=== PATIENT | female | born 1970 | race Caucasian/White ===

== ENCOUNTER 2018-05-05 16:11 | Inpatient (IN) ==
[2018-05-05] MEDS ORDERED: IOPAMIDOL 100 ML BOTTLE IV ONE (16:12)
[2018-05-05] MEDS ORDERED: 0.9 % SODIUM CHLORIDE 1,000 ML IV ONE (16:17)
--- NOTE | 2018-05-05 16:21 | Emergency Department Note ---
Abdominal Pain HPI - General Chief Complaint: Abdominal Pain Stated Complaint: abdominal pain Time Seen by Provider: 05/05/18 16:18 Source: patient Mode of arrival: ambulatory Limitations: no limitations - History of Present Illness HPI Narrative: This patient has a very large hernia above the umbilicus that is incarcerated. She has had pain in this area since 7 AM she is now about 10 hours. She was planning to have surgery on this in June and also a tummy tuck since she is lost 220 pounds after bariatric surgery. She has had nausea and vomiting today and no passage of gas. - Related Data Home Medications Medication Instructions Recorded Confirmed Albuterol Sulfate [Ventolin] 1 puff INH Q4HP PRN 07/01/15 03/06/17 Atorvastatin [Lipitor] 20 mg PO HS 07/01/15 03/06/17 Diltiazem HCl [Diltiazem ER] 240 mg PO HS 07/01/15 03/06/17 Hydrocodone/APAP 7.5/325Mg [[place] 1 - 2 tab PO Q4HP PRN 07/01/15 03/06/17 7.5/325Mg] Levothyroxine [Synthroid] 100 mcg PO DAILY 07/01/15 03/06/17 Meloxicam [Mobic] 15 mg PO QDAY 07/01/15 03/06/17 Sertraline [Zoloft] 100 mg PO HS 07/01/15 03/06/17 Warfarin [Coumadin] 15 mg PO DAILY 07/01/15 03/06/17 oxyCODONE [OxyCONTIN] 10 mg PO Q6 PRN 07/01/15 03/06/17 clonazepam 1 mg tablet 1 mg PO QHS 03/06/17 03/06/17 Allergies Allergy/AdvReac Type Severity Reaction Status Date / Time naproxen [NAPROXEN] Allergy Unknown ANGIOEDEMA Verified 05/05/18 16:14 Review of Systems All systems ED: reviewed and negative except as stated. Abdominal Pain PMH - Past Medical History Medical history: Reports: arthritis, asthma, atrial fibrillation, COPD, DVT, migraine, thyroid disease, other (Psoriasis) Surgical history ED: Reports: bariatric surgery Psychiatric history: Reports: anxiety - Social History Smoking status: Current every day smoker Physical Exam Abdomen just above the umbilicus shows about a 4 cm hernia that is very tender and protruding by at least 4 cm as well. Cannot begin to push it back in due to pain. Limitations: no limitations General appearance: alert Eye: Present: normal appearance ENT: normal exam Neck: Present: normal inspection Chest: Present: normal inspection Respiratory: Present: normal lung sounds bilaterally Abdominal: Present: soft, tenderness, mass, hernia Neurological: Present: alert Psychiatric: Present: normal affect Skin: Present: warm, dry, intact Course Vital Signs Temperature 98.3 F 05/05/18 16:11 Pulse Rate 130 H 05/05/18 16:11 Respiratory Rate 20 05/05/18 16:11 Pulse Oximetry (%) 99 05/05/18 16:11 Temperature 98.3 F 05/05/18 16:11 Pulse Rate 114 H 05/05/18 17:25 Respiratory Rate 19 05/05/18 17:55 Blood Pressure 129/92 05/05/18 17:30 Pulse Oximetry (%) 91 05/05/18 17:25 Abdominal Pain - MDM Narrative Medical decision making narrative: This patient has an 8 cm umbilical hernia that is mesenteric fat no edema. She will be admitted to the hospital for Dr. Freeman. - Lab Data Lab results reviewed: Yes I reviewed the patient's lab results. Result diagrams: 05/05/18 16:15 05/05/18 16:15 Lab Results 05/05/18 05/05/18 Range/Units 16:15 16:15 WBC 8.5 (4.5-11.0) K/mcL RBC 4.97 (4.00-5.20) M/mcL Hgb 14.3 (12.0-15.0) g/dL Hct 43.2 (36.0-48.0) % MCV 86.9 (80.0-100.0) fL MCH 28.8 (26.0-34.0) pg MCHC 33.1 (31.0-36.0) g/dL RDW 22.6 H (11.5-14.5) % Plt Count 342 (140-440) K/mcL MPV 8.2 (7.4-10.4) fL Gran % 83.4 H (38.0-78.0) % Lymph % (Auto) 10.6 L (15.5-49.0) % [place] % (Auto) 5.4 (1.0-12.0) % Eos % (Auto) 0.3 (0.0-7.0) % Baso % (Auto) 0.3 (0.0-2.0) % Gran # 7.1 (1.8-8.0) K/mcL Lymph # (Auto) 0.9 L (1.5-4.8) K/mcL [place] # (Auto) 0.5 (0.1-0.9) K/mcL Eos # (Auto) 0 (0.0-0.7) K/mcL Baso # (Auto) 0 (0.0-0.3) K/mcL Sodium 137 (133-145) mmol/L Potassium 4.0 (3.3-5.1) mmol/L Chloride 97 (96-108) mmol/L Carbon Dioxide 28 (22-30) mmol/L Anion Gap 12.0 (8-16) BUN 8 (6-20) mg/dl Creatinine 0.7 (0.6-1.1) mg/dl GFR Calculation 103 Glucose 101 (70-105) mg/dL Calcium 9.6 (8.6-10.4) mg/dl Total Bilirubin 0.5 (0.0-1.0) mg/dL AST 16 (0-37) U/l ALT 10 (0-40) U/l Alkaline Phosphatase 89 (39-117) U/L Total Protein 7.3 (5.9-8.4) gm/dL Albumin 4.3 (3.2-5.2) gm/dL Globulin 3.0 (2.2-3.7) gm/dL Albumin/Globulin Ratio 1.4 (1.0-2.3) - Radiology Data Radiology results reviewed: Yes I reviewed the patient's radiology results. Disposition Pt seen by SWITCH COUPLER/PA only: No Clinical Impression: Incarcerated umbilical hernia Disposition: Xfer As Outpt/Obs ([facility]) Condition: Good Referrals: Beverly Nguyen ARNP [Primary Care Provider] - Time of Disposition: 18:45
[2018-05-05] MEDS ORDERED: ONDANSETRON 4 MG/2 ML VIAL IV ONE (16:23)
[2018-05-05] MEDS: HYDROmorphone 2 MG/ML VIAL IV PRN ×3 (16:30→20:47)
[2018-05-05 16:58] LABS: Basophils # (Auto) 0 K/mcL (0.0-0.3); Basophils % (Auto) 0.3 % (0.0-2.0); Eosinophils # (Auto) 0 K/mcL (0.0-0.7); Eosinophils % (Auto) 0.3 % (0.0-7.0); Granulocytes % (Auto) 83.4 % (38.0-78.0); Lymphocytes # (Auto) 0.9 K/mcL (1.5-4.8); Lymphocytes % (Auto) 10.6 % (15.5-49.0); Mean Cell Volume 86.9 fL (80.0-100.0); Mean Corpuscular HGB Conc 33.1 g/dL (31.0-36.0); Mean Corpuscular Hemoglobin 28.8 pg (26.0-34.0); Monocytes # (Auto) 0.5 K/mcL (0.1-0.9); Monocytes % (Auto) 5.4 % (1.0-12.0); Platelet Count 342 K/mcL (140-440); RBC 4.97 M/mcL (4.00-5.20); Red Cell Distribution Width 22.6 % (11.5-14.5)
[2018-05-05 17:17] LABS: ALT/SGPT 10 U/l (0-40); Albumin 4.3 gm/dL (3.2-5.2); Albumin/Globulin Ratio 1.4 (1.0-2.3); Alkaline Phosphatase 89 U/L (39-117); Blood Urea Nitrogen 8 mg/dl (6-20)
--- NOTE | 2018-05-05 18:38 | Cat Scan Report ---
CLINICAL INFORMATION: Incarcerated umbilical hernia COMPARISON: 04/01/[address] TECHNIQUE: Following enteric contrast, 80 cc of Isovue-300 were injected intravenously, and 60 seconds later, 0.625 mm helical slices were obtained from the mid heart through the subtrochanteric regions. Following reconstruction, 2.5 mm sagittal, coronal and axial reformatted images were processed and reviewed at bone, lung and soft tissue windows. Five minutes later, 0.625 mm helical slices were obtained from the mid heart through the kidneys and viewed at soft tissue windows.The exam was performed using radiation dose optimization techniques including, but not limited to, automated exposure control, adjustment of the mA and/or kV according to patient size and use of iterative reconstruction technique. FINDINGS: Lung bases show minimal scattered scarring or atelectasis. No marcel infiltrate or effusion. Visualized heart is borderline enlarged. A small hiatal hernia is noted. There are surgical clips along the hernia sac and the proximal gastric wall. Images of the abdomen show multiple stones packing the gallbladder - as previously seen. Gallbladder is otherwise normal no wall thickening is cholecystitis. Intrahepatic and common bile ducts are normal caliber CBD is 5 mm. The liver, both kidneys, adrenal glands, spleen, pancreas and aorta are normal in size configuration and attenuation without focal lesion. Images through the pelvis show moderately enlarged, anteflexed uterus spanning 10 x 5 cm. Endometrium is 14 mm. Urinary bladder is unremarkable. Region of both ovaries is normal. There are multiple sigmoid diverticuli, but no evidence of diverticulitis. The remainder of the colon, appendix and small bowel are normal. A large periumbilical hernia is increased in size now spanning 8.3 cm. The hernia contains a moderate amount of fluid which could indicate incarceration/strangulation. There is no bowel within the hernia sac. Bone windows show degenerative change in lower lumbar spine IMPRESSION: 1. Enlarging 8 cm periumbilical hernia containing only mesenteric fat and moderate fluid. This could indicate inflammation or ischemia. 2. Cholelithiasis. Gallbladder and bile ducts are otherwise normal 3. Small hiatal hernia 4. Moderate uterine enlargement. The most common cause of this finding would be adenomyosis. Endometrium is normal thickness for a menstruating woman. If the patient is postmenopausal, then the endometrium should be considered pathologically thickened. Consider pelvic ultrasound. 5. Sigmoid diverticulosis but no evidence of diverticulitis Interpreted and Authenticated by: Angus Evans 05/05/18
[2018-05-05] MEDS ORDERED: LACTATED RINGERS 1,000 ML IV ONE (18:41)
[2018-05-05] MEDS ORDERED: ONDANSETRON 4 MG/2 ML VIAL IV PRN (18:45)
[2018-05-05 19:14] LABS: Appearance,Urine HAZY; Bacteria,Urine 0 /hpf (0); Bilirubin,Urine NEG (NEG); Color,Urine YELLOW; Glucose,Urine (UA) NEGATIVE (NEG); Leukocyte Esterase,Urine NEG /uL (NEG); Protein,Urine 100 mg/dL (NEG); Specific Gravity,Urine 1.023 (1.000-1.035); Urine Blood NEG mg/dL (<0.03); Urine RBC < 1 /hpf (0-1); Urine Squamous Epithelial Cell 0 /hpf (0-4); Urine WBC 0 /hpf (0-4)
[2018-05-05] MEDS ORDERED: LEVOFLOXACIN 750 MG/150 ML BAG IV ONE (20:58)
[2018-05-05] MEDS: 0.9 % SODIUM CHLORIDE 1,000 ML IV SCH (21:01)
[2018-05-05] MEDS: DILTIAZEM 240 MG CAP.XL.24H PO SCH (22:18)
[2018-05-05] MEDS: PANTOPRAZOLE 40 MG VIAL IV SCH (22:18)
[2018-05-05] MEDS: SERTRALINE 100 MG TABLET PO SCH (22:18)
[2018-05-05] MEDS: clonazePAM 1 MG TABLET PO SCH (22:18)
[2018-05-06] MEDS: HYDROmorphone 2 MG/ML VIAL IV PRN ×6 (04:21→22:11)
[2018-05-06] MEDS: 0.9 % SODIUM CHLORIDE 1,000 ML IV SCH ×3 (04:27→17:44)
[2018-05-06 06:10] LABS: HCG,Serum NEGATIVE <10 (<10 mIU/ml)
[2018-05-06] MEDS: DILTIAZEM 240 MG CAP.XL.24H PO SCH ×2 (09:04→22:13)
[2018-05-06] MEDS ORDERED: 0.9 % SODIUM CHLORIDE 250 ML IV SCH (10:00)
[2018-05-06] MEDS: PHYTONADIONE 10 MG/ML AMPUL SQ SCH ×2 (10:24→22:14)
--- NOTE | 2018-05-06 12:26 | General Surg History&Physical ---
History of Present Illness Patient information: Note initiated : 05/06/18 at 12:24 pm Service Date, if different from initiated Date: [] Patient: Estela Man 47 y/o F admitted on 05/05/18 for Open Incarcerated Incisional Hernia Repair. Chief Complaint: [47-year-old female with history of umbilical hernia for about 6 years. It has enlarged more over the past year. The patient awakened yesterday with a firm mass in her umbilical area. She was having severe pain and was seen in the emergency room where was noted that she had an incarcerated mass at the level of the umbilicus. CT of abdomen confirmed that the mass was incarcerated omentum without evidence of visceral involvement. The patient was also noted to have extensive cholelithiasis with gallbladder packed with stones. She is status post gastric sleeve surgery in 2014 and she has lost 220 pounds. The patient is on Coumadin chronically for chronic atrial fibrillation. Her PT is 20 seconds with an INR of 1.8. She will need to have urgent surgery but we will need to correct her INR prior to the surgery. She is counseled for laparoscopic cholecystectomy followed by partial omentectomy with open umbilical hernia repair with mesh.] HPI: Ms. Man is a 47 year old F Review of Systems - Constitutional headache(s), night sweats, weight loss - EENT Nose, mouth and throat: neck pain, vertigo - Breasts no mass, no swelling - Cardiovascular dyspnea on exertion, irregular heart rhythm, palpatations, rapid heart rate - Respiratory cough, dyspnea on exertion, snoring - Gastrointestinal abdominal pain, cramping, heartburn, nausea, no vomiting - Genitourinary Genitourinary: post void dribbling, urinary incontinence, urinary urgency - Musculoskeletal back pain, neck pain - Integumentary other (chronic abdominal panniculitis), no new lesions, no non-healing lesions, no pruritus - Neurological headache(s), no confusion, no dizziness, no loss of vision, no tremor(s) - Psychiatric change in appetite, no anxiety, no depression - Endocrine palpitations, no fatigue - Hematologic/Lymphatic no easy bleeding, no easy bruising, no lymphadenopathy - Allergic/Immunologic no tongue swelling, no throat swelling, no uticaria, no wheezing, no lip swelling Past History Past medical history: Chronic obstructive lung disease Anxiety disorder Chronic atrial fibrillation Chronic Coumadin therapy Chronic panniculitis Degenerative disc disease Past surgical history: Gastric sleeve surgery with revision Past family history: Father 57 due to complications of hepatitis C Mother age 40 due to drug overdose 4 siblings without chronic medical illness Past social history: Single 1 child There is a smoker up to 1 pack per day Occasional whiskey use Employed Medications and Allergies Home Medications Medication Instructions Recorded Confirmed Type Albuterol Sulfate [Ventolin] 1 puff INH Q4HP PRN 07/01/15 05/05/18 History Diltiazem HCl [Diltiazem ER] 240 mg PO HS 07/01/15 05/05/18 History Hydrocodone/APAP 7.5/325Mg [[place] 1 - 2 tab PO Q4HP PRN 07/01/15 05/05/18 History 7.5/325Mg] Levothyroxine [Synthroid] 100 mcg PO DAILY 07/01/15 05/05/18 History Meloxicam [Mobic] 15 mg PO QDAY 07/01/15 05/05/18 History Sertraline [Zoloft] 100 mg PO HS 07/01/15 05/05/18 History Warfarin [Coumadin] 15 mg PO DAILY 07/01/15 05/05/18 History oxyCODONE [OxyCONTIN] 10 mg PO Q6 PRN 07/01/15 05/05/18 History clonazepam 1 mg tablet 1 mg PO QHS 03/06/17 05/05/18 History Omeprazole [Prilosec] 20 mg PO ONCE 05/05/18 05/05/18 History Allergies Allergy/AdvReac Type Severity Reaction Status Date / Time naproxen [NAPROXEN] Allergy Severe ANGIOEDEMA Verified 05/05/18 20:16 Exam Temp Pulse Resp BP Pulse Ox 98.5 F 106 H 16 145/79 95 05/06/18 11:05 05/06/18 04:10 05/06/18 11:05 05/06/18 11:05 05/06/18 11:05 - General physical appearance well developed, well nourished, moderate distress, moderate pain, other ( overweight but with evidence of major weight loss with redundant skin) - Eyes PERRL, normal ocular movement - ENT normal pinna, normal nares, normal mucosa, no hearing loss, no congestion - Head Head exam IM: Present: atraumatic, normocephalic - Neck no masses, no bruits, trachea midline, no lymphadenopathy, no venous distension - Cardiovascular Cardiovascular exam IM: Present: irregular rhythm, +S1, +S2. Absent: JVD - Respiratory normal expansion, normal respiratory effort, clear to auscultation - Abdomen Abdomen: Present: soft, tender (tender subcutaneous mass at umbilicus without erythema or induration of overlying skin), bowel sounds (active bowel sounds without borborygmi), masses Hernia: Present: umbilical (large incarcerated umbilical hernia) - Genitourinary Present: normal external genitalia - Integumentary Present: no rash, no growths, no abnormal pigmentation - Neurologic Present: normal coordination, normal sensation - Musculoskeletal Present: normal gait, normal posture - Psychiatric Present: oriented to time, oriented to person, oriented to place, speech is normal, memory intact Assessment and Plan (1) Incarcerated umbilical hernia Counseled for umbilical hernia repair tomorrow after correction of pro time and INR Status: Acute (2) Cholelithiasis and cholecystitis without obstruction Counseled for laparoscopic cholecystectomy to be done tomorrow after correction of pro time and INR Status: Acute (3) Anticoagulant long-term use Discontinue warfarin Vitamin K 10 mg subcutaneous Fresh frozen plasma 2 units now Check PT INR in the a.m. Status: Acute (4) Anxiety disorder Continue home medications postoperatively Status: Acute Qualifiers: Anxiety disorder type: generalized anxiety disorder Qualified Code(s): F41.1 - Generalized anxiety disorder (5) Chronic atrial fibrillation Status: Chronic
[2018-05-06] MEDS ORDERED: ALBUTEROL SULFATE 1 PUFF INHALER INH PRN (16:39)
[2018-05-06] MEDS: LEVOFLOXACIN 750 MG/150 ML BAG IV SCH (17:12)
--- NOTE | 2018-05-06 19:24 | XRay Report ---
HISTORY: Preop to repair of an incisional hernia FINDINGS: The heart is moderately enlarged. The pulmonary outflow tract is engorged. There is mild pulmonary vascular congestion. The cardiomegaly is unchanged from 2014. Pulmonary edema was present on the prior exam. No pleural effusion or consolidating infiltrate are present. There is also no evidence of a mass. IMPRESSION: Chronic cardiomegaly with mild pulmonary vascular congestion Interpreted and Authenticated by: Sourav Gimenez 05/06/18
[2018-05-06] MEDS ORDERED: DILTIAZEM HCL 240 MG PO SCH (21:00)
[2018-05-06] MEDS ORDERED: clonazePAM 1 MG TABLET PO SCH (21:00)
[2018-05-06] MEDS ORDERED: SERTRALINE 100 MG TABLET PO SCH (21:00)
[2018-05-06] MEDS: PANTOPRAZOLE 40 MG VIAL IV SCH (22:13)
[2018-05-06] MEDS: clonazePAM 1 MG TABLET PO SCH (22:14)
[2018-05-06] MEDS: SERTRALINE 100 MG TABLET PO SCH (22:14)
[2018-05-07] MEDS: 0.9 % SODIUM CHLORIDE 1,000 ML IV SCH ×4 (00:20→21:01)
[2018-05-07] MEDS: HYDROmorphone 2 MG/ML VIAL IV PRN ×6 (00:29→21:15)
[2018-05-07] MEDS ORDERED: LEVOTHYROXINE 100 MCG TABLET PO SCH (07:30)
[2018-05-07] MEDS: LEVOFLOXACIN 750 MG/150 ML BAG IV SCH (09:34)
[2018-05-07] MEDS: DILTIAZEM 240 MG CAP.XL.24H PO SCH ×2 (11:17→22:40)
[2018-05-07] MEDS ORDERED: fentaNYL 250 MCG/5 ML VIAL IV ONE (14:35)
[2018-05-07] MEDS ORDERED: LIDOCAINE HCL/PF 100 MG/5 ML SYRINGE IV ONE (14:35)
[2018-05-07] MEDS ORDERED: KETAMINE 100 MG/ML ML IV ONE (14:35)
[2018-05-07] MEDS ORDERED: MIDAZOLAM 2 MG/2 ML VIAL IV ONE (14:35)
[2018-05-07] MEDS ORDERED: PROPOFOL 200 MG/20 ML VIAL IV ONE (14:35)
[2018-05-07] MEDS ORDERED: SUCCINYLCHOLINE 20 MG/ML ML IV ONE (14:35)
[2018-05-07] MEDS ORDERED: ROCURONIUM 10 MG/ML ML IV ONE (14:35)
[2018-05-07] MEDS ORDERED: ONDANSETRON 4 MG/2 ML VIAL IV ONE (14:35)
[2018-05-07] MEDS ORDERED: ePHEDrine 50 MG/ML AMPUL IV ONE (14:35)
[2018-05-07] MEDS ORDERED: DEXAMETHASONE 10 MG/ML VIAL IV ONE (14:35)
[2018-05-07] MEDS ORDERED: NALOXONE HCL 0.4 MG/ML VIAL IV PRN (15:55)
[2018-05-07] MEDS ORDERED: PROMETHAZINE 25 MG/ML VIAL IM PRN (15:55)
[2018-05-07] MEDS ORDERED: FLUMAZENIL 0.1 MG/ML ML IV PRN (15:55)
[2018-05-07] MEDS ORDERED: IPRATROPIUM/ALBUTEROL 3 ML AMPUL.NEB NEB PRN (15:55)
[2018-05-07] MEDS ORDERED: diphenhydrAMINE 50 MG/ML VIAL IV PRN (15:55)
[2018-05-07] MEDS ORDERED: MEPERIDINE 50 MG/ML INJECTION IM PRN (15:55)
[2018-05-07] MEDS ORDERED: METHOCARBAMOL 1,000 MG/10 ML VIAL IV PRN (15:55)
[2018-05-07] MEDS ORDERED: METOPROLOL TARTRATE 5 MG/5 ML VIAL IV PRN (15:55)
[2018-05-07] MEDS ORDERED: MEPERIDINE 25 MG/ML SYRINGE IV PRN (15:55)
[2018-05-07] MEDS ORDERED: ATROPINE SULFATE 0.4 MG/ML VIAL IV PRN (15:55)
[2018-05-07] MEDS ORDERED: ONDANSETRON 4 MG/2 ML VIAL IV PRN ×2 (15:55→17:44)
[2018-05-07] MEDS ORDERED: PROMETHAZINE 25 MG/ML VIAL IV PRN (15:55)
[2018-05-07] MEDS ORDERED: HYDROmorphone 2 MG/ML VIAL IV PRN (15:55)
[2018-05-07] MEDS ORDERED: ACETAMINOPHEN 1,000 MG/100 ML BOTTLE IV ONE (15:55)
[2018-05-07] MEDS ORDERED: ePHEDrine 50 MG/ML AMPUL IV PRN (15:55)
[2018-05-07] MEDS ORDERED: LACTATED RINGERS 1,000 ML IV SCH (16:00)
[2018-05-07] MEDS ORDERED: BACITRACIN 50,000 UNIT VIAL IR ONE (16:20)
--- NOTE | 2018-05-07 17:23 | Brief Operative Note ---
Date of procedure: 05/07/18 Pre-op diagnosis: chronic cholecystitis with cholelithiasis;; incarcerated incisional hernia Post-op diagnosis: same Procedure: laparoscopic cholecystectomy incisional hernia repair with mesh graft partial omentectomy Grafts/Implants: Yes (surgimesh) Anesthesia: GETA Findings: ACUTE AND CHRONIC INFLAMMATION OF GALLBLADDER WITH NUMEROUS STONES UMBILICAL HERNIA WITH STRANGULATED OMENTUM Complications: none Surgeon: Quirino Freeman Estimated blood loss (cc): 50 Specimens Removed/Pathology: other (GALLBLADDER;OMENTUM) Condition: stable Disposition: PACU
[2018-05-07] MEDS: fentaNYL 100 MCG/2 ML VIAL IV PRN ×2 (17:37→17:48)
[2018-05-07] MEDS ORDERED: ALBUTEROL SULFATE 1 PUFF INHALER INH PRN (17:44)
[2018-05-07] MEDS ORDERED: DILTIAZEM 240 MG CAP.XL.24H PO SCH (21:00)
[2018-05-07] MEDS: PANTOPRAZOLE 40 MG VIAL IV SCH (22:39)
[2018-05-07] MEDS: SERTRALINE 100 MG TABLET PO SCH (22:39)
[2018-05-07] MEDS: clonazePAM 1 MG TABLET PO SCH (22:40)
[2018-05-07] MEDS: ACETAMINOPHEN 1,000 MG/100 ML BOTTLE IV PRN (22:41)
[2018-05-08] MEDS: HYDROmorphone 2 MG/ML VIAL IV PRN ×7 (00:14→20:53)
[2018-05-08] MEDS: ACETAMINOPHEN 1,000 MG/100 ML BOTTLE IV PRN ×2 (05:25→12:49)
[2018-05-08 06:42] LABS: ALT/SGPT 20 U/l (0-40); Albumin 3.3 gm/dL (3.2-5.2); Albumin/Globulin Ratio 1.2 (1.0-2.3); Alkaline Phosphatase 64 U/L (39-117); Bilirubin,Direct < 0.2 mg/dL (0.0-0.3); Blood Urea Nitrogen 5 mg/dl (6-20); Gamma Glutamyl Transpeptidase 27 U/L (5-36); Uric Acid 2.2 mg/dL (2.5-8.0)
[2018-05-08 06:47] LABS: Basophils # (Auto) 0 K/mcL (0.0-0.3); Basophils % (Auto) 0 % (0.0-2.0); Eosinophils # (Auto) 0 K/mcL (0.0-0.7); Eosinophils % (Auto) 0 % (0.0-7.0); Granulocytes % (Auto) 92.3 % (38.0-78.0); Lymphocytes # (Auto) 0.3 K/mcL (1.5-4.8); Mean Cell Volume 88.8 fL (80.0-100.0); Mean Corpuscular HGB Conc 32.7 g/dL (31.0-36.0); Mean Corpuscular Hemoglobin 29.1 pg (26.0-34.0); Monocytes # (Auto) 0.4 K/mcL (0.1-0.9); Monocytes % (Auto) 4.7 % (1.0-12.0); Platelet Count 219 K/mcL (140-440); RBC 3.71 M/mcL (4.00-5.20); Red Cell Distribution Width 20.7 % (11.5-14.5)
[2018-05-08] MEDS: LEVOTHYROXINE 100 MCG TABLET PO SCH (08:13)
[2018-05-08] MEDS: LEVOFLOXACIN 750 MG/150 ML BAG IV SCH (08:13)
[2018-05-08] MEDS: 0.9 % SODIUM CHLORIDE 1,000 ML IV SCH (12:43)
--- NOTE | 2018-05-08 14:10 | General Surgery Progress Note ---
Subjective Patient reports: feels better, still having pain, pain is less, tolerating liquids well, flatus, no bowel movement, afebrile Narrative: Note initiated : 05/08/18 at 2:08 pm Service Date, if different from initiated Date: [] Patient: Estela Man 47 y/o F admitted on 05/05/18 for Laparoscopic cholecystectomy with umbilical hernia. Chief Complaint: [patient is stable. She complains of diffuse pain in her abdomen and her joints. She states that the pain medication is not effective but she is getting Dilaudid 1 mg every 2 hours. She's had flatus and she tolerated her full liquids without difficulty. She is voiding without difficulty. She denies nausea or vomiting.] Objective Temp Pulse Resp BP Pulse Ox 98.6 F 87 18 106/63 98 05/08/18 12:00 05/08/18 12:00 05/08/18 12:00 05/08/18 12:00 05/08/18 12:00 - Additional Data Intake & Output - Last 24 hours: Intake & Output 05/06/18 05/07/18 05/08/18 05/09/18 05:59 05:59 05:59 05:59 Intake Total 3200 / 3200 3091 / 3091 4960 / 4960 1250 / 1250 Output Total 525 / 525 1950 / 1950 900 / 900 500 / 500 Balance 2675 / 2675 1141 / 1141 4060 / 4060 750 / 750 Weight 190 lb 8 oz 190 lb 192 lb - General physical appearance well developed, well nourished, no distress, moderate pain - Eyes PERRL, normal ocular movement - ENT normal pinna, normal nares, normal mucosa, no hearing loss, no congestion - Neck no masses, no bruits, trachea midline, no lymphadenopathy, no venous distension - Respiratory normal expansion, normal respiratory effort, clear to auscultation - Cardiovascular Cardiovascular exam: Present: irregular rhythm, +S1, +S2. Absent: JVD, tachycardia - Abdomen tender (diffuse tenderness of abdomen more concentrated around the incisions;; active bowel sounds; mild bruising around port sites and upper abdomen) - Integumentary no rash, no growths, no abnormal pigmentation - Neurologic normal coordination, normal sensation - Musculoskeletal normal gait, normal posture - Psychiatric oriented to time, oriented to person, oriented to place, speech is normal, memory intact - Labs 05/08/18 04:54 05/08/18 04:54 Diabetes panel 05/08/18 Range/Units 04:54 Sodium 136 (133-145) mmol/L Potassium 3.8 (3.3-5.1) mmol/L Chloride 100 (96-108) mmol/L Carbon Dioxide 28 (22-30) mmol/L BUN 5 L (6-20) mg/dl Creatinine 0.5 L (0.6-1.1) mg/dl Glucose 147 H (70-105) mg/dL Calcium 8.7 (8.6-10.4) mg/dl AST 42 H (0-37) U/l ALT 20 (0-40) U/l Alkaline Phosphatase 64 (39-117) U/L Total Protein 6.0 (5.9-8.4) gm/dL Albumin 3.3 (3.2-5.2) gm/dL Triglycerides 46 (<150) mg/dl Calcium panel 05/08/18 Range/Units 04:54 Calcium 8.7 (8.6-10.4) mg/dl Phosphorus 3.7 (2.7-4.5) mg/dL Albumin 3.3 (3.2-5.2) gm/dL Pituitary panel 05/08/18 Range/Units 04:54 Sodium 136 (133-145) mmol/L Potassium 3.8 (3.3-5.1) mmol/L Chloride 100 (96-108) mmol/L Carbon Dioxide 28 (22-30) mmol/L BUN 5 L (6-20) mg/dl Creatinine 0.5 L (0.6-1.1) mg/dl Glucose 147 H (70-105) mg/dL Calcium 8.7 (8.6-10.4) mg/dl Adrenal panel 05/08/18 Range/Units 04:54 Sodium 136 (133-145) mmol/L Potassium 3.8 (3.3-5.1) mmol/L Chloride 100 (96-108) mmol/L Carbon Dioxide 28 (22-30) mmol/L BUN 5 L (6-20) mg/dl Creatinine 0.5 L (0.6-1.1) mg/dl Glucose 147 H (70-105) mg/dL Calcium 8.7 (8.6-10.4) mg/dl Total Bilirubin 0.7 (0.0-1.0) mg/dL AST 42 H (0-37) U/l ALT 20 (0-40) U/l Alkaline Phosphatase 64 (39-117) U/L Total Protein 6.0 (5.9-8.4) gm/dL Albumin 3.3 (3.2-5.2) gm/dL Assessment and Plan (1) Incarcerated umbilical hernia Status: Acute Assessment and plan: Advanced to regular diet Saline lock IV Current Visit: Yes (2) Cholelithiasis and cholecystitis without obstruction Status: Acute Current Visit: Yes (3) Anticoagulant long-term use Status: Acute Assessment and plan: Will hold for 2 more days Current Visit: Yes (4) Anxiety disorder Status: Acute Current Visit: Yes (5) Chronic atrial fibrillation Status: Chronic Assessment and plan: Stable without tachycardia Current Visit: Yes - Time Spent With Patient Total time spent is greater than 50% in coordination of care (as documented) at patient's floor/unit and/or counseling patient:
[2018-05-08] MEDS ORDERED: MAGNESIUM SULFATE IN WATER 4 GM/100 ML BAG IV ONE (17:00)
[2018-05-08] MEDS: DILTIAZEM 240 MG CAP.XL.24H PO SCH (20:52)
[2018-05-08] MEDS: clonazePAM 1 MG TABLET PO SCH (20:52)
[2018-05-08] MEDS: SERTRALINE 100 MG TABLET PO SCH (20:53)
[2018-05-08] MEDS: PANTOPRAZOLE 40 MG VIAL IV SCH (20:53)
[2018-05-08] MEDS: 0.9 % SODIUM CHLORIDE 10 ML SYRINGE IV SCH (20:53)
[2018-05-09] MEDS: ACETAMINOPHEN 1,000 MG/100 ML BOTTLE IV PRN (00:16)
[2018-05-09] MEDS: HYDROmorphone 2 MG/ML VIAL IV PRN ×3 (00:50→07:21)
[2018-05-09] MEDS: 0.9 % SODIUM CHLORIDE 10 ML SYRINGE IV SCH ×2 (05:00→16:32)
[2018-05-09 06:02] LABS: Basophils # (Auto) 0 K/mcL (0.0-0.3); Basophils % (Auto) 0.1 % (0.0-2.0); Eosinophils # (Auto) 0 K/mcL (0.0-0.7); Eosinophils % (Auto) 0.2 % (0.0-7.0); Granulocytes % (Auto) 79.1 % (38.0-78.0); Lymphocytes % (Auto) 12.7 % (15.5-49.0); Mean Cell Volume 89.4 fL (80.0-100.0); Mean Corpuscular HGB Conc 32.3 g/dL (31.0-36.0); Mean Corpuscular Hemoglobin 28.8 pg (26.0-34.0); Monocytes # (Auto) 0.6 K/mcL (0.1-0.9); Monocytes % (Auto) 7.9 % (1.0-12.0); Platelet Count 206 K/mcL (140-440); RBC 3.31 M/mcL (4.00-5.20); Red Cell Distribution Width 21.1 % (11.5-14.5)
[2018-05-09 06:19] LABS: ALT/SGPT 17 U/l (0-40); Albumin/Globulin Ratio 1.2 (1.0-2.3); Alkaline Phosphatase 58 U/L (39-117); Bilirubin,Direct < 0.2 mg/dL (0.0-0.3); Blood Urea Nitrogen 8 mg/dl (6-20); Gamma Glutamyl Transpeptidase 23 U/L (5-36); Uric Acid 1.9 mg/dL (2.5-8.0)
[2018-05-09] MEDS: LEVOTHYROXINE 100 MCG TABLET PO SCH (07:09)
[2018-05-09] MEDS ORDERED: MAGNESIUM HYDROXIDE 30 ML ORAL.SUSP PO PRN (08:54)
[2018-05-09] MEDS ORDERED: POTASSIUM PHOSPHATE 40 MEQ in DEXTROSE 5% IN WATER 500 ML IV ONE (09:00)
[2018-05-09] MEDS: LEVOFLOXACIN 750 MG/150 ML BAG IV SCH (10:53)
[2018-05-09] MEDS: oxyCODONE/APAP 10/325MG TABLET PO PRN ×2 (11:00→12:23)
--- NOTE | 2018-05-09 12:17 | General Surgery Progress Note ---
Subjective Patient reports: feels better, still having pain, pain is less, tolerating a regular diet, flatus, no bowel movement, afebrile Narrative: Note initiated : 05/09/18 at 12:15 pm Service Date, if different from initiated Date: [] Patient: Estela Man 47 y/o F admitted on 05/05/18 for Laparoscopic cholecystectomy with umbilical hernia. Chief Complaint: [patient is improved. Her incisional pain is better tolerated. She is tolerating diet without difficulty. She does not have any nausea.. Her incisions are unremarkable.] Objective Temp Pulse Resp BP Pulse Ox 96.5 F L 72 14 128/59 96 05/09/18 07:49 05/09/18 07:49 05/09/18 07:49 05/09/18 07:49 05/09/18 07:49 - Additional Data Intake & Output - Last 24 hours: Intake & Output 05/07/18 05/08/18 05/09/18 05/10/18 05:59 05:59 05:59 05:59 Intake Total 3091 / 3091 4960 / 4960 3090 / 3090 Output Total 1950 / 1950 900 / 900 1300 / 1300 150 / 150 Balance 1141 / 1141 4060 / 4060 1790 / 1790 -150 / -150 Weight 190 lb 192 lb 192 lb - General physical appearance well developed, well nourished, no distress - Eyes PERRL, normal ocular movement - ENT normal pinna, normal nares, normal mucosa, no hearing loss, no congestion - Neck no masses, no bruits, trachea midline, no lymphadenopathy, no venous distension - Respiratory normal expansion, normal respiratory effort, clear to auscultation - Cardiovascular Cardiovascular exam: Present: irregular rhythm, +S1, +S2. Absent: tachycardia - Abdomen tender (ttender incision but otherwise unremarkable exam; good active bowel sounds), bowel sounds (present), surgical scars (none), masses (none) - Integumentary no rash, no growths, no abnormal pigmentation - Neurologic normal coordination, normal sensation - Musculoskeletal normal gait, normal posture - Psychiatric oriented to time, oriented to person, oriented to place, speech is normal, memory intact - Labs 05/09/18 04:58 05/09/18 04:58 Diabetes panel 05/09/18 Range/Units 04:58 Sodium 139 (133-145) mmol/L Potassium 3.4 (3.3-5.1) mmol/L Chloride 101 (96-108) mmol/L Carbon Dioxide 31 H (22-30) mmol/L BUN 8 (6-20) mg/dl Creatinine 0.5 L (0.6-1.1) mg/dl Glucose 102 (70-105) mg/dL Calcium 8.1 L (8.6-10.4) mg/dl AST 24 (0-37) U/l ALT 17 (0-40) U/l Alkaline Phosphatase 58 (39-117) U/L Total Protein 5.5 L (5.9-8.4) gm/dL Albumin 3.0 L (3.2-5.2) gm/dL Triglycerides 63 (<150) mg/dl Calcium panel 05/09/18 Range/Units 04:58 Calcium 8.1 L (8.6-10.4) mg/dl Phosphorus 2.3 L (2.7-4.5) mg/dL Albumin 3.0 L (3.2-5.2) gm/dL Pituitary panel 05/09/18 Range/Units 04:58 Sodium 139 (133-145) mmol/L Potassium 3.4 (3.3-5.1) mmol/L Chloride 101 (96-108) mmol/L Carbon Dioxide 31 H (22-30) mmol/L BUN 8 (6-20) mg/dl Creatinine 0.5 L (0.6-1.1) mg/dl Glucose 102 (70-105) mg/dL Calcium 8.1 L (8.6-10.4) mg/dl Adrenal panel 05/09/18 Range/Units 04:58 Sodium 139 (133-145) mmol/L Potassium 3.4 (3.3-5.1) mmol/L Chloride 101 (96-108) mmol/L Carbon Dioxide 31 H (22-30) mmol/L BUN 8 (6-20) mg/dl Creatinine 0.5 L (0.6-1.1) mg/dl Glucose 102 (70-105) mg/dL Calcium 8.1 L (8.6-10.4) mg/dl Total Bilirubin 0.2 (0.0-1.0) mg/dL AST 24 (0-37) U/l ALT 17 (0-40) U/l Alkaline Phosphatase 58 (39-117) U/L Total Protein 5.5 L (5.9-8.4) gm/dL Albumin 3.0 L (3.2-5.2) gm/dL Assessment and Plan (1) Incarcerated umbilical hernia Status: Acute Assessment and plan: Stable for discharge Current Visit: Yes (2) Cholelithiasis and cholecystitis without obstruction Status: Acute Current Visit: Yes (3) Anticoagulant long-term use Status: Acute Assessment and plan: Advised Coumadin for 1 more week Current Visit: Yes (4) Anxiety disorder Status: Acute Current Visit: Yes (5) Chronic atrial fibrillation Status: Chronic Assessment and plan: Stable without tachycardia Current Visit: Yes - Time Spent With Patient Total time spent is greater than 50% in coordination of care (as documented) at patient's floor/unit and/or counseling patient:
--- NOTE | 2018-05-09 12:23 | Discharge Summary ---
Providers - Providers Patient information: Note initiated : 05/09/18 at 12:18 pm Service Date, if different from initiated Date: [] Patient: Estela Man 47 y/o F admitted on 05/05/18 for Laparoscopic cholecystectomy with umbilical hernia. Chief Complaint: [] Date of admission: 05/05/18 Discharge date: 05/09/18 Attending physician: Quirino Freeman Hospitalization Hospital course: 47-year-old female was admitted with an incarcerated umbilical hernia which contained omental fat. She had been on Coumadin 15 mg per day so her surgery was delayed. She received 2 units of fresh frozen plasma and 10 mg of vitamin K subcutaneous. Follow-up PT/INR was susceptible and on 07 May a laparoscopic cholecystectomy was done along with partial omentectomy and repair of ventral hernia with mesh. Patient has remained stable except for pain and it is felt that she can be safely discharged home. Since she has a controlled rhythm and rate her Coumadin will be held for 7 more days because of the high potential for bleeding. After 7 days it can be restarted at her preoperative dose Discharge diagnosis: incarcerated, strangulated umbilical hernia Secondary discharge diagnosis: Cholelithiasis with cholecystitis Chronic anticoagulant therapy Chronic atrial fibrillation Reason for admission: incarcerated umbilical hernia Procedures: Umbilical hernia repair with mesh Partial omentectomy Laparoscopic cholecystectomy Pertinent studies/significant findings: CT of abdomen and pelvis with contrast Complications: None Exam Temp Pulse Resp BP Pulse Ox 96.5 F L 72 14 128/59 96 05/09/18 07:49 05/09/18 07:49 05/09/18 07:49 05/09/18 07:49 05/09/18 07:49 - General physical appearance well developed, well nourished, no distress - Eyes PERRL, normal ocular movement - ENT normal pinna, normal nares, normal mucosa, no hearing loss, no congestion - Head Head exam IM: Present: atraumatic, normocephalic - Neck no masses, no bruits, trachea midline, no lymphadenopathy, no venous distension - Cardiovascular Cardiovascular exam IM: Present: normal rate and rhythm - Respiratory normal expansion, normal respiratory effort, clear to percussion, clear to auscultation - Abdomen Abdomen: Present: soft, tender (moderate tenderness of all incisions with ecchymosis of upper incisions and midline incision), bowel sounds Hernia: Present: none - Genitourinary Present: normal external genitalia - Integumentary Present: no rash, no growths, no abnormal pigmentation - Neurologic Present: normal coordination, normal sensation - Musculoskeletal Present: normal gait, normal posture - Psychiatric Present: oriented to time, oriented to person, oriented to place, speech is normal, memory intact Discharge Plan - Patient/Caregiver Discharge Instructions Activity: increase activity as tolerated Diet: Regular Diet Additional Instructions: Hold Coumadin for 7 more days then start at previous dose Follow-up in the office in 2 weeks Prescriptions: oxyCODONE/APAP [Percocet 10-325Mg] 1 - 2 tab PO Q4-6HP PRN #60 tab PRN Reason: Pain Level 3-6 - Follow up Plan Follow up with: Beverly Nguyen ARNP [Primary Care Provider] - Disposition: Home, Self-Care Prognosis: Good Rehab Potential: Good I certify that the patient requires SNF services.: No Overall status at discharge: patient is not back to baseline Pending Studies Resuscitation Status Full Code Diet Regular Diet Start SunMay 08 135 Clonazepam (Klonopin) 1 mg PO [facility] Last Admin: 05/08/18 20:52 Dose: 1 mg Admin: 05/07/18 22:40 Dose: Diltiazem HCl (Cardizem Cd) 240 mg PO [facility] Last Admin: 05/08/18 20:52 Dose: 240 mg Admin: 05/07/18 22:40 Dose: 240 mg Hydromorphone HCl (Dilaudid) 1 mg IV Q2HP PRN PRN Reason: PAIN LEVEL > 6 Last Admin: 05/09/18 07:21 Dose: 1 mg Admin: 05/09/18 03:17 Dose: 1 mg Admin: 05/09/18 00:50 Dose: 1 mg Admin: 05/08/18 20:53 Dose: 1 mg Admin: 05/08/18 18:30 Dose: 1 mg Admin: 05/08/18 16:09 Dose: 1 mg Admin: 05/08/18 11:58 Dose: 1 mg Admin: 05/08/18 08:29 Dose: 1 mg Admin: 05/08/18 03:15 Dose: 1 mg Admin: 05/08/18 00:14 Dose: 1 mg Admin: 05/07/18 21:15 Dose: 1 mg Levofloxacin (Levaquin) 750 mg in 150 mls @ 100 mls/hr IV DAILY [facility] [place] Last Admin: 05/09/18 10:53 Dose: 100 mls/hr Infusion: 05/08/18 12:44 Dose: 0 mls/hr Admin: 05/08/18 08:13 Dose: 100 mls/hr Acetaminophen (Ofirmev) 1,000 mg in 100 mls @ 200 mls/hr IV Q6HP PRN PRN Reason: Pain Last Infusion: 05/09/18 00:50 Dose: 0 mls/hr Admin: 05/09/18 00:16 Dose: 200 mls/hr Infusion: 05/08/18 16:02 Dose: 0 mls/hr Admin: 05/08/18 12:49 Dose: 200 mls/hr Infusion: 05/08/18 06:08 Dose: 0 mls/hr Admin: 05/08/18 05:25 Dose: 200 mls/hr Infusion: 05/07/18 23:15 Dose: 0 mls/hr Admin: 05/07/18 22:41 Dose: 200 mls/hr Levothyroxine Sodium (Synthroid) 100 mcg PO QAMAC [facility] Last Admin: 05/09/18 07:09 Dose: 100 mcg Admin: 05/08/18 08:13 Dose: 100 mcg Oxycodone/Acetaminophen (Percocet 10-325mg) 1 - 2 tab PO Q4-6HP PRN PRN Reason: PAIN LEVEL 3-6 Last Admin: 05/09/18 11:00 Dose: 1 tab Pantoprazole Sodium (Protonix) 40 mg IV QHS [facility] [place] Last Admin: 05/08/18 20:53 Dose: 40 mg Admin: 05/07/18 22:39 Dose: 40 mg Sertraline HCl (Zoloft) 100 mg PO HS [facility] Last Admin: 05/08/18 20:53 Dose: 100 mg Admin: 05/07/18 22:39 Dose: 100 mg Sodium Chloride (Saline Flush) 10 ml IV Q8 [facility] Last Admin: 05/09/18 05:00 Dose: 10 ml Admin: 05/08/18 20:53 Dose: 10 ml Shift Summary 05/09/18 05:12 Shift Summary by Jonelle Landon&Ox4. VSS. Up independently in room. Tolerating regular diet; denies nausea. 4 lap sites and 1 midline abdominal surgical site with edu and Tegaderm in place. Administered Ofirmev x1 and Dilaudid 1mg IV x3 for abdominal pain. Will update at bedside. Initialized on 05/09/18 05:12 - END OF NOTE
--- NOTE | 2018-05-09 14:16 | Surgical Pathology Report ---
HISTOLOGY SPECIMEN MICROSCOPIC DIAGNOSIS SPECIMEN A - GALLBLADDER, CHOLECYSTECTOMY: -- CHRONIC CHOLECYSTITIS. -- CHOLELITHIASIS. SPECIMEN B - SOFT TISSUE AND OMENTUM, OMENTECTOMY AND HERNIORRHAPHY: -- HERNIA SAC. -- OMENTUM WITH PARENCHYMAL HEMORRHAGE. (DMT:adj) PROCEDURAL IMPRESSION Cholecystitis; cholelithiasis; incarcerated hernia. GROSS DESCRIPTION Specimen A: Received in formalin labeled gallbladder, is a lora-wright gallbladder, it is 14.7 x 4.7 x 3.2 cm. There is a metal clip upon the duct. Wedged within the duct, there is a 0.9 cm stone. The specimen contains multiple stones from 0.4 to 0.9 cm. The specimen contains viscous green fluid. The mucosa is green, striated. The wall is up to 0.2 cm thick. Shaft Repairer sections are submitted in one cassette. Specimen B: Received in formalin labeled omentum, are two pieces of tissue. The first is a lora-wright membranous fragment, it is 8.5 x 5 x 1.2 cm. Cut surfaces are pink-wright. The second is a wright-brown segment of omentum, it is 21.1 x 11.5 x 2.2 cm. Cut surfaces are wright to wright-brown and a few areas of clot identified. Shaft Repairer sections are submitted in three cassettes: sections from first in B1 and the second in B2-B3. (SCB:fish) Electronically Signed by: Herson Pedersen M.D.
--- NOTE | 2018-05-14 15:20 | Operative Note ---
DATE OF OPERATION: 05/07/2018 PREOPERATIVE DIAGNOSES: 1. Chronic cholecystitis with cholelithiasis. 2. Incarcerated incisional hernia. POSTOPERATIVE DIAGNOSES: 1. Chronic cholecystitis with cholelithiasis. 2. Incarcerated incisional hernia with infarcted omentum. PROCEDURE: 1. Laparoscopic cholecystectomy. 2. Partial omentectomy. 3. Incisional hernia repair with mesh graft. SURGEON: Quirino Freeman M.D. FINDINGS: Acute and chronic inflammation of the gallbladder with numerous stones and umbilical hernia with strangulated omentum. DESCRIPTION OF PROCEDURE: Under general anesthesia, the patient's abdomen was prepped and draped in a sterile field. Timeout procedure was carried out as per protocol. A supraumbilical midline incision was made above the area of the swelling from the large umbilical hernia. A Veress needle was inserted and successful cannulation of the peritoneal cavity was carried out. Abdomen was insufflated with 3 liters of CO2. A 12 mm port was placed uneventfully. Laparoscope placed. Dilated, thickened gallbladder was noted. Under videoscopic guidance, a 12 mm port and two 5 mm ports were placed in the right subcostal region. The gallbladder was grasped in position. The patient was positioned in reverse Trendelenburg position and rotated to the left. Cystic duct and cystic artery branches were dissected and followed back to the gallbladder. Cystic duct was very thickened and indurated, so it was transected using the MOI endoscopic stapler. Cystic artery branches were clipped with four clips each and divided. The gallbladder was then from the infrahepatic bed using electrocautery. The gallbladder was placed in an Endopouch and retrieved. The patient tolerated the procedure well. Irrigation was carried out. There was no need for a drain. The ports were removed. After completion of the cholecystectomy, a midline incision was made encompassing the large mass in the midline at the umbilicus. A large hernia sac was encountered. It was very indurated, thickened, and edematous. The sac was circumferentially dissected and was then incised at its junction with the fascia. Some old blood escaped from the sac. It was removed in its entirety. There was a large volume of infarcted omentum. The infarcted omentum was serially clamped with Josette clamps and excised. The tissue was controlled with ties of 2-0 silk. The residual omentum was pushed back into the peritoneal cavity. Dissection of the peritoneum was carried out, and a 7 round skirted Surgimesh graft was chosen. It was sutured in the preperitoneal space using interrupted 0 Prolene circumferentially. The graft was then closed in the midline using interrupted 0 Prolene on the fascia. Irrigation was carried out. The umbilical skin was sutured down to the fascia using multiple sutures of 2-0 Monocryl. The subcutaneous tissue was closed in two layers with 2-0 Monocryl. The skin was closed with edu. Tegaderm dressing was placed. The incision in the supraumbilical midline was closed with interrupted 0 Vicryl. All skin incisions were closed with edu. Tegaderm dressings were placed. The patient tolerated the procedure well. She was awakened, transferred to a bed, and taken to the postanesthetic care unit in stable, satisfactory condition. [email or web address] Job ID: [id number] Doc ID: [id number] Quirino Freeman M.D.
== END 2018-05-09 15:45 | disposition home or self-care (01) | DRG 354 ==
LOC: ED 16:11 → MEDSUR 19:35
PROVIDERS: ADMIT Family Medicine Adult Medicine; ATTEND Family Medicine Adult Medicine
CPT/HCPCS: 49255; 49561; 49568; 99223; C1781; J0131; J0330; J1100; J1170; J1956; J2001; J2175; J2250; J2405; J2550; J3010; J3430; J7030; J7050; J7060; J7120; L1270; Q9967

== ENCOUNTER 2018-08-07 15:45 | Inpatient (IN) ==
[2018-08-07] MEDS ORDERED: 0.9 % SODIUM CHLORIDE 1,000 ML IV ONE ×2 (15:53→17:37)
[2018-08-07] MEDS ORDERED: ACETAMINOPHEN 500 MG TABLET PO ONE (15:56)
--- NOTE | 2018-08-07 15:58 | Emergency Department Note ---
SOB HPI - General Chief Complaint: Shortness of Breath/Dyspnea Stated Complaint: Weakness, SOB, Temp, A-Fib Time Seen by Provider: 08/07/18 15:51 Source: patient Mode of arrival: ambulatory Limitations: no limitations - History of Present Illness This pleasant 47-year-old comes emergency room with complaint of fever and right kidney area flank pain that began around this morning. She had a temperature of 103 this morning checked by an ear thermometer. She has felt achy for a couple of days but she attributed this to not taking her meloxicam. She is also felt short of breath this a.m. She has a nebulizer but has not used it for quite a while. She uses a Ventolin metered-dose inhaler chronically and regularly daily but has not taken her steroid inhalers. She denies dysuria. She feels spasm like pain in the right flank area and it is hard to take a deep breath. She has no history of kidney stone or kidney infections. She has felt cold with chills and since arriving here broke into a severe sweat. REVIEW OF SYSTEMS: Denies chest pain or palpitations but has chronic A. fib. Some cough. No wheezing. She has had a change in her chronic low-grade mild phlegm to more amount of phlegm in the past 1-2 days, grayish yellow in color. Denies abdominal pain, nausea, vomiting, diarrhea, constipation, hematochezia, melena. Has chronic anxiety for which she takes sertraline. Denies depression. - Related Data Home Medications Medication Instructions Recorded Confirmed Albuterol Sulfate [Ventolin] 1 puff INH Q4HP PRN 07/01/15 06/13/18 Diltiazem HCl [Diltiazem ER] 240 mg PO HS 07/01/15 06/13/18 Hydrocodone/APAP 7.5/325Mg [[place] 1 - 2 tab PO Q4HP PRN 07/01/15 06/13/18 7.5/325Mg] Levothyroxine [Synthroid] 100 mcg PO DAILY 07/01/15 06/13/18 Meloxicam [Mobic] 15 mg PO QDAY 07/01/15 06/13/18 Sertraline [Zoloft] 100 mg PO HS 07/01/15 06/13/18 Warfarin [Coumadin] 15 mg PO DAILY 07/01/15 06/13/18 clonazepam 1 mg tablet 1 mg PO QHS 03/06/17 06/13/18 Omeprazole [Prilosec] 20 mg PO ONCE 05/05/18 06/13/18 Previous Rx's Medication Instructions Recorded oxyCODONE/APAP [Percocet 10-325Mg] 1 - 2 tab PO Q4-6HP PRN #60 tab 05/09/18 Promethazine HCl 12.5 mg PO Q6HP PRN #12 tab 05/16/18 oxyCODONE HCL/ACETAMINOPHEN 1 each PO Q4HP PRN #12 tab 05/16/18 [Percocet 10-325 mg Tablet] traMADol HCL [Ultram] 50 mg PO Q6HP PRN #15 tab 06/22/18 Allergies Allergy/AdvReac Type Severity Reaction Status Date / Time naproxen [NAPROXEN] Allergy Severe ANGIOEDEMA Verified 06/13/18 15:16 Past Medical History - Past Medical History Medical history: Reports: arthritis, asthma, atrial fibrillation, chronic anticoagulation, COPD, DVT (patient denies today 08-07-2018), migraine, obesity, thyroid disease, other (Psoriasis). Denies: cancer, CHF, coronary artery disease, CVA, DM, hyperlipidemia, hypertension, myocardial infarction, pneumonia, pulmonary embolus, renal disease, TIA Psychiatric history: Reports: anxiety. Denies: depression Surgical history ED: Reports: bariatric surgery, cholecystectomy, herniorrhaphy - Social History smoking status: Current every day smoker (3/4 pack/day) Alcohol use: Reports: Occasionally Drug use: Reports: none, marijuana (Occasional to rarely) Physical Exam Limitations: no limitations General appearance: alert, in no apparent distress Head: atraumatic, normocephalic Eye: Present: EOMI Neck: Present: trachea midline. Absent: lymphadenopathy, thyromegaly Chest: Present: symmetric chest wall rise Respiratory: Present: normal lung sounds bilaterally, other (Some sighing r espiration). Absent: respiratory distress, wheezes, stridor, accessory muscle use, prolonged expiratory phase Cardiovascular: Present: tachycardia, irregular rhythm. Absent: systolic murmur, diastolic murmur Abdominal: Present: soft, tenderness. Absent: distention, guarding, rebound, rigidity, organomegaly, mass Abdominal tenderness: Present: RUQ, mild Extremities: Absent: pedal edema, pretibial edema, calf tenderness Back: Present: CVA tenderness (R) (Moderate to severe to percussion). Absent: CVA tenderness (L), spinous process tenderness Neurological: Present: alert, oriented X3 Psychiatric: Present: normal affect, normal mood Skin: Present: warm, diaphoresis (Severe) Course Vital Signs Temperature 102.8 F H 08/07/18 15:47 Pulse Rate 152 H 08/07/18 15:47 Respiratory Rate 24 H 08/07/18 15:47 Blood Pressure 102/70 08/07/18 15:47 Pulse Oximetry (%) 94 08/07/18 15:47 Temperature 99.7 F H 08/07/18 17:20 Pulse Rate 122 H 08/07/18 17:20 Respiratory Rate 16 08/07/18 17:20 Blood Pressure 91/67 08/07/18 17:20 Pulse Oximetry (%) 90 08/07/18 17:20 Shortness of Breath/Dyspnea - [facility] Narrative Medical decision making narrative: 3:53 PM Patient presented with hypotension although she was talking and interacting well and appropriately. She was febrile. She was tachycardic with atrial fibrillation in the 135-140 range. 2 IVs were started, 1 large-bore and fluids wide open initiated. She was given acetaminophen. Labs were obtained including blood cultures. Antibiotics were ordered (ceftriaxone 2 g, azithromycin 500 milligrams). Chest x-ray demonstrated a right lower lobe pneumonia. Brady ca theter was placed and urine sent. It was fairly concentrated in appearance. Chart review demonstrates she has had a TSH just a few days ago that was unremarkable. Previous d-dimer of 2.87 on 05/16/18 is noted in her record but no CT scan was done at that time. I will consider doing a CT scan of her chest when she stabilizes. 4:45 PM approximately With Trendelenburg and fluids going her blood pressures went up into the 90s and occasional lower 100s. She started to feel some better. Diaphoresis improved/resolved. Sighing respirations were eliminated. 5:15 PM 3 L of fluid have been given. We will slow down her IV fluids and prepare for transfer after labs are here and with permission of hospitalist. 5:33 PM I spoke with hospitalist, Dr. Sutton, who kindly accepts this patient for i npatient management. - Lab Data Lab results reviewed: Yes I reviewed the patient's lab results. Result diagrams: 08/07/18 16:01 08/07/18 16:01 Lab Results 08/07/18 08/07/18 08/07/18 Range/Units 16:01 16:01 16:01 WBC 19.2 H (4.5-11.0) K/mcL RBC 4.21 (4.00-5.20) M/mcL Hgb 12.0 (12.0-15.0) g/dL Hct 36.4 (36.0-48.0) % MCV 86.4 (80.0-100.0) fL MCH 28.5 (26.0-34.0) pg MCHC 33.0 (31.0-36.0) g/dL RDW 18.8 H (11.5-14.5) % Plt Count 212 (140-440) K/mcL MPV 8.2 (7.4-10.4) fL Gran % 88.4 H (38.0-78.0) % Lymph % (Auto) 3.5 L (15.5-49.0) % Marshall % (Auto) 8.1 (1.0-12.0) % Eos % (Auto) 0 (0.0-7.0) % Baso % (Auto) 0 (0.0-2.0) % Gran # 16.9 H (1.8-8.0) K/mcL Lymph # (Auto) 0.7 L (1.5-4.8) K/mcL Marshall # (Auto) 1.6 H (0.1-0.9) K/mcL Eos # (Auto) 0 (0.0-0.7) K/mcL Baso # (Auto) 0 (0.0-0.3) K/mcL Differential Comment PT (11.9-14.5) sec INR (0.9-1.1) VBG Lactic Acid (0.5-2.0) mmol/L Sodium 135 (133-145) mmol/L Potassium 4.0 (3.3-5.1) mmol/L Chloride 99 (96-108) mmol/L Carbon Dioxide 26 (22-30) mmol/L Anion Gap 10.0 (8-16) BUN 15 (6-20) mg/dl Creatinine 0.7 (0.6-1.1) mg/dl GFR Calculation 103 Glucose 109 H (70-105) mg/dL Calcium 9.2 (8.6-10.4) mg/dl Total Bilirubin 0.9 (0.0-1.0) mg/dL AST 26 (0-37) U/l ALT 23 (0-40) U/l Alkaline Phosphatase 76 (39-117) U/L Troponin T (0-0.03) ng/ml C-Reactive Protein 9.5 H (0.0-0.8) mg/dl Total Protein 7.2 (5.9-8.4) gm/dL Albumin 4.1 (3.2-5.2) gm/dL Globulin 3.1 (2.2-3.7) gm/dL Albumin/Globulin Ratio 1.3 (1.0-2.3) Procalcitonin (<0.10) ng/mL TSH 0.33 (0.27-5.01) uIU/ml Urine Color Urine Appearance Urine pH (5.0-9.0) Ur Specific [place] (1.000-1.035) Urine Protein (NEG) mg/dL Urine Glucose (UA) (NEG) mg/dL Urine Ketones (NEG) mg/dL Urine Occult Blood (<0.03) mg/dL Urine Nitrate (NEG) Urine Bilirubin (NEG) mg/dL Urine Urobilinogen (NEG) mg/dL Ur Leukocyte Esterase (NEG) /uL Ur Culture Indicated? 08/07/18 08/07/18 08/07/18 Range/Units 16:02 16:03 16:03 WBC (4.5-11.0) K/mcL RBC (4.00-5.20) M/mcL Hgb (12.0-15.0) g/dL Hct (36.0-48.0) % MCV (80.0-100.0) fL MCH (26.0-34.0) pg MCHC (31.0-36.0) g/dL RDW (11.5-14.5) % Plt Count (140-440) K/mcL MPV (7.4-10.4) fL Gran % (38.0-78.0) % Lymph % (Auto) (15.5-49.0) % Marshall % (Auto) (1.0-12.0) % Eos % (Auto) (0.0-7.0) % Baso % (Auto) (0.0-2.0) % Gran # (1.8-8.0) K/mcL Lymph # (Auto) (1.5-4.8) K/mcL Marshall # (Auto) (0.1-0.9) K/mcL Eos # (Auto) (0.0-0.7) K/mcL Baso # (Auto) (0.0-0.3) K/mcL Differential Comment PT 26.9 H (11.9-14.5) sec INR 2.5 H (0.9-1.1) VBG Lactic Acid 1.6 (0.5-2.0) mmol/L Sodium (133-145) mmol/L Potassium (3.3-5.1) mmol/L Chloride (96-108) mmol/L Carbon Dioxide (22-30) mmol/L Anion Gap (8-16) BUN (6-20) mg/dl Creatinine (0.6-1.1) mg/dl GFR Calculation Glucose (70-105) mg/dL Calcium (8.6-10.4) mg/dl Total Bilirubin (0.0-1.0) mg/dL AST (0-37) U/l ALT (0-40) U/l Alkaline Phosphatase (39-117) U/L Troponin T < 0.01 (0-0.03) ng/ml C-Reactive Protein (0.0-0.8) mg/dl Total Protein (5.9-8.4) gm/dL Albumin (3.2-5.2) gm/dL Globulin (2.2-3.7) gm/dL Albumin/Globulin Ratio (1.0-2.3) Procalcitonin (<0.10) ng/mL TSH (0.27-5.01) uIU/ml Urine Color Urine Appearance Urine pH (5.0-9.0) Ur Specific [place] (1.000-1.035) Urine Protein (NEG) mg/dL Urine Glucose (UA) (NEG) mg/dL Urine Ketones (NEG) mg/dL Urine Occult Blood (<0.03) mg/dL Urine Nitrate (NEG) Urine Bilirubin (NEG) mg/dL Urine Urobilinogen (NEG) mg/dL Ur Leukocyte Esterase (NEG) /uL Ur Culture Indicated? 08/07/18 08/07/18 Range/Units 16:43 16:53 WBC (4.5-11.0) K/mcL RBC (4.00-5.20) M/mcL Hgb (12.0-15.0) g/dL Hct (36.0-48.0) % MCV (80.0-100.0) fL MCH (26.0-34.0) pg MCHC (31.0-36.0) g/dL RDW (11.5-14.5) % Plt Count (140-440) K/mcL MPV (7.4-10.4) fL Gran % (38.0-78.0) % Lymph % (Auto) (15.5-49.0) % Marshall % (Auto) (1.0-12.0) % Eos % (Auto) (0.0-7.0) % Baso % (Auto) (0.0-2.0) % Gran # (1.8-8.0) K/mcL Lymph # (Auto) (1.5-4.8) K/mcL Marshall # (Auto) (0.1-0.9) K/mcL Eos # (Auto) (0.0-0.7) K/mcL Baso # (Auto) (0.0-0.3) K/mcL Differential Comment PT (11.9-14.5) sec INR (0.9-1.1) VBG Lactic Acid (0.5-2.0) mmol/L Sodium (133-145) mmol/L Potassium (3.3-5.1) mmol/L Chloride (96-108) mmol/L Carbon Dioxide (22-30) mmol/L Anion Gap (8-16) BUN (6-20) mg/dl Creatinine (0.6-1.1) mg/dl GFR Calculation Glucose (70-105) mg/dL Calcium (8.6-10.4) mg/dl Total Bilirubin (0.0-1.0) mg/dL AST (0-37) U/l ALT (0-40) U/l Alkaline Phosphatase (39-117) U/L Troponin T (0-0.03) ng/ml C-Reactive Protein (0.0-0.8) mg/dl Total Protein (5.9-8.4) gm/dL Albumin (3.2-5.2) gm/dL Globulin (2.2-3.7) gm/dL Albumin/Globulin Ratio (1.0-2.3) Procalcitonin 0.44 (<0.10) ng/mL TSH (0.27-5.01) uIU/ml Urine Color Dottie Urine Appearance Hazy Urine pH 5.0 (5.0-9.0) Ur Specific [place] 1.029 (1.000-1.035) Urine Protein Neg (NEG) mg/dL Urine Glucose (UA) Negative (NEG) mg/dL Urine Ketones Neg (NEG) mg/dL Urine Occult Blood Neg (<0.03) mg/dL Urine Nitrate Neg (NEG) Urine Bilirubin Neg (NEG) mg/dL Urine Urobilinogen 4.0 A (NEG) mg/dL Ur Leukocyte Esterase Neg (NEG) /uL Ur Culture Indicated? No - Radiology Data Radiology results reviewed: Yes I reviewed the patient's radiology results. - EKG Data EKG results narrative: No acute coronary syndrome findings. Tachycardia with A. fib. No obvious changes from old EKG. This ECG will be read by a ironer hand. Disposition Pt seen by GROW[facility]ER/PA only: No Clinical Impression: Atrial fibrillation with RVR, SIRS (systemic inflammatory response syndrome), Septic shock RLL pneumonia Qualifiers: Pneumonia type: due to unspecified organism Qualified Code(s): J18.1 - Lobar pneumonia, unspecified organism Sepsis Qualifiers: Sepsis type: sepsis due to unspecified organism Qualified Code(s): A41.9 - Sepsis, unspecified organism Disposition: Xfer As Inpt ([facility]) Condition: Good Referrals: Beverly Nguyen ARNP [Primary Care Provider] -
[2018-08-07] MEDS ORDERED: ACETAMINOPHEN 325 MG TABLET PO ONE (15:59)
[2018-08-07] MEDS ORDERED: AZITHROMYCIN 500 MG in DEXTROSE 5% IN WATER 250 ML IV ONE (16:19)
[2018-08-07] MEDS ORDERED: cefTRIAXone 2 GM in DEXTROSE 5% IN WATER 50 ML IV ONE (16:19)
[2018-08-07 16:26] LABS: Basophils # (Auto) 0 K/mcL (0.0-0.3); Basophils % (Auto) 0 % (0.0-2.0); Eosinophils # (Auto) 0 K/mcL (0.0-0.7); Eosinophils % (Auto) 0 % (0.0-7.0); Granulocytes % (Auto) 88.4 % (38.0-78.0); Lymphocytes # (Auto) 0.7 K/mcL (1.5-4.8); Lymphocytes % (Auto) 3.5 % (15.5-49.0); Mean Cell Volume 86.4 fL (80.0-100.0); Monocytes # (Auto) 1.6 K/mcL (0.1-0.9); Monocytes % (Auto) 8.1 % (1.0-12.0); Platelet Count 212 K/mcL (140-440); RBC 4.21 M/mcL (4.00-5.20); Red Cell Distribution Width 18.8 % (11.5-14.5)
--- NOTE | 2018-08-07 16:26 | XRay Report ---
HISTORY: Fever and shortness of breath FINDINGS: There is a moderate size consolidating infiltrate inferiorly and medially in the right lower lobe. This is a new finding since 05/16/18. No pleural effusion is present. The left lung is clear. The heart is mildly enlarged but has diminished in size since the prior exam. The main pulmonary artery segment of the left upper heart border is engorged. This is due to a dilated main pulmonary artery which was seen on a prior chest CT in 2013. This has remained stable. IMPRESSION: Right lower lobe pneumonia Interpreted and Authenticated by: Sourav Gimenez 08/07/18
[2018-08-07] MEDS ORDERED: 0.9 % SODIUM CHLORIDE 2,000 ML IV ONE (16:45)
[2018-08-07 16:47] LABS: ALT/SGPT 23 U/l (0-40); Albumin 4.1 gm/dL (3.2-5.2); Albumin/Globulin Ratio 1.3 (1.0-2.3); Alkaline Phosphatase 76 U/L (39-117); Blood Urea Nitrogen 15 mg/dl (6-20); C-Reactive Protein 9.5 mg/dl (0.0-0.8)
[2018-08-07 17:09] LABS: Appearance,Urine HAZY; Bilirubin,Urine NEG (NEG); Color,Urine AMBER; Glucose,Urine (UA) NEGATIVE (NEG); Leukocyte Esterase,Urine NEG /uL (NEG); Protein,Urine NEG (NEG); Specific Gravity,Urine 1.029 (1.000-1.035); Urine Blood NEG mg/dL (<0.03)
[2018-08-07] MEDS ORDERED: 0.9 % SODIUM CHLORIDE 1,000 ML IV SCH ×2 (17:30→18:49)
--- NOTE | 2018-08-07 17:58 | Internal Med History&Physical ---
Medical - H&P: HPI Patient information: Note initiated : 08/07/18 at 5:55 pm Service Date, if different from initiated Date: [] Patient: Estela Man a 47 y/o F admitted on for Weakness, SOB, Temp, A-Fib. Chief Complaint: [] History of present illness: Ms. Man is a 47 year old F with history of recent cholecystectomy comes to the hospital today for evaluation of not feeling well for the last 3 days. The patient notes that 2 days ago she started feeling aches and pains all over her body, she has been having some cough. This morning when she woke up she had some pain in the right side of lower chest flank. The pain was sharp, worse with movement and deep breathing. She is also had a fever of 103 associated with chills and Rigors . Given her significant weakness, dizziness the patient decided to come to the emergency room for further evaluation. On presenting to the emergency mouna patient had a fever of 102.8, tachycardic at 142, blood pressure was soft moist blood pressure was 74/61 she was saturating 96% on room air. Labs showed a WBC count of 19,200, hemoglobin 12 lakelets 212, INR 2.5 lactic acid 1.6 sodium 135 potassium 4.0 bicarbonate 26 creatinine 0.7 glucose 109, TSH is 0.33, pro c alcitonin 0.44. Chest x-ray showed right lower lobe pneumonia. Patient received a liter of saline, appropriate cultures were sent and patient was given Rocephin as well as azithromycin. Patient was presented to the hospital for further management. The patient had a cholecystectomy done in this hospital in May, she denies any use of antibiotics subsequently, the patient did not receive any flu vaccine. According to the patient her daughter was sick with a viral syndrome and feels like she probably got it from her. The patient has headache, denies any changes in vision or hearing, no difficulty in swallowing, has lower right-sided chest pain/abdominal flank pain, denies any nausea vomiting, has shortness of breath denies any palpitations or chest pain, denies any diarrhea or urinary complaints, denies any new joint pains denies any skin rashes bleeding or melena. Denies any acute anxiety or depression All systems: reviewed and no additional remarkable complaints except as stated (as per HPI rest negative.) Medical - H&P: PMH Medical history: Medical History (Last Updated 08/07/18 @ 17:19 by Daniel Reyna DO) Obesity (BMI 30.0-34.9) (Chronic) Hypothyroidism, acquired (Chronic) Chronic atrial fibrillation (Chronic) Chronic anticoagulation (Chronic) Cigarette smoker (Chronic) Dependence on nocturnal oxygen therapy (Chronic) Anxiety disorder (Chronic) Tonsillitis (Resolved) UTI (urinary tract infection) (Resolved) Surgical history: Past Surgical History (Last Reviewed 06/13/18 @ 15:17 by Erin Eng CMA) History of gastric surgery (Acute) History of laparoscopic cholecystectomy (Acute) Family history: reviewed and not pertinent Medical - H&P: Meds Home Medications Medication Instructions Recorded Confirmed Type Albuterol Sulfate [Ventolin] 1 puff INH Q4HP PRN 07/01/15 06/13/18 History Diltiazem HCl [Diltiazem ER] 240 mg PO HS 07/01/15 06/13/18 History Hydrocodone/APAP 7.5/325Mg [[place] 1 - 2 tab PO Q4HP PRN 07/01/15 06/13/18 H istory 7.5/325Mg] Levothyroxine [Synthroid] 100 mcg PO DAILY 07/01/15 06/13/18 History Meloxicam [Mobic] 15 mg PO QDAY 07/01/15 06/13/18 History Sertraline [Zoloft] 100 mg PO HS 07/01/15 06/13/18 History Warfarin [Coumadin] 15 mg PO DAILY 07/01/15 06/13/18 History clonazepam 1 mg tablet 1 mg PO QHS 03/06/17 06/13/18 History Omeprazole [Prilosec] 20 mg PO ONCE 05/05/18 06/13/18 History oxyCODONE/APAP [Percocet 10-325Mg] 1 - 2 tab PO Q4-6HP PRN #60 tab 05/09/18 06/13/18 Rx Promethazine HCl 12.5 mg PO Q6HP PRN #12 tab 05/16/18 06/13/18 Rx oxyCODONE HCL/ACETAMINOPHEN 1 each PO Q4HP PRN #12 tab 05/16/18 06/13/18 Rx [Percocet 10-325 mg Tablet] traMADol HCL [Ultram] 50 mg PO Q6HP PRN #15 tab 06/22/18 Rx Allergies Allergy/AdvReac Type Severity Reaction Status Date / Time naproxen [NAPROXEN] Allergy Severe ANGIOEDEMA Verified 06/13/18 15:16 Medical - H&P: Exam - Constitutional Vitals: Temp Pulse Resp BP Pulse Ox 99.7 F H 122 H 16 91/67 90 08/07/18 17:20 08/07/18 17:20 08/07/18 17:20 08/07/18 17:20 08/07/18 17:20 Exam: GENERAL: The patient is a well-developed, well-nourished/ obese individual in no apparent distress. Is alert and oriented x3. VITAL SIGNS: Reviewed and as noted elsewhere. HEENT: Head is normocephalic and atraumatic. Extraocular muscles are intact. Pupils are equal, round, and reactive to light. Nares appeared normal. Mouth appears any without lesions. Mucous membranes are moist. NECK: Normal to inspection, Supple, No lymphadenopathy or thyromegaly. LUNGS: Air entry equal on both sides, no wheezing, crackles or rhonchi noted. . Pt has rales on the right base No accessory muscles of respiration HEART: Irregular tachycardic rate , S1 and S2 heard, no Gallop, S3 or Rub Noted, No Gross murmur heard. ABDOMEN: Soft, nontender, and nondistended. Positive bowel sounds. No hep atosplenomegaly was noted. EXTREMITIES: No cyanosis, clubbing, rash, lesions or edema. NEUROLOGIC: Cranial nerves II through XII are grossly intact. Motor and Sensory System Grossly Intact PSYCHIATRIC: Normal affect, Normal Mood. Appropriate Behavior. SKIN: No ulceration or wounds noted, No jaundice, No rash noted. Medical - H&P: Reslt - Labs CBC & Chem 7: 08/07/18 16:01 08/07/18 16:01 Labs: Short CBC 08/07/18 Range/Units 16:01 WBC 19.2 H (4.5-11.0) K/mcL Hgb 12.0 (12.0-15.0) g/dL Hct 36.4 (36.0-48.0) % Plt Count 212 (140-440) K/mcL BMP 08/07/18 16:01 Sodium 135 Potassium 4.0 Chloride 99 Carbon Dioxide 26 BUN 15 Creatinine 0.7 Glucose 109 H Calcium 9.2 Cardiac Enzymes 08/07/18 Range/Units 16:02 Troponin T < 0.01 (0-0.03) ng/ml Liver Function 08/07/18 Range/Units 16:01 Total Bilirubin 0.9 (0.0-1.0) mg/dL AST 26 (0-37) U/l ALT 23 (0-40) U/l Alkaline Phosphatase 76 (39-117) U/L Albumin 4.1 (3.2-5.2) gm/dL Urine 08/07/18 Range/Units 16:43 Urine Color Dottie Urine Appearance Hazy Urine pH 5.0 (5.0-9.0) Ur Specific [place] 1.029 (1.000-1.035) Urine Protein Neg (NEG) mg/dL Urine Glucose (UA) Negative (NEG) mg/dL Medical - H&P: A/P - Narrative A/P Narrative: A/P Septic Shock Pneumonia Morbid obesity Atrial fibrillation with RVR Hypothyroidism Active smoker Plan Admit to PCU sta tus Aggressive fluid resuscitation. If bp remains low, start on levophed to keep MAP > 65 IV vanco, rocephin and zithromax for now check for viral resp panel get ABG send for urine legionella, strep antigen, mycoplasma antigen Hold cardizem resume coumadin for anticoagulation. Bronchodilators DVT on coumadin with therapeutic INR Full code Regular diet. Social History - Tobacco smoking status: Current every day smoker (3/4 pack/day) - Alcohol alcohol intake frequency: holiday/special occasion only - Substance use substance use type: marijuana
[2018-08-07] MEDS ORDERED: IPRATROPIUM/ALBUTEROL 3 ML AMPUL.NEB NEB ONE (18:26)
[2018-08-07] MEDS ORDERED: ONDANSETRON 4 MG/2 ML VIAL IV PRN (18:49)
[2018-08-07] MEDS ORDERED: VANCOMYCIN 1,500 MG in 0.9 % SODIUM CHLORIDE 500 ML IV ONE (18:49)
[2018-08-07] MEDS ORDERED: NOREPINEPHRINE BITARTRATE 16 MG in 0.9 % SODIUM CHLORIDE 234 ML IV SCH (18:49)
[2018-08-07] MEDS ORDERED: ACETAMINOPHEN 325 MG TABLET PO PRN (18:49)
[2018-08-07] MEDS ORDERED: VANCOMYCIN PER PHARMACY IV SCH (18:49)
[2018-08-07] MEDS: IPRATROPIUM/ALBUTEROL 3 ML AMPUL.NEB NEB SCH (19:54)
[2018-08-07] MEDS ORDERED: IBUPROFEN 400 MG TABLET PO PRN (20:41)
[2018-08-07] MEDS ORDERED: ACETAMINOPHEN 650 MG/65 ML BOTTLE IV ONE (20:41)
[2018-08-07] MEDS: 0.9 % SODIUM CHLORIDE 1,000 ML IV SCH (20:42)
[2018-08-07] MEDS ORDERED: DIGOXIN 500 MCG/2 ML AMPUL IV ONE ×2 (20:44→21:00)
[2018-08-07] MEDS ORDERED: ACETAMINOPHEN 1,000 MG/100 ML BOTTLE IV ONE (21:19)
[2018-08-07] MEDS: 0.9 % SODIUM CHLORIDE 10 ML SYRINGE IV SCH (22:15)
[2018-08-07] MEDS: FAMOTIDINE/PF 20 MG/2 ML VIAL IV SCH (22:15)
[2018-08-08] MEDS: IPRATROPIUM/ALBUTEROL 3 ML AMPUL.NEB NEB SCH ×4 (01:37→18:20)
[2018-08-08] MEDS: 0.9 % SODIUM CHLORIDE 10 ML SYRINGE IV SCH ×3 (05:21→22:31)
[2018-08-08 06:53] LABS: Basophils # (Auto) 0 K/mcL (0.0-0.3); Basophils % (Auto) 0 % (0.0-2.0); Eosinophils # (Auto) 0 K/mcL (0.0-0.7); Eosinophils % (Auto) 0 % (0.0-7.0); Granulocytes % (Auto) 89.9 % (38.0-78.0); Lymphocytes # (Auto) 0.8 K/mcL (1.5-4.8); Lymphocytes % (Auto) 3.7 % (15.5-49.0); Mean Cell Volume 89.1 fL (80.0-100.0); Mean Corpuscular HGB Conc 31.7 g/dL (31.0-36.0); Monocytes # (Auto) 1.4 K/mcL (0.1-0.9); Monocytes % (Auto) 6.4 % (1.0-12.0); Platelet Count 201 K/mcL (140-440); RBC 3.77 M/mcL (4.00-5.20); Red Cell Distribution Width 19.3 % (11.5-14.5)
[2018-08-08 07:12] LABS: ALT/SGPT 21 U/l (0-40); Albumin 3.2 gm/dL (3.2-5.2); Albumin/Globulin Ratio 1.2 (1.0-2.3); Alkaline Phosphatase 81 U/L (39-117); Bilirubin,Direct 0.3 mg/dL (0.0-0.3); Blood Urea Nitrogen 12 mg/dl (6-20); Gamma Glutamyl Transpeptidase 38 U/L (5-36); Uric Acid 2.4 mg/dL (2.5-8.0)
[2018-08-08] MEDS ORDERED: LEVOTHYROXINE 100 MCG TABLET PO SCH (07:30)
[2018-08-08] MEDS ORDERED: OMEPRAZOLE 20 MG CAPSULE PO SCH (07:30)
[2018-08-08] MEDS ORDERED: MAGNESIUM SULFATE 2 GM/50 ML BAG IV ONE (07:34)
[2018-08-08] MEDS: FAMOTIDINE/PF 20 MG/2 ML VIAL IV SCH (07:37)
[2018-08-08] MEDS ORDERED: oxyCODONE/APAP 10/325MG TABLET PO PRN (08:12)
[2018-08-08] MEDS ORDERED: LORazepam 0.5 MG TABLET PO ONE (08:15)
[2018-08-08] MEDS ORDERED: MELOXICAM 7.5 MG TABLET PO SCH (09:00)
[2018-08-08] MEDS ORDERED: VANCOMYCIN 1,000 MG in 0.9 % SODIUM CHLORIDE 250 ML IV SCH (09:00)
[2018-08-08] MEDS ORDERED: DIGOXIN 500 MCG/2 ML AMPUL IV ONE (11:25)
[2018-08-08] MEDS: 0.9 % SODIUM CHLORIDE 1,000 ML IV SCH ×2 (11:28→13:48)
--- NOTE | 2018-08-08 11:31 | Internal Med Progress Note ---
Medical - PN: Subj Patient information: Note initiated : 08/08/18 at 11:26 am Service Date, if different from initiated Date: [] Patient: Estela Man a 47 y/o F admitted on 08/07/18 for Weakness, SOB, Temp, A-Fib. Chief Complaint: [] Interval history: Ms. Man is a 47 year old F with history of recent cholecystectomy comes to the hospital today for evaluation of not feeling well for the last 3 days. The patient notes that 2 days ago she started feeling aches and pains all over her body, she has been having some cough. This morning when she woke up she had some pain in the right side of lower chest flank. The pain was sharp, worse with movement and deep breathing. She is also had a fever of 103 associated with chills and Rigors . Given her significant weakness, dizziness the patient decided to come to the emergency room for further evaluation. On presenting to the emergency mouna patient had a fever of 102.8, tachycardic at 142, blood pressure was soft moist blood pressure was 74/61 she was saturating 96% on room air. Labs showed a WBC count of 19,200, hemoglobin 12 lakelets 212, INR 2.5 lactic acid 1.6 sodium 135 potassium 4.0 bicarbonate 26 creatinine 0.7 glucose 109, TSH is 0.33, pro ca lcitonin 0.44. Chest x-ray showed right lower lobe pneumonia. Patient received a liter of saline, appropriate cultures were sent and patient was given Rocephin as well as azithromycin. Patient was presented to the hospital for further management. The patient had a cholecystectomy done in this hospital in May, she denies any use of antibiotics subsequently, the patient did not receive any flu vaccine. According to the patient her daughter was sick with a viral syndrome and feels like she probably got it from her. The patient has headache, denies any changes in vision or hearing, no difficulty in swallowing, has lower right-sided chest pain/abdominal flank pain, denies any nausea vomiting, has shortness of breath denies any palpitations or chest pain, denies any diarrhea or urinary complaints, denies any new joint pains denies any skin rashes bleeding or melena. Denies any acute anxiety or depression 3/7 Pt seen examined, overnight bp remained low but stable, no need for Pressors this AM systolic in 100's MAP > 65 WBC slightly worse, but clinically pt much better good urine output d/c larson, xfer to tele status. viral panel neg Pertinent ROS: Denies headache, dizziness Denies chest pain, palpitations Denies cough or shortness of breath Denies abdominal pain, nausea or vomiting. - Constitutional Vitals: Vital Signs Temp Pulse Resp BP Pulse Ox 98.9 F 115 H 24 H 103/64 95 08/08/18 11:01 08/08/18 11:01 08/08/18 11:01 08/08/18 11:01 08/08/18 11:01 Period Temp Pulse Resp BP Sys/Molina Pulse Ox Last 24 Hr 95.2 F-102.9 F 77-158 0-34 74-128/50-103 88-100 Intake and Output 08/07/18 08/08/18 08/08/18 21:59 05:59 13:59 Intake Total 5300 1565 290 Output Total 1345 330 Balance 5300 220 -40 Weight 206 lb Intake & Output: Intake & Output 08/07/18 08/08/18 08/08/18 21:59 05:59 13:59 Intake Total 5300 1565 290 Output Total 1345 330 Balance 5300 220 -40 Weight 206 lb Intake: IV 5300 1565 50 Sodium Chloride 0.9% 1,000 ml @ 5000 150 mls/hr IV .Q6H40M [facility] Rx#: [id number] Zithromax 500 mg In Dextrose 5% 250 in Water 250 ml @ 250 mls/hr IV ONCE ONE Rx#:[id number] Rocephin 2 gm In Dextrose 5% in 50 Water 50 ml @ 100 mls/hr IV ONCE ONE Rx#:[id number] Oral 240 Output: Urine Catheter Amount 1345 330 Other: Meal Breakfast Percent of Meal Consumed 75% Feeding Ability Independent Urine Appearance Clear Uretheral (Larson) Clear Urine Color Pale Dark Dottie Tea Colored [place] Uretheral (Larson) Bright Yellow Urine Odor Uretheral (Larson) Normal Exam: Constitutional; Afebrile, cooperative, alert, not in distress. Eyes- No icterus, , No periorbital swelling Ears- Ext ear normal, hearing normal to conversation. Neck- Midline trachea, supple Respiratory system: Air Entry equal on both sides, right basilar rales. no wheezing noted, pt speaking full sentences. CVS- Rate rhythm regular, S1,S2 heard, no gallop, no rub. 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 Medical - PN: Obj Da - Labs CBC & Chem 7: 08/08/18 03:45 08/08/18 03:45 Labs: Abnormal Lab Results 08/08/18 08/08/18 08/08/18 03:45 03:45 03:45 WBC 21.5 H RBC 3.77 L Hgb 10.7 L Hct 33.6 L RDW 19.3 H Gran % 89.9 H Lymph % (Auto) 3.7 L Gran # 19.3 H Lymph # (Auto) 0.8 L [place] # (Auto) 1.4 H PT 28.2 H INR 2.7 H Chloride 109 H Glucose Uric Acid 2.4 L Calcium 8.0 L Phosphorus 2.6 L GGT 38 H C-Reactive Protein Urine Urobilinogen 08/07/18 08/07/18 08/07/18 16:43 16:03 16:01 WBC RBC Hgb Hct RDW Gran % Lymph % (Auto) Gran # Lymph # (Auto) [place] # (Auto) PT 26.9 H INR 2.5 H Chloride Glucose 109 H Uric Acid Calcium Phosphorus GGT C-Reactive Protein 9.5 H Urine Urobilinogen 4.0 A 08/07/18 16:01 WBC 19.2 H RBC Hgb Hct RDW 18.8 H Gran % 88.4 H Lymph % (Auto) 3.5 L Gran # 16.9 H Lymph # (Auto) 0.7 L [place] # (Auto) 1.6 H PT INR Chloride Glucose Uric Acid Calcium Phosphorus GGT C-Reactive Protein Urine Urobilinogen Meds: Medications Acetaminophen (Tylenol) 650 mg PO Q4-6HP PRN PRN Reason: PAIN/FEVER > 101 Albuterol/Ipratropium (Duoneb) 3 ml NEB Q6HRT [facility] Last Admin: 08/08/18 07:25 Dose: 3 ml Documented by: Clonazepam (Klonopin) 1 mg PO QHS [facility]O Digoxin (Lanoxin) 250 mcg IV ONCE ONE Stop: 08/08/18 11:26 Famotidine (Pepcid) 20 mg IV Q12 [facility] Last Admin: 08/08/18 07:37 Dose: 20 mg Documented by: Norepinephrine Bitartrate 16 (mg/ Sodium Chloride) 250 mls @ 9.38 mls/hr IV Q24H [facility]; Protocol Last Admin: 08/07/18 19:41 Dose: Not Given Documented by: Sodium Chloride (Sodium Chloride 0.9%) 1,000 mls @ 75 mls/hr IV .[id number] [facility] Last Admin: 08/07/18 20:42 Dose: Not Given Documented by: Vancomycin HCl 1,000 mg/ (Sodium Chloride) 250 mls @ 250 mls/hr IV Q12H [facility] Last Admin: 08/08/18 10:01 Dose: 250 mls/hr Documented by: Levothyroxine Sodium (Synthroid) 100 mcg PO [facility] Last Admin: 08/08/18 08:36 Dose: 100 mcg Documented by: Meloxicam (Mobic) 15 mg PO QDAY [facility] Last Admin: 08/08/18 08:37 Dose: 15 mg Documented by: Omeprazole (Prilosec) 20 mg PO [facility] Last Admin: 08/08/18 08:24 Dose: Not Given Documented by: Ondansetron HCl (Zofran) 4 mg IV Q4-6HP PRN PRN Reason: Nausea And Vomiting Oxycodone/Acetaminophen (Percocet 10-325mg) 1 - 2 tab PO Q4-6HP PRN PRN Reason: PAIN LEVEL 3-6 Last Admin: 08/08/18 08:36 Dose: 1 tab Documented by: Sertraline HCl (Zoloft) 200 mg PO [facility] Sodium Chloride (Saline Flush) 10 ml IV Q8 [facility] Last Admin: 08/08/18 05:21 Dose: 10 ml Documented by: Vancomycin HCl (Vancomycin Per Pharmacy) 1 order IV UD [facility] Warfarin Sodium (Coumadin Per Pharmacy) 1 order PO DAILY@1400 [facility] Warfarin Sodium (Coumadin) 10 mg PO TODAY@1400 [facility] Stop: 08/08/18 16:00 Medical - PN: A/P - Time Spent With Patient Total time spent is greater than 50% in coordination of care (as documented) at patient's floor/unit and/or counseling patient: - Narrative A/P Narrative: A/P Septic Shock -improving, bp stable, mentation better, resp rate better Pneumonia -community acquired, follow cultures, deescalate abx per them Morbid obesity -outpatient management Atrial fibrillation with RVR -continue anticoagulation, IV digoxin for rate control, resume home medication/cardizem when bp is stable. Hypothyroidism continue levothyroxine Active smoker -educated, refused nicotine replacement. -prn bronchodilators DVT on coumadin with therapeutic INR Full code Regular diet. Medical - PN: Qual - VTE Deep Vein Thrombosis/Pulmonary Embolism Present on Admission: No
[2018-08-08] MEDS ORDERED: ONDANSETRON 4 MG/2 ML VIAL IV PRN (11:58)
[2018-08-08] MEDS ORDERED: ACETAMINOPHEN 325 MG TABLET PO PRN (11:58)
[2018-08-08] MEDS ORDERED: VANCOMYCIN PER PHARMACY IV SCH (11:58)
[2018-08-08] MEDS ORDERED: WARFARIN 5 MG TABLET PO SCH (14:00)
[2018-08-08] MEDS ORDERED: WARFARIN 10 MG TABLET PO SCH ×2 (14:00)
[2018-08-08] MEDS: oxyCODONE/APAP 10/325MG TABLET PO PRN ×2 (15:19→19:57)
[2018-08-08] MEDS ORDERED: NOREPINEPHRINE BITARTRATE 16 MG in 0.9 % SODIUM CHLORIDE 234 ML IV SCH (18:49)
[2018-08-08] MEDS: VANCOMYCIN 1,000 MG in 0.9 % SODIUM CHLORIDE 250 ML IV SCH (19:55)
[2018-08-08] MEDS ORDERED: FAMOTIDINE/PF 20 MG/2 ML VIAL IV SCH (21:00)
[2018-08-08] MEDS ORDERED: SERTRALINE 100 MG TABLET PO SCH ×2 (21:00)
[2018-08-08] MEDS ORDERED: clonazePAM 1 MG TABLET PO SCH ×2 (21:00)
[2018-08-09] MEDS: IPRATROPIUM/ALBUTEROL 3 ML AMPUL.NEB NEB SCH ×2 (00:17→07:18)
[2018-08-09] MEDS: 0.9 % SODIUM CHLORIDE 1,000 ML IV SCH (02:21)
[2018-08-09] MEDS: 0.9 % SODIUM CHLORIDE 10 ML SYRINGE IV SCH (05:59)
[2018-08-09] MEDS ORDERED: LEVOTHYROXINE 100 MCG TABLET PO SCH (07:30)
[2018-08-09] MEDS ORDERED: OMEPRAZOLE 20 MG CAPSULE PO SCH (07:30)
[2018-08-09] MEDS: VANCOMYCIN 1,000 MG in 0.9 % SODIUM CHLORIDE 250 ML IV SCH (08:18)
[2018-08-09 08:26] LABS: ALT/SGPT 16 U/l (0-40); Albumin 2.9 gm/dL (3.2-5.2); Alkaline Phosphatase 191 U/L (39-117); Bilirubin,Direct < 0.2 mg/dL (0.0-0.3); Blood Urea Nitrogen 16 mg/dl (6-20); Gamma Glutamyl Transpeptidase 36 U/L (5-36); Uric Acid 2.3 mg/dL (2.5-8.0)
[2018-08-09] MEDS: oxyCODONE/APAP 10/325MG TABLET PO PRN (08:29)
[2018-08-09 08:38] LABS: Basophils % (Auto) 0 % (0.0-2.0); Mean Cell Volume 88.7 fL (80.0-100.0); Platelet Count 181 K/mcL (140-440); RBC 3.27 M/mcL (4.00-5.20); Red Cell Distribution Width 19.8 % (11.5-14.5)
[2018-08-09] MEDS ORDERED: MELOXICAM 7.5 MG TABLET PO SCH (09:00)
[2018-08-09] MEDS ORDERED: NEUTRA PHOS 1 PACKET PO ONE (09:38)
--- NOTE | 2018-08-09 11:12 | Discharge Summary ---
Medical - DS: Prov Patient information: Note initiated : 08/09/18 at 11:03 am Service Date, if different from initiated Date: [] Patient: Estela Man 47 y/o F admitted on 08/07/18 for Weakness, SOB, Temp, A-Fib. Chief Complaint: [] Date of admission: 08/07/18 18:47 Discharge date: 08/09/18 Primary care physician: MANJU Galan Consults: 08/07/18 17:28 Consult to Physician [CONS] Stat Comment: Consulting Provider: Lyn Sutton Reason For Exam: Physician to Consult Discharging clinician: Lyn Sutton Medical - DS: Meds - Discharge Medications Prescriptions: Levofloxacin [Levaquin] 750 mg PO DAILY #4 tablet Active and Home Medications: Home Medications Albuterol Sulfate [Ventolin] 1 puff INH Q4HP PRN 07/01/15 [History Confirmed 08/07/18 Last Taken 05/05/18 13:00] Diltiazem HCl [Diltiazem ER] 240 mg PO HS 07/01/15 [History Confirmed 08/07/18 Last Taken 05/04/18 00:00] Hydrocodone/APAP 7.5/325Mg [[place] 7.5/325Mg] 1 - 2 tab PO Q4HP PRN 07/01/15 [History Confirmed 08/07/18 Last Taken 05/04/18 15:00] Levothyroxine [Synthroid] 100 mcg PO DAILY 07/01/15 [History Confirmed 08/07/18 Last Taken 05/04/18 10:00] Meloxicam [Mobic] 15 mg PO QDAY 07/01/15 [History Confirmed 08/07/18 Last Taken 05/04/18 10:00] Sertraline [Zoloft] 200 mg PO HS 07/01/15 [History Confirmed 08/07/18 Last Taken 05/04/18 00:00] Warfarin [Coumadin] 15 mg PO DAILY 07/01/15 [History Confirmed 08/07/18 Last Taken 05/04/18 00:00] clonazepam 1 mg tablet 1 mg PO QHS 03/06/17 [History Confirmed 08/07/18 Last Juwan en 05/04/18 12:00] Omeprazole [Prilosec] 20 mg PO ONCE 05/05/18 [History Confirmed 08/07/18 Last Taken 05/04/18 10:00] oxyCODONE/APAP [Percocet 10-325Mg] 1 - 2 tab PO Q4-6HP PRN #60 tab 05/09/18 [Rx Confirmed 08/07/18 Last Taken Unknown] Medical - DS: Hosp Hospital course: Ms. Man is a 47 year old F with history of recent cholecystectomy comes to the hospital today for evaluation of not feeling well for the last 3 days. The patient notes that 2 days ago she started feeling aches and pains all over her body, she has been having some cough. This morning when she woke up she had some pain in the right side of lower chest flank. The pain was sharp, worse with movement and deep breathing. She is also had a fever of 103 associated with chills and Rigors . Given her significant weakness, dizziness the patient decided to come to the emergency room for further evaluation. On presenting to the emergency mouna patient had a fever of 102.8, tachycardic at 142, blood pressure was soft moist blood pressure was 74/61 she was saturating 96% on room air. Labs showed a WBC count of 19,200, hemoglobin 12 lakelets 212, INR 2.5 lactic acid 1.6 sodium 135 potassium 4.0 bicarbonate 26 creatinine 0.7 glucose 109, TSH is 0.33, pro calcitonin 0.44. Chest x-ray showed right lower lobe pneumonia. Patient received a liter of saline, appropriate cultures were sent and patient was given Rocephin as well as azithromycin. Patient was presented to the hospital for further management. The patient had a cholecystectomy done in this hospital in May, she denies any use of antibiotics subsequently, the patient did not receive any flu vaccine. According to the patient her daughter was sick with a viral syndrome and feels like she probably got it from her. The patient has headache, denies any changes in vision or hearing, no difficulty in swallowing, has lower right-sided chest pain/abdominal flank pain, denies any nausea vomiting, has shortness of breath denies any palpitations or chest pain, denies any diarrhea or urinary complaints, denies any new joint pains denies any skin rashes bleeding or melena. Denies any acute anxiety or depression 3/ Pt seen examined, overnight bp remained low but stable, no need for Pressors this AM systolic in 100's MAP > 65 WBC slightly worse, but clinically pt much better good urine output d/c antonio larson to tele status. viral panel neg / Pt seen exmained, doing well, wbc trending down, 12K labs stable ambulating in room, nearly back to baseline stable for d/c In Summary Patient admitted to the hospital with pneumonia and severe sepsis with shock. She was treated with antibiotics with good clinical response. Microbiology is negative blood cultures and sputum cultures have been negative so far. Influenza was negative. Patient will be discharged on p.o. levofloxacin for 4 more days to complete a course of 7 days. No changes have been done in a chronic home medication list, levofloxacin can sometimes increase INR, patient has an INR check and device at home which he uses to monitor INR and adjust the dose of Coumadin. She has been educated to check her INR in 2 days and hold the dose of Coumadin if more than 3.5. Discharge diagnosis: pneumonia - Time Spent with Patient Total time spent providing and/or coordinating discharge services: Greater than 30 minutes Medical - DS: Exam - Constitutional Vitals: Vital Signs Temp Pulse Resp BP BP Pulse Ox 08/09/18 07:57 98.5 F 16 130/80 95 08/09/18 07:23 100 H 18 08/09/18 04:00 98.1 F 17 118/70 98 08/09/18 00:00 98.2 F 18 103/67 97 08/08/18 20:00 98.1 F 18 95/51 93 08/08/18 18:21 109 H 16 08/08/18 16:35 97.8 F 18 106/69 95 08/08/18 13:40 111 H 16 08/08/18 12:01 98.6 F 97 H 15 101/59 99 Intake and Output 08/08/18 08/09/18 08/09/18 21:59 05:59 13:59 Intake Total 337 199 7307 Output Total 1 Balance 976 416 4344 Intake: IV 250 1000 Vancomycin 1,000 mg In Sodium 250 Chloride 0.9% 250 ml @ 250 mls/ hr IV Q12H [facility] Rx#:[id number] Oral 500 360 Output: Void Amount 1 Other: Meal Dinner Percent of Meal Consumed 50% # Voids 1 Weight 212 lb Additional comments: Constitutional; Afebrile, cooperative, alert, not in distress. Eyes- No icterus, , No periorbital swelling Ears- Ext ear normal, hearing normal to conversation. Neck- Midline trachea, supple Respiratory system: Air Entry equal on both sides, No crackles or wheezing, no rhonchi. CVS- Rate rhythm regular, S1,S2 heard, no gallop, no rub. 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 Medical - DS: Data Labs on day of discharge: Labs from last 24 hours 08/09/18 08/09/18 08/09/18 08:17 03:35 03:35 WBC RBC Hgb Hct MCV MCH MCHC RDW Plt Count MPV Gran % Lymph % (Auto) Riley % (Auto) Eos % (Auto) Baso % (Auto) PT 27.4 H INR 2.6 H Sodium 143 Potassium 3.9 Chloride 111 H Carbon Dioxide 25 Anion Gap 7.0 L BUN 16 Creatinine 0.5 L GFR Calculation 115 Glucose 60 L Uric Acid 2.3 L Calcium 8.1 L Phosphorus 1.7 L Magnesium 2.1 Total Bilirubin 0.2 Direct Bilirubin < 0.2 GGT 36 AST 13 ALT 16 Alkaline Phosphatase 191 H Lactate Dehydrogenase 228 Total Protein 5.8 L Albumin 2.9 L Globulin 2.9 Albumin/Globulin Ratio 1.0 Triglycerides 87 Vancomycin Trough 7.2 08/09/18 03:35 WBC 12.8 H RBC 3.27 L Hgb 9.3 L Hct 29.0 L MCV 88.7 MCH 28.4 MCHC 32.0 RDW 19.8 H Plt Count 181 MPV 8.5 Gran % 76.0 Lymph % (Auto) 14.0 L Riley % (Auto) 6.0 Eos % (Auto) 4.0 Baso % (Auto) 0 PT INR Sodium Potassium Chloride Carbon Dioxide Anion Gap BUN Creatinine GFR Calculation Glucose Uric Acid Calcium Phosphorus Magnesium Total Bilirubin Direct Bilirubin GGT AST ALT Alkaline Phosphatase Lactate Dehydrogenase Total Protein Albumin Globulin Albumin/Globulin Ratio Triglycerides Vancomycin Trough Preliminary micro results at discharge 08/07/18 16:08 Blood Culture - Preliminary Blood 08/07/18 16:08 Blood Culture - Preliminary Blood Medical - DS: A/P - Patient/Caregiver Discharge Instructions Activity: increase activity as tolerated Diet: Regular Diet Additional Instructions: Consider smoking cessation Take antibiotic, levofloxacin 750 mg once a day for 4 more doses. Levofloxacin can sometimes cause elevation in INR, check your INR and Sunday, hold the dose of Coumadin if the INR is more than 3.5, Go to the ER if worsening symptoms fever chest pain shortness of breath or any other acute concerning symptom I have not made any changes in your chronic home medications please take them as prescribed by a previous provider - Follow up Plan Follow up with: Beverly Nguyen ARNP [Primary Care Provider] - (The office was closed on Sunday. They should call you on Sunday to schedule an appointment. If you do not hear from them by Sunday, please call them. ) Disposition: Home, Self-Care Prognosis: Good Rehab Potential: Good I certify that the patient requires SNF services: No Overall status at discharge: patient is progressing back to baseline Medical - DS: Qual - VTE Deep Vein Thrombosis/Pulmonary Embolism Present on Admission: No
[2018-08-09] MEDS ORDERED: WARFARIN 10 MG TABLET PO ONE (14:00)
== END 2018-08-09 12:35 | disposition home or self-care (01) | DRG 871 ==
LOC: ED 15:45 → ICU 17:50
PROVIDERS: ADMIT Internal Medicine; ATTEND Internal Medicine

== ENCOUNTER 2020-09-22 09:09 | Inpatient (IN) ==
[2020-09-22] MEDS ORDERED: 0.9 % SODIUM CHLORIDE 1,000 ML IV ONE (09:18)
[2020-09-22] MEDS ORDERED: IPRATROPIUM/ALBUTEROL 3 ML AMPUL.NEB NEB ONE (09:18)
--- NOTE | 2020-09-22 09:31 | Emergency Department Note ---
SOB HPI General Chief Complaint: Cold/Flu Symptoms Stated Complaint: Cold symptoms Time Seen by Provider: 09/22/20 09:14 Source: patient, RN notes reviewed and old records reviewed Mode of arrival: ambulatory Limitations: no limitations History of Present Illness HPI Narrative: Narrative: 49-year-old female with known history of atrial fibrillation COPD/asthma has been treated with steroids and antibiotics for COPD bronchitis patient said that she was improving and then stopped the steroids and antibiotics 3 days ago and since has been worsening. Complaining of increasing shortness of breath increasing wheezing increasing cough productive sputum with chest pain with deep inspiration and coughing down while at rest. She denies any fevers or chills diaphoresis sore throat stiff neck abdominal pain bowel or bladder changes. MD Complaint: shortness of breath, cough and "asthma attack" Onset (ago): day(s) (3) Context: recent illness and allergen exposure Severity: moderate Consistency/Duration: constant Improves with: oxygen Worsens with: exertion and coughing Known history of: COPD and asthma Associated symptoms: Reports pain with inspiration, cough, wheezing and sputum production; Denies chest pain, fever, orthopnea, lower extremity pain, polyuria, polydipsia, parasthesias, palpitations, carpopedal spasm, hemoptysis, osvaldo phoresis, nausea/vomiting, syncope, abdominal pain and rash Treatment prior to arrival: oxygen, bronchodilator and other (Antibiotics and steroids) Related Data Home oxygen amount: 2 liters Home Medications Medication Instructions Recorded Confirmed albuterol sulfate 1 puff INH Q4HP PRN 07/01/15 09/22/20 diltiazem HCl 240 mg PO DAILY 07/01/15 09/22/20 levothyroxine 100 mcg PO DAILY 07/01/15 09/22/20 sertraline 200 mg PO DAILY 07/01/15 09/22/20 warfarin 15 mg PO DAILY 07/01/15 09/22/20 clonazepam 1 mg tablet 1 mg PO QHS 03/06/17 09/22/20 omeprazole 20 mg PO ONCE 05/05/18 09/22/20 ipratropium 0.5 mg-albuterol 3 mg 3 ml INHALATION QID PRN 01/27/20 09/22/20 (2.5 mg base)/3 mL nebulization soln metoprolol succinate 25 mg 75 mg PO QDAY tab 02/05/20 09/22/20 tablet,extended release 24 hr oxycodone-acetaminophen 1 tab PO Q6H PRN 09/22/20 09/22/20 Previous Rx's Medication Instructions Recorded montelukast 10 mg tablet 10 mg PO QHS #30 tab 02/05/20 Allergies Allergy/AdvReac Type Severity Reaction Status Date / Time naproxen [NAPROXEN] Allergy Severe ANGIOEDEMA Verified 09/22/20 09:10 NSAIDS (Non-Steroidal Allergy Unknown Anaphylaxis Verified 09/22/20 09:10 Anti-Inflamma Review of Systems ROS ROS Narrative: Narrative: All systems ED: reviewed and negative except as stated. PFSH Narrative Patient History Narrative: Narrative: Medical/Surgical/Family History All Active Problems (Updated 09/22/20 @ 12:06 by Pavel Henriquez MD) Pneumonia (Acute) COPD exacerbation (Acute) Lumbar stenosis without neurogenic claudication (Chronic) Anxiety (Chronic) Bronchitis (Chronic) Low back pain (Chronic) COPD (chronic obstructive pulmonary disease) (Chronic) Exposure to TB (Chronic) History of carpal tunnel surgery (Chronic ~1997) Chronic pain (Chronic) Spinal stenosis (Chronic) Abscess of abdominal wall (Chronic) Degeneration of lumbar intervertebral disc (Chronic) GERD (gastroesophageal reflux disease) (Chronic) Depression (Chronic) Atrial fibrillation (Chronic) Nonischemic congestive cardiomyopathy (Chronic) Shoulder pain (Chronic) Postoperative complication (Chronic) Abscess of skin or subcutaneous tissue (Chronic) Cellulitis (Chronic) Septic shock (Chronic) SIRS (systemic inflammatory response syndrome) (Chronic) Sepsis (Chronic) Atrial fibrillation with RVR (Chronic) RLL pneumonia (Chronic) History of DVT (deep vein thrombosis) (Chronic) Tobacco use (Chronic) H/O bariatric surgery (Chronic ~2014) Asthma (Chronic) Back pain, chronic (Chronic) WES (obstructive sleep apnea) (Chronic) Finger fracture, left (Chronic) Obesity (BMI 30.0-34.9) (Chronic) Hypothyroidism, acquired (Chronic) Chronic atrial fibrillation (Chronic) Chronic anticoagulation (Chronic) Cigarette smoker (Chronic) Dependence on nocturnal oxygen therapy (Chronic) Anxiety disorder (Chronic) Medical History Abscess of abdominal wall Abscess of skin or subcutaneous tissue Anxiety Anxiety disorder Asthma Atrial fibrillation Atrial fibrillation with RVR Back pain, chronic Bronchitis Cellulitis Chronic anticoagulation Chronic atrial fibrillation Chronic pain Cigarette smoker COPD (chronic obstructive pulmonary disease) COPD exacerbation Degeneration of lumbar intervertebral disc Dependence on nocturnal oxygen therapy With weight loss she is uncertain if she needs this. Depression Exposure to TB GERD (gastroesophageal reflux disease) History of DVT (deep vein thrombosis) Hypothyroidism, acquired Low back pain Lumbar stenosis without neurogenic claudication Nonischemic congestive cardiomyopathy Obesity (BMI 30.0-34.9) History of morbid obesity; status post gastric sleeve 2014. WES (obstructive sleep apnea) Postoperative complication RLL pneumonia Sepsis Septic shock Shoulder pain SIRS (systemic inflammatory response syndrome) Spinal stenosis Tobacco use Tonsillitis UTI (urinary tract infection) Surgical History H/O bariatric surgery (~2014) History of carpal tunnel surgery (~1997) History of gastric surgery Gastric sleeve surgery with revision History of herniorrhaphy History of laparoscopic cholecystectomy 05/07/2018-partial omentectomy; incisional hernia repair History of surgery eyelid Family History Father Hepatitis C Substance abuse Mother , Age 40 Substance abuse Grandfather Asthma Paternal Social History Smoking Status: Current every day smoker Alcohol Intake Frequency: a few times a month Substance Use: marijuana Exam Narrative Narrative: Narrative: General Limitations: no limitations General appearance: Present alert and in no apparent distress Head Head: Present atraumatic and normocephalic Eye Eye: Present normal appearance, PERRL and EOMI ENT ENT: Present normal exam and mucous membranes moist Neck Neck: Present normal inspection and full ROM Chest Chest: Present normal inspection; Absent tenderness Respiratory Respiratory: Present wheezes, prolonged expiratory phase and decreased breath sounds; Absent respiratory distress and stridor Cardiovascular Cardiovascular: Present regular rate and normal rhythm; Absent systolic murmur Adbominal Abdominal: Present soft; Absent distention, tenderness, guarding and rebound Extremities Extremities: Present normal inspection and full ROM; Absent tenderness, pedal edema and pretibial edema Back Back: Present normal inspection; Absent CVA tenderness (R) and CVA tenderness ( L) Neurological Neurological: Present alert and oriented X3 Psychiatric Psychiatric: Present normal affect and normal mood Skin Skin: Present warm (WNL); Absent rash Course Vital Signs Vital signs: Vital Signs Temperature 99.0 F 09/22/20 09:10 Pulse Rate 97 H 09/22/20 09:10 Respiratory Rate 22 09/22/20 09:10 Blood Pressure 126/82 09/22/20 09:10 Pulse Oximetry (%) 85 L 09/22/20 09:10 Temperature 102.5 F H 09/22/20 12:34 Pulse Rate 106 H 09/22/20 12:14 Respiratory Rate 16 09/22/20 13:02 Blood Pressure 102/76 09/22/20 13:02 Pulse Oximetry (%) 91 09/22/20 12:14 MDM MDM Narrative Medical decision making narrative: Narrative: 49-year-old female with asthma/COPD was on p.o. antibiotics and prednisone comes in for increasing shortness of breath dyspnea and hypoxia. Chest x-ray shows bilateral lobar pneumonia and white count is 24.0. Patient is hypoxic with pulse ox in the high 80s 1 and ambulating patient has failed p.o. antibiotics and I believe needs to be admitted for IV antibiotics and pulmonary toilet. Diagnosis is bilateral pneumonia Medical Records Medical records reviewed: Yes I reviewed the patient's medical records. Lab Data Lab results reviewed: Yes I reviewed the patient's lab results. Result diagrams: 09/22/20 09:20 09/22/20 11:43 Labs: Lab Results 09/22/20 09/22/20 09/22/20 Range/Units 09:20 09:20 09:20 WBC 24.0 H (4.5-11.0) K/mcL RBC 4.28 (4.00-5.20) M/mcL Hgb 14.0 (12.0-15.0) g/dL Hct 43.4 (36.0-48.0) % MCV 101.4 H (80.0-100.0) fL MCH 32.7 (26.0-34.0) pg MCHC 32.3 (31.0-36.0) g/dL RDW 13.6 (11.5-14.5) % Plt Count 255 (140-440) K/mcL MPV 11.1 H (7.4-10.4) fL Neut % (Auto) 91.2 H (38.0-78.0) % Lymph % (Auto) 3.5 L (15.0-49.0) % [place] % (Auto) 4.7 (1.0-12.0) % Eos % (Auto) 0.2 (0.0-7.0) % Baso % (Auto) 0.4 (0.0-2.0) % Lymph # (Auto) 0.83 L (1.50-4.80) K/mcL [place] # (Auto) 1.12 H (0.10-0.90) K/mcL Eos # (Auto) 0.06 (0.00-0.70) K/mcL Baso # (Auto) 0.10 (0.00-0.20) K/mcL Absolute Neutrophils 21.91 H (1.80-8.00) K/mcL PT 23.0 H (11.9-14.5) sec INR 1.9 H (0.9-1.1) VBG Lactic Acid (0.5-2.0) mmol/L Sodium TNP Potassium TNP Chloride TNP Carbon Dioxide TNP Anion Gap TNP BUN TNP Creatinine TNP GFR Calculation TNP Glucose TNP Calcium TNP Total Bilirubin TNP AST TNP ALT TNP Alkaline Phosphatase TNP Total Protein TNP Albumin TNP Globulin TNP Albumin/Globulin Ratio TNP 09/22/20 09/22/20 Range/Units 11:43 11:45 WBC (4.5-11.0) K/mcL RBC (4.00-5.20) M/mcL Hgb (12.0-15.0) g/dL Hct (36.0-48.0) % MCV (80.0-100.0) fL MCH (26.0-34.0) pg MCHC (31.0-36.0) g/dL RDW (11.5-14.5) % Plt Count (140-440) K/mcL MPV (7.4-10.4) fL Neut % (Auto) (38.0-78.0) % Lymph % (Auto) (15.0-49.0) % [place] % (Auto) (1.0-12.0) % Eos % (Auto) (0.0-7.0) % Baso % (Auto) (0.0-2.0) % Lymph # (Auto) (1.50-4.80) K/mcL [place] # (Auto) (0.10-0.90) K/mcL Eos # (Auto) (0.00-0.70) K/mcL Baso # (Auto) (0.00-0.20) K/mcL Absolute Neutrophils (1.80-8.00) K/mcL PT (11.9-14.5) sec INR (0.9-1.1) VBG Lactic Acid 0.7 (0.5-2.0) mmol/L Sodium 136 Potassium 4.3 Chloride 99 Carbon Dioxide 29 Anion Gap 8.0 BUN 11 Creatinine 0.6 GFR Calculation 106 Glucose 100 Calcium 8.1 L Total Bilirubin 0.5 AST 15 ALT 42 H Alkaline Phosphatase 100 Total Protein 6.1 Albumin 3.5 Globulin 2.6 Albumin/Globulin Ratio 1.3 ED POC Tests ED POC Tests: RU - Influenza A Negative RU - Influenza B Negative RU - SARS Antigen Negative Pulse Oximetry Data Pulse Ox %: 88 Interpretation: 88% on room air. Discharge Plan Patient/Caregiver Discharge Instructions Pt seen by HEALTH PROGRAM DIRECTOR/PA only: No Clinical Impression: Pneumonia Qualifiers: Pneumonia type: due to unspecified organism Laterality: bilateral Activity: resume usual activities as tolerated Patient Disposition: Xfer As Inpt ([facility]) Follow up with: Paul Schaefer MD [Primary Care Provider] - Prescriptions: No Action ipratropium-albuterol 0.5 mg-3 mg(2.5 mg base)/3 mL solution for nebulization 3 ml INHALATION QID PRN (Reason: Wheezing) RF: 0 metoprolol succinate 25 mg tablet extended release 24 hr 75 mg PO QDAY RF: 0 clonazepam 1 mg tablet 1 mg PO QHS RF: 0 montelukast [Singulair] 10 mg tablet 10 mg PO QHS Qty: 30 RF: 11 diltiazem HCl 240 MG capsule,ext.rel 24h degradable 240 mg PO DAILY RF: 0 sertraline 100 MG tablet 200 mg PO DAILY RF: 0 levothyroxine 100 MCG tablet 100 mcg PO DAILY RF: 0 warfarin 5 MG tablet 15 mg PO DAILY RF: 0 albuterol sulfate 1 PUFF inhaler 1 puff INH Q4HP PRN (Reason: Shortness Of Breath) RF: 0 omeprazole 20 MG capsule 20 mg PO ONCE RF: 0 oxycodone-acetaminophen 1 TAB tablet 1 tab PO Q6H PRN (Reason: Pain Level 3-6) RF: 0
--- NOTE | 2020-09-22 09:47 | XRay Report ---
HISTORY: Dyspnea and cold symptoms FINDINGS: There were moderate diffuse alveolar infiltrates throughout both lungs with the greatest consolidation in the left upper lobe and surrounding the left hilum. The bones are normal. No pleural effusion is present. The andrew are partially obscured by surrounding consolidation. These are new findings since the prior CT done on 12/23/19. Heart size is within upper limits of normal. IMPRESSION: Moderate bilateral pneumonia Interpreted and Authenticated by: Sourav Gimenez 09/22/20
[2020-09-22 10:34] LABS: Basophils % (Auto) 0.4 % (0.0-2.0); Eosinophils # (Auto) 0.06 K/mcL (0.00-0.70); Eosinophils % (Auto) 0.2 % (0.0-7.0); Hematocrit 43.4 % (36.0-48.0); Lymphocytes # (Auto) 0.83 K/mcL (1.50-4.80); Lymphocytes % (Auto) 3.5 % (15.0-49.0); Mean Cell Volume 101.4 fL (80.0-100.0); Mean Corpuscular HGB Conc 32.3 g/dL (31.0-36.0); Mean Platelet Volume 11.1 fL (7.4-10.4); Monocytes # (Auto) 1.12 K/mcL (0.10-0.90); Monocytes % (Auto) 4.7 % (1.0-12.0); Neutrophils % (Auto) 91.2 % (38.0-78.0); Platelet Count 255 K/mcL (140-440); RBC 4.28 M/mcL (4.00-5.20); Red Cell Distribution Width 13.6 % (11.5-14.5)
[2020-09-22] MEDS ORDERED: cefTRIAXone 2 GM in DEXTROSE 5% IN WATER 50 ML IV ONE (10:45)
[2020-09-22] MEDS ORDERED: AZITHROMYCIN 500 MG in DEXTROSE 5% IN WATER 250 ML IV ONE (10:45)
[2020-09-22 10:48] LABS: INR 1.9 (0.9-1.1)
[2020-09-22] MEDS ORDERED: ACETAMINOPHEN 325 MG TABLET PO ONE (11:20)
[2020-09-22] MEDS ORDERED: methylPREDNISolone SOD SUCC 125 MG/2 ML VIAL IV ONE (12:41)
[2020-09-22 12:51] LABS: ALT/SGPT 42 U/L (<40); AST/SGOT 15 U/L (<32); Albumin 3.5 gm/dL (3.2-5.2); Albumin/Globulin Ratio 1.3 (1.0-2.3); Alkaline Phosphatase 100 U/L (39-117); Bilirubin,Total 0.5 mg/dL (0.1-1.0); Blood Urea Nitrogen 11 mg/dL (6-20); Calcium 8.1 mg/dL (8.6-10.4); Carbon Dioxide 29 mmol/L (22-30); Chloride 99 mmol/L (96-108); Globulin 2.6 gm/dL (2.2-3.7); Glomerular Filtration Rate 106; Glucose 100 mg/dL (70-105)
[2020-09-22] MEDS ORDERED: guaiFENesin/DEXTROMETHORPHAN ORAL SOL PO PRN ×2 (14:06→15:57)
[2020-09-22] MEDS ORDERED: IPRATROPIUM/ALBUTEROL 3 ML AMPUL.NEB NEB PRN ×2 (14:06→15:57)
--- NOTE | 2020-09-22 14:18 | Internal Med History&Physical ---
HPI History of Present Illness Patient information: Note initiated : 09/22/20 at 2:08 pm Service Date, if different from initiated Date: [] Patient: Estela Man a 49 y/o F admitted on for Cold symptoms. Chief Complaint: [shortness of breath] History of present illness: Ms. Man is a 49 year old F history of atrial fibrillation on anticoagulation therapy, asthma, COPD, GERD, hypothyroidism, presenting with 1 week history of shortness of breath. She was recently prescribed 4 weeks of oral steroid as well as antibiotics and she was fine but as soon as she finished dose she has been having increasing shortness of breath for the past week. She is also complaining of productive cough with yellow sputum. She is also complaining of bee stings. She is also committing of mild substernal chest pain whenever she coughs. She denies any fever, chills, or diaphoresis. She denies any lethargy, general body weakness, or decrease in appetite. Because of her symptoms progressions, she decided to come to our ED for further evaluation and treatment. She was tongue found to be having tachycardia and tachypnea with heart rate and rate of breathing in the 100s beats per minute and mid 20s beats per minutes, respectively. Oxygen saturations as low as 91% on room air. Labs significant for leukocytosis with WBC 24.0. Chest x-ray showing evidence of bilateral pulmonary infiltrates suggestive of bilateral pneumonia. Constitutional Constitutional: Absent chills, excessive sweating, fatigue, fever(s) and weakness EENT Eyes: Absent blurry vision, change in vision, loss of vision and other visual disturbances Ears: Absent decreased hearing and tinnitus Nose, mouth and throat: Absent abnormal hearing, dry mouth, headache(s), nasal congestion and sore throat Additional comments: Nasal cannula in place Cardiovascular Cardiovascular: Absent chest pain, chest pain at rest, edema, irregular heart rhythm and palpatations Respiratory Respiratory: Present cough and wheezing; Absent dyspnea Additional comments: Decreased breath sound bilateral lower lung yeung Gastrointestinal Gastrointestinal: Absent abdominal pain, constipation, diarrhea, nausea and vomiting Musculoskeletal Musculoskeletal: Absent back pain, deformity, limited range of motion, muscle cramps, muscle weakness and numbness Integumentary Integumentary: Absent lesions, rash and wounds Neurological Neurological: Absent focal weakness, headache(s) and numbness Psychiatric Psychiatric: Absent anxiety, depression and hallucinations PFSH PFSH All Active Problems (Updated 09/22/20 @ 14:22 by David Pablo MD) Hypothyroid (Acute) Asthma exacerbation (Acute) Pneumonia (Acute) COPD exacerbation (Acute) Lumbar stenosis without neurogenic claudication (Chronic) Anxiety (Chronic) Bronchitis (Chronic) Low back pain (Chronic) COPD (chronic obstructive pulmonary disease) (Chronic) Exposure to TB (Chronic) History of carpal tunnel surgery (Chronic ~1997) Chronic pain (Chronic) Spinal stenosis (Chronic) Abscess of abdominal wall (Chronic) Degeneration of lumbar intervertebral disc (Chronic) GERD (gastroesophageal reflux disease) (Chronic) Depression (Chronic) Atrial fibrillation (Chronic) Nonischemic congestive cardiomyopathy (Chronic) Shoulder pain (Chronic) Postoperative complication (Chronic) Abscess of skin or subcutaneous tissue (Chronic) Cellulitis (Chronic) Septic shock (Chronic) SIRS (systemic inflammatory response syndrome) (Chronic) Sepsis (Chronic) Atrial fibrillation with RVR (Chronic) RLL pneumonia (Chronic) History of DVT (deep vein thrombosis) (Chronic) Tobacco use (Chronic) H/O bariatric surgery (Chronic ~2014) Asthma (Chronic) Back pain, chronic (Chronic) WES (obstructive sleep apnea) (Chronic) Finger fracture, left (Chronic) Obesity (BMI 30.0-34.9) (Chronic) Hypothyroidism, acquired (Chronic) Chronic atrial fibrillation (Chronic) Chronic anticoagulation (Chronic) Cigarette smoker (Chronic) Dependence on nocturnal oxygen therapy (Chronic) Anxiety disorder (Chronic) Medical History Abscess of abdominal wall Abscess of skin or subcutaneous tissue Anxiety Anxiety disorder Asthma Atrial fibrillation Atrial fibrillation with RVR Back pain, chronic Bronchitis Cellulitis Chronic anticoagulation Chronic atrial fibrillation Chronic pain Cigarette smoker COPD (chronic obstructive pulmonary disease) COPD exacerbation Degeneration of lumbar intervertebral disc Dependence on nocturnal oxygen therapy With weight loss she is uncertain if she needs this. Depression Exposure to TB GERD (gastroesophageal reflux disease) History of DVT (deep vein thrombosis) Hypothyroidism, acquired Low back pain Lumbar stenosis without neurogenic claudication Nonischemic congestive cardiomyopathy Obesity (BMI 30.0-34.9) History of morbid obesity; status post gastric sleeve 2014. WES (obstructive sleep apnea) Postoperative complication RLL pneumonia Sepsis Septic shock Shoulder pain SIRS (systemic inflammatory response syndrome) Spinal stenosis Tobacco use Tonsillitis UTI (urinary tract infection) Surgical History H/O bariatric surgery (~2014) History of carpal tunnel surgery (~1997) History of gastric surgery Gastric sleeve surgery with revision History of herniorrhaphy History of laparoscopic cholecystectomy 05/07/2018-partial omentectomy; incisional hernia repair History of surgery eyelid Family History Father Hepatitis C Substance abuse Mother , Age 40 Substance abuse Grandfather Asthma Paternal Social History marital status: single education level: college 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 smoking status: Current every day smoker alcohol intake frequency: a few times a month substance use type: marijuana MEDS/ALLERGIES Home Medications and Allergies Home Medications Medication Instructions Recorded Confirmed Type albuterol sulfate 1 puff INH Q4HP PRN 07/01/15 09/22/20 History diltiazem HCl 240 mg PO DAILY 07/01/15 09/22/20 History levothyroxine 100 mcg PO DAILY 07/01/15 09/22/20 History sertraline 200 mg PO DAILY 07/01/15 09/22/20 History warfarin 15 mg PO DAILY 07/01/15 09/22/20 History clonazepam 1 mg tablet 1 mg PO QHS 03/06/17 09/22/20 History omeprazole 20 mg PO ONCE 05/05/18 09/22/20 History ipratropium 0.5 mg-albuterol 3 mg 3 ml INHALATION QID PRN 01/27/20 09/22/20 History (2.5 mg base)/3 mL nebulization soln metoprolol succinate 25 mg 75 mg PO QDAY tab 02/05/20 09/22/20 History tablet,extended release 24 hr montelukast 10 mg tablet 10 mg PO QHS #30 tab 02/05/20 09/22/20 Rx oxycodone-acetaminophen 1 tab PO Q6H PRN 09/22/20 09/22/20 History Allergies Allergy/AdvReac Type Severity Reaction Status Date / Time naproxen [NAPROXEN] Allergy Severe ANGIOEDEMA Verified 09/22/20 09:10 NSAIDS (Non-Steroidal Allergy Severe Anaphylaxis Verified 09/22/20 14:08 Anti-Inflamma EXAM Constitutional Vitals: Temp Pulse Resp BP Pulse Ox 37.5 C H 97 H 16 98/72 100 09/22/20 13:52 09/22/20 13:56 09/22/20 13:02 09/22/20 14:00 09/22/20 13:56 General appearance: cooperative and no acute distress Head Head exam: Present atraumatic and normocephalic Eye Eye exam: Present EOMI and PERRL ENT ENT exam: Present mucous membranes moist, normal exam and normal external ear exam Neck Neck exam: Present normal inspection; Absent lymphadenopathy, tenderness and thyromegaly Respiratory Respiratory exam: Absent accessory muscle use, respiratory distress and wheezes Cardiovascular Cardiovascular exam: Present normal rate and rhythm and irregular rhythm; Absent JVD GI/Abdominal GI/Abdominal exam: Present normal bowel sounds and soft; Absent organomegaly and tenderness Extremities Exam Extremities exam: Present full ROM, normal capillary refill and normal inspection; Absent tenderness Neurological Exam Neurological exam: Present alert, CN II-XII intact and oriented X3; Absent motor sensory deficit Psychiatric Psychiatric exam: Present normal affect and normal mood; Absent anxious and de pressed Skin Skin exam: Present dry and intact DATA Data Completed and Pending Labs: Labs from last 24 hours 09/22/20 09/22/20 09/22/20 11:45 11:43 09:20 WBC RBC Hgb Hct MCV MCH MCHC RDW Plt Count MPV Neut % (Auto) Lymph % (Auto) [place] % (Auto) Eos % (Auto) Baso % (Auto) Lymph # (Auto) [place] # (Auto) Eos # (Auto) Baso # (Auto) Absolute Neutrophils PT 23.0 H INR 1.9 H VBG Lactic Acid 0.7 Sodium 136 Potassium 4.3 Chloride 99 Carbon Dioxide 29 Anion Gap 8.0 BUN 11 Creatinine 0.6 GFR Calculation 106 Glucose 100 Calcium 8.1 L Total Bilirubin 0.5 AST 15 ALT 42 H Alkaline Phosphatase 100 Total Protein 6.1 Albumin 3.5 Globulin 2.6 Albumin/Globulin Ratio 1.3 09/22/20 09/22/20 09:20 09:20 WBC 24.0 H RBC 4.28 Hgb 14.0 Hct 43.4 MCV 101.4 H MCH 32.7 MCHC 32.3 RDW 13.6 Plt Count 255 MPV 11.1 H Neut % (Auto) 91.2 H Lymph % (Auto) 3.5 L [place] % (Auto) 4.7 Eos % (Auto) 0.2 Baso % (Auto) 0.4 Lymph # (Auto) 0.83 L [place] # (Auto) 1.12 H Eos # (Auto) 0.06 Baso # (Auto) 0.10 Absolute Neutrophils 21.91 H PT INR VBG Lactic Acid Sodium TNP Potassium TNP Chloride TNP Carbon Dioxide TNP Anion Gap TNP BUN TNP Creatinine TNP GFR Calculation TNP Glucose TNP Calcium TNP Total Bilirubin TNP AST TNP ALT TNP Alkaline Phosphatase TNP Total Protein TNP Albumin TNP Globulin TNP Albumin/Globulin Ratio TNP A/P Assessment and plan (1) Pneumonia: Status: Acute Qualifiers: Laterality: bilateral Pneumonia type: due to unspecified organism (2) COPD exacerbation: Status: Acute (3) Atrial fibrillation with RVR: Status: Chronic (4) Cigarette smoker: Status: Chronic (5) Asthma exacerbation: Status: Acute (6) Hypothyroid: Status: Acute Narrative A/P Narrative: 1. Asthma/COPD exacerbation: Admit to inpatient med surg Supplemental oxygen via nasal cannula titrate to achieve pos2 >=92% DuoNEB NEB q4hr DuoNEB NEB q4hr PRN wheezing or SOB Monteluklast Zithromax Robitussin DM PRN cough Dexamethasone 6mg IV daily 2. Community acquired pneumonia: Blood culture cbc w/ auto diff daily to trend WBC Supplemental oxygen via nasal cannula titrate to achieve pos2 >=92% Rocephin Zithromax Robitussin DM PRN cough Tylenol PRN fever 3. Atrial fibrillation with RVR: INR daily for warfarin dosing Warfarin dosing as per pharmacy, goal INR 2-3 Metoprolol ER Diltiazem ER 4. Hypothyroidism: Continue oral thyroid replacement therapy 5. GERD: Continue oral PPI from home regimen Time Spent With Patient Time: Total time spent is greater than 50% in coordination of care (as documented) at patient's floor/unit and/or counseling patient: Total time spent with greater than 50% in coordination of care (as documented) at patient's floor/unit and/or counseling patient:: 25 - 35 minutes
[2020-09-22] MEDS ORDERED: IPRATROPIUM/ALBUTEROL 3 ML AMPUL.NEB NEB SCH (15:00)
[2020-09-22] MEDS ORDERED: ONDANSETRON 4 MG/2 ML VIAL IV PRN (15:57)
[2020-09-22] MEDS ORDERED: ACETAMINOPHEN 325 MG TABLET PO PRN (15:57)
[2020-09-22] MEDS ORDERED: cefTRIAXone 1 GM in DEXTROSE 5% IN WATER 50 ML IV SCH (15:57)
[2020-09-22] MEDS ORDERED: oxyCODONE/APAP 10/325MG TABLET PO PRN (15:57)
[2020-09-22] MEDS ORDERED: traZODone HCL 50 MG TABLET PO PRN (15:57)
[2020-09-22] MEDS: 0.9 % SODIUM CHLORIDE 1,000 ML IV SCH (16:47)
[2020-09-22] MEDS: 0.9 % SODIUM CHLORIDE 10 ML SYRINGE IV SCH ×2 (16:47→21:24)
[2020-09-22] MEDS ORDERED: WARFARIN 5 MG TABLET PO ONE (17:00)
[2020-09-22] MEDS: NICOTINE 21 MG PATCH TOPICAL SCH (18:07)
[2020-09-22] MEDS: clonazePAM 1 MG TABLET PO SCH ×2 (18:07→21:24)
[2020-09-22] MEDS: IPRATROPIUM/ALBUTEROL 3 ML AMPUL.NEB NEB SCH ×2 (19:00→22:39)
[2020-09-22] MEDS ORDERED: MONTELUKAST 10 MG TABLET PO SCH (21:00)
[2020-09-22] MEDS ORDERED: SENNOSIDES 1 TABLET PO SCH (21:00)
[2020-09-22] MEDS: DOCUSATE SODIUM 100 MG CAPSULE PO SCH (21:24)
[2020-09-23] MEDS: 0.9 % SODIUM CHLORIDE 1,000 ML IV SCH ×3 (02:44→12:44)
[2020-09-23] MEDS: IPRATROPIUM/ALBUTEROL 3 ML AMPUL.NEB NEB SCH ×2 (03:08→07:41)
[2020-09-23] MEDS: 0.9 % SODIUM CHLORIDE 10 ML SYRINGE IV SCH ×2 (04:41→15:46)
[2020-09-23] MEDS ORDERED: OMEPRAZOLE 20 MG CAPSULE PO SCH (07:30)
[2020-09-23 07:39] LABS: Basophils # (Auto) 0.01 K/mcL (0.00-0.20); Basophils % (Auto) 0.1 % (0.0-2.0); Eosinophils # (Auto) 0 K/mcL (0.00-0.70); Eosinophils % (Auto) 0 % (0.0-7.0); Hematocrit 36.5 % (36.0-48.0); Hemoglobin 11.8 g/dL (12.0-15.0); Lymphocytes # (Auto) 0.26 K/mcL (1.50-4.80); Lymphocytes % (Auto) 1.6 % (15.0-49.0); Mean Cell Volume 99.7 fL (80.0-100.0); Mean Corpuscular HGB Conc 32.3 g/dL (31.0-36.0); Mean Platelet Volume 10.9 fL (7.4-10.4); Monocytes # (Auto) 0.55 K/mcL (0.10-0.90); Monocytes % (Auto) 3.4 % (1.0-12.0); Neutrophils % (Auto) 94.9 % (38.0-78.0); Platelet Count 188 K/mcL (140-440); RBC 3.66 M/mcL (4.00-5.20); Red Cell Distribution Width 13.6 % (11.5-14.5)
[2020-09-23 07:58] LABS: ALT/SGPT 33 U/L (<40); AST/SGOT 12 U/L (<32); Albumin 3.7 gm/dL (3.2-5.2); Albumin/Globulin Ratio 1.4 (1.0-2.3); Alkaline Phosphatase 88 U/L (39-117); Bilirubin,Total 0.3 mg/dL (0.1-1.0); Blood Urea Nitrogen 11 mg/dL (6-20); Calcium 8.7 mg/dL (8.6-10.4); Carbon Dioxide 29 mmol/L (22-30); Chloride 105 mmol/L (96-108); Globulin 2.6 gm/dL (2.2-3.7); Glomerular Filtration Rate 122; Glucose 163 mg/dL (70-105)
[2020-09-23 08:34] LABS: INR 2.8 (0.9-1.1); Prothrombin Time 30.4 sec (11.9-14.5)
[2020-09-23] MEDS ORDERED: METOPROLOL SUCCINATE 25 MG TAB.XL.24H PO SCH ×2 (09:00→21:00)
[2020-09-23] MEDS ORDERED: DEXAMETHASONE 10 MG/ML VIAL IV SCH ×2 (09:00)
[2020-09-23] MEDS ORDERED: DILTIAZEM 240 MG CAP.XL.24H PO SCH ×2 (09:00→21:00)
[2020-09-23] MEDS ORDERED: cefTRIAXone 1 GM VIAL IV SCH (09:00)
[2020-09-23] MEDS ORDERED: LEVOTHYROXINE 100 MCG TABLET PO SCH (09:00)
[2020-09-23] MEDS ORDERED: ENOXAPARIN 40 MG/0.4 ML SYRINGE SQ SCH (09:00)
[2020-09-23] MEDS ORDERED: SERTRALINE 100 MG TABLET PO SCH ×2 (09:00→21:00)
[2020-09-23] MEDS: NICOTINE 21 MG PATCH TOPICAL SCH (09:04)
[2020-09-23] MEDS ORDERED: AZITHROMYCIN 500 MG in DEXTROSE 5% IN WATER 250 ML IV SCH (10:00)
[2020-09-23] MEDS: DOCUSATE SODIUM 100 MG CAPSULE PO SCH (10:26)
[2020-09-23] MEDS ORDERED: DEXTROSE 50% 50 ML VIAL IV PRN (10:32)
[2020-09-23] MEDS ORDERED: DEXTROSE 31 GM ORAL.SUSP PO PRN (10:32)
[2020-09-23] MEDS ORDERED: INSULIN LISPRO 1 UNIT/0.01 ML UNIT SQ SCH (11:30)
--- NOTE | 2020-09-23 15:02 | Discharge Summary ---
Discharge Provider Provider Patient information: Note initiated : 09/23/20 at 2:58 pm Service Date, if different from initiated Date: [] Patient: Estela Man 49 y/o F admitted on 09/22/20 for Cold symptoms. Chief Complaint: [Asthma/COPD exacerbation] Date of admission: 09/22/20 15:49 Discharge date: 09/23/20 Primary care physician: Todd Schaefer Consults: 09/22/20 Consult to Physician [CONS] Stat Comment: Consulting Provider: David Pablo Reason For Exam: Physician to Consult Discharge Meds Discharge Medications Home Medications albuterol sulfate 1 puff INH Q4HP PRN 07/01/15 [History Confirmed 09/22/20 Last Taken 09/22/20] diltiazem HCl 240 mg PO DAILY 07/01/15 [History Confirmed 09/22/20 Last Taken 09/21/20] levothyroxine 100 mcg PO DAILY 07/01/15 [History Confirmed 09/22/20 Last Taken 09/22/20 08:00] sertraline 200 mg PO DAILY 07/01/15 [History Confirmed 09/22/20 Last Taken 09/21/20 18:00] warfarin 15 mg PO DAILY 07/01/15 [History Confirmed 09/22/20 Last Taken 09/21/20 18:00] clonazepam 1 mg tablet 1 mg PO QHS 03/06/17 [History Confirmed 09/22/20 Last Taken 09/21/20 18:00] omeprazole 20 mg PO ONCE 05/05/18 [History Confirmed 09/22/20 Last Taken 09/22/20 08:00] ipratropium 0.5 mg-albuterol 3 mg (2.5 mg base)/3 mL nebulization soln 3 ml INHALATION QID PRN 01/27/20 [History Confirmed 09/22/20 Last Taken 09/21/20 08:00] metoprolol succinate 25 mg tablet,extended release 24 hr 75 mg PO QDAY tab 02/05/20 [History Confirmed 09/22/20 Last Taken 09/21/20 18:00] montelukast 10 mg tablet 10 mg PO QHS #30 tab 02/05/20 [Rx Confirmed 09/22/20 Last Taken 09/21/20 18:00] oxycodone-acetaminophen 1 tab PO Q6H PRN 09/22/20 [History Confirmed 09/22/20 Last Taken 09/22/20 08:00] azithromycin [Zithromax] 500 mg PO QDAY 3 Days #3 tab 09/23/20 [Rx Last Taken Unknown] prednisone 40 mg PO QDAY #6 tab 09/23/20 [Rx Last Taken Unknown] COURSE Hospital Course Hospital course: Patient was admitted on 09/22/20 for asthma/COPD exacerbation complicated with community acquired pneumonia. Supplemental oxygen, bronchodilators (DuoNEB), IV systemic steroid (Dexamethasone) were all provided. Blood cultures were collected and remained no growth to date. By the next day, patient's oxygen requirement went back to her baseline, been afebrile, and otherwise reached clincial stability. As such, the decision was made to discharge her home with Rx Zithromax and Prednisone sent to pharmacy. 2 week PCP follow up appointment made for her. All questions were answered prior to patient being physically discharged. Discharge diagnosis: Asthma/COPD exacerbation. Community acquired pneumonia. Time Spent with Patient Time attestation: Total time spent providing and/or coordinating discharge services: Time spent: Less than 30 minutes EXAM Constitutional Vitals: Temp Pulse Resp BP Pulse Ox 36.4 C 86 20 101/71 96 09/23/20 12:00 09/23/20 12:00 09/23/20 12:16 09/23/20 12:00 09/23/20 12:16 Discharge Data Data Completed and Pending Labs on day of discharge: Labs from last 24 hours 09/23/20 09/23/20 09/23/20 05:11 05:11 05:11 WBC 16.0 H RBC 3.66 L Hgb 11.8 L Hct 36.5 MCV 99.7 MCH 32.2 MCHC 32.3 RDW 13.6 Plt Count 188 MPV 10.9 H Neut % (Auto) 94.9 H Lymph % (Auto) 1.6 L [place] % (Auto) 3.4 Eos % (Auto) 0 Baso % (Auto) 0.1 Lymph # (Auto) 0.26 L [place] # (Auto) 0.55 Eos # (Auto) 0 Baso # (Auto) 0.01 Absolute Neutrophils 15.18 H PT 30.4 H INR 2.8 H Sodium 141 Potassium 3.4 Chloride 105 Carbon Dioxide 29 Anion Gap 7.0 L BUN 11 Creatinine 0.4 L GFR Calculation 122 Glucose 163 H Calcium 8.7 Total Bilirubin 0.3 AST 12 ALT 33 Alkaline Phosphatase 88 Total Protein 6.3 Albumin 3.7 Globulin 2.6 Albumin/Globulin Ratio 1.4 09/23/20 09/23/20 05:11 05:11 WBC Pending RBC Pending Hgb Pending Hct Pending MCV Pending MCH Pending MCHC Pending RDW Pending Plt Count Pending MPV Pending Neut % (Auto) Pending Lymph % (Auto) [place] % (Auto) Eos % (Auto) Baso % (Auto) Lymph # (Auto) [place] # (Auto) Eos # (Auto) Baso # (Auto) Absolute Neutrophils PT INR Sodium Pending Potassium Pending Chloride Pending Carbon Dioxide Pending Anion Gap Pending BUN Pending Creatinine Pending GFR Calculation Pending Glucose Pending Calcium Pending Total Bilirubin Pending AST Pending ALT Pending Alkaline Phosphatase Pending Total Protein Pending Albumin Pending Globulin Pending Albumin/Globulin Ratio Pending Preliminary micro results at discharge 09/22/20 11:35 Blood Culture - Preliminary Blood 09/22/20 11:27 Blood Culture - Preliminary Blood Discharge Plan Patient/Caregiver Discharge Instructions Activity: resume usual activities as tolerated Diet: Regular Diet Instructions: Asthma (DC) Activity Restrictions/Additional Instructions: 2 week PCP follow up appointment Prescriptions: New azithromycin [Zithromax] 500 mg tablet 500 mg PO QDAY 3 Days Qty: 3 RF: 0 prednisone 20 mg tablet 40 mg PO QDAY Qty: 6 RF: 0 Continued ipratropium-albuterol 0.5 mg-3 mg(2.5 mg base)/3 mL solution for nebulization 3 ml INHALATION QID PRN (Reason: Wheezing) RF: 0 metoprolol succinate 25 mg tablet extended release 24 hr 75 mg PO QDAY RF: 0 clonazepam 1 mg tablet 1 mg PO QHS RF: 0 montelukast [Singulair] 10 mg tablet 10 mg PO QHS Qty: 30 RF: 11 diltiazem HCl 240 MG capsule,ext.rel 24h degradable 240 mg PO DAILY RF: 0 sertraline 100 MG tablet 200 mg PO DAILY RF: 0 levothyroxine 100 MCG tablet 100 mcg PO DAILY RF: 0 warfarin 5 MG tablet 15 mg PO DAILY RF: 0 albuterol sulfate 1 PUFF inhaler 1 puff INH Q4HP PRN (Reason: Shortness Of Breath) RF: 0 omeprazole 20 MG capsule 20 mg PO ONCE RF: 0 oxycodone-acetaminophen 1 TAB tablet 1 tab PO Q6H PRN (Reason: Pain Level 3-6) RF: 0 Follow Up Plan Follow up with: Paul Schaefer MD [Primary Care Provider] - Patient Disposition: Home, Self-Care Rehab Potential: Good Overall status at discharge: patient is progressing back to baseline Discharge Orders: Discharge Order (Routine); Ordered 09/23/20 Ordered By: David GONZALES VTE Deep Vein Thrombosis/Pulmonary Embolism Present on Admission: No
== END 2020-09-23 16:05 | disposition home or self-care (01) | DRG 190 ==
LOC: ED 09:09 → MEDSUR 15:49
PROVIDERS: ADMIT Internal Medicine; ATTEND Internal Medicine

== ENCOUNTER 2021-08-27 12:10 | Inpatient (IN) ==
[2021-08-27] MEDS ORDERED: IOPAMIDOL 100 ML BOTTLE IV ONE (12:11)
--- NOTE | 2021-08-27 12:16 | Emergency Department Note ---
SOB HPI General Chief Complaint: Shortness of Breath/Dyspnea Stated Complaint: Shortness of breath Time Seen by Provider: 08/27/21 12:14 Source: patient Mode of arrival: ambulatory Limitations: no limitations History of Present Illness HPI Narrative: Narrative: Patient is a 50-year-old female with history of COPD, smoker, A. fib, and has had pulmonary nodules in the past. She indicates that around midnight last night she started to have pain in the right mid back area and feeling short of breath She indicates she has felt pain like this before when she had pneumonia. She had COVID-19 a month ago. She feels that she is continue to have a cough since then. She denies any radiating pain. She describes it as sharp. Pain is aggravated with taking deep breaths. She denies any hemoptysis. She is continu ing to smoke. She typically wears 3 L of O2 at home as needed. She has not had any fevers or chills. She denies any confusion, abdominal pain, nausea, vomiting, headache, weakness, bleeding, or bruising. Patient is currently taking warfarin. Patient reports taking her INR at home and this was 2.3. Related Data Home Medications Medication Instructions Recorded Confirmed albuterol sulfate 90 mcg/actuation 1 puff INH Q4HP PRN 07/01/15 08/27/21 aerosol inhaler diltiazem HCl 240 mg 240 mg PO DAILY 07/01/15 08/27/21 capsule,extended release 24 hr, controlled levothyroxine 100 mcg tablet 100 mcg PO DAILY 07/01/15 08/27/21 sertraline 100 mg tablet 200 mg PO DAILY 07/01/15 08/27/21 warfarin 5 mg tablet 15 mg PO DAILY 07/01/15 08/27/21 clonazepam 1 mg tablet 0.5 mg PO QHS 03/06/17 08/27/21 omeprazole 20 mg capsule,delayed 20 mg PO ONCE 05/05/18 08/27/21 release ipratropium 0.5 mg-albuterol 3 mg 3 ml INHALATION QID PRN 01/27/20 08/27/21 (2.5 mg base)/3 mL nebulization soln metoprolol succinate 25 mg 75 mg PO QDAY tab 02/05/20 08/27/21 tablet,extended release 24 hr oxycodone-acetaminophen 10 mg-325 1 tab PO Q6H PRN 09/22/20 08/27/21 mg tablet montelukast 10 mg tablet 10 mg PO DAILY 04/01/21 08/27/21 (Singulair) Previous Rx's Medication Instructions Recorded fluticasone fur. 100 mcg-umeclid 1 inh INHALATION Q24H #60 ea 07/13/21 62.5 mcg-vilant 25 mcg inhalat.powder (Trelegy Ellipta) Allergies Allergy/AdvReac Type Severity Reaction Status Date / Time naproxen [NAPROXEN] Allergy Severe ANGIOEDEMA Verified 08/27/21 12:13 Review of Systems ROS ROS Narrative: Narrative: All systems ED: reviewed and negative except as stated. PFSH Narrative Patient History Narrative: Narrative: Medical/Surgical/Family History All Active Problems Pneumonia (Acute) Cough (Acute) Hemoptysis (Acute) COPD (chronic obstructive pulmonary disease) (Chronic) Multiple pulmonary nodules (Chronic) Asthma (Acute) COVID-19 (Chronic) Supratherapeutic INR (Acute) COVID-19 (Acute) Lung nodules (Chronic) Hypersomnia (Chronic) Conjunctivitis (Acute) Acute asthma exacerbation (Acute) Hypothyroid (Acute) Asthma exacerbation (Acute) Pneumonia (Acute) COPD exacerbation (Acute) Lumbar stenosis without neurogenic claudication (Chronic) Anxiety (Chronic) Bronchitis (Chronic) Low back pain (Chronic) COPD (chronic obstructive pulmonary disease) (Chronic) Exposure to TB (Chronic) History of carpal tunnel surgery (Chronic ~1997) Chronic pain (Chronic) Spinal stenosis (Chronic) Abscess of abdominal wall (Chronic) Degeneration of lumbar intervertebral disc (Chronic) GERD (gastroesophageal reflux disease) (Chronic) Depression (Chronic) Atrial fibrillation (Chronic) Nonischemic congestive cardiomyopathy (Chronic) Shoulder pain (Chronic) Postoperative complication (Chronic) Abscess of skin or subcutaneous tissue (Chronic) Cellulitis (Chronic) Septic shock (Chronic) SIRS (systemic inflammatory response syndrome) (Chronic) Sepsis (Chronic) Atrial fibrillation with RVR (Chronic) RLL pneumonia (Chronic) History of DVT (deep vein thrombosis) (Chronic) Tobacco use (Chronic) H/O bariatric surgery (Chronic ~2014) Asthma (Chronic) Back pain, chronic (Chronic) WES (obstructive sleep apnea) (Chronic) Finger fracture, left (Chronic) Obesity (BMI 30.0-34.9) (Chronic) Hypothyroidism, acquired (Chronic) Chronic atrial fibrillation (Chronic) Chronic anticoagulation (Chronic) Cigarette smoker (Chronic) Dependence on nocturnal oxygen therapy (Chronic) Anxiety disorder (Chronic) Medical History Abscess of abdominal wall Abscess of skin or subcutaneous tissue Anxiety Anxiety disorder Asthma Atrial fibrillation Atrial fibrillation with RVR Back pain, chronic Bronchitis Cellulitis Chronic anticoagulation Chronic atrial fibrillation Chronic pain Cigarette smoker COPD (chronic obstructive pulmonary disease) COPD exacerbation Degeneration of lumbar intervertebral disc Dependence on nocturnal oxygen therapy With weight loss she is uncertain if she needs this. Depression Exposure to TB GERD (gastroesophageal reflux disease) History of DVT (deep vein thrombosis) Hypersomnia Hypothyroidism, acquired Low back pain Lumbar stenosis without neurogenic claudication Lung nodules Nonischemic congestive cardiomyopathy Obesity (BMI 30.0-34.9) History of morbid obesity; status post gastric sleeve 2014. WES (obstructive sleep apnea) Postoperative complication RLL pneumonia Sepsis Septic shock Shoulder pain SIRS (systemic inflammatory response syndrome) Spinal stenosis Tobacco use Tonsillitis UTI (urinary tract infection) Surgical History H/O bariatric surgery (~2014) History of carpal tunnel surgery (~1997) History of gastric surgery Gastric sleeve surgery with revision History of herniorrhaphy History of laparoscopic cholecystectomy 05/07/2018-partial omentectomy; incisional hernia repair History of surgery eyelid Family History Father Hepatitis C Substance abuse Mother , Age 40 Substance abuse Grandfather Asthma Paternal Social History Smoking Status: Current every day smoker Alcohol Intake Frequency: a few times a month Substance Use: marijuana Exam Narrative Narrative: Narrative: General Limitations: no limitations General appearance: Present alert and in no apparent distress Head Head: Present atraumatic, normocephalic and normal inspection Eye Eye: Present normal appearance; Absent scleral icterus ENT ENT: Present normal oropharynx and mucous membranes moist Neck Neck: Present normal inspection and full ROM; Absent meningismus or lymphadenopathy Chest Chest: Present normal inspection and symmetric chest wall rise; Absent tenderness Respiratory Respiratory: Present other (Tachypnea. Lung sounds clear to auscultate with wheezes heard in all lobes.) Cardiovascular Cardiovascular: Present tachycardia and irregular rhythm; Absent systolic murmur, diastolic murmur, rubs, gallop, clicks or JVD Adbominal Abdominal: Present soft; Absent distention or tenderness Extremities Extremities: Present normal inspection, full ROM and normal capillary refill; Absent pedal edema or cyanosis Back Back: Present normal inspection and full ROM; Absent CVA tenderness (R) or CVA tenderness (L) Neurological Neurological: Present alert and oriented X3 Psychiatric Psychiatric: Present normal affect and normal mood Skin Skin: Present warm (WNL), dry and normal color Course Vital Signs Vital signs: Vital Signs Temperature 97.9 F 08/27/21 12:11 Pulse Rate 120 H 08/27/21 12:11 Respiratory Rate 22 08/27/21 12:11 Blood Pressure 113/70 08/27/21 12:11 Pulse Oximetry (%) 87 L 08/27/21 12:11 Temperature 97.9 F 08/27/21 12:11 Pulse Rate 94 H 08/27/21 15:57 Respiratory Rate 21 08/27/21 15:57 Blood Pressure 120/63 08/27/21 15:57 Pulse Oximetry (%) 95 08/27/21 15:57 [facility] MDM Narrative Medical decision making narrative: Narrative: Patient is a 50-year-old female that comes into the emergency department today with shortness of breath and pain on the right posterior side of her back. Patient has history of A. fib and EKG today is consistent with A. fib of rate of 115. With patient's history of A. fib tachycardia, shortness of breath proceed with chest CTA for differential diagnosis of PE. Other differential diagnosis could include pneumonia, myocardial infarction, or COPD exacerbation. She did not take her metoprolol or Cardizem today. Ordered her home dose of Cardizem and 25 mg of metoprolol rather than the 75 mg dose. Patient's pulse no longer tachycardia after this. Patient was given 1 L of normal saline. Patient's tachycardia improved. Her white count today is 11.5 on her CBC. Elevated procalcitonin. Troponin level today is negative. BNP is 1338. Chest CTA shows right lobe pneumonia. No pulmonary embolism. Given that the patient has tachycardia, tachypnea, requi ring oxygen, and right middle lobe pneumonia I feel it would be appropriate to admit patient to the hospital for the pneumonia. We will consult with the hospitalist at [facility] today, and I was able to speak with Dr. Moraes who agreed to admit the patient to [facility] today. Lab Data Result diagrams: 08/27/21 12:41 08/27/21 12:41 Labs: Lab Results 08/27/21 08/27/21 08/27/21 Range/Units 12:26 12:39 12:39 WBC (4.5-11.0) K/mcL RBC (3.59-5.38) M/mcL Hgb (11.2-15.7) g/dL Hct (34.1-44.9) % MCV (80.0-100.0) fL MCH (26.0-34.0) pg MCHC (31.0-36.0) g/dL RDW (11.5-14.5) % Plt Count (140-440) K/mcL MPV (7.4-10.4) fL Neut % (Auto) (38.0-78.0) % Lymph % (Auto) (15.5-49.0) % [place] % (Auto) (1.0-12.0) % Eos % (Auto) (0.0-7.0) % Baso % (Auto) (0.0-2.0) % Lymph # (Auto) (1.50-4.80) K/mcL [place] # (Auto) (0.10-0.90) K/mcL Eos # (Auto) (0.00-0.70) K/mcL Baso # (Auto) (0.00-0.30) K/mcL Absolute Neutrophils (1.80-8.00) K/mcL VBG Lactic Acid 0.8 (0.5-2.0) mmol/L Sodium (133-145) mmol/L Potassium (3.3-5.1) mmol/L Chloride (96-108) mmol/L Carbon Dioxide (22-30) mmol/L Anion Gap (8.0-16.0) BUN (6-20) mg/dL Creatinine (0.6-1.1) mg/dL POC Creatinine (0.6-1.2) mg/dL GFR Calculation Glucose (70-105) mg/dL Calcium (8.6-10.4) mg/dL Total Bilirubin (0.1-1.0) mg/dL AST (<32) U/L ALT (<40) U/L Alkaline Phosphatase (39-117) U/L Troponin T < 0.01 (<0.03) ng/mL NT-Pro-B Natriuret Pep (<125.0) pg/mL Total Protein (5.9-8.4) gm/dL Albumin (3.2-5.2) gm/dL Globulin (2.2-3.7) gm/dL Albumin/Globulin Ratio (1.0-2.3) Lipase (7-60) U/L Procalcitonin 0.66 H (<0.10) ng/mL 08/27/21 08/27/21 Range/Units 12:41 12:41 WBC 11.5 H (4.5-11.0) K/mcL RBC 4.15 (3.59-5.38) M/mcL Hgb 12.9 (11.2-15.7) g/dL Hct 39.1 (34.1-44.9) % MCV 94.2 (80.0-100.0) fL MCH 31.1 (26.0-34.0) pg MCHC 33.0 (31.0-36.0) g/dL RDW 14.1 (11.5-14.5) % Plt Count 315 (140-440) K/mcL MPV 9.6 (7.4-10.4) fL Neut % (Auto) 81.3 H (38.0-78.0) % Lymph % (Auto) 10.1 L (15.5-49.0) % [place] % (Auto) 7.4 (1.0-12.0) % Eos % (Auto) 0.8 (0.0-7.0) % Baso % (Auto) 0.4 (0.0-2.0) % Lymph # (Auto) 1.16 L (1.50-4.80) K/mcL [place] # (Auto) 0.85 (0.10-0.90) K/mcL Eos # (Auto) 0.09 (0.00-0.70) K/mcL Baso # (Auto) 0.05 (0.00-0.30) K/mcL Absolute Neutrophils 9.35 H (1.80-8.00) K/mcL VBG Lactic Acid (0.5-2.0) mmol/L Sodium 138 (133-145) mmol/L Potassium 3.9 (3.3-5.1) mmol/L Chloride 98 (96-108) mmol/L Carbon Dioxide 26 (22-30) mmol/L Anion Gap 14.0 (8.0-16.0) BUN 8 (6-20) mg/dL Creatinine 0.5 L (0.6-1.1) mg/dL POC Creatinine 0.4 L (0.6-1.2) mg/dL GFR Calculation 112 Glucose 93 (70-105) mg/dL Calcium 9.0 (8.6-10.4) mg/dL Total Bilirubin 0.4 (0.1-1.0) mg/dL AST 17 (<32) U/L ALT 13 (<40) U/L Alkaline Phosphatase 92 (39-117) U/L Troponin T (<0.03) ng/mL NT-Pro-B Natriuret Pep 1338.0 H (<125.0) pg/mL Total Protein 7.2 (5.9-8.4) gm/dL Albumin 3.9 (3.2-5.2) gm/dL Globulin 3.3 (2.2-3.7) gm/dL Albumin/Globulin Ratio 1.2 (1.0-2.3) Lipase 14 (7-60) U/L Procalcitonin (<0.10) ng/mL Radiology Data Radiology results reviewed: Yes I reviewed the patient's radiology results. Radiology results narrative: Ordering Physician:Eduard Villa Date of Service:08/27/21 Procedure(s):CT angio chest History: Dyspnea, smoker TECHNIQUE: Following injection of intravenous nonionic contrast the chest was imaged during the pulmonary arterial phase. Sagittal, coronal and axial MIPS images were created. Radiation exposure was limited using dose reduction technology. FINDINGS: The pulmonary arteries are normal without evidence of emboli. The main pulmonary artery is mildly dilated. The aorta is normal in caliber and there is minimal plaque formation. There is no aneurysm or dissection. Patient has moderate widespread groundglass infiltrates throughout the right lung. The greatest consolidation is in the posterior middle third of the right lung. Mild groundglass infiltrates are present in the left upper lobe and superior segment of the left lower lobe. There is no pleural effusion. A few small reactive lymph nodes are present in the right hilum and mediastinum. Postsurgical changes are present in the stomach following prior gastric sleeve procedure. The gallbladder has been removed. IMPRESSION: No evidence of pulmonary emboli Moderate pneumonia predominantly involving the right lung Dilated main pulmonary artery which may be associated with pulmonary artery hypertension Dr. Pro was called with the report Interpreted and Authenticated by: Sourav Gimenez 08/27/21 EKG Data EKG #1: EKG attestation: Yes I reviewed and interpreted this EKG. and Yes There are no EKG findings of acute coronary syndrome Rate: tachycardia (rate 115) Rhythm: A.Fib Discharge Plan Patient/Caregiver Discharge Instructions Pt seen by LUGGER/PA only: No Clinical Impression: Pneumonia Patient Disposition: Xfer As Inpt ([facility]) Discharge Date/Time: 08/27/21 16:11
[2021-08-27] MEDS ORDERED: 0.9 % SODIUM CHLORIDE 1,000 ML IV ONE (12:26)
[2021-08-27] MEDS ORDERED: IPRATROPIUM/ALBUTEROL 3 ML AMPUL.NEB NEB ONE (12:26)
[2021-08-27] MEDS ORDERED: METOPROLOL SUCCINATE 25 MG TAB.XL.24H PO ONE (12:40)
[2021-08-27] MEDS ORDERED: DILTIAZEM 240 MG CAP.XL.24H PO ONE (12:40)
[2021-08-27 12:47] LABS: POC Creatinine 0.4 mg/dL (0.6-1.2)
[2021-08-27 13:50] LABS: Basophils # (Auto) 0.05 K/mcL (0.00-0.30); Basophils % (Auto) 0.4 % (0.0-2.0); Eosinophils # (Auto) 0.09 K/mcL (0.00-0.70); Eosinophils % (Auto) 0.8 % (0.0-7.0); Hematocrit 39.1 % (34.1-44.9); Hemoglobin 12.9 g/dL (11.2-15.7); Lymphocytes # (Auto) 1.16 K/mcL (1.50-4.80); Lymphocytes % (Auto) 10.1 % (15.5-49.0); Mean Cell Volume 94.2 fL (80.0-100.0); Mean Platelet Volume 9.6 fL (7.4-10.4); Monocytes # (Auto) 0.85 K/mcL (0.10-0.90); Monocytes % (Auto) 7.4 % (1.0-12.0); Neutrophils % (Auto) 81.3 % (38.0-78.0); Platelet Count 315 K/mcL (140-440); RBC 4.15 M/mcL (3.59-5.38); Red Cell Distribution Width 14.1 % (11.5-14.5); WBC 11.5 K/mcL (4.5-11.0)
[2021-08-27 14:19] LABS: ALT/SGPT 13 U/L (<40); AST/SGOT 17 U/L (<32); Albumin 3.9 gm/dL (3.2-5.2); Albumin/Globulin Ratio 1.2 (1.0-2.3); Alkaline Phosphatase 92 U/L (39-117); Bilirubin,Total 0.4 mg/dL (0.1-1.0); Blood Urea Nitrogen 8 mg/dL (6-20); Carbon Dioxide 26 mmol/L (22-30); Chloride 98 mmol/L (96-108); Globulin 3.3 gm/dL (2.2-3.7); Glomerular Filtration Rate 112; Glucose 93 mg/dL (70-105)
--- NOTE | 2021-08-27 14:19 | Cat Scan Report ---
History: Dyspnea, smoker TECHNIQUE: Following injection of intravenous nonionic contrast the chest was imaged during the pulmonary arterial phase. Sagittal, coronal and axial MIPS images were created. Radiation exposure was limited using dose reduction technology. FINDINGS: The pulmonary arteries are normal without evidence of emboli. The main pulmonary artery is mildly dilated. The aorta is normal in caliber and there is minimal plaque formation. There is no aneurysm or dissection. Patient has moderate widespread groundglass infiltrates throughout the right lung. The greatest consolidation is in the posterior middle third of the right lung. Mild groundglass infiltrates are present in the left upper lobe and superior segment of the left lower lobe. There is no pleural effusion. A few small reactive lymph nodes are present in the right hilum and mediastinum. Postsurgical changes are present in the stomach following prior gastric sleeve procedure. The gallbladder has been removed. IMPRESSION: No evidence of pulmonary emboli Moderate pneumonia predominantly involving the right lung Dilated main pulmonary artery which may be associated with pulmonary artery hypertension Dr. Pro was called with the report Interpreted and Authenticated by: Sourav Gimenez 08/27/21
[2021-08-27] MEDS ORDERED: cefTRIAXone 1 GM VIAL IV ONE (14:50)
[2021-08-27] MEDS ORDERED: ONDANSETRON 4 MG/2 ML VIAL IV PRN (16:11)
--- NOTE | 2021-08-27 16:27 | Internal Med History&Physical ---
HPI History of Present Illness Patient information: Note initiated : 08/27/21 at 4:21 pm Service Date, if different from initiated Date: [] Patient: Estela Man 50 y/o F admitted on 08/27/21 for Shortness of breath. Chief Complaint: [] Chief complaint: Worsening SOB with productive cough History of present illness: Ms. Man is a 50-year-old female, chronic smoker, atrial fibrillation, COPD, sleep apnea with a past medical history of COVID-19 which was diagnosed in July 2021. She received Sotrovimab for this. Soon after that she felt better and was able to go home. She felt better for most of July and August. However in the last few days she had worsening cough and yellowish sputum. 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 She also has significant pain in the right posterior chest, which coincides with the area of pneumonia on the CTA of the lung. Denies any anterior chest pain, nausea vomiting diarrhea. Denies dizziness. Reports she is on chronic opiates for her pain management as an outpatient. She has home oxygen with her, however she had not felt the need to use oxygen at home recently. Constitutional Constitutional: Absent anorexia, chills, fatigue, fever(s), headache(s), lethargy, malaise or night sweats Cardiovascular Cardiovascular: Absent chest pain, chest pain at rest, diaphoresis, irregular heart rhythm or lightheadedness Respiratory Respiratory: Present cough, dyspnea, dyspnea on exertion, pain on inspirtation, excessive phlegm production, change in phlegm color and pain with cough; Absent hemoptysis or wheezing Gastrointestinal Gastrointestinal: Absent diarrhea, hematemesis, melena, nausea or vomiting Genitourinary Genitourinary: Absent dysuria Neurological Neurological: Absent abnormal gait, abnormal speech, confusion, dizziness or headache(s) PFSH PFSH All Active Problems Pneumonia (Acute) Cough (Acute) Hemoptysis (Acute) COPD (chronic obstructive pulmonary disease) (Chronic) Multiple pulmonary nodules (Chronic) Asthma (Acute) COVID-19 (Chronic) Supratherapeutic INR (Acute) COVID-19 (Acute) Lung nodules (Chronic) Hypersomnia (Chronic) Conjunctivitis (Acute) Acute asthma exacerbation (Acute) Hypothyroid (Acute) Asthma exacerbation (Acute) Pneumonia (Acute) COPD exacerbation (Acute) Lumbar stenosis without neurogenic claudication (Chronic) Anxiety (Chronic) Bronchitis (Chronic) Low back pain (Chronic) COPD (chronic obstructive pulmonary disease) (Chronic) Exposure to TB (Chronic) History of carpal tunnel surgery (Chronic ~1997) Chronic pain (Chronic) Spinal stenosis (Chronic) Abscess of abdominal wall (Chronic) Degeneration of lumbar intervertebral disc (Chronic) GERD (gastroesophageal reflux disease) (Chronic) Depression (Chronic) Atrial fibrillation (Chronic) Nonischemic congestive cardiomyopathy (Chronic) Shoulder pain (Chronic) Postoperative complication (Chronic) Abscess of skin or subcutaneous tissue (Chronic) Cellulitis (Chronic) Septic shock (Chronic) SIRS (systemic inflammatory response syndrome) (Chronic) Sepsis (Chronic) Atrial fibrillation with RVR (Chronic) RLL pneumonia (Chronic) History of DVT (deep vein thrombosis) (Chronic) Tobacco use (Chronic) H/O bariatric surgery (Chronic ~2014) Asthma (Chronic) Back pain, chronic (Chronic) WES (obstructive sleep apnea) (Chronic) Finger fracture, left (Chronic) Obesity (BMI 30.0-34.9) (Chronic) Hypothyroidism, acquired (Chronic) Chronic atrial fibrillation (Chronic) Chronic anticoagulation (Chronic) Cigarette smoker (Chronic) Dependence on nocturnal oxygen therapy (Chronic) Anxiety disorder (Chronic) Medical History Abscess of abdominal wall Abscess of skin or subcutaneous tissue Anxiety Anxiety disorder Asthma Atrial fibrillation Atrial fibrillation with RVR Back pain, chronic Bronchitis Cellulitis Chronic anticoagulation Chronic atrial fibrillation Chronic pain Cigarette smoker COPD (chronic obstructive pulmonary disease) COPD exacerbation Degeneration of lumbar intervertebral disc Dependence on nocturnal oxygen therapy With weight loss she is uncertain if she needs this. Depression Exposure to TB GERD (gastroesophageal reflux disease) History of DVT (deep vein thrombosis) Hypersomnia Hypothyroidism, acquired Low back pain Lumbar stenosis without neurogenic claudication Lung nodules Nonischemic congestive cardiomyopathy Obesity (BMI 30.0-34.9) History of morbid obesity; status post gastric sleeve 2014. WES (obstructive sleep apnea) Postoperative complication RLL pneumonia Sepsis Septic shock Shoulder pain SIRS (systemic inflammatory response syndrome) Spinal stenosis Tobacco use Tonsillitis UTI (urinary tract infection) Surgical History H/O bariatric surgery (~2014) History of carpal tunnel surgery (~1997) History of gastric surgery Gastric sleeve surgery with revision History of herniorrhaphy History of laparoscopic cholecystectomy 05/07/2018-partial omentectomy; incisional hernia repair History of surgery eyelid Family History Father Hepatitis C Substance abuse Mother , Age 40 Substance abuse Grandfather Asthma Paternal Social History marital status: single education level: college 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 smoking status: Current every day smoker alcohol intake frequency: a few times a month substance use type: marijuana MEDS/ALLERGIES Home Medications and Allergies Home Medications Medication Instructions Recorded Confirmed Type albuterol sulfate 90 mcg/actuation 1 puff INH Q4HP PRN 07/01/15 08/27/21 History aerosol inhaler diltiazem HCl 240 mg 240 mg PO DAILY 07/01/15 08/27/21 History capsule,extended release 24 hr, controlled levothyroxine 100 mcg tablet 100 mcg PO DAILY 07/01/15 08/27/21 History sertraline 100 mg tablet 200 mg PO DAILY 07/01/15 08/27/21 History warfarin 5 mg tablet 15 mg PO DAILY 07/01/15 08/27/21 History clonazepam 1 mg tablet 0.5 mg PO QHS 03/06/17 08/27/21 History omeprazole 20 mg capsule,delayed 20 mg PO ONCE 05/05/18 08/27/21 History release ipratropium 0.5 mg-albuterol 3 mg 3 ml INHALATION QID PRN 01/27/20 08/27/21 History (2.5 mg base)/3 mL nebulization soln metoprolol succinate 25 mg 75 mg PO QDAY tab 02/05/20 08/27/21 History tablet,extended release 24 hr oxycodone-acetaminophen 10 mg-325 1 tab PO Q6H PRN 09/22/20 08/27/21 History mg tablet montelukast 10 mg tablet 10 mg PO DAILY 04/01/21 08/27/21 History (Singulair) fluticasone fur. 100 mcg-umeclid 1 inh INHALATION Q24H #60 ea 07/13/21 08/27/21 Rx 62.5 mcg-vilant 25 mcg inhalat.powder (Trelegy Ellipta) Allergies Allergy/AdvReac Type Severity Reaction Status Date / Time naproxen [NAPROXEN] Allergy Severe ANGIOEDEMA Verified 08/27/21 12:13 EXAM Constitutional Vitals: Temp Pulse Resp BP Pulse Ox 97.9 F 94 H 21 120/63 95 08/27/21 12:11 08/27/21 15:57 08/27/21 15:57 08/27/21 15:57 08/27/21 15:57 General appearance: average body habitus and moderate distress; no mild distress Head Head exam: Present atraumatic and normocephalic Eye Eye exam: Present normal appearance ENT ENT exam: Present mucous membranes moist Respiratory Respiratory exam: Present chest wall tenderness, respiratory distress and wheezes; Absent rhonchi Cardiovascular Cardiovascular exam: Present normal rate and rhythm and RRR; Absent bradycardia, diastolic murmur, gallop, irregular rhythm or rubs GI/Abdominal GI/Abdominal exam: Present normal bowel sounds and soft; Absent distended, guarding or rebound Expanded Lower Extremity Exam Hip exam: Present normal inspection; Absent swelling Back Exam Back exam: Present normal inspection; Absent CVA tenderness (L), CVA tenderness (R), paraspinal tenderness or vertebral tenderness Neurological Exam Neurological exam: Present alert and oriented X3; Absent abnormal gait or motor sensory deficit DATA Data Completed and Pending Labs: Labs from last 24 hours 08/27/21 08/27/21 08/27/21 12:41 12:41 12:39 WBC 11.5 H RBC 4.15 Hgb 12.9 Hct 39.1 MCV 94.2 MCH 31.1 MCHC 33.0 RDW 14.1 Plt Count 315 MPV 9.6 Neut % (Auto) 81.3 H Lymph % (Auto) 10.1 L [place] % (Auto) 7.4 Eos % (Auto) 0.8 Baso % (Auto) 0.4 Lymph # (Auto) 1.16 L [place] # (Auto) 0.85 Eos # (Auto) 0.09 Baso # (Auto) 0.05 Absolute Neutrophils 9.35 H VBG Lactic Acid Sodium 138 Potassium 3.9 Chloride 98 Carbon Dioxide 26 Anion Gap 14.0 BUN 8 Creatinine 0.5 L POC Creatinine 0.4 L GFR Calculation 112 Glucose 93 Calcium 9.0 Total Bilirubin 0.4 AST 17 ALT 13 Alkaline Phosphatase 92 Troponin T NT-Pro-B Natriuret Pep 1338.0 H Total Protein 7.2 Albumin 3.9 Globulin 3.3 Albumin/Globulin Ratio 1.2 Lipase 14 Procalcitonin 0.66 H 08/27/21 08/27/21 12:39 12:26 WBC RBC Hgb Hct MCV MCH MCHC RDW Plt Count MPV Neut % (Auto) Lymph % (Auto) [place] % (Auto) Eos % (Auto) Baso % (Auto) Lymph # (Auto) [place] # (Auto) Eos # (Auto) Baso # (Auto) Absolute Neutrophils VBG Lactic Acid 0.8 Sodium Potassium Chloride Carbon Dioxide Anion Gap BUN Creatinine POC Creatinine GFR Calculation Glucose Calcium Total Bilirubin AST ALT Alkaline Phosphatase Troponin T < 0.01 NT-Pro-B Natriuret Pep Total Protein Albumin Globulin Albumin/Globulin Ratio Lipase Procalcitonin A/P Narrative A/P Narrative: Ms. Man is a 50-year-old female, chronic smoker, atrial fibrillation, COPD, sleep apnea with a past medical history of COVID-19 which was diagnosed in July 2021. She received Sotrovimab for this. Soon after that she felt better and was able to go home. She felt better for most of July and August. However in the last few days she had worsening cough and yellowish sputum #Sepsis secondary to long Covid syndrome #Acute hypoxic respiratory failure. #Right mid lobe pneumonia. #Right lung groundglass opacities Diagnosed with COVID-19 in beginning of July 2021. Status post treatment with sotrovimab. Presents with worsening cough with productive sputum. CTA of chest done in emergency room. Rules out pulmonary embolism but shows moderate pneumonia of the right lung. No pleural effusion noted. Groundglass opacities in the right lung is noted. Received ceftriaxone in the ED. Switch to IV levofloxacin 750 mg daily, will opt for a 7-day course. For long Covid syndrome will do a prednisone taper 40 mg daily for 4 days followed by 30 mg daily for 4 days followed by 20 milligrams a day for 4 days, 10 mg a day for 4 days and stop. She also has some wheezing on examination and it should help her Q6-hour scheduled nebs Currently she requires 3 to 4 L of oxygen via nasal cannula. Baseline oxygen requirement none. Has not received vaccines to Covid. #Supratherapeutic INR-hold warfarin at this time. #Pulmonary arterial hypertension-ordered echocardiogram to assess right ventricular function. #Tobacco use-ordered nicotine patch 14 mg daily #Chronic pain-resumed her home dose of Percocet 10 mg every 8 hours as needed for pain. She does seem to be having significant right chest wall pain. #Atrial fibrillation-resumed metoprolol and diltiazem 240 mg daily. Hold warfarin for today. #Hypothyroidism resume levothyroxine 100 mcg daily #Depression and anxiety resumed sertraline 200 mg daily and clonazepam half milligram every night #DVT prophylaxis-warfarin as above Time Spent With Patient Time: Total time spent is greater than 50% in coordination of care (as documented) at patient's floor/unit and/or counseling patient: Total time spent with greater than 50% in coordination of care (as documented) at patient's floor/unit and/or counseling patient:: 50 - 70 minutes Critical Care Time: No
[2021-08-27] MEDS: NICOTINE 14 MG PATCH TOPICAL SCH (19:25)
[2021-08-27] MEDS: OMEPRAZOLE 20 MG CAPSULE PO SCH (19:29)
[2021-08-27] MEDS: oxyCODONE/APAP 10/325MG TABLET PO PRN (19:30)
[2021-08-27] MEDS: LEVOFLOXACIN 750 MG/150 ML BAG IV SCH (19:31)
[2021-08-27] MEDS: DOCUSATE SODIUM 100 MG CAPSULE PO SCH (20:16)
[2021-08-27] MEDS: SENNOSIDES 1 TABLET PO SCH (20:16)
[2021-08-27 20:59] LABS: INR 3.2 (0.9-1.1); Prothrombin Time 34.3 sec (11.9-14.5)
[2021-08-27] MEDS: IPRATROPIUM/ALBUTEROL 3 ML AMPUL.NEB NEB PRN (21:45)
[2021-08-27] MEDS ORDERED: WARFARIN 7.5 MG TABLET PO ONE (22:15)
[2021-08-27] MEDS: SERTRALINE 100 MG TABLET PO SCH (22:17)
[2021-08-27] MEDS: clonazePAM 1 MG TABLET PO SCH (22:17)
[2021-08-27] MEDS: 0.9 % SODIUM CHLORIDE 10 ML SYRINGE IV SCH (22:19)
[2021-08-27] MEDS: WARFARIN 6 MG TABLET PO SCH (22:21)
[2021-08-27] MEDS: ACETAMINOPHEN 325 MG TABLET PO PRN (22:24)
[2021-08-28] MEDS: 0.9 % SODIUM CHLORIDE 10 ML SYRINGE IV SCH ×3 (05:44→20:27)
[2021-08-28 06:17] LABS: Prothrombin Time 32.3 sec (11.9-14.5)
[2021-08-28 06:20] LABS: Basophils # (Auto) 0.03 K/mcL (0.00-0.30); Basophils % (Auto) 0.4 % (0.0-2.0); Eosinophils # (Auto) 0.14 K/mcL (0.00-0.70); Hematocrit 34.2 % (34.1-44.9); Hemoglobin 11.1 g/dL (11.2-15.7); Lymphocytes # (Auto) 0.94 K/mcL (1.50-4.80); Lymphocytes % (Auto) 13.1 % (15.5-49.0); Mean Cell Volume 97.2 fL (80.0-100.0); Mean Corpuscular HGB Conc 32.5 g/dL (31.0-36.0); Mean Platelet Volume 9.6 fL (7.4-10.4); Monocytes % (Auto) 9.8 % (1.0-12.0); Neutrophils % (Auto) 74.7 % (38.0-78.0); Platelet Count 230 K/mcL (140-440); RBC 3.52 M/mcL (3.59-5.38); Red Cell Distribution Width 14.5 % (11.5-14.5); WBC 7.2 K/mcL (4.5-11.0)
[2021-08-28] MEDS: oxyCODONE/APAP 10/325MG TABLET PO PRN ×3 (07:30→16:14)
[2021-08-28] MEDS: IPRATROPIUM/ALBUTEROL 3 ML AMPUL.NEB NEB PRN ×2 (07:30→15:16)
[2021-08-28 07:31] LABS: Blood Urea Nitrogen 10 mg/dL (6-20); Calcium 8.5 mg/dL (8.6-10.4); Carbon Dioxide 31 mmol/L (22-30); Chloride 102 mmol/L (96-108); Glomerular Filtration Rate 121; Glucose 90 mg/dL (70-105)
[2021-08-28] MEDS ORDERED: SERTRALINE 100 MG TABLET PO SCH (09:00)
[2021-08-28] MEDS ORDERED: METOPROLOL SUCCINATE 25 MG TAB.XL.24H PO SCH ×2 (09:00→21:00)
[2021-08-28] MEDS ORDERED: DILTIAZEM 240 MG CAP.XL.24H PO SCH ×2 (09:00→21:00)
[2021-08-28] MEDS ORDERED: WARFARIN 5 MG TABLET PO SCH (09:00)
[2021-08-28] MEDS: MONTELUKAST 10 MG TABLET PO SCH (09:39)
[2021-08-28] MEDS: LEVOTHYROXINE 100 MCG TABLET PO SCH (09:39)
[2021-08-28] MEDS: DOCUSATE SODIUM 100 MG CAPSULE PO SCH ×2 (09:40→20:27)
[2021-08-28] MEDS: LEVOFLOXACIN 750 MG/150 ML BAG IV SCH (09:40)
[2021-08-28] MEDS: NICOTINE 14 MG PATCH TOPICAL SCH (09:40)
--- NOTE | 2021-08-28 10:37 | EKG ---
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
[2021-08-28] MEDS: WARFARIN 6 MG TABLET PO SCH (11:34)
--- NOTE | 2021-08-28 13:48 | Internal Med Progress Note ---
SUBJECTIVE Subjective Patient information: Note initiated : 08/28/21 at 1:45 pm Service Date, if different from initiated Date: [] Patient: Estela Man 50 y/o F admitted on 08/27/21 for Shortness of breath. Chief Complaint: [] Principal diagnosis: Long covid syndrome Interval history: Ms. Man is a 50-year-old female, chronic smoker, atrial fibrillation, COPD, sleep apnea with a past medical history of COVID-19 which was diagnosed in July 2021. She received Sotrovimab for this. Soon after that she felt bett er and was able to go home. She felt better for most of July and August. However in the last few days she had worsening cough and yellowish sputum. 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 She also has significant pain in the right posterior chest, which coincides with the area of pneumonia on the CTA of the lung. Denies any anterior chest pain, nausea vomiting diarrhea. Denies dizziness. Reports she is on chronic opiates for her pain management as an outpatient. She has home oxygen with her, however she had not felt the need to use oxygen at home recently 08/28. Now on 5 LPM O2. She feels we can wean it off and she is doing well. No new sx. Constitutional Vitals: Vital Signs Temp Pulse Resp BP Pulse Ox 97.1 F 71 20 110/73 94 08/28/21 12:00 08/28/21 07:37 08/28/21 12:00 08/28/21 12:00 08/28/21 12:00 Period Temp Pulse Resp BP Sys/Molina Pulse Ox Last 24 Hr 97.1 F-98.1 F 33-118 - 102-123/60-82 89-99 Intake and Output 08/27/21 08/28/21 08/28/21 21:59 05:59 13:59 Intake Total 150 400 150 Output Total 750 Balance 150 400 -600 Weight 101.242 kg Intake & Output: Intake & Output 08/27/21 08/28/21 08/28/21 21:59 05:59 13:59 Intake Total 150 400 150 Output Total 750 Balance 150 400 -600 Weight 101.242 kg Intake: IV 150 150 Oral 400 Output: Void Amount 750 Other: Meal Breakfast Percent of Meal Consumed 50% Feeding Ability Independent Urine Appearance Clear Urine Color Dark Dottie Urine Odor Normal General appearance: average body habitus, cooperative and no acute distress Head Head exam: Present atraumatic and normocephalic Eye Eye exam: Present normal appearance Respiratory Respiratory exam: Present normal respiratory exam and CTAB; Absent accessory muscle use, decreased breath sounds or respiratory distress Cardiovascular Cardiovascular exam: Present normal rate and rhythm and RRR; Absent bradycardia, gallop, systolic murmur or tachycardia GI/Abdominal GI/Abdominal exam: Present soft Neurological Exam Neurological exam: Present alert and oriented X3; Absent altered or motor sensory deficit OBJ DATA Labs CBC & Chem 7: 08/28/21 05:28 08/28/21 06:42 Labs: Abnormal Lab Results 08/28/21 08/28/21 08/28/21 06:42 05:28 05:28 WBC RBC 3.52 L Hgb 11.1 L Neut % (Auto) Lymph % (Auto) 13.1 L Lymph # (Auto) 0.94 L Absolute Neutrophils PT 32.3 H INR 3.0 H Carbon Dioxide 31 H Creatinine 0.4 L POC Creatinine Calcium 8.5 L NT-Pro-B Natriuret Pep Procalcitonin 08/27/21 08/27/21 08/27/21 12:41 12:41 12:41 WBC 11.5 H RBC Hgb Neut % (Auto) 81.3 H Lymph % (Auto) 10.1 L Lymph # (Auto) 1.16 L Absolute Neutrophils 9.35 H PT 34.3 H INR 3.2 H Carbon Dioxide Creatinine 0.5 L POC Creatinine 0.4 L Calcium NT-Pro-B Natriuret Pep 1338.0 H Procalcitonin 08/27/21 12:39 WBC RBC Hgb Neut % (Auto) Lymph % (Auto) Lymph # (Auto) Absolute Neutrophils PT INR Carbon Dioxide Creatinine POC Creatinine Calcium NT-Pro-B Natriuret Pep Procalcitonin 0.66 H Meds: Medications Acetaminophen (Acetaminophen 325 Mg Tablet) 650 mg PO Q6HP PRN; Protocol PRN Reason: Per Pain Protocol/Fever > 101 Last Admin: 08/27/21 22:24 Dose: 650 mg Documented by: Albuterol/Ipratropium (Ipratropium/Albuterol 3 Ml Ampul.Neb) 3 ml NEB PRN PRN PRN Reason: Shortness Of Breath Or Wheezing Last Admin: 08/28/21 07:30 Dose: 3 ml Documented by: Clonazepam (Clonazepam 1 Mg Tablet) 0.5 mg PO QHS [facility] Last Admin: 08/27/21 22:17 Dose: 0.5 mg Documented by: Diltiazem HCl (Diltiazem 240 Mg Cap.Xl.24h) 240 mg PO [facility] Docusate Sodium (Docusate Sodium 100 Mg Capsule) 100 mg PO BID [facility] Last Admin: 08/28/21 09:40 Dose: Not Given Documented by: Levofloxacin (Levaquin) 750 mg in 150 mls @ 100 mls/hr IV Q24H [facility]; Protocol Last Infusion: 08/28/21 11:12 Dose: Infused Documented by: Levothyroxine Sodium (Levothyroxine 100 Mcg Tablet) 100 mcg PO DAILY [facility] Last Admin: 08/28/21 09:39 Dose: 100 mcg Documented by: Metoprolol Succinate (Metoprolol Succinate 25 Mg Tab.Xl.24h) 75 mg PO [facility] Montelukast Sodium (Montelukast 10 Mg Tablet) 10 mg PO DAILY [facility] Last Admin: 08/28/21 09:39 Dose: 10 mg Documented by: Nicotine (Nicotine 14 Mg Patch) 14 mg TOPICAL DAILY@1000 [facility] Last Admin: 08/28/21 09:40 Dose: 14 mg Documented by: Omeprazole (Omeprazole 20 Mg Capsule) 20 mg PO ONCE [facility] Last Admin: 08/27/21 19:29 Dose: Not Given Documented by: Ondansetron HCl (Ondansetron 4 Mg/2 Ml Vial) 4 mg IV Q6HP PRN PRN Reason: Nausea And Vomiting Oxycodone/Acetaminophen (Oxycodone/Apap 10/325mg Tablet) 1 tab PO Q8HP PRN; Protocol PRN Reason: Pain Last Admin: 08/27/21 19:30 Dose: 1 tab Documented by: Senna (Sennosides 1 Tablet) 2 tab PO [facility] Last Admin: 08/27/21 20:16 Dose: Not Given Documented by: Sertraline HCl (Sertraline 100 Mg Tablet) 200 mg PO QHS [facility] Last Admin: 08/27/21 22:17 Dose: 200 mg Documented by: Sodium Chloride (0.9 % Sodium Chloride 10 Ml Syringe) 10 ml IV Q8 [facility] Last Admin: 08/28/21 05:44 Dose: Not Given Documented by: Warfarin Sodium (Warfarin Per Pharmacy) 1 order PO UD [facility] Warfarin Sodium (Warfarin 3 Mg Tablet) 12 mg PO ONCE@2100 ONE Stop: 08/28/21 21:01 A/P Narrative A/P Narrative: Ms. Man is a 50-year-old female, chronic smoker, atrial fibrillation, COPD, sleep apnea with a past medical history of COVID-19 which was diagnosed in July 2021. She received Sotrovimab for this. Soon after that she felt better and was able to go home. She felt better for most of July and August. However in the last few days she had worsening cough and yellowish sputum #Sepsis secondary to long Covid syndrome #Acute hypoxic respiratory failure. #Right mid lobe pneumonia. #Right lung groundglass opacities Diagnosed with COVID-19 in beginning of July 2021. Status post treatment with sotrovimab. Presents with worsening cough with productive sputum. CTA of chest done in emergency room. Rules out pulmonary embolism but shows moderate pneumonia of the right lung. No pleural effusion noted. Groundglass opacities in the right lung is noted. Received ceftriaxone in the ED. Switch to IV levofloxacin 750 mg daily, will opt for a 7-day course. For long Covid syndrome will do a prednisone taper 40 mg daily for 4 days followed by 30 mg daily for 4 days followed by 20 milligrams a day for 4 days, 10 mg a day for 4 days and stop. She also has some wheezing on examination and it should help her Q6-hour scheduled nebs Currently she requires 3 to 4-->5 L of oxygen via nasal cannula. Baseline oxygen requirement none. Has not received vaccines to Covid. #Pulmonary arterial hypertension-ordered echocardiogram to assess right ventr icular function. #Tobacco use-ordered nicotine patch 14 mg daily #Chronic pain-resumed her home dose of Percocet 10 mg every 8 hours as needed for pain. She does seem to be having significant right chest wall pain. #Atrial fibrillation-resumed metoprolol and diltiazem 240 mg daily. resumed warfarin. #Hypothyroidism resume levothyroxine 100 mcg daily #Depression and anxiety resumed sertraline 200 mg daily and clonazepam half milligram every night #DVT prophylaxis-warfarin as above Time Spent With Patient Time: Total time spent is greater than 50% in coordination of care (as documented) at patient's floor/unit and/or counseling patient: Total time spent with greater than 50% in coordination of care (as documented) at patient's floor/unit and/or counseling patient:: 25 - 35 minutes
[2021-08-28] MEDS: ACETAMINOPHEN 325 MG TABLET PO PRN (15:36)
[2021-08-28] MEDS: OMEPRAZOLE 20 MG CAPSULE PO SCH (16:14)
[2021-08-28] MEDS: clonazePAM 1 MG TABLET PO SCH (20:25)
[2021-08-28] MEDS: SERTRALINE 100 MG TABLET PO SCH (20:26)
[2021-08-28] MEDS: SENNOSIDES 1 TABLET PO SCH (20:27)
[2021-08-28] MEDS ORDERED: WARFARIN 3 MG TABLET PO ONE (21:00)
[2021-08-29] MEDS: 0.9 % SODIUM CHLORIDE 10 ML SYRINGE IV SCH (04:00)
[2021-08-29 06:45] LABS: Basophils # (Auto) 0.05 K/mcL (0.00-0.30); Basophils % (Auto) 0.6 % (0.0-2.0); Eosinophils # (Auto) 0.19 K/mcL (0.00-0.70); Eosinophils % (Auto) 2.3 % (0.0-7.0); Hematocrit 36.5 % (34.1-44.9); Hemoglobin 11.9 g/dL (11.2-15.7); Lymphocytes # (Auto) 1.16 K/mcL (1.50-4.80); Lymphocytes % (Auto) 13.9 % (15.5-49.0); Mean Cell Volume 97.6 fL (80.0-100.0); Mean Corpuscular HGB Conc 32.6 g/dL (31.0-36.0); Mean Platelet Volume 9.6 fL (7.4-10.4); Monocytes # (Auto) 0.62 K/mcL (0.10-0.90); Monocytes % (Auto) 7.4 % (1.0-12.0); Neutrophils % (Auto) 75.8 % (38.0-78.0); Platelet Count 259 K/mcL (140-440); RBC 3.74 M/mcL (3.59-5.38); Red Cell Distribution Width 14.4 % (11.5-14.5); WBC 8.4 K/mcL (4.5-11.0)
[2021-08-29 06:59] LABS: Blood Urea Nitrogen 10 mg/dL (6-20); Calcium 8.7 mg/dL (8.6-10.4); Carbon Dioxide 29 mmol/L (22-30); Chloride 102 mmol/L (96-108); Glomerular Filtration Rate 121; Glucose 88 mg/dL (70-105)
[2021-08-29 07:13] LABS: INR 2.8 (0.9-1.1); Prothrombin Time 30.4 sec (11.9-14.5)
[2021-08-29] MEDS: IPRATROPIUM/ALBUTEROL 3 ML AMPUL.NEB NEB PRN (07:27)
[2021-08-29] MEDS: oxyCODONE/APAP 10/325MG TABLET PO PRN (07:38)
[2021-08-29] MEDS: NICOTINE 14 MG PATCH TOPICAL SCH (09:08)
[2021-08-29] MEDS: LEVOTHYROXINE 100 MCG TABLET PO SCH (09:08)
[2021-08-29] MEDS: DOCUSATE SODIUM 100 MG CAPSULE PO SCH (09:08)
[2021-08-29] MEDS: LEVOFLOXACIN 750 MG/150 ML BAG IV SCH (09:08)
[2021-08-29] MEDS: MONTELUKAST 10 MG TABLET PO SCH (09:08)
--- NOTE | 2021-08-29 11:15 | Discharge Summary ---
Discharge Provider Provider Patient information: Note initiated : 08/29/21 at 11:08 am Service Date, if different from initiated Date: [] Patient: Estela Man 50 y/o F admitted on 08/27/21 for Shortness of breath. Chief Complaint: [] Date of admission: 08/27/21 16:11 Discharge date: 08/29/21 Primary care physician: Todd Schaefer Admitting clinician: Fransisco Moraes Attending physician on admission: Fransisco Moraes Consults: 08/27/21 Consult to Physician [CONS] Stat Comment: Consulting Provider: Fransisco Moraes Reason For Exam: Physician to Consult Attending physician on discharge: Fransisco Moraes Discharging clinician: Fransisco Moraes Discharge Meds Discharge Medications Home Medications albuterol sulfate 90 mcg/actuation aerosol inhaler 1 puff INH Q4HP PRN 07/01/15 [History Confirmed 08/27/21 Last Taken 08/25/21] diltiazem HCl 240 mg capsule,extended release 24 hr, controlled 240 mg PO QHS [History Confirmed 08/27/21 Last Taken 08/27/21] levothyroxine 100 mcg tablet 100 mcg PO DAILY 07/01/15 [History Confirmed 08/27/21 Last Taken 08/25/21] sertraline 100 mg tablet 200 mg PO QHS 07/01/15 [History Confirmed 08/27/21 Last Taken 08/25/21] warfarin 5 mg tablet 15 mg PO QHS 07/01/15 [History Confirmed 08/27/21 Last Taken 08/25/21] clonazepam 1 mg tablet 0.5 mg PO QHS 03/06/17 [History Confirmed 08/27/21 Last Taken 08/26/21] omeprazole 20 mg capsule,delayed release 20 mg PO QAM 05/05/18 [History Confirmed 08/27/21 Last Taken 08/25/21 07:00] ipratropium 0.5 mg-albuterol 3 mg (2.5 mg base)/3 mL nebulization soln 3 ml INHALATION QID PRN 01/27/20 [History Confirmed 08/27/21 Last Taken 08/27/21] metoprolol succinate 25 mg tablet,extended release 24 hr 75 mg PO QHS tab 02/05/20 [History Confirmed 08/27/21 Last Taken 08/27/21] oxycodone-acetaminophen 10 mg-325 mg tablet 1 tab PO Q6H PRN 09/22/20 [History Confirmed 08/27/21 Last Taken 08/27/21 04:00] montelukast 10 mg tablet (Singulair) 10 mg PO DAILY 04/01/21 [History Confirmed 08/27/21 Last Taken 08/25/21 07:00] fluticasone fur. 100 mcg-umeclid 62.5 mcg-vilant 25 mcg inhalat.powder (Trelegy Ellipta) 1 inh INHALATION Q24H #60 ea 07/13/21 [Rx Confirmed 08/27/21 Last Taken 08/25/21] COURSE Hospital Course Hospital course: Ms. Man is a 50-year-old female, chronic smoker, atrial fibrillation, COPD, sleep apnea with a past medical history of COVID-19 which was diagnosed in July 2021. She received Sotrovimab for this. Soon after that she felt better and was able to go home. She felt better for most of July and August. However in the last few days she had worsening cough and yellowish sputum. 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 She also has significant pain in the right posterior chest, which coincides with the area of pneumonia on the CTA of the lung. Denies any anterior chest pain, nausea vomiting diarrhea. Denies dizziness. Reports she is on chronic opiates for her pain management as an outpatient. She has home oxygen with her, however she had not felt the need to use oxygen at home recently 08/28. Now on 5 LPM O2. She feels we can wean it off and she is doing well. No new sx. 08/29-oxygen weaned to 2 L/min. She has oxygen at home and a nebulizer machine with enough vials. Advised to use the nebulizer machine about 4 times a day and wean oxygen as tolerated at home. Echocardiogram done. Results pending at the time of discharge. Discharge diagnosis: Long Covid syndrome, community-acquired pneumonia Pertinent studies/significant findings: Ms. Man is a 50-year-old female, chronic smoker, atrial fibrillation, COPD, sleep apnea with a past medical history of COVID-19 which was diagnosed in 2021. She received Sotrovimab for this. Soon after that she felt better and was able to go home. She felt better for most of July and August. However in the last few days she had worsening cough and yellowish sputum #Sepsis secondary to long Covid syndrome #Acute hypoxic respiratory failure. #Right mid lobe pneumonia. #Right lung groundglass opacities Diagnosed with COVID-19 in beginning of July 2021. Status post treatment with sotrovimab. Presents with worsening cough with productive sputum. CTA of chest done in emergency room. Rules out pulmonary embolism but shows moderate pneumonia of the right lung. No pleural effusion noted. Groundglass opacities in the right lung is noted. Received ceftriaxone in the ED. Switch to IV levofloxacin 750 mg daily, will opt for a 7-day course. Received 2 out of 7-day course as inpatient. Switch to p.o. Levaquin for 5 more days as outpatient. For long Covid syndrome will do a prednisone taper 40 mg daily for 4 days followed by 30 mg daily for 4 days followed by 20 milligrams a day for 4 days, 10 mg a day for 4 days and stop. She also has some wheezing on examination and it should help her Q6-hour scheduled nebs Currently she requires 3 to 4-->5 L o--> 2 LPM f oxygen via nasal cannula. Baseline oxygen requirement none. Has not received vaccines to Covid. #Pulmonary arterial hypertension-ordered echocardiogram to assess right ventricular function. Results pending at the time of discharge. #Tobacco use-ordered nicotine patch 14 mg daily #Chronic pain-resumed her home dose of Percocet 10 mg every 8 hours as needed for pain. She does seem to be having significant right chest wall pain. #Atrial fibrillation-resumed metoprolol and diltiazem 240 mg daily. resumed warfarin At home dose #Hypothyroidism resume levothyroxine 100 mcg daily #Depression and anxiety resumed sertraline 200 mg daily and clonazepam half milligram every night Time Spent with Patient Time attestation: Total time spent providing and/or coordinating discharge services: Time spent: Greater than 30 minutes EXAM Constitutional Vitals: Temp Pulse Resp BP Pulse Ox 97.1 F 86 17 119/82 90 08/29/21 07:20 08/29/21 07:27 08/29/21 07:27 08/29/21 07:20 08/29/21 07:27 General appearance: average body habitus, cooperative and no acute distress Head Head exam: Present atraumatic and normocephalic Eye Eye exam: Present normal appearance ENT ENT exam: Present mucous membranes moist Respiratory Respiratory exam: Present normal respiratory exam and CTAB; Absent accessory muscle use, rales, respiratory distress, stridor or wheezes Additional comments: Prolonged expiratory phase. No significant wheezing. Cardiovascular Cardiovascular exam: Present normal rate and rhythm and RRR; Absent bradycardia, diastolic murmur, gallop, irregular rhythm or rubs GI/Abdominal GI/Abdominal exam: Present normal bowel sounds and soft; Absent distended, guarding or rebound Expanded Lower Extremity Exam Hip exam: Present normal inspection; Absent swelling Back Exam Back exam: Present normal inspection; Absent CVA tenderness (L), CVA tenderness (R), paraspinal tenderness or vertebral tenderness Neurological Exam Neurological exam: Present alert and oriented X3; Absent abnormal gait or motor sensory deficit Discharge Data Data Completed and Pending Labs on day of discharge: Labs from last 24 hours 08/29/21 08/29/21 08/29/21 05:17 05:17 05:17 WBC 8.4 RBC 3.74 Hgb 11.9 Hct 36.5 MCV 97.6 MCH 31.8 MCHC 32.6 RDW 14.4 Plt Count 259 MPV 9.6 Neut % (Auto) 75.8 Lymph % (Auto) 13.9 L [place] % (Auto) 7.4 Eos % (Auto) 2.3 Baso % (Auto) 0.6 Lymph # (Auto) 1.16 L [place] # (Auto) 0.62 Eos # (Auto) 0.19 Baso # (Auto) 0.05 Absolute Neutrophils 6.33 PT 30.4 H INR 2.8 H Sodium 140 Potassium 3.8 Chloride 102 Carbon Dioxide 29 Anion Gap 9.0 BUN 10 Creatinine 0.4 L GFR Calculation 121 Glucose 88 Calcium 8.7 Preliminary micro results at discharge 08/28/21 08:04 Gram Stain - Preliminary Sputum source - Expectorated Discharge Plan Patient/Caregiver Discharge Instructions Activity: increase activity as tolerated and other Diet: Regular Diet Activity Restrictions/Additional Instructions: You can return to work on Sunday, September 05 if you are feeling better. Prescriptions: No Action Trelegy Ellipta 100-62.5-25 mcg blister with device 1 inh inhalation Q24H Qty: 60 2RF ipratropium-albuterol 0.5 mg-3 mg(2.5 mg base)/3 mL solution for nebulization 3 ml INHALATION QID PRN (Reason: Wheezing) 0RF metoprolol succinate 25 mg tablet extended release 24 hr 75 mg PO QHS 0RF Rx Instructions: Take 2 tablets (50 mg) every morning, and 1 tablet (25 mg) every evening. clonazepam 1 mg tablet 0.5 mg PO QHS 0RF diltiazem HCl 240 MG capsule,ext.rel 24h degradable 240 mg PO QHS 0RF sertraline 100 MG tablet 200 mg PO QHS 0RF levothyroxine 100 MCG tablet 100 mcg PO DAILY 0RF warfarin 5 MG tablet 15 mg PO QHS 0RF albuterol sulfate 1 PUFF inhaler 1 puff INH Q4HP PRN (Reason: Shortness Of Breath) 0RF omeprazole 20 MG capsule 20 mg PO QAM 0RF oxycodone-acetaminophen 1 TAB tablet 1 tab PO Q6H PRN (Reason: Pain Level 3-6) 0RF montelukast [Singulair] 10 mg tablet 10 mg PO DAILY 0RF Follow Up Plan Follow up with: Paul Schaefer MD [Primary Care Provider] - Patient Disposition: Home, Self-Care Overall status at discharge: patient is progressing back to baseline Discharge Orders: Discharge Order (Routine); Ordered 08/29/21 Ordered By: Fransisco Moraes
--- NOTE | 2021-08-29 11:20 | Discharge Summary ---
Discharge Provider Provider Patient information: Note initiated : 08/29/21 at 11:19 am Service Date, if different from initiated Date: [] Patient: Estela Man 50 y/o F admitted on 08/27/21 for Shortness of breath. Chief Complaint: [] Date of admission: 08/27/21 16:11 Discharge date: 08/29/21 Primary care physician: Todd Schaefer Consults: 08/27/21 Consult to Physician [CONS] Stat Comment: Consulting Provider: Fransisco Moraes Reason For Exam: Physician to Consult Discharge Meds Discharge Medications Home Medications albuterol sulfate 90 mcg/actuation aerosol inhaler 1 puff INH Q4HP PRN 07/01/15 [History Confirmed 08/27/21 Last Taken 08/25/21] diltiazem HCl 240 mg capsule,extended release 24 hr, controlled 240 mg PO QHS 07/01/15 [History Confirmed 08/27/21 Last Taken 08/27/21] levothyroxine 100 mcg tablet 100 mcg PO DAILY 07/01/15 [History Confirmed 08/27/21 Last Taken 08/25/21] sertraline 100 mg tablet 200 mg PO QHS 07/01/15 [History Confirmed 08/27/21 Last Taken 08/25/21] warfarin 5 mg tablet 15 mg PO QHS 07/01/15 [History Confirmed 08/27/21 Last Taken 08/25/21] clonazepam 1 mg tablet 0.5 mg PO QHS 03/06/17 [History Confirmed 08/27/21 Last Taken 08/26/21] omeprazole 20 mg capsule,delayed release 20 mg PO QAM 05/05/18 [History Confirmed 08/27/21 Last Taken 08/25/21 07:00] ipratropium 0.5 mg-albuterol 3 mg (2.5 mg base)/3 mL nebulization soln 3 ml INHALATION QID PRN 01/27/20 [History Confirmed 08/27/21 Last Taken 08/27/21] metoprolol succinate 25 mg tablet,extended release 24 hr 75 mg PO QHS tab 02/05/20 [History Confirmed 08/27/21 Last Taken 08/27/21] oxycodone-acetaminophen 10 mg-325 mg tablet 1 tab PO Q6H PRN 09/22/20 [History Confirmed 08/27/21 Last Taken 08/27/21 04:00] montelukast 10 mg tablet (Singulair) 10 mg PO DAILY 04/01/21 [History Confirmed 08/27/21 Last Taken 08/25/21 07:00] fluticasone fur. 100 mcg-umeclid 62.5 mcg-vilant 25 mcg inhalat.powder (Trelegy Ellipta) 1 inh INHALATION Q24H #60 ea 07/13/21 [Rx Confirmed 08/27/21 Last Taken 08/25/21] levofloxacin 750 mg tablet 750 mg PO QDAY #6 tab 08/29/21 [Rx Last Taken Unknown] prednisolone 5 mg tablet 10 mg PO QDAY #32 tab 08/29/21 [Rx Last Taken Unknown] COURSE Hospital Course Hospital course: Please see previously dictated discharge summary Discharge diagnosis: Community-acquired pneumonia Time Spent with Patient Time attestation: Total time spent providing and/or coordinating discharge services: EXAM Constitutional Vitals: Temp Pulse Resp BP Pulse Ox 97.1 F 86 17 119/82 90 08/29/21 07:20 08/29/21 07:27 08/29/21 07:27 08/29/21 07:20 08/29/21 07:27 Discharge Data Data Completed and Pending Labs on day of discharge: Labs from last 24 hours 08/29/21 08/29/21 08/29/21 05:17 05:17 05:17 WBC 8.4 RBC 3.74 Hgb 11.9 Hct 36.5 MCV 97.6 MCH 31.8 MCHC 32.6 RDW 14.4 Plt Count 259 MPV 9.6 Neut % (Auto) 75.8 Lymph % (Auto) 13.9 L [place] % (Auto) 7.4 Eos % (Auto) 2.3 Baso % (Auto) 0.6 Lymph # (Auto) 1.16 L [place] # (Auto) 0.62 Eos # (Auto) 0.19 Baso # (Auto) 0.05 Absolute Neutrophils 6.33 PT 30.4 H INR 2.8 H Sodium 140 Potassium 3.8 Chloride 102 Carbon Dioxide 29 Anion Gap 9.0 BUN 10 Creatinine 0.4 L GFR Calculation 121 Glucose 88 Calcium 8.7 Preliminary micro results at discharge 08/28/21 08:04 Gram Stain - Preliminary Sputum source - Expectorated Discharge Plan Patient/Caregiver Discharge Instructions Activity: increase activity as tolerated and other Diet: Regular Diet Activity Restrictions/Additional Instructions: You can return to work on Sunday, September 05 if you are feeling better. Prescriptions: New levofloxacin 750 mg tablet 750 mg PO QDAY Qty: 6 0RF prednisolone 5 mg tablet 10 mg PO QDAY Qty: 32 0RF Rx Instructions: Take 4 tablets daily today and tomorrow, 3 tablets daily for the next 4 days, and then 2 tablets daily for 4 days, followed by 1 tablet daily for the last 4 days Continued Trelegy Ellipta 100-62.5-25 mcg blister with device 1 inh inhalation Q24H Qty: 60 2RF ipratropium-albuterol 0.5 mg-3 mg(2.5 mg base)/3 mL solution for nebulization 3 ml INHALATION QID PRN (Reason: Wheezing) 0RF metoprolol succinate 25 mg tablet extended release 24 hr 75 mg PO QHS 0RF Rx Instructions: Take 2 tablets (50 mg) every morning, and 1 tablet (25 mg) every evening. clonazepam 1 mg tablet 0.5 mg PO QHS 0RF diltiazem HCl 240 MG capsule,ext.rel 24h degradable 240 mg PO QHS 0RF sertraline 100 MG tablet 200 mg PO QHS 0RF levothyroxine 100 MCG tablet 100 mcg PO DAILY 0RF warfarin 5 MG tablet 15 mg PO QHS 0RF albuterol sulfate 1 PUFF inhaler 1 puff INH Q4HP PRN (Reason: Shortness Of Breath) 0RF omeprazole 20 MG capsule 20 mg PO QAM 0RF oxycodone-acetaminophen 1 TAB tablet 1 tab PO Q6H PRN (Reason: Pain Level 3-6) 0RF montelukast [Singulair] 10 mg tablet 10 mg PO DAILY 0RF Follow Up Plan Follow up with: Paul Schaefer MD [Primary Care Provider] - Patient Disposition: Home, Self-Care Overall status at discharge: patient is progressing back to baseline Discharge Orders: Discharge Order (Routine); Ordered 08/29/21 Ordered By: Fransisco Moraes
== END 2021-08-29 13:00 | disposition home or self-care (01) | DRG 871 ==
LOC: ED 12:10 → MEDSUR 16:11
PROVIDERS: ADMIT Internal Medicine Medical Oncology; ATTEND Internal Medicine Medical Oncology

== ENCOUNTER 2022-05-06 12:56 | Inpatient (IN) ==
[2022-05-06] MEDS ORDERED: IODIXANOL 100 ML BOTTLE IV ONE (12:57)
--- NOTE | 2022-05-06 14:38 | Emergency Department Note ---
SOB HPI General Chief Complaint: Shortness of Breath/Dyspnea Stated Complaint: Breathing troubles Time Seen by Provider: 05/06/22 13:58 Source: patient Mode of arrival: wheelchair Limitations: no limitations History of Present Illness HPI Narrative: Narrative: Patient is a 51-year-old female who presents to the emergency department today with complaint of shortness of breath and pain located at the anterior side of right upper chest that started 3 or 4 days ago. She indicates that 3 weeks ago she had an upper respiratory infection. She felt that she got better from this but over the last couple of days started to feel that she could not breathe as well as she normally could. She does wear oxygen at home typically at 3 L at nighttime. She has a history of pleurisy and reports that her pain feels simila r to pleurisy that she has had in the past. She does have past medical history of A. fib and is taking warfarin. She does also have hypothyroidism, COPD, and asthma as diagnosis on her problem list. Patient reports that she did not take her breathing treatment today. Related Data Home Medications Medication Instructions Recorded Confirmed albuterol sulfate 90 mcg/actuation 1 puff INH Q4HP PRN Shortness Of 07/01/15 05/06/22 aerosol inhaler Breath diltiazem HCl 240 mg 240 mg PO QHS 07/01/15 05/06/22 capsule,extended release 24 hr, controlled levothyroxine 100 mcg tablet 100 mcg PO DAILY 07/01/15 05/06/22 sertraline 100 mg tablet 200 mg PO QHS 07/01/15 05/06/22 warfarin 5 mg tablet 15 mg PO QHS 07/01/15 05/06/22 clonazepam 1 mg tablet 0.5 mg PO QHS 03/06/17 05/06/22 omeprazole 20 mg capsule,delayed 20 mg PO QAM 05/05/18 05/06/22 release ipratropium 0.5 mg-albuterol 3 mg 3 ml inhalation QID PRN Wheezing 01/27/20 05/06/22 (2.5 mg base)/3 mL nebulization soln metoprolol succinate 25 mg 75 mg PO QHS 02/05/20 05/06/22 tablet,extended release 24 hr oxycodone-acetaminophen 10 mg-325 1 tab PO Q6H PRN Pain Level 3-6 09/22/20 05/06/22 mg tablet montelukast 10 mg tablet 10 mg PO QHS 04/01/21 05/06/22 (Singulair) Previous Rx's Medication Instructions Recorded fluticasone fur. 100 mcg-umeclid 1 inh PO QDAY #60 ea 11/18/21 62.5 mcg-vilant 25 mcg inhalat.powder (Trelegy Ellipta) Allergies Allergy/AdvReac Type Severity Reaction Status Date / Time naproxen [NAPROXEN] Allergy Severe ANGIOEDEMA Verified 05/06/22 13:24 Review of Systems ROS ROS Narrative: Narrative: All systems ED: reviewed and negative except as stated. PFSH Narrative Patient History Narrative: Narrative: Medical/Surgical/Family History All Active Problems Viral URI with cough (Acute) Pneumonia (Acute) Cough (Acute) Hemoptysis (Acute) COPD (chronic obstructive pulmonary disease) (Chronic) Multiple pulmonary nodules (Chronic) Asthma (Acute) COVID-19 (Chronic) Supratherapeutic INR (Acute) COVID-19 (Acute) Lung nodules (Chronic) Hypersomnia (Chronic) Conjunctivitis (Acute) Acute asthma exacerbation (Acute) Hypothyroid (Acute) Asthma exacerbation (Acute) Pneumonia (Acute) COPD exacerbation (Acute) Lumbar stenosis without neurogenic claudication (Chronic) Anxiety (Chronic) Bronchitis (Chronic) Low back pain (Chronic) COPD (chronic obstructive pulmonary disease) (Chronic) Exposure to TB (Chronic) History of carpal tunnel surgery (Chronic ~1997) Chronic pain (Chronic) Spinal stenosis (Chronic) Abscess of abdominal wall (Chronic) Degeneration of lumbar intervertebral disc (Chronic) GERD (gastroesophageal reflux disease) (Chronic) Depression (Chronic) Atrial fibrillation (Chronic) Nonischemic congestive cardiomyopathy (Chronic) Shoulder pain (Chronic) Postoperative complication (Chronic) Abscess of skin or subcutaneous tissue (Chronic) Cellulitis (Chronic) Septic shock (Chronic) SIRS (systemic inflammatory response syndrome) (Chronic) Sepsis (Chronic) Atrial fibrillation with RVR (Chronic) RLL pneumonia (Chronic) History of DVT (deep vein thrombosis) (Chronic) Tobacco use (Chronic) H/O bariatric surgery (Chronic ~2014) Asthma (Chronic) Back pain, chronic (Chronic) WES (obstructive sleep apnea) (Chronic) Finger fracture, left (Chronic) Obesity (BMI 30.0-34.9) (Chronic) Hypothyroidism, acquired (Chronic) Chronic atrial fibrillation (Chronic) Chronic anticoagulation (Chronic) Cigarette smoker (Chronic) Dependence on nocturnal oxygen therapy (Chronic) Anxiety disorder (Chronic) Medical History Abscess of abdominal wall Abscess of skin or subcutaneous tissue Anxiety Anxiety disorder Asthma Atrial fibrillation Atrial fibrillation with RVR Back pain, chronic Bronchitis Cellulitis Chronic anticoagulation Chronic atrial fibrillation Chronic pain Cigarette smoker COPD (chronic obstructive pulmonary disease) COPD exacerbation Degeneration of lumbar intervertebral disc Dependence on nocturnal oxygen therapy With weight loss she is uncertain if she needs this. Depression Exposure to TB GERD (gastroesophageal reflux disease) History of DVT (deep vein thrombosis) Hypersomnia Hypothyroidism, acquired Low back pain Lumbar stenosis without neurogenic claudication Lung nodules Nonischemic congestive cardiomyopathy Obesity (BMI 30.0-34.9) History of morbid obesity; status post gastric sleeve 2014. WES (obstructive sleep apnea) Postoperative complication RLL pneumonia Sepsis Septic shock Shoulder pain SIRS (systemic inflammatory response syndrome) Spinal stenosis Tobacco use Tonsillitis UTI (urinary tract infection) Surgical History H/O bariatric surgery (~2014) History of carpal tunnel surgery (~1997) History of gastric surgery Gastric sleeve surgery with revision History of herniorrhaphy History of laparoscopic cholecystectomy 05/07/2018-partial omentectomy; incisional hernia repair History of surgery eyelid Family History Father Hepatitis C Substance abuse Mother , Age 40 Substance abuse Grandfather Asthma Paternal Social History Smoking Status: Current every day smoker Alcohol Intake Frequency: a few times a month Substance Use: marijuana Exam Narrative Narrative: Narrative: General Limitations: no limitations General appearance: Present alert and in no apparent distress Eye Eye: Present normal appearance; Absent scleral icterus ENT ENT: Present normal exam, normal oropharynx and mucous membranes moist Neck Neck: Present normal inspection and full ROM; Absent meningismus or lymphadenopathy Chest Chest: Present normal inspection and symmetric chest wall rise; Absent tenderness Respiratory Respiratory: Present other (Lung sounds clear to auscultate with expiratory wheezes heard in the right and left upper lobe.); Absent respiratory distress, rales/crackles or accessory muscle use Cardiovascular Cardiovascular: Present normal rhythm, tachycardia and normal heart sounds Adbominal Abdominal: Present soft; Absent distention or tenderness Extremities Extremities: Present normal inspection, full ROM and normal capillary refill; Absent cyanosis Neurological Neurological: Present alert and oriented X3 Psychiatric Psychiatric: Present normal affect and normal mood Skin Skin: Present warm (WNL), dry and normal color Course Vital Signs Vital signs: Vital Signs Temperature 97.9 F 05/06/22 13:18 Pulse Rate 112 H 05/06/22 13:18 Respiratory Rate 20 05/06/22 13:18 Blood Pressure 101/69 05/06/22 13:18 Pulse Oximetry (%) 87 L 05/06/22 13:18 Oxygen Delivery Method 05/06/22 13:18 Temperature 99.1 F H 05/07/22 16:28 Pulse Rate 89 05/07/22 16:28 Respiratory Rate 22 05/07/22 16:28 Blood Pressure 100/68 05/07/22 16:28 Pulse Oximetry (%) 95 05/07/22 16:28 Oxygen Delivery Method 05/07/22 16:28 Oxygen Flow Rate (L/min) 2 05/07/22 16:28 [facility] MDM Narrative Medical decision making narrative: Narrative: 51-year-old female who presented to the emergency department today with complaint of increased shortness of breath that started approximately 4 days ago. She had an upper respiratory tract infection 3 weeks ago and was treated with prednisone. She felt that her symptoms had slightly improved and then worsened. She does wear oxygen at home typically at 3 L at nighttime. She had tachycardia with hypoxia on arrival. Troponin today is negative. EKG reveals A. fib with normal rate here in the emergency department today. Patient does have history of A. fib and this is not a new finding. Proceeded with chest CTA to rule out a pulmonary embolism. The CTA does not show any evidence of a PE, however there is a right pleural fluid collection appearance is consistent with loculated pleural fluid. Radiologist mentions that there are no gas bubbles to indicate empyema although empyema remains possible. Patient's white count today is 19.9. Lactic acid and blood cultures obtained. Patient's lactic acid today is 0.9. Chemistry panel rather unremarkable today. Patient's TSH normal at 1.39. CRP is elevated at 13.5. Patient was ordered 1 g Rocephin IV to be given in the emergency department today. Patient received 1 L IV normal saline. Given the patient's leukocytosis, hypoxia, and findings suggestive of an empyema and would recommend hospital admission for this patient. I was able to consult with the general surgeon who is on today and spoke with Dr. Zamudio which I am appreciative of the phone call. Dr. Zamudio indicates that he would be available if hospitalist would need any assistance with possible placement of pigtail or chest tube, however radiology often will be available to do these procedures. Patient's INR today is 4.[address] Zamudio would not recommend chest tube until reversal agent or stable INR prior to procedure. I was able to speak with Dr. Knowles who is on today for hospitalist at [facility], and he agreed to admit patient to [facility] today for the empyema. Lab Data Lab results reviewed: Yes I reviewed the patient's lab results. Result diagrams: 05/07/22 05:35 05/07/22 05:35 Labs: Lab Results 05/06/22 05/06/22 05/06/22 Range/Units 14:55 14:55 14:55 WBC 19.9 H (4.5-11.0) K/mcL RBC 4.00 (3.59-5.38) M/mcL Hgb 12.6 (11.2-15.7) g/dL Hct 38.0 (34.1-44.9) % MCV 95.0 (80.0-100.0) fL MCH 31.5 (26.0-34.0) pg MCHC 33.2 (31.0-36.0) g/dL RDW 16.4 H (11.5-14.5) % Plt Count 369 (140-440) K/mcL MPV 9.4 (8.8-12.5) fL Immature Gran % (Auto) 0.9 H (0.0-0.5) % Neut % (Auto) 84.6 H (38.0-78.0) % Lymph % (Auto) 5.5 L (15.5-49.0) % Weston % (Auto) 8.2 (1.0-12.0) % Eos % (Auto) 0.4 (0.0-7.0) % Baso % (Auto) 0.4 (0.0-2.0) % Lymph # (Auto) 1.10 L (1.50-4.80) K/mcL Weston # (Auto) 1.63 H (0.10-0.90) K/mcL Eos # (Auto) 0.07 (0.00-0.70) K/mcL Baso # (Auto) 0.07 (0.00-0.30) K/mcL Immature Gran # 0.17 H (0.00-0.05) K/mcl Absolute Neutrophils 16.81 H (1.80-8.00) K/mcL ESR (0-30) mm/hr POC PT (11.9-14.5) POC INR (0.8-1.2) APTT (20.0-37.0) sec VBG Lactic Acid (0.5-2.0) mmol/L Sodium (133-145) mmol/L Potassium (3.3-5.1) mmol/L Chloride (96-108) mmol/L Carbon Dioxide (22-30) mmol/L Anion Gap (8.0-16.0) BUN (6-20) mg/dL Creatinine (0.6-1.1) mg/dL GFR Calculation Glucose (70-105) mg/dL Calcium (8.6-10.4) mg/dL Total Bilirubin (0.1-1.0) mg/dL Direct Bilirubin (0-0.3) mg/dL AST (<32) U/L ALT (<40) U/L Alkaline Phosphatase (39-117) U/L C-Reactive Protein (0.03-0.80) mg/dL Total Protein (5.9-8.4) gm/dL Albumin (3.2-5.2) gm/dL Globulin (2.2-3.7) gm/dL Albumin/Globulin Ratio (1.0-2.3) Procalcitonin (<0.10) ng/mL TSH 1.39 (0.27-5.01) uIU/mL POC Troponin I < 0.02 (0.00-0.08) 05/06/22 05/06/22 05/06/22 Range/Units 14:55 14:55 14:55 WBC (4.5-11.0) K/mcL RBC (3.59-5.38) M/mcL Hgb (11.2-15.7) g/dL Hct (34.1-44.9) % MCV (80.0-100.0) fL MCH (26.0-34.0) pg MCHC (31.0-36.0) g/dL RDW (11.5-14.5) % Plt Count (140-440) K/mcL MPV (8.8-12.5) fL Immature Gran % (Auto) (0.0-0.5) % Neut % (Auto) (38.0-78.0) % Lymph % (Auto) (15.5-49.0) % Weston % (Auto) (1.0-12.0) % Eos % (Auto) (0.0-7.0) % Baso % (Auto) (0.0-2.0) % Lymph # (Auto) (1.50-4.80) K/mcL Weston # (Auto) (0.10-0.90) K/mcL Eos # (Auto) (0.00-0.70) K/mcL Baso # (Auto) (0.00-0.30) K/mcL Immature Gran # (0.00-0.05) K/mcl Absolute Neutrophils (1.80-8.00) K/mcL ESR (0-30) mm/hr POC PT (11.9-14.5) POC INR (0.8-1.2) APTT 57.1 H (20.0-37.0) sec VBG Lactic Acid (0.5-2.0) mmol/L Sodium 136 (133-145) mmol/L Potassium 4.3 (3.3-5.1) mmol/L Chloride 96 (96-108) mmol/L Carbon Dioxide 32 H (22-30) mmol/L Anion Gap 8.0 (8.0-16.0) BUN 12 (6-20) mg/dL Creatinine 0.5 L (0.6-1.1) mg/dL GFR Calculation 112 Glucose 99 (70-105) mg/dL Calcium 9.2 (8.6-10.4) mg/dL Total Bilirubin 0.3 (0.1-1.0) mg/dL Direct Bilirubin < 0.2 (0-0.3) mg/dL AST 14 (<32) U/L ALT 16 (<40) U/L Alkaline Phosphatase 124 H (39-117) U/L C-Reactive Protein 13.50 H (0.03-0.80) mg/dL Total Protein 7.3 (5.9-8.4) gm/dL Albumin 3.5 (3.2-5.2) gm/dL Globulin 3.8 H (2.2-3.7) gm/dL Albumin/Globulin Ratio 0.9 L (1.0-2.3) Procalcitonin 0.06 (<0.10) ng/mL TSH (0.27-5.01) uIU/mL POC Troponin I (0.00-0.08) 05/06/22 05/06/22 05/06/22 Range/Units 14:55 17:03 18:26 WBC (4.5-11.0) K/mcL RBC (3.59-5.38) M/mcL Hgb (11.2-15.7) g/dL Hct (34.1-44.9) % MCV (80.0-100.0) fL MCH (26.0-34.0) pg MCHC (31.0-36.0) g/dL RDW (11.5-14.5) % Plt Count (140-440) K/mcL MPV (8.8-12.5) fL Immature Gran % (Auto) (0.0-0.5) % Neut % (Auto) (38.0-78.0) % Lymph % (Auto) (15.5-49.0) % Weston % (Auto) (1.0-12.0) % Eos % (Auto) (0.0-7.0) % Baso % (Auto) (0.0-2.0) % Lymph # (Auto) (1.50-4.80) K/mcL Weston # (Auto) (0.10-0.90) K/mcL Eos # (Auto) (0.00-0.70) K/mcL Baso # (Auto) (0.00-0.30) K/mcL Immature Gran # (0.00-0.05) K/mcl Absolute Neutrophils (1.80-8.00) K/mcL ESR 99 H (0-30) mm/hr POC PT 50.8 H (11.9-14.5) POC INR 4.6 H (0.8-1.2) APTT (20.0-37.0) sec VBG Lactic Acid 0.9 (0.5-2.0) mmol/L Sodium (133-145) mmol/L Potassium (3.3-5.1) mmol/L Chloride (96-108) mmol/L Carbon Dioxide (22-30) mmol/L Anion Gap (8.0-16.0) BUN (6-20) mg/dL Creatinine (0.6-1.1) mg/dL GFR Calculation Glucose (70-105) mg/dL Calcium (8.6-10.4) mg/dL Total Bilirubin (0.1-1.0) mg/dL Direct Bilirubin (0-0.3) mg/dL AST (<32) U/L ALT (<40) U/L Alkaline Phosphatase (39-117) U/L C-Reactive Protein (0.03-0.80) mg/dL Total Protein (5.9-8.4) gm/dL Albumin (3.2-5.2) gm/dL Globulin (2.2-3.7) gm/dL Albumin/Globulin Ratio (1.0-2.3) Procalcitonin (<0.10) ng/mL TSH (0.27-5.01) uIU/mL POC Troponin I (0.00-0.08) Radiology Data Radiology results reviewed: Yes I reviewed the patient's radiology results. Radiology results narrative: Ordering Physician:Eduard Villa Date of Service:05/06/22 Procedure(s):CT angio chest INDICATION: Tachycardia and hypoxia COMPARISON: Previous chest x-rays dated 08/27/2021, 07/05/2021 TECHNIQUE: Axial images obtained through the chest. 90ml Isovue 370 injected intravenously, and scanning was performed during pulmonary arterial phase. Sagittally and coronally reformatted images were obtained. MIP reformatted images. FINDINGS: Lungs:Negative left lung. There are linear densities in the right lung, predominantly right basilar. Findings are consistent with volume loss or post inflammatory fibrotic change. There is a 15 mm round density which is masslike. This is probably a pseudotumor with fluid in the right major fissure. Mediastinum, vascular:Main pulmonary artery, right pulmonary artery, left pulmonary artery are negative. No intraluminal filling defects. No lobar, segmental, or subsegmental emboli. Thoracic aorta is negative. No aneurysmal dilatation. Main pulmonary artery measures 4 cm in cross-sectional diameter. This is significantly enlarged and may reflect pulmonary arterial hypertension No pathologic mediastinal or hilar adenopathy Heart:There is cardiomegaly. There is no pericardial effusion. There is mild reflux of contrast material into the inferior vena cava consistent with right heart strain Pleura:No left pleural effusion. There is right pleural fluid. This appears to be loculated. There are no gas bubbles. Empyema is not excluded. Loculated simple effusion is possible. Axilla, supraclavicular regions, chest wall:No pathologic axillary or supraclavicular adenopathy. Musculoskeletal:Negative thoracic spine. No compression fracture. No lytic lesion. No rib or sternal lesions Upper Abdomen:There is a small hiatal hernia. There is been gastric surgery, probably a gastric sleeve procedure. IMPRESSION: 1. Negative pulmonary CTA. No pulmonary embolism 2. Cardiomegaly and mild reflux of contrast material into the inferior vena cava. Appearance is consistent with right heart strain 3. Enlarged main pulmonary artery. This may indicate pulmonary hypertension 4. Right lower lobe pulmonary parenchymal densities. Appearance suggests postinflammatory fibrotic change 5. Right pleural fluid collection appearance is consistent with loculated pleural fluid. There are no gas bubbles to indicate empyema although empyema remains possible. 6. Small hiatal hernia 7. Previous gastric surgery, probably gastric sleeve procedure The exam was performed using radiation dose optimization techniques including, but not limited to, automated exposure control, adjustment of the mA and/or kV according to patient size and use of iterative reconstruction technique. 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
[2022-05-06] MEDS ORDERED: IPRATROPIUM/ALBUTEROL 3 ML AMPUL.NEB NEB ONE (14:45)
--- NOTE | 2022-05-06 15:36 | Cat Scan Report ---
INDICATION: Tachycardia and hypoxia COMPARISON: Previous chest x-rays dated 08/27/2021, 07/05/2021 TECHNIQUE: Axial images obtained through the chest. 90ml Isovue 370 injected intravenously, and scanning was performed during pulmonary arterial phase. Sagittally and coronally reformatted images were obtained. MIP reformatted images. FINDINGS: Lungs:Negative left lung. There are linear densities in the right lung, predominantly right basilar. Findings are consistent with volume loss or post inflammatory fibrotic change. There is a 15 mm round density which is masslike. This is probably a pseudotumor with fluid in the right major fissure. Mediastinum, vascular:Main pulmonary artery, right pulmonary artery, left pulmonary artery are negative. No intraluminal filling defects. No lobar, segmental, or subsegmental emboli. Thoracic aorta is negative. No aneurysmal dilatation. Main pulmonary artery measures 4 cm in cross-sectional diameter. This is significantly enlarged and may reflect pulmonary arterial hypertension No pathologic mediastinal or hilar adenopathy Heart:There is cardiomegaly. There is no pericardial effusion. There is mild reflux of contrast material into the inferior vena cava consistent with right heart strain Pleura:No left pleural effusion. There is right pleural fluid. This appears to be loculated. There are no gas bubbles. Empyema is not excluded. Loculated simple effusion is possible. Axilla, supraclavicular regions, chest wall:No pathologic axillary or supraclavicular adenopathy. Musculoskeletal:Negative thoracic spine. No compression fracture. No lytic lesion. No rib or sternal lesions Upper Abdomen:There is a small hiatal hernia. There is been gastric surgery, probably a gastric sleeve procedure. IMPRESSION: 1. Negative pulmonary CTA. No pulmonary embolism 2. Cardiomegaly and mild reflux of contrast material into the inferior vena cava. Appearance is consistent with right heart strain 3. Enlarged main pulmonary artery. This may indicate pulmonary hypertension 4. Right lower lobe pulmonary parenchymal densities. Appearance suggests postinflammatory fibrotic change 5. Right pleural fluid collection appearance is consistent with loculated pleural fluid. There are no gas bubbles to indicate empyema although empyema remains possible. 6. Small hiatal hernia 7. Previous gastric surgery, probably gastric sleeve procedure The exam was performed using radiation dose optimization techniques including, but not limited to, automated exposure control, adjustment of the mA and/or kV according to patient size and use of iterative reconstruction technique. Interpreted and Authenticated by: Angus Francisco 05/06/22
[2022-05-06 16:01] LABS: Basophils # (Auto) 0.07 K/mcL (0.00-0.30); Basophils % (Auto) 0.4 % (0.0-2.0); Eosinophils # (Auto) 0.07 K/mcL (0.00-0.70); Eosinophils % (Auto) 0.4 % (0.0-7.0); Hemoglobin 12.6 g/dL (11.2-15.7); Lymphocytes % (Auto) 5.5 % (15.5-49.0); Mean Corpuscular HGB Conc 33.2 g/dL (31.0-36.0); Mean Platelet Volume 9.4 fL (8.8-12.5); Monocytes # (Auto) 1.63 K/mcL (0.10-0.90); Monocytes % (Auto) 8.2 % (1.0-12.0); Neutrophils % (Auto) 84.6 % (38.0-78.0); Platelet Count 369 K/mcL (140-440); Red Cell Distribution Width 16.4 % (11.5-14.5); WBC 19.9 K/mcL (4.5-11.0)
[2022-05-06] MEDS ORDERED: 0.9 % SODIUM CHLORIDE 1,000 ML IV ONE (16:36)
[2022-05-06] MEDS ORDERED: cefTRIAXone 1 GM VIAL IV ONE (16:36)
[2022-05-06 16:37] LABS: Thyroid Stimulating Hormone 1.39 uIU/mL (0.27-5.01)
[2022-05-06] MEDS ORDERED: ACETAMINOPHEN 325 MG TABLET PO ONE (16:55)
[2022-05-06 18:21] LABS: ALT/SGPT 16 U/L (<40); AST/SGOT 14 U/L (<32); Albumin 3.5 gm/dL (3.2-5.2); Albumin/Globulin Ratio 0.9 (1.0-2.3); Alkaline Phosphatase 124 U/L (39-117); Bilirubin,Direct < 0.2 mg/dL (0-0.3); Bilirubin,Total 0.3 mg/dL (0.1-1.0); Blood Urea Nitrogen 12 mg/dL (6-20); Calcium 9.2 mg/dL (8.6-10.4); Carbon Dioxide 32 mmol/L (22-30); Chloride 96 mmol/L (96-108); Globulin 3.8 gm/dL (2.2-3.7); Glomerular Filtration Rate 112; Glucose 99 mg/dL (70-105)
[2022-05-06 18:32] LABS: POC INR 4.6 (0.8-1.2); POC Pro Time 50.8 (11.9-14.5)
[2022-05-06 18:35] LABS: Partial Thromboplastin Time 57.1 sec (20.0-37.0)
--- NOTE | 2022-05-06 19:07 | Internal Med History&Physical ---
HPI History of Present Illness Patient information: Note initiated : 05/06/22 at 7:04 pm Service Date, if different from initiated Date: [] Patient: Estela Man a 51 y/o F admitted on for Breathing troubles. Chief Complaint: [] History of present illness: Ms. Man is a 51 year old F Presents to the ED with shortness of breath and right lateral chest wall pain. This has been worsening for the past 3-4 days. Typically wears oxygen at night but it sounds like she had use oxygen during the day as well. She did have a respiratory illness about 3 weeks ago and was treated for COPD exacerbation. She said she seemed to be getting better and then 3-4 days ago started getting worse again with new right lateral chest wall pain. She says she does not have much of a cough but she is had increasing shortness of breath. Complains of headaches but no fevers and chills. Work-up in the ER revealed a hypoxic days 7%. She was tachycardic. Blood pressures were soft in the 90s. She had a leukocytosis of 20,000. Lactate and chemistry panel pending. CT of the chest showed a large pleural effusion on the right with loculations. Discussed with Dr. Zamudio surgeon for possible chest tube placement. INR now back which is too high for immediate tube. Past medical which includes atrial fibrillation COPD tobacco abuse hypothyroidism obstructive sleep apnea pulmonary hypertension chronic pain. She did have some abnormalities on chest CT in the past that pulmonology was going to have radiology do a biopsy of but then pulmonology decided against it telling her it was probably scar tissue, this is per the patient's history. Review of Systems: Pertinent positive as above. Denies fever/chills/nausea/vomiting/chest or abdominal pain/diarrhea. Remaining 10 point review of system reviewed negative. PFSH PFSH All Active Problems (Updated 04/20/22 @ 12:01 by Justin Greco DO) Viral URI with cough (Acute) Pneumonia (Acute) Cough (Acute) Hemoptysis (Acute) COPD (chronic obstructive pulmonary disease) (Chronic) Multiple pulmonary nodules (Chronic) Asthma (Acute) COVID-19 (Chronic) Supratherapeutic INR (Acute) COVID-19 (Acute) Lung nodules (Chronic) Hypersomnia (Chronic) Conjunctivitis (Acute) Acute asthma exacerbation (Acute) Hypothyroid (Acute) Asthma exacerbation (Acute) Pneumonia (Acute) COPD exacerbation (Acute) Lumbar stenosis without neurogenic claudication (Chronic) Anxiety (Chronic) Bronchitis (Chronic) Low back pain (Chronic) COPD (chronic obstructive pulmonary disease) (Chronic) Exposure to TB (Chronic) History of carpal tunnel surgery (Chronic ~1997) Chronic pain (Chronic) Spinal stenosis (Chronic) Abscess of abdominal wall (Chronic) Degeneration of lumbar intervertebral disc (Chronic) GERD (gastroesophageal reflux disease) (Chronic) Depression (Chronic) Atrial fibrillation (Chronic) Nonischemic congestive cardiomyopathy (Chronic) Shoulder pain (Chronic) Postoperative complication (Chronic) Abscess of skin or subcutaneous tissue (Chronic) Cellulitis (Chronic) Septic shock (Chronic) SIRS (systemic inflammatory response syndrome) (Chronic) Sepsis (Chronic) Atrial fibrillation with RVR (Chronic) RLL pneumonia (Chronic) History of DVT (deep vein thrombosis) (Chronic) Tobacco use (Chronic) H/O bariatric surgery (Chronic ~2014) Asthma (Chronic) Back pain, chronic (Chronic) WES (obstructive sleep apnea) (Chronic) Finger fracture, left (Chronic) Obesity (BMI 30.0-34.9) (Chronic) Hypothyroidism, acquired (Chronic) Chronic atrial fibrillation (Chronic) Chronic anticoagulation (Chronic) Cigarette smoker (Chronic) Dependence on nocturnal oxygen therapy (Chronic) Anxiety disorder (Chronic) Medical History Abscess of abdominal wall Abscess of skin or subcutaneous tissue Anxiety Anxiety disorder Asthma Atrial fibrillation Atrial fibrillation with RVR Back pain, chronic Bronchitis Cellulitis Chronic anticoagulation Chronic atrial fibrillation Chronic pain Cigarette smoker COPD (chronic obstructive pulmonary disease) COPD exacerbation Degeneration of lumbar intervertebral disc Dependence on nocturnal oxygen therapy With weight loss she is uncertain if she needs this. Depression Exposure to TB GERD (gastroesophageal reflux disease) History of DVT (deep vein thrombosis) Hypersomnia Hypothyroidism, acquired Low back pain Lumbar stenosis without neurogenic claudication Lung nodules Nonischemic congestive cardiomyopathy Obesity (BMI 30.0-34.9) History of morbid obesity; status post gastric sleeve 2014. WES (obstructive sleep apnea) Postoperative complication RLL pneumonia Sepsis Septic shock Shoulder pain SIRS (systemic inflammatory response syndrome) Spinal stenosis Tobacco use Tonsillitis UTI (urinary tract infection) Surgical History H/O bariatric surgery (~2014) History of carpal tunnel surgery (~1997) History of gastric surgery Gastric sleeve surgery with revision History of herniorrhaphy History of laparoscopic cholecystectomy 05/07/2018-partial omentectomy; incisional hernia repair History of surgery eyelid Family History Father Hepatitis C Substance abuse Mother , Age 40 Substance abuse Grandfather Asthma Paternal Social History marital status: single education level: college 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 smoking 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: Current every day smoker alcohol intake frequency: a few times a month substance use type: marijuana MEDS/ALLERGIES Home Medications and Allergies Home Medications Medication Instructions Recorded Confirmed Type albuterol sulfate 90 mcg/actuation 1 puff INH Q4HP PRN Shortness Of 07/01/15 05/06/22 History aerosol inhaler Breath diltiazem HCl 240 mg 240 mg PO QHS 07/01/15 05/06/22 History capsule,extended release 24 hr, controlled levothyroxine 100 mcg tablet 100 mcg PO DAILY 07/01/15 05/06/22 History sertraline 100 mg tablet 200 mg PO QHS 07/01/15 05/06/22 History warfarin 5 mg tablet 15 mg PO QHS 07/01/15 05/06/22 History clonazepam 1 mg tablet 0.5 mg PO QHS 03/06/17 05/06/22 History omeprazole 20 mg capsule,delayed 20 mg PO QAM 05/05/18 05/06/22 History release ipratropium 0.5 mg-albuterol 3 mg 3 ml inhalation QID PRN Wheezing 01/27/20 05/06/22 History (2.5 mg base)/3 mL nebulization soln metoprolol succinate 25 mg 75 mg PO QHS 02/05/20 05/06/22 History tablet,extended release 24 hr oxycodone-acetaminophen 10 mg-325 1 tab PO Q6H PRN Pain Level 3-6 09/22/20 05/06/22 History mg tablet montelukast 10 mg tablet 10 mg PO QHS 04/01/21 05/06/22 History (Singulair) fluticasone fur. 100 mcg-umeclid 1 inh PO QDAY #60 ea 11/18/21 05/06/22 Rx 62.5 mcg-vilant 25 mcg inhalat.powder (Trelegy Ellipta) Allergies Allergy/AdvReac Type Severity Reaction Status Date / Time naproxen [NAPROXEN] Allergy Severe ANGIOEDEMA Verified 05/06/22 13:24 EXAM Constitutional Vitals: Temp Pulse Resp BP Pulse Ox O2 Del Method O2 Flow Rate 97.9 F 84 18 92/65 96 4 05/06/22 13:18 05/06/22 18:36 05/06/22 15:52 05/06/22 16:38 05/06/22 18:36 05/06/22 15:42 05/06/22 15:42 Exam: General: Alert, Awake, No acute Distress, obese Eyes/N/T: EOMI, PERRL, Head/Neck: neck supple, normocephalic atraumatic CV: irreg irreg, No murmurs, normal s1/s2 Pulm: Mild rhonchi b/l, severely diminished BS right side Abd: soft, nontender, +BS x4 Ext: no clubbing/cyanosis/edema Neuro: Alert, no focal deficits, moves all extremities, CN 2-12 grossly intact, symmetrical strength b/l upper/lower, sensations intact b/l upper/lower Skin: warm/dry DATA Data Completed and Pending Labs: Labs from last 24 hours 05/06/22 05/06/22 05/06/22 18:26 17:03 14:55 WBC RBC Hgb Hct MCV MCH MCHC RDW Plt Count MPV Immature Gran % (Auto) Neut % (Auto) Lymph % (Auto) [place] % (Auto) Eos % (Auto) Baso % (Auto) Lymph # (Auto) [place] # (Auto) Eos # (Auto) Baso # (Auto) Immature Gran # Absolute Neutrophils POC PT 50.8 H Pending POC INR 4.6 H Pending APTT 57.1 H VBG Lactic Acid 0.9 Sodium Potassium Chloride Carbon Dioxide Anion Gap BUN Creatinine GFR Calculation Glucose Calcium Total Bilirubin Direct Bilirubin AST ALT Alkaline Phosphatase C-Reactive Protein Total Protein Albumin Globulin Albumin/Globulin Ratio Procalcitonin TSH POC Troponin I 05/06/22 05/06/22 05/06/22 14:55 14:55 14:55 WBC RBC Hgb Hct MCV MCH MCHC RDW Plt Count MPV Immature Gran % (Auto) Neut % (Auto) Lymph % (Auto) [place] % (Auto) Eos % (Auto) Baso % (Auto) Lymph # (Auto) [place] # (Auto) Eos # (Auto) Baso # (Auto) Immature Gran # Absolute Neutrophils POC PT POC INR APTT VBG Lactic Acid Sodium 136 Potassium 4.3 Chloride 96 Carbon Dioxide 32 H Anion Gap 8.0 BUN 12 Creatinine 0.5 L GFR Calculation 112 Glucose 99 Calcium 9.2 Total Bilirubin 0.3 Direct Bilirubin < 0.2 AST 14 ALT 16 Alkaline Phosphatase 124 H C-Reactive Protein 13.50 H Total Protein 7.3 Albumin 3.5 Globulin 3.8 H Albumin/Globulin Ratio 0.9 L Procalcitonin 0.06 TSH POC Troponin I < 0.02 05/06/22 05/06/22 14:55 14:55 WBC 19.9 H RBC 4.00 Hgb 12.6 Hct 38.0 MCV 95.0 MCH 31.5 MCHC 33.2 RDW 16.4 H Plt Count 369 MPV 9.4 Immature Gran % (Auto) 0.9 H Neut % (Auto) 84.6 H Lymph % (Auto) 5.5 L [place] % (Auto) 8.2 Eos % (Auto) 0.4 Baso % (Auto) 0.4 Lymph # (Auto) 1.10 L [place] # (Auto) 1.63 H Eos # (Auto) 0.07 Baso # (Auto) 0.07 Immature Gran # 0.17 H Absolute Neutrophils 16.81 H POC PT POC INR APTT VBG Lactic Acid Sodium Potassium Chloride Carbon Dioxide Anion Gap BUN Creatinine GFR Calculation Glucose Calcium Total Bilirubin Direct Bilirubin AST ALT Alkaline Phosphatase C-Reactive Protein Total Protein Albumin Globulin Albumin/Globulin Ratio Procalcitonin TSH 1.39 POC Troponin I A/P Narrative A/P Narrative: A: *PNA w/Complicated parapneumonic effusion Right (large and loculated): *Sepsis: 2/2 above *Acute on chronic hypoxic respiratory failure: 2/2 above *COPD (3L@night home): *Tobacco abuse: *Pulmonary hypertension: *Chronic atrial fibrillation: On warfarin/bb/ccb *Obesity: BMI 35, lifestyle modification *WES: Does not tolerate CPAP *Depression/anxiety *Chronic pain: *GERD: *Hypothyroidism: P: -Dr. Zamudio consult for chest tube, will need INR <1.5 -po vit k tonight -pleural fluid analysis -Zosyn, pending cxs -O2 supp, wean to baseline as able -IS/Acapella, prn nebs, home IH's, RT -Monitor follow-up CBC and chemistry, lactate/PCT -cont home ccb/bb - -Smoking cessation counseling >3 minutes -ppx: SCD (warfarin held for procedure) / home ppi Time Spent With Patient Time: Total time spent is greater than 50% in coordination of care (as documented) at patient's floor/unit and/or counseling patient: Total time spent with greater than 50% in coordination of care (as documented) at patient's floor/unit and/or counseling patient:: Greater than 70 minutes
--- NOTE | 2022-05-06 20:25 | General Surgery Consult Note ---
HPI Date of Consult Consult Date: 05/06/22 Primary Care Provider: Todd Schaefer Consult Narrative Chief complaint: sob Reason for consult: plueral effusion History of present illness: 51 y/o female with past h/x of pneeumonia, afib, copd on coumadin who presents several weeks of being sick, tx with abx and steroids and several days of sob. +fevers, + chills, +sob. Patient with multiple episodes of pneumonia in riight lung over the last year, mass was found, bx ordered, but according to patient was canceled by radiology. She did not follow up with Pulmonary. w/u in ED shows CT with right pleural effusion. I was asked to see for possible Chest tub e. cc:: CC: Review of Systems Review of systems: all systems reviewed, negative other than above. PFSH PFSH All Active Problems Viral URI with cough (Acute) Pneumonia (Acute) Cough (Acute) Hemoptysis (Acute) COPD (chronic obstructive pulmonary disease) (Chronic) Multiple pulmonary nodules (Chronic) Asthma (Acute) COVID-19 (Chronic) Supratherapeutic INR (Acute) COVID-19 (Acute) Lung nodules (Chronic) Hypersomnia (Chronic) Conjunctivitis (Acute) Acute asthma exacerbation (Acute) Hypothyroid (Acute) Asthma exacerbation (Acute) Pneumonia (Acute) COPD exacerbation (Acute) Lumbar stenosis without neurogenic claudication (Chronic) Anxiety (Chronic) Bronchitis (Chronic) Low back pain (Chronic) COPD (chronic obstructive pulmonary disease) (Chronic) Exposure to TB (Chronic) History of carpal tunnel surgery (Chronic ~1997) Chronic pain (Chronic) Spinal stenosis (Chronic) Abscess of abdominal wall (Chronic) Degeneration of lumbar intervertebral disc (Chronic) GERD (gastroesophageal reflux disease) (Chronic) Depression (Chronic) Atrial fibrillation (Chronic) Nonischemic congestive cardiomyopathy (Chronic) Shoulder pain (Chronic) Postoperative complication (Chronic) Abscess of skin or subcutaneous tissue (Chronic) Cellulitis (Chronic) Septic shock (Chronic) SIRS (systemic inflammatory response syndrome) (Chronic) Sepsis (Chronic) Atrial fibrillation with RVR (Chronic) RLL pneumonia (Chronic) History of DVT (deep vein thrombosis) (Chronic) Tobacco use (Chronic) H/O bariatric surgery (Chronic ~2014) Asthma (Chronic) Back pain, chronic (Chronic) WES (obstructive sleep apnea) (Chronic) Finger fracture, left (Chronic) Obesity (BMI 30.0-34.9) (Chronic) Hypothyroidism, acquired (Chronic) Chronic atrial fibrillation (Chronic) Chronic anticoagulation (Chronic) Cigarette smoker (Chronic) Dependence on nocturnal oxygen therapy (Chronic) Anxiety disorder (Chronic) Medical History Abscess of abdominal wall Abscess of skin or subcutaneous tissue Anxiety Anxiety disorder Asthma Atrial fibrillation Atrial fibrillation with RVR Back pain, chronic Bronchitis Cellulitis Chronic anticoagulation Chronic atrial fibrillation Chronic pain Cigarette smoker COPD (chronic obstructive pulmonary disease) COPD exacerbation Degeneration of lumbar intervertebral disc Dependence on nocturnal oxygen therapy With weight loss she is uncertain if she needs this. Depression Exposure to TB GERD (gastroesophageal reflux disease) History of DVT (deep vein thrombosis) Hypersomnia Hypothyroidism, acquired Low back pain Lumbar stenosis without neurogenic claudication Lung nodules Nonischemic congestive cardiomyopathy Obesity (BMI 30.0-34.9) History of morbid obesity; status post gastric sleeve 2014. WES (obstructive sleep apnea) Postoperative complication RLL pneumonia Sepsis Septic shock Shoulder pain SIRS (systemic inflammatory response syndrome) Spinal stenosis Tobacco use Tonsillitis UTI (urinary tract infection) Surgical History H/O bariatric surgery (~2014) History of carpal tunnel surgery (~1997) History of gastric surgery Gastric sleeve surgery with revision History of herniorrhaphy History of laparoscopic cholecystectomy 05/07/2018-partial omentectomy; incisional hernia repair History of surgery eyelid Family History Father Hepatitis C Substance abuse Mother , Age 40 Substance abuse Grandfather Asthma Paternal Social History marital status: single education level: college 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 smoking 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: Current every day smoker alcohol intake frequency: a few times a month substance use type: marijuana MEDS/ALLERGIES Home Medications and Allergies Home Medications Medication Instructions Recorded Confirmed Type albuterol sulfate 90 mcg/actuation 1 puff INH Q4HP PRN Shortness Of 07/01/15 05/06/22 History aerosol inhaler Breath diltiazem HCl 240 mg 240 mg PO QHS 07/01/15 05/06/22 History capsule,extended release 24 hr, controlled levothyroxine 100 mcg tablet 100 mcg PO DAILY 07/01/15 05/06/22 History sertraline 100 mg tablet 200 mg PO QHS 07/01/15 05/06/22 History warfarin 5 mg tablet 15 mg PO QHS 07/01/15 05/06/22 History clonazepam 1 mg tablet 0.5 mg PO QHS 03/06/17 05/06/22 History omeprazole 20 mg capsule,delayed 20 mg PO QAM 05/05/18 05/06/22 History release ipratropium 0.5 mg-albuterol 3 mg 3 ml inhalation QID PRN Wheezing 01/27/20 05/06/22 History (2.5 mg base)/3 mL nebulization soln metoprolol succinate 25 mg 75 mg PO QHS 02/05/20 05/06/22 History tablet,extended release 24 hr oxycodone-acetaminophen 10 mg-325 1 tab PO Q6H PRN Pain Level 3-6 09/22/20 05/06/22 History mg tablet montelukast 10 mg tablet 10 mg PO QHS 04/01/21 05/06/22 History (Singulair) fluticasone fur. 100 mcg-umeclid 1 inh PO QDAY #60 ea 11/18/21 05/06/22 Rx 62.5 mcg-vilant 25 mcg inhalat.powder (Trelegy Ellipta) Allergies Allergy/AdvReac Type Severity Reaction Status Date / Time naproxen [NAPROXEN] Allergy Severe ANGIOEDEMA Verified 05/06/22 13:24 Physical Examination Vital Signs Vital signs: Temp Pulse Resp BP Pulse Ox O2 Del Method O2 Flow Rate 97.9 F 83 18 92/65 100 4 05/06/22 13:18 05/06/22 19:32 05/06/22 15:52 05/06/22 16:38 05/06/22 19:32 05/06/22 15:42 05/06/22 15:42 General physical appearance General physical exam: well developed, well nourished and no distress Eyes Eye exam: PERRL and normal ocular movement ENT ENT exam: normal pinna, normal nares, normal mucosa, no hearing loss and no congestion Head Head exam IM: Present atraumatic and normocephalic Neck Neck exam: no masses, no bruits, trachea midline, no lymphadenopathy and no venous distension Cardiovascular Cardiovascular exam IM: Present normal rate and rhythm Respiratory Respiratory exam: normal expansion Respiratory exam: dullness: right, wheezing: right and absent breath sounds: right Abdomen Abdomen: Present soft, non tender and bowel sounds Hernia: Present none Genitourinary Genitourinary (Female): Present normal external genitalia Rectum Rectum: Present normal sphincter tone, no hemorrhoids, no tenderness, no masses and no bleeding Integumentary Integumentary: Present no rash, no growths and no abnormal pigmentation Neurologic Neurologic: Present normal coordination and normal sensation Musculoskeletal Musculoskeletal: Present normal gait and normal posture Psychiatric Psychiatric: Present oriented to time, oriented to person, oriented to place, speech is normal and memory intact Results Labs Result diagrams: 05/06/22 14:55 05/06/22 14:55 Labs: Abnormal lab results 05/06/22 05/06/22 05/06/22 Range/Units 14:55 14:55 14:55 WBC 19.9 H (4.5-11.0) K/mcL RDW 16.4 H (11.5-14.5) % Immature Gran % (Auto) 0.9 H (0.0-0.5) % Neut % (Auto) 84.6 H (38.0-78.0) % Lymph % (Auto) 5.5 L (15.5-49.0) % Lymph # (Auto) 1.10 L (1.50-4.80) K/mcL [place] # (Auto) 1.63 H (0.10-0.90) K/mcL Immature Gran # 0.17 H (0.00-0.05) K/mcl Absolute Neutrophils 16.81 H (1.80-8.00) K/mcL POC PT (11.9-14.5) POC INR (0.8-1.2) APTT 57.1 H (20.0-37.0) sec Carbon Dioxide 32 H (22-30) mmol/L Creatinine 0.5 L (0.6-1.1) mg/dL Alkaline Phosphatase 124 H (39-117) U/L C-Reactive Protein 13.50 H (0.03-0.80) mg/dL Globulin 3.8 H (2.2-3.7) gm/dL Albumin/Globulin Ratio 0.9 L (1.0-2.3) 05/06/22 Range/Units 18:26 WBC (4.5-11.0) K/mcL RDW (11.5-14.5) % Immature Gran % (Auto) (0.0-0.5) % Neut % (Auto) (38.0-78.0) % Lymph % (Auto) (15.5-49.0) % Lymph # (Auto) (1.50-4.80) K/mcL [place] # (Auto) (0.10-0.90) K/mcL Immature Gran # (0.00-0.05) K/mcl Absolute Neutrophils (1.80-8.00) K/mcL POC PT 50.8 H (11.9-14.5) POC INR 4.6 H (0.8-1.2) APTT (20.0-37.0) sec Carbon Dioxide (22-30) mmol/L Creatinine (0.6-1.1) mg/dL Alkaline Phosphatase (39-117) U/L C-Reactive Protein (0.03-0.80) mg/dL Globulin (2.2-3.7) gm/dL Albumin/Globulin Ratio (1.0-2.3) Diabetes panel 05/06/22 Range/Units 14:55 Sodium 136 (133-145) mmol/L Potassium 4.3 (3.3-5.1) mmol/L Chloride 96 (96-108) mmol/L Carbon Dioxide 32 H (22-30) mmol/L BUN 12 (6-20) mg/dL Creatinine 0.5 L (0.6-1.1) mg/dL Glucose 99 (70-105) mg/dL Calcium 9.2 (8.6-10.4) mg/dL AST 14 (<32) U/L ALT 16 (<40) U/L Alkaline Phosphatase 124 H (39-117) U/L Total Protein 7.3 (5.9-8.4) gm/dL Albumin 3.5 (3.2-5.2) gm/dL Thyroid panel 05/06/22 Range/Units 14:55 TSH 1.39 (0.27-5.01) uIU/mL Calcium panel 05/06/22 Range/Units 14:55 Calcium 9.2 (8.6-10.4) mg/dL Albumin 3.5 (3.2-5.2) gm/dL Pituitary panel 05/06/22 05/06/22 Range/Units 14:55 14:55 Sodium 136 (133-145) mmol/L Potassium 4.3 (3.3-5.1) mmol/L Chloride 96 (96-108) mmol/L Carbon Dioxide 32 H (22-30) mmol/L BUN 12 (6-20) mg/dL Creatinine 0.5 L (0.6-1.1) mg/dL Glucose 99 (70-105) mg/dL Calcium 9.2 (8.6-10.4) mg/dL TSH 1.39 (0.27-5.01) uIU/mL Adrenal panel 05/06/22 Range/Units 14:55 Sodium 136 (133-145) mmol/L Potassium 4.3 (3.3-5.1) mmol/L Chloride 96 (96-108) mmol/L Carbon Dioxide 32 H (22-30) mmol/L BUN 12 (6-20) mg/dL Creatinine 0.5 L (0.6-1.1) mg/dL Glucose 99 (70-105) mg/dL Calcium 9.2 (8.6-10.4) mg/dL Total Bilirubin 0.3 (0.1-1.0) mg/dL AST 14 (<32) U/L ALT 16 (<40) U/L Alkaline Phosphatase 124 H (39-117) U/L Total Protein 7.3 (5.9-8.4) gm/dL Albumin 3.5 (3.2-5.2) gm/dL All other labs normal. Imaging CT scan - chest: image reviewed (large fluid collection) A/P Assessment and plan (1) Pneumonia: Status: Acute (2) COPD (chronic obstructive pulmonary disease): Status: Chronic Qualifiers: COPD type: chronic bronchitis Chronic bronchitis type: simple Qualified Code(s): J41.0 - Simple chronic bronchitis (3) Multiple pulmonary nodules: Status: Chronic (4) Atrial fibrillation: Status: Chronic Qualifiers: Atrial fibrillation type: other persistent Qualified Code(s): I48.19 - Other persistent atrial fibrillation (5) Cigarette smoker: Status: Chronic Plan Large pleural effusion, likely ammenable to pigtail drainage Rec: correct INR call if radiology unable to place pigtail drain Time Spent With Patient Time: Total time spent is greater than 50% in coordination of care (as documented) at patient's floor/unit and/or counseling patient:
[2022-05-06] MEDS ORDERED: METOPROLOL TARTRATE 5 MG/5 ML VIAL IV PRN (20:38)
[2022-05-06] MEDS ORDERED: ONDANSETRON 4 MG/2 ML VIAL IV PRN (20:38)
[2022-05-06] MEDS ORDERED: ACETAMINOPHEN 325 MG TABLET PO PRN (20:38)
[2022-05-06] MEDS ORDERED: POLYETHYLENE GLYCOL 3350 17 GM PACKET PO PRN (20:38)
[2022-05-06] MEDS ORDERED: POTASSIUM CHLORIDE 40 MEQ in DEXTROSE 5% IN WATER 500 ML IV PRN (20:38)
[2022-05-06] MEDS ORDERED: POTASSIUM CHLORIDE 20 MEQ TABLET PO PRN ×2 (20:38)
[2022-05-06] MEDS ORDERED: MAGNESIUM SULFATE 2 GM/50 ML BAG IV PRN (20:38)
[2022-05-06] MEDS ORDERED: SENNOSIDES 1 TABLET PO PRN (20:38)
[2022-05-06] MEDS ORDERED: PHYTONADIONE 10 MG/ML AMPUL PO ONE (20:38)
[2022-05-06] MEDS: IPRATROPIUM/ALBUTEROL 3 ML AMPUL.NEB NEB PRN (21:46)
[2022-05-06] MEDS: PIPERACILLIN SODIUM/TAZOBACTAM 3.375 GM in DEXTROSE 5% IN WATER 50 ML IV SCH (22:17)
[2022-05-06] MEDS: SERTRALINE 100 MG TABLET PO SCH (22:19)
[2022-05-06] MEDS: clonazePAM 1 MG TABLET PO SCH (22:20)
[2022-05-06] MEDS: MONTELUKAST 10 MG TABLET PO SCH (22:20)
[2022-05-06] MEDS: METOPROLOL SUCCINATE 25 MG TAB.XL.24H PO SCH (22:20)
[2022-05-06] MEDS: 0.9 % SODIUM CHLORIDE 10 ML SYRINGE IV SCH (22:21)
[2022-05-06] MEDS: DILTIAZEM 120 MG CAP.XL.24H PO SCH (22:21)
[2022-05-06] MEDS: DOCUSATE SODIUM 100 MG CAPSULE PO SCH (22:22)
[2022-05-06] MEDS ORDERED: 0.9 % SODIUM CHLORIDE 1,000 ML IV SCH (23:55)
[2022-05-07] MEDS: morphine 4 MG/ML VIAL IV PRN ×3 (00:55→20:24)
[2022-05-07] MEDS: PIPERACILLIN SODIUM/TAZOBACTAM 3.375 GM in DEXTROSE 5% IN WATER 50 ML IV SCH ×3 (04:45→18:09)
[2022-05-07] MEDS: 0.9 % SODIUM CHLORIDE 10 ML SYRINGE IV SCH ×3 (04:45→20:26)
[2022-05-07] MEDS: IPRATROPIUM/ALBUTEROL 3 ML AMPUL.NEB NEB PRN ×2 (04:58→17:02)
[2022-05-07 06:50] LABS: Basophils # (Auto) 0.06 K/mcL (0.00-0.30); Basophils % (Auto) 0.4 % (0.0-2.0); Eosinophils # (Auto) 0.12 K/mcL (0.00-0.70); Eosinophils % (Auto) 0.8 % (0.0-7.0); Hemoglobin 10.9 g/dL (11.2-15.7); Lymphocytes # (Auto) 1.04 K/mcL (1.50-4.80); Lymphocytes % (Auto) 6.7 % (15.5-49.0); Mean Cell Volume 94.4 fL (80.0-100.0); Mean Corpuscular HGB Conc 32.1 g/dL (31.0-36.0); Mean Platelet Volume 9.2 fL (8.8-12.5); Monocytes # (Auto) 1.49 K/mcL (0.10-0.90); Monocytes % (Auto) 9.6 % (1.0-12.0); Neutrophils % (Auto) 81.9 % (38.0-78.0); Platelet Count 304 K/mcL (140-440); Red Cell Distribution Width 16.3 % (11.5-14.5); WBC 15.5 K/mcL (4.5-11.0)
[2022-05-07 07:08] LABS: INR 2.4 (0.9-1.1)
[2022-05-07 07:28] LABS: ALT/SGPT 14 U/L (<40); AST/SGOT 13 U/L (<32); Albumin 3.2 gm/dL (3.2-5.2); Alkaline Phosphatase 126 U/L (39-117); Bilirubin,Direct 0.2 mg/dL (<0.3); Bilirubin,Total 0.5 mg/dL (0.1-1.0); Blood Urea Nitrogen 9 mg/dL (6-20); Calcium 8.9 mg/dL (8.6-10.4); Carbon Dioxide 31 mmol/L (22-30); Chloride 99 mmol/L (96-108); Globulin 3.1 gm/dL (2.2-3.7); Glomerular Filtration Rate 120; Glucose 97 mg/dL (70-105); Lactate Dehydrogenase 119 U/L (135-225); Phosphorous 3.2 mg/dL (2.5-4.5); Triglycerides 102 mg/dL (<150); Uric Acid 2.5 mg/dL (2.5-8.0)
[2022-05-07] MEDS: VILANTER PO SCH (08:01)
[2022-05-07] MEDS: DOCUSATE SODIUM 100 MG CAPSULE PO SCH ×2 (08:01→20:26)
[2022-05-07] MEDS: UMECLIDIN PO SCH (08:01)
[2022-05-07] MEDS: FLUTICASONE 100 MCG PO SCH (08:01)
[2022-05-07] MEDS: OMEPRAZOLE 20 MG CAPSULE PO SCH (08:01)
[2022-05-07] MEDS: LEVOTHYROXINE 100 MCG TABLET PO SCH (08:01)
--- NOTE | 2022-05-07 08:48 | Internal Med Progress Note ---
SUBJECTIVE Subjective Patient information: Note initiated : 05/07/22 at 8:44 am Service Date, if different from initiated Date: [] Patient: Estela Man a 51 y/o F admitted on 05/06/22 for Breathing troubles. Chief Complaint: [] Interval history: History of present illness: Ms. Man is a 51 year old F Presents to the ED with shortness of breath and right lateral chest wall pain. This has been worsening for the past 3-4 days. Typically wears oxygen at night but it sounds like she had use oxygen during the day as well. She did have a respiratory illness about 3 weeks ago and was treated for COPD exacerbation. She said she seemed to be getting better and then 3-4 days ago started getting worse again with new right lateral chest wall pain. She says she does not have much of a cough but she is had increasing shortness of breath. Complains of headaches but no fevers and chills. Work-up in the ER revealed a hypoxic days 7%. She was tachycardic. Blood pressures were soft in the 90s. She had a leukocytosis of 20,000. Lactate and chemistry panel pending. CT of the chest showed a large pleural effusion on the right with loculations. Discussed with Dr. Zamudio surgeon for possible chest tube placement. INR now back which is too high for immediate tube. Past medical which includes atrial fibrillation COPD tobacco abuse hy pothyroidism obstructive sleep apnea pulmonary hypertension chronic pain. She did have some abnormalities on chest CT in the past that pulmonology was going to have radiology do a biopsy of but then pulmonology decided against it telling her it was probably scar tissue, this is per the patient's history. 05/07 Patient slept okay. Complains of right lateral chest pain worse today. Oxygen requirement no worse. Leukocytosis mildly improved. Patient complains of headache and has continued cough and shortness of breath. INR not low enough yet will order FFP and repeat INR. In order to place chest tube. Review of Systems: denies fever/chills/nausea/vomiting/chest pain/diarrhea. Otherwise see above. Constitutional Vitals: Vital Signs Temp Pulse Resp BP Pulse Ox O2 Del Method O2 Flow Rate 98.6 F 91 H 22 101/69 92 1.5 05/07/22 07:52 05/07/22 07:52 05/07/22 07:52 05/07/22 07:52 05/07/22 07:52 05/07/22 07:52 05/07/22 07:52 Period Temp Pulse Resp BP Sys/Molina Pulse Ox O2 Del Method O2 Flow Rate Last 24 Hr 97.4 F-99.7 F 76-112 16-28 92-117/59-84 87-100 Nasal Cannula- Room Air 1.5-4 Intake and Output 05/06/22 05/07/22 05/07/22 19:59 03:59 11:59 Intake Total 50 1250 Output Total 650 Balance -600 1250 Weight 97.522 kg 98.974 kg Intake & Output: Intake & Output 05/06/22 05/07/22 05/07/22 19:59 03:59 11:59 Intake Total 50 1250 Output Total 650 Balance -600 1250 Weight 97.522 kg 98.974 kg Intake: IV 50 1050 Sodium Chloride 0.9% 1,000 ml @ 1000 Wide Open IV BOLUS ONE Rx#: [id number] Zosyn 3.375 gm In Dextrose 5% 50 50 in Water 50 ml @ 100 mls/hr IV Q6H GABO Rx#:[id number] Oral 200 Output: Void Amount 650 Other: Urine Appearance Clear Urine Color Yellow Urine Odor Normal Exam: General: Alert, Awake, No acute Distress, obese Eyes/N/T: EOMI, Head/Neck: neck supple, CV: irreg irreg, No murmurs, Pulm: Mild rhonchi b/l, severely diminished BS right side Abd: soft, nontender, +BS x4 Ext: no clubbing/cyanosis/edema Neuro: Alert, no focal deficits, moves all extremities, Skin: warm/dry OBJ DATA Labs CBC & Chem 7: 05/07/22 05:35 05/07/22 05:35 Labs: Abnormal Lab Results 05/07/22 05/07/22 05/07/22 05:35 05:35 05:35 WBC 15.5 H Hgb 10.9 L Hct 34.0 L RDW 16.3 H Immature Gran % (Auto) 0.6 H Neut % (Auto) 81.9 H Lymph % (Auto) 6.7 L Lymph # (Auto) 1.04 L [place] # (Auto) 1.49 H Immature Gran # 0.10 H Absolute Neutrophils 12.68 H ESR POC PT PT 27.0 H POC INR INR 2.4 H APTT Carbon Dioxide 31 H Creatinine 0.4 L GGT 63 H Alkaline Phosphatase 126 H Lactate Dehydrogenase 119 L C-Reactive Protein Globulin Albumin/Globulin Ratio 05/06/22 05/06/22 05/06/22 18:26 14:55 14:55 WBC Hgb Hct RDW Immature Gran % (Auto) Neut % (Auto) Lymph % (Auto) Lymph # (Auto) [place] # (Auto) Immature Gran # Absolute Neutrophils ESR 99 H POC PT 50.8 H PT POC INR 4.6 H INR APTT 57.1 H Carbon Dioxide Creatinine GGT Alkaline Phosphatase Lactate Dehydrogenase C-Reactive Protein Globulin Albumin/Globulin Ratio 05/06/22 05/06/22 14:55 14:55 WBC 19.9 H Hgb Hct RDW 16.4 H Immature Gran % (Auto) 0.9 H Neut % (Auto) 84.6 H Lymph % (Auto) 5.5 L Lymph # (Auto) 1.10 L [place] # (Auto) 1.63 H Immature Gran # 0.17 H Absolute Neutrophils 16.81 H ESR POC PT PT POC INR INR APTT Carbon Dioxide 32 H Creatinine 0.5 L GGT Alkaline Phosphatase 124 H Lactate Dehydrogenase C-Reactive Protein 13.50 H Globulin 3.8 H Albumin/Globulin Ratio 0.9 L Meds: Medications Acetaminophen (Acetaminophen 325 Mg Tablet) 650 mg PO Q6HP PRN; Protocol PRN Reason: Per Pain Protocol/Fever > 101 Albuterol/Ipratropium (Ipratropium/Albuterol 3 Ml Ampul.Neb) 3 ml NEB Q4HP PRN PRN Reason: Shortness Of Breath Last Admin: 05/07/22 04:58 Dose: 3 ml Clonazepam (Clonazepam 1 Mg Tablet) 0.5 mg PO QHS [facility] Last Admin: 05/06/22 22:20 Dose: 0.5 mg Diltiazem HCl (Diltiazem 120 Mg Cap.Xl.24h) 240 mg PO QHS [facility] Last Admin: 05/06/22 22:21 Dose: 240 mg Docusate Sodium (Docusate Sodium 100 Mg Capsule) 100 mg PO BID [facility] Last Admin: 05/07/22 08:01 Dose: Not Given Potassium Chloride 40 meq/ (Dextrose) 520 mls @ 130 mls/hr IV UD PRN PRN Reason: Potassium < 3 Magnesium Sulfate (Magnesium Sulfate) 2 gm in 50 mls @ 50 mls/hr IV UD PRN PRN Reason: Magnesium </= 1.6 Sodium Chloride (Sodium Chloride 0.9%) 1,000 mls @ 75 mls/hr IV .[id number] [facility] Stop: 05/07/22 13:14 Last Admin: 05/06/22 22:17 Dose: 75 mls/hr Piperacillin Sod/Tazobactam (Sod 3.375 gm/ Dextrose) 50 mls @ 100 mls/hr IV Q6H [facility]; Protocol Last Infusion: 05/07/22 05:15 Dose: Infused Levothyroxine Sodium (Levothyroxine 100 Mcg Tablet) 100 mcg PO [facility] Last Admin: 05/07/22 08:01 Dose: Not Given Metoprolol Succinate (Metoprolol Succinate 25 Mg Tab.Xl.24h) 75 mg PO QHS [facility] Last Admin: 05/06/22 22:20 Dose: 75 mg Metoprolol Tartrate (Metoprolol Tartrate 5 Mg/5 Ml Vial) 5 mg IV Q2HP PRN PRN Reason: Tachyarrhythmias HR>110 Montelukast Sodium (Montelukast 10 Mg Tablet) 10 mg PO QHS [facility] Last Admin: 05/06/22 22:20 Dose: 10 mg Morphine Sulfate (Morphine 4 Mg/Ml Vial) 0 mg IV Q3HP PRN PRN Reason: Pain Last Admin: 05/07/22 00:55 Dose: 3 mg Omeprazole (Omeprazole 20 Mg Capsule) 20 mg PO [facility] Last Admin: 05/07/22 08:01 Dose: Not Given Ondansetron HCl (Ondansetron 4 Mg/2 Ml Vial) 4 mg IV Q4HP PRN PRN Reason: Nausea And Vomiting Oxycodone/Acetaminophen (Oxycodone/Apap 10/325mg Tablet) 1 tab PO Q6HP PRN; Protocol PRN Reason: Pain Level 3-6 Fluticasone 100 Mcg- Umeclidin 62.5 Mcg- Vilanter 25 Mcg [ Trelegy Ellipta] Inhaler 1 dose PO QDAY [facility] Last Admin: 05/07/22 08:01 Dose: Not Given Polyethylene Glycol (Polyethylene Glycol 3350 17 Gm Packet) 17 gm PO DAILYP PRN PRN Reason: Constipation Potassium Chloride (Potassium Chloride 20 Meq Tablet) 40 meq PO UD PRN PRN Reason: Potssium is 3-3.5 Potassium Chloride (Potassium Chloride 20 Meq Tablet) 40 meq PO UD PRN PRN Reason: Potassium < 3 Senna (Sennosides 1 Tablet) 2 tab PO DAILYP PRN PRN Reason: Constipation Sertraline HCl (Sertraline 100 Mg Tablet) 200 mg PO QHS [facility] Last Admin: 05/06/22 22:19 Dose: 200 mg Sodium Chloride (0.9 % Sodium Chloride 10 Ml Syringe) 10 ml IV Q8 [facility] Last Admin: 05/07/22 04:45 Dose: Not Given A/P Narrative A/P Narrative: A: *PNA w/Complicated parapneumonic effusion Right (large and loculated): *Sepsis: 2/2 above -leukocytosis *Acute on chronic hypoxic respiratory failure: 2/2 above -on 1.5L NC *COPD (3L@night at home): *Tobacco abuse: *Pulmonary hypertension: *Chronic atrial fibrillation: On warfarin/bb/ccb *Obesity: BMI 35, lifestyle modification *WES: Does not tolerate CPAP *Depression/anxiety *Chronic pain: *GERD: *Hypothyroidism: P: -Dr. Zamudio consult for chest tube, will need INR <1.5 -s/p PO vit k yesterday, inr down to 2.4 today, ffp and recheck -pleural fluid analysis -Zosyn, pending cxs, mrsa screen neg -O2 supp, wean to baseline as able -IS/Acapella, prn nebs, home IH's, RT -Monitor follow-up CBC and chemistry, -cont home ccb/bb -Smoking cessation counseling -ppx: SCD (warfarin held for procedure) / home ppi Time Spent With Patient Time: Total time spent is greater than 50% in coordination of care (as documented) at patient's floor/unit and/or counseling patient: Total time spent with greater than 50% in coordination of care (as documented) at patient's floor/unit and/or counseling patient:: 35 - 50 minutes QUALITY VTE Deep Vein Thrombosis/Pulmonary Embolism Present on Admission: No
[2022-05-07] MEDS ORDERED: 0.9 % SODIUM CHLORIDE 250 ML IV SCH (09:00)
[2022-05-07 14:02] LABS: POC INR 2.1 (0.8-1.2); POC Pro Time 24.3 (11.9-14.5)
--- NOTE | 2022-05-07 20:17 | General Surgery Progress Note ---
SUBJECTIVE Subjective Patient information: Note initiated : 05/07/22 at 8:15 pm Service Date, if different from initiated Date: [] Patient: Estela Man 51 y/o F admitted on 05/06/22 for Breathing troubles. Chief Complaint: [] Interval history: no changes no fever, no chills decreased WBC Constitutional Vitals: Vital Signs Temp Pulse Resp BP Pulse Ox O2 Del Method O2 Flow Rate 99.1 F H 85 16 100/68 95 2 05/07/22 16:28 05/07/22 17:05 05/07/22 17:05 05/07/22 16:28 05/07/22 16:28 05/07/22 16:28 05/07/22 16:28 Period Temp Pulse Resp BP Sys/Molina Pulse Ox O2 Del Method O2 Flow Rate Last 24 Hr 97.4 F-99.7 F 76-93 16- 100-119/67-84 92-96 Nasal Cannula- Room Air 1.5-2 Intake and Output 05/07/22 05/07/22 05/08/22 11:59 19:59 03:59 Intake Total 1250 1340 Output Total 1100 Balance 1250 240 Intake & Output: Intake & Output 05/07/22 05/07/22 05/08/22 11:59 19:59 03:59 Intake Total 1250 1340 Output Total 1100 Balance 1250 240 Intake: IV 1050 1100 Sodium Chloride 0.9% 1,000 ml @ 1000 1000 75 mls/hr IV .[id number] GABO Rx#: [id number] Zosyn 3.375 gm In Dextrose 5% 50 100 in Water 50 ml @ 100 mls/hr IV Q6H GABO Rx#:[id number] Oral 200 240 Output: Void Amount 1100 Other: Meal Dinner Percent of Meal Consumed 100% Feeding Ability Independent Urine Color Blood Tinged Exam: General: Alert, Awake, No acute Distress, obese Eyes/N/T: EOMI, Head/Neck: neck supple, CV: irreg irreg, No murmurs, Pulm: Mild rhonchi b/l, severely diminished BS right side Abd: soft, nontender, +BS x4 Ext: no clubbing/cyanosis/edema Neuro: Alert, no focal deficits, moves all extremities, Skin: warm/dry A/P Assessment and plan (1) Pleural effusion: Plan: Patient needs chest tube, rec radiology place once INR less than 1.5. Will place chest tube in OR if rad unable. Status: Acute Time Spent With Patient Time: Total time spent is greater than 50% in coordination of care (as documented) at patient's floor/unit and/or counseling patient:
[2022-05-07] MEDS: METOPROLOL SUCCINATE 25 MG TAB.XL.24H PO SCH (20:25)
[2022-05-07] MEDS: SERTRALINE 100 MG TABLET PO SCH (20:26)
[2022-05-07] MEDS: clonazePAM 1 MG TABLET PO SCH (20:26)
[2022-05-07] MEDS: DILTIAZEM 120 MG CAP.XL.24H PO SCH (20:26)
[2022-05-07] MEDS: MONTELUKAST 10 MG TABLET PO SCH (20:26)
[2022-05-08] MEDS: PIPERACILLIN SODIUM/TAZOBACTAM 3.375 GM in DEXTROSE 5% IN WATER 50 ML IV SCH ×4 (00:27→17:56)
[2022-05-08] MEDS: 0.9 % SODIUM CHLORIDE 10 ML SYRINGE IV SCH ×3 (05:36→21:29)
[2022-05-08] MEDS: IPRATROPIUM/ALBUTEROL 3 ML AMPUL.NEB NEB PRN ×2 (06:30→22:24)
[2022-05-08 07:21] LABS: Basophils # (Auto) 0.05 K/mcL (0.00-0.30); Basophils % (Auto) 0.4 % (0.0-2.0); Eosinophils # (Auto) 0.11 K/mcL (0.00-0.70); Eosinophils % (Auto) 0.8 % (0.0-7.0); Hematocrit 33.4 % (34.1-44.9); Hemoglobin 10.7 g/dL (11.2-15.7); Lymphocytes # (Auto) 0.94 K/mcL (1.50-4.80); Lymphocytes % (Auto) 7.1 % (15.5-49.0); Mean Cell Volume 95.2 fL (80.0-100.0); Mean Platelet Volume 9.1 fL (8.8-12.5); Monocytes # (Auto) 1.24 K/mcL (0.10-0.90); Monocytes % (Auto) 9.4 % (1.0-12.0); Neutrophils % (Auto) 81.8 % (38.0-78.0); Platelet Count 283 K/mcL (140-440); RBC 3.51 M/mcL (3.59-5.38); Red Cell Distribution Width 16.2 % (11.5-14.5); WBC 13.2 K/mcL (4.5-11.0)
[2022-05-08 07:25] LABS: INR 1.3 (0.9-1.1); Prothrombin Time 16.8 sec (11.9-14.5)
[2022-05-08] MEDS: OMEPRAZOLE 20 MG CAPSULE PO SCH (07:31)
[2022-05-08] MEDS: LEVOTHYROXINE 100 MCG TABLET PO SCH (07:31)
[2022-05-08 07:45] LABS: Blood Urea Nitrogen 8 mg/dL (6-20); Calcium 9.2 mg/dL (8.6-10.4); Carbon Dioxide 35 mmol/L (22-30); Chloride 99 mmol/L (96-108); Glomerular Filtration Rate 120; Glucose 94 mg/dL (70-105)
[2022-05-08] MEDS: FLUTICASONE 100 MCG PO SCH (08:14)
[2022-05-08] MEDS: DOCUSATE SODIUM 100 MG CAPSULE PO SCH ×2 (08:14→21:27)
[2022-05-08] MEDS: UMECLIDIN PO SCH (08:14)
[2022-05-08] MEDS: VILANTER PO SCH (08:14)
--- NOTE | 2022-05-08 08:18 | Internal Med Progress Note ---
SUBJECTIVE Subjective Patient information: Note initiated : 05/08/22 at 8:16 am Service Date, if different from initiated Date: [] Patient: Estela Man a 51 y/o F admitted on 05/06/22 for Breathing troubles. Chief Complaint: [] Interval history: History of present illness: Ms. Man is a 51 year old F Presents to the ED with shortness of breath and right lateral chest wall pain. This has been worsening for the past 3-4 days. Typically wears oxygen at night but it sounds like she had use oxygen during the day as well. She did have a respiratory illness about 3 weeks ago and was treated for COPD exacerbation. She said she seemed to be getting better and then 3-4 days ago started getting worse again with new right lateral chest wall pain. She says she does not have much of a cough but she is had increasing shortness of breath. Complains of headaches but no fevers and chills. Work-up in the ER revealed a hypoxic days 7%. She was tachycardic. Blood pressures were soft in the 90s. She had a leukocytosis of 20,000. Lactate and chemistry panel pending. CT of the chest showed a large pleural effusion on the right with loculations. Discussed with Dr. Zamudio surgeon for possible chest tube placement. INR now back which is too high for immediate tube. Past medical which includes atrial fibrillation COPD tobacco abuse hy pothyroidism obstructive sleep apnea pulmonary hypertension chronic pain. She did have some abnormalities on chest CT in the past that pulmonology was going to have radiology do a biopsy of but then pulmonology decided against it telling her it was probably scar tissue, this is per the patient's history. 05/07 Patient slept okay. Complains of right lateral chest pain worse today. Oxygen requirement no worse. Leukocytosis mildly improved. Patient complains of headache and has continued cough and shortness of breath. INR not low enough yet will order FFP and repeat INR. In order to place chest tube. 05/08 Patient has productive cough. Shortness of breath mild. Right chest pain improving. INR now appropriate for chest tube. Leukocytosis. Review of Systems: denies fever/chills/nausea/vomiting/chest pain/diarrhea. Otherwise see above. Constitutional Vitals: Vital Signs Temp Pulse Resp BP Pulse Ox O2 Del Method O2 Flow Rate 98.6 F 88 26 H 106/83 95 2 05/08/22 08:00 05/08/22 08:00 05/08/22 08:00 05/08/22 08:00 05/08/22 08:00 05/08/22 08:00 05/08/22 06:31 Period Temp Pulse Resp BP Sys/Molina Pulse Ox O2 Del Method O2 Flow Rate Last 24 Hr 97.5 F-99.1 F 85-104 16-26 100-133/67-90 92-96 Nasal Cannula- Room Air 1.5-2 Intake and Output 05/07/22 05/08/22 05/08/22 19:59 03:59 11:59 Intake Total 1340 170 300 Output Total 1100 350 Balance 240 -180 300 Weight 99.79 kg Intake & Output: Intake & Output 05/07/22 05/08/22 05/08/22 19:59 03:59 11:59 Intake Total 1340 170 300 Output Total 1100 350 Balance 240 -180 300 Weight 99.79 kg Intake: IV 1100 50 300 Sodium Chloride 0.9% 1,000 ml @ 1000 75 mls/hr IV .[id number] GABO Rx#: [id number] Sodium Chloride 0.9% 250 ml @ 250 20 mls/hr IV .[id number] [facility]ABO Rx#: [id number] Zosyn 3.375 gm In Dextrose 5% 100 50 50 in Water 50 ml @ 100 mls/hr IV Q6H [facility]O Rx#:[id number] Oral 240 120 Output: Void Amount 1100 350 Other: Meal Dinner Percent of Meal Consumed 100% Feeding Ability Independent Urine Appearance Clear Urine Color Blood Tinged Bright Yellow Urine Odor Normal Exam: General: Alert, Awake, No acute Distress, obese Eyes/N/T: EOMI, Head/Neck: neck supple, CV: irreg irreg, No murmurs, Pulm: Mild rhonchi b/l, severely diminished BS right side Abd: soft, nontender, +BS x4 Ext: no clubbing/cyanosis/edema Neuro: Alert, no focal deficits, moves all extremities, Skin: warm/dry OBJ DATA Labs CBC & Chem 7: 05/08/22 05:32 05/08/22 05:32 Labs: Abnormal Lab Results 05/08/22 05/08/22 05/08/22 05:32 05:32 05:32 WBC 13.2 H RBC 3.51 L Hgb 10.7 L Hct 33.4 L RDW 16.2 H Immature Gran % (Auto) Neut % (Auto) 81.8 H Lymph % (Auto) 7.1 L Lymph # (Auto) 0.94 L [place] # (Auto) 1.24 H Immature Gran # 0.07 H Absolute Neutrophils 10.78 H ESR POC PT PT 16.8 H POC INR INR 1.3 H APTT Carbon Dioxide 35 H Anion Gap 7.0 L Creatinine 0.4 L GGT Alkaline Phosphatase Lactate Dehydrogenase C-Reactive Protein Globulin Albumin/Globulin Ratio 05/07/22 05/07/22 05/07/22 13:58 05:35 05:35 WBC 15.5 H RBC Hgb 10.9 L Hct 34.0 L RDW 16.3 H Immature Gran % (Auto) 0.6 H Neut % (Auto) 81.9 H Lymph % (Auto) 6.7 L Lymph # (Auto) 1.04 L [place] # (Auto) 1.49 H Immature Gran # 0.10 H Absolute Neutrophils 12.68 H ESR POC PT 24.3 H PT POC INR 2.1 H INR APTT Carbon Dioxide 31 H Anion Gap Creatinine 0.4 L GGT 63 H Alkaline Phosphatase 126 H Lactate Dehydrogenase 119 L C-Reactive Protein Globulin Albumin/Globulin Ratio 05/07/22 05/06/22 05/06/22 05:35 18:26 14:55 WBC RBC Hgb Hct RDW Immature Gran % (Auto) Neut % (Auto) Lymph % (Auto) Lymph # (Auto) [place] # (Auto) Immature Gran # Absolute Neutrophils ESR 99 H POC PT 50.8 H PT 27.0 H POC INR 4.6 H INR 2.4 H APTT Carbon Dioxide Anion Gap Creatinine GGT Alkaline Phosphatase Lactate Dehydrogenase C-Reactive Protein Globulin Albumin/Globulin Ratio 05/06/22 05/06/22 05/06/22 14:55 14:55 14:55 WBC 19.9 H RBC Hgb Hct RDW 16.4 H Immature Gran % (Auto) 0.9 H Neut % (Auto) 84.6 H Lymph % (Auto) 5.5 L Lymph # (Auto) 1.10 L [place] # (Auto) 1.63 H Immature Gran # 0.17 H Absolute Neutrophils 16.81 H ESR POC PT PT POC INR INR APTT 57.1 H Carbon Dioxide 32 H Anion Gap Creatinine 0.5 L GGT Alkaline Phosphatase 124 H Lactate Dehydrogenase C-Reactive Protein 13.50 H Globulin 3.8 H Albumin/Globulin Ratio 0.9 L Meds: Medications Acetaminophen (Acetaminophen 325 Mg Tablet) 650 mg PO Q6HP PRN; Protocol PRN Reason: Per Pain Protocol/Fever > 101 Albuterol/Ipratropium (Ipratropium/Albuterol 3 Ml Ampul.Neb) 3 ml NEB Q4HP PRN PRN Reason: Shortness Of Breath Last Admin: 05/08/22 06:30 Dose: 3 ml Clonazepam (Clonazepam 1 Mg Tablet) 0.5 mg PO QHS [facility] Last Admin: 05/07/22 20:26 Dose: 0.5 mg Diltiazem HCl (Diltiazem 120 Mg Cap.Xl.24h) 240 mg PO QHS [facility] Last Admin: 05/07/22 20:26 Dose: 240 mg Docusate Sodium (Docusate Sodium 100 Mg Capsule) 100 mg PO BID [facility] Last Admin: 05/08/22 08:14 Dose: Not Given Potassium Chloride 40 meq/ (Dextrose) 520 mls @ 130 mls/hr IV UD PRN PRN Reason: Potassium < 3 Magnesium Sulfate (Magnesium Sulfate) 2 gm in 50 mls @ 50 mls/hr IV UD PRN PRN Reason: Magnesium </= 1.6 Piperacillin Sod/Tazobactam (Sod 3.375 gm/ Dextrose) 50 mls @ 100 mls/hr IV Q6H [facility]; Protocol Last Infusion: 05/08/22 07:26 Dose: Infused Levothyroxine Sodium (Levothyroxine 100 Mcg Tablet) 100 mcg PO ACB [facility] Last Admin: 05/08/22 07:31 Dose: 100 mcg Metoprolol Succinate (Metoprolol Succinate 25 Mg Tab.Xl.24h) 75 mg PO QHS [facility] Last Admin: 05/07/22 20:25 Dose: 75 mg Metoprolol Tartrate (Metoprolol Tartrate 5 Mg/5 Ml Vial) 5 mg IV Q2HP PRN PRN Reason: Tachyarrhythmias HR>110 Montelukast Sodium (Montelukast 10 Mg Tablet) 10 mg PO QHS [facility] Last Admin: 05/07/22 20:26 Dose: 10 mg Morphine Sulfate (Morphine 4 Mg/Ml Vial) 0 mg IV Q3HP PRN PRN Reason: Pain Last Admin: 05/07/22 20:24 Dose: 3 mg Omeprazole (Omeprazole 20 Mg Capsule) 20 mg PO ACB [facility] Last Admin: 05/08/22 07:31 Dose: 20 mg Ondansetron HCl (Ondansetron 4 Mg/2 Ml Vial) 4 mg IV Q4HP PRN PRN Reason: Nausea And Vomiting Oxycodone/Acetaminophen (Oxycodone/Apap 10/325mg Tablet) 1 tab PO Q6HP PRN; P rotocol PRN Reason: Pain Level 3-6 Fluticasone 100 Mcg- Umeclidin 62.5 Mcg- Vilanter 25 Mcg [ Trelegy Ellipta] Inhaler 1 dose PO QDAY [facility] Last Admin: 05/08/22 08:14 Dose: Not Given Polyethylene Glycol (Polyethylene Glycol 3350 17 Gm Packet) 17 gm PO DAILYP PRN PRN Reason: Constipation Potassium Chloride (Potassium Chloride 20 Meq Tablet) 40 meq PO UD PRN PRN Reason: Potssium is 3-3.5 Potassium Chloride (Potassium Chloride 20 Meq Tablet) 40 meq PO UD PRN PRN Reason: Potassium < 3 Senna (Sennosides 1 Tablet) 2 tab PO DAILYP PRN PRN Reason: Constipation Sertraline HCl (Sertraline 100 Mg Tablet) 200 mg PO QHS [facility] Last Admin: 05/07/22 20:26 Dose: 200 mg Sodium Chloride (0.9 % Sodium Chloride 10 Ml Syringe) 10 ml IV Q8 [facility] Last Admin: 05/08/22 05:36 Dose: 10 ml A/P Narrative A/P Narrative: A: *PNA w/Complicated parapneumonic effusion Right (large and loculated): *Sepsis: 2/2 above -leukocytosis improving *Acute on chronic hypoxic respiratory failure: 2/2 above -on 1.5L NC *COPD (3L@night at home) with metabolic alkalosis as compensation: *Tobacco abuse: *Pulmonary hypertension: *Chronic atrial fibrillation: On warfarin/bb/ccb *Obesity: BMI 35, lifestyle modification *WES: Does not tolerate CPAP *Depression/anxiety *Chronic pain: *GERD: *Hypothyroidism: P: -Dr. Zamudio consult for chest tube, will need INR <1.5 - -pleural fluid analysis -Zosyn, pending cxs, mrsa screen neg -O2 supp, wean to baseline as able -IS/Acapella, prn nebs, home IH's, RT -Monitor follow-up CBC and chemistry, -cont home ccb/bb -Smoking cessation counseling -ppx: SCD (warfarin held for procedure) / home ppi Time Spent With Patient Time: Total time spent is greater than 50% in coordination of care (as documented) at patient's floor/unit and/or counseling patient: Total time spent with greater than 50% in coordination of care (as documented) at patient's floor/unit and/or counseling patient:: 35 - 50 minutes QUALITY VTE Deep Vein Thrombosis/Pulmonary Embolism Present on Admission: No
--- NOTE | 2022-05-08 09:06 | EKG ---
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 Measurements Intervals [place] Rate: 86 P: [place]: QRS: 92 QRSD: 86 T: 35 QT: 366 QTc: 438 Interpretive Statements Atrial fibrillation Borderline right axis deviation Low voltage, extremity and precordial leads Electronically Signed On 05-08-2022 9:06:21 PST by Angus Gimenez M.D. /store/[email or web address]/[id number]
[2022-05-08] MEDS ORDERED: DEXAMETHASONE 10 MG/ML VIAL ONE (15:10)
[2022-05-08] MEDS ORDERED: MIDAZOLAM 2 MG/2 ML VIAL ONE (15:10)
[2022-05-08] MEDS ORDERED: PROPOFOL 200 MG/20 ML VIAL IV ONE (15:10)
[2022-05-08] MEDS ORDERED: KETAMINE 50 MG/ML Syringe (ANEST) IV ONE (15:10)
[2022-05-08] MEDS ORDERED: GLYCOPYRROLATE 0.2 MG/ML VIAL IV ONE (15:10)
[2022-05-08] MEDS ORDERED: LIDOCAINE HCL/PF 100 MG/5 ML SYRINGE IV ONE (15:10)
[2022-05-08] MEDS ORDERED: ONDANSETRON 4 MG/2 ML VIAL ONE (15:10)
[2022-05-08] MEDS ORDERED: fentaNYL 100 MCG/2 ML VIAL IV ONE (15:10)
[2022-05-08] MEDS ORDERED: LIDOCAINE W/EPI 0.5% 50 ML VIAL IJ ONE (15:30)
[2022-05-08] MEDS ORDERED: BUPIVACAINE PF 0.5% 10 ML VIAL IJ ONE (15:30)
[2022-05-08] MEDS ORDERED: LACTATED RINGERS 250 ML IV PRN (15:41)
[2022-05-08] MEDS ORDERED: METHOCARBAMOL 1,000 MG/10 ML VIAL IV PRN (15:41)
[2022-05-08] MEDS ORDERED: METOPROLOL TARTRATE 5 MG/5 ML VIAL IV PRN (15:41)
[2022-05-08] MEDS ORDERED: ACETAMINOPHEN 1,000 MG/100 ML BAG IV ONE (15:41)
[2022-05-08] MEDS ORDERED: NALOXONE HCL 0.4 MG/ML VIAL IV PRN (15:41)
[2022-05-08] MEDS ORDERED: LABETALOL 5 MG/ML ML IV PRN (15:41)
[2022-05-08] MEDS ORDERED: ONDANSETRON 4 MG/2 ML VIAL IV PRN (15:41)
[2022-05-08] MEDS ORDERED: FLUMAZENIL 0.1 MG/ML ML IV PRN (15:41)
[2022-05-08] MEDS ORDERED: HYDROmorphone 0.5 MG/0.5 ML SYRINGE IV PRN (15:41)
[2022-05-08] MEDS ORDERED: IPRATROPIUM/ALBUTEROL 3 ML AMPUL.NEB NEB PRN (15:41)
[2022-05-08] MEDS ORDERED: LACTATED RINGERS 1,000 ML IV SCH (15:45)
--- NOTE | 2022-05-08 15:52 | XRay Report ---
INDICATION: RIGHT CHEST TUBE INSERTION TECHNIQUE: AP supine chest x-ray COMPARISON: Chest CT scan dated 05/06/2022 FINDINGS:Endotracheal tube tip approximately 5 cm above the jessica. There is a right-sided chest tube with its tip projected over the right upper lobe. Lungs:Negative left lung. No focal infiltrate or mass. Right lung is now well visualized Heart, vascular:No significant cardiomegaly. Pulmonary vascularity is normal. No pulmonary edema or pulmonary congestion Mediastinum, andrew:No mediastinal widening. No hilar mass Pleura:There is a moderate to large right pleural effusion. This appears loculated on previous CT scan. This is essentially unchanged since previous CT scan dated 05/06/2022. The chest tube appears to extend cephalad to this pleural fluid collection. Skeletal:Negative. IMPRESSION: 1. Right sided chest tube. No change in appearance of right pleural fluid 2. Endotracheal tube in appropriate position Interpreted and Authenticated by: Angus Francisco 05/08/22
--- NOTE | 2022-05-08 16:35 | Operative Note ---
Brief Operative Note Date of procedure: 05/08/22 Pre-op diagnosis: Right pleural effusion Post-op diagnosis: same Procedure: Right chest tube placement Grafts/Implants: Yes Anesthesia: GETA Findings: Right-sided pneumonia Complications: none Surgeon: Floyd Zamudio Estimated blood loss (cc): 25 Specimens Removed/Pathology: none sent Condition: stable Disposition: PACU Operative Note Operative Note: I feel was benefits and alternatives to the procedure discussed with the patient at length she verbalized understanding and desire to continue the procedure. Patient was taken main operating placed upon the operative table. General anesthesia was induced over instructed. Patient's prepped and draped in the standard sterile surgical fashion. Surgical timeout was taken to verify patient and procedure being performed. 1% lidocaine half percent Marcaine was used for local anesthesia. The seventh intercostal space was identified by palpation incision was made this was then tunneled up to the fifth intercostal space where the chest was entered with a clamp. This space was dissected with blunt dissection. Finger sweep was done and no fluid was encountered. Chest tube was placed and verified to be in good position with chest x-ray. The chest tube was then secured with interrupted 0 silk sutures. Xeroform plain 4 x 4 and tape dressings were then applied. Patient was then awakened from anesthesia transported postanesthesia care unit awake alert in good condition.
[2022-05-08] MEDS: fentaNYL 100 MCG/2 ML VIAL IV PRN ×2 (16:43→16:57)
[2022-05-08] MEDS: clonazePAM 1 MG TABLET PO SCH (21:26)
[2022-05-08] MEDS: morphine 4 MG/ML VIAL IV PRN (21:26)
[2022-05-08] MEDS: METOPROLOL SUCCINATE 25 MG TAB.XL.24H PO SCH (21:28)
[2022-05-08] MEDS: SERTRALINE 100 MG TABLET PO SCH (21:28)
[2022-05-08] MEDS: DILTIAZEM 120 MG CAP.XL.24H PO SCH (21:28)
[2022-05-08] MEDS: MONTELUKAST 10 MG TABLET PO SCH (21:29)
[2022-05-09] MEDS: PIPERACILLIN SODIUM/TAZOBACTAM 3.375 GM in DEXTROSE 5% IN WATER 50 ML IV SCH ×5 (00:34→23:23)
[2022-05-09] MEDS: morphine 4 MG/ML VIAL IV PRN ×6 (01:04→22:30)
[2022-05-09] MEDS: 0.9 % SODIUM CHLORIDE 10 ML SYRINGE IV SCH ×3 (04:06→22:00)
[2022-05-09] MEDS: IPRATROPIUM/ALBUTEROL 3 ML AMPUL.NEB NEB PRN ×2 (07:46→22:26)
[2022-05-09] MEDS: DOCUSATE SODIUM 100 MG CAPSULE PO SCH ×2 (07:58→22:00)
[2022-05-09] MEDS: LEVOTHYROXINE 100 MCG TABLET PO SCH (07:58)
[2022-05-09] MEDS: OMEPRAZOLE 20 MG CAPSULE PO SCH (07:58)
[2022-05-09 09:10] LABS: Basophils # (Auto) 0.02 K/mcL (0.00-0.30); Basophils % (Auto) 0.1 % (0.0-2.0); Eosinophils # (Auto) 0 K/mcL (0.00-0.70); Eosinophils % (Auto) 0 % (0.0-7.0); Hematocrit 35.3 % (34.1-44.9); Hemoglobin 11.2 g/dL (11.2-15.7); Lymphocytes # (Auto) 0.32 K/mcL (1.50-4.80); Lymphocytes % (Auto) 2.1 % (15.5-49.0); Mean Corpuscular HGB Conc 31.7 g/dL (31.0-36.0); Mean Platelet Volume 9.6 fL (8.8-12.5); Monocytes # (Auto) 0.65 K/mcL (0.10-0.90); Monocytes % (Auto) 4.3 % (1.0-12.0); Neutrophils % (Auto) 92.8 % (38.0-78.0); Platelet Count 307 K/mcL (140-440); RBC 3.64 M/mcL (3.59-5.38); Red Cell Distribution Width 15.9 % (11.5-14.5); WBC 15.2 K/mcL (4.5-11.0)
[2022-05-09 09:22] LABS: INR 1.2 (0.9-1.1); Prothrombin Time 15.8 sec (11.9-14.5)
[2022-05-09 10:49] LABS: ALT/SGPT 27 U/L (<40); AST/SGOT 23 U/L (<32); Albumin 3.1 gm/dL (3.2-5.2); Albumin/Globulin Ratio 0.8 (1.0-2.3); Alkaline Phosphatase 151 U/L (39-117); Bilirubin,Total 0.4 mg/dL (0.1-1.0); Blood Urea Nitrogen 12 mg/dL (6-20); Calcium 9.9 mg/dL (8.6-10.4); Carbon Dioxide 34 mmol/L (22-30); Chloride 99 mmol/L (96-108); Globulin 3.8 gm/dL (2.2-3.7); Glomerular Filtration Rate 120; Glucose 148 mg/dL (70-105)
--- NOTE | 2022-05-09 13:42 | Internal Med Progress Note ---
SUBJECTIVE Subjective Patient information: Note initiated : 05/09/22 at 1:35 pm Service Date, if different from initiated Date: [] Patient: Estela Man a 51 y/o F admitted on 05/06/22 for Breathing troubles. Chief Complaint: [] Interval history: Ms. Man is a 51 year old F Presents to the ED with shortness of breath and right lateral chest wall pain. This has been worsening for the past 3-4 days. Typically wears oxygen at night but it sounds like she had use oxygen during the day as well. She did have a respiratory illness about 3 weeks ago and was treated for COPD exacerbation. She said she seemed to be getting better and then 3-4 days ago started getting worse again with new right lateral chest wall pain. She says she does not have much of a cough but she is had increasing shortness of breath. Complains of headaches but no fevers and chills. Work-up in the ER revealed a hypoxic days 7%. She was tachycardic. Blood pressures were soft in the 90s. She had a leukocytosis of 20,000. Lactate and chemistry panel pending. CT of the chest showed a large pleural effusion on the right with loculations. Discussed with Dr. Zamudio surgeon for possible chest tube placement. INR now back which is too high for immediate tube. Past medical which includes atrial fibrillation COPD tobacco abuse hypothyroidism obstructive sleep apnea pulmonary hypertension chronic pain. She did have some abnormalities on chest CT in the past that pulmonology was going to have radiology do a biopsy of but then pulmonology decided against it telling her it was probably scar tissue, this is per the patient's history. 05/07 Patient slept okay. Complains of right lateral chest pain worse today. Oxygen requirement no worse. Leukocytosis mildly improved. Patient complains of headache and has continued cough and shortness of breath. INR not low enough yet will order FFP and repeat INR. In order to place chest tube. 05/08 Patient has productive cough. Shortness of breath mild. Right chest pain improving. INR now appropriate for chest tube. Leukocytosis. 05/09: Status post right-sided chest tube insertion by general surgeon Dr. Zamudio on 05/08. Bloody discharge from chest tube. Patient is currently on 3 L/min of nasal cannula supplemental oxygen (baseline=3L/min). Currently denies any right sided chest pain. c/o anxiety. Denies any fever, chills, or sweating. H/H stable this morning. Blood cultures no growth to date. Continue to monitor pleural fluid analysis as well as blood culture. Continue IV Zosyn for now. Continue to provide narcotics as needed for pain control. Continue to monitor chest tube output to decide when to resume Coumadin for her atrial fibrillation. Physical therapy evaluation and treatment. Constitutional Vitals: Vital Signs Temp Pulse Resp BP Pulse Ox O2 Del Method O2 Flow Rate 36.9 C 92 H 20 114/63 96 3 05/09/22 12:00 05/09/22 12:00 05/09/22 12:00 05/09/22 12:00 05/09/22 12:00 05/09/22 12:00 05/09/22 12:00 Period Temp Pulse Resp BP Sys/Molina Pulse Ox O2 Del Method O2 Flow Rate Last 24 Hr 36.2 C-36.9 C 80-125 16-30 96-134/63-101 87-99 Aerosol Mask- Nasal Cannula 3-6 Intake and Output 05/09/22 05/09/22 05/09/22 03:59 11:59 19:59 Intake Total 510 250 50 Output Total 550 534 Balance -40 -284 50 Weight 97.159 kg 97.159 kg Patient Weight 05/10/22 03:59 Weight 97.159 kg Intake & Output: Intake & Output 05/09/22 05/09/22 05/09/22 03:59 11:59 19:59 Intake Total 510 250 50 Output Total 550 534 Balance -40 -284 50 Weight 97.159 kg 97.159 kg Intake: IV 50 50 50 Zosyn 3.375 gm In Dextrose 5% 50 50 50 in Water 50 ml @ 100 mls/hr IV Q6H [facility] Rx#:[id number] Oral 460 200 Output: Chest Tube Drainage 134 Right Mid-Axillary Chest 134 Void Amount 550 400 Other: Meal Breakfast Percent of Meal Consumed 100% Feeding Ability Assist with Tray Set Up Urine Appearance Clear Clear Urine Color Yellow Dark Dottie Light Red Urine Odor Normal General appearance: cooperative and no acute distress Head Head exam: Present atraumatic and normal inspection Eye Eye exam: Present normal appearance ENT ENT exam: Present mucous membranes moist, normal exam and normal external ear exam Additional comments: Nasal cannula in place Neck Neck exam: Present normal inspection Respiratory Respiratory exam: Present decreased breath sounds Additional comments: Right sided chest tube in place Cardiovascular Cardiovascular exam: Present irregular rhythm GI/Abdominal GI/Abdominal exam: Present normal bowel sounds Back Exam Back exam: Present normal inspection Neurological Exam Neurological exam: Present alert and oriented X3 Skin Skin exam: Present intact and warm OBJ DATA Labs CBC & Chem 7: 05/09/22 05:50 05/09/22 05:50 Labs: Abnormal Lab Results 05/09/22 05/09/22 05/09/22 05:50 05:50 05:50 WBC 15.2 H RBC Hgb Hct RDW 15.9 H Immature Gran % (Auto) 0.7 H Neut % (Auto) 92.8 H Lymph % (Auto) 2.1 L Lymph # (Auto) 0.32 L [place] # (Auto) Immature Gran # 0.10 H Absolute Neutrophils 14.12 H ESR POC PT PT 15.8 H POC INR INR 1.2 H APTT Carbon Dioxide 34 H Anion Gap Creatinine 0.4 L Glucose 148 H GGT Alkaline Phosphatase 151 H Lactate Dehydrogenase C-Reactive Protein Albumin 3.1 L Globulin 3.8 H Albumin/Globulin Ratio 0.8 L 05/08/22 05/08/22 05/08/22 05:32 05:32 05:32 WBC 13.2 H RBC 3.51 L Hgb 10.7 L Hct 33.4 L RDW 16.2 H Immature Gran % (Auto) Neut % (Auto) 81.8 H Lymph % (Auto) 7.1 L Lymph # (Auto) 0.94 L [place] # (Auto) 1.24 H Immature Gran # 0.07 H Absolute Neutrophils 10.78 H ESR POC PT PT 16.8 H POC INR INR 1.3 H APTT Carbon Dioxide 35 H Anion Gap 7.0 L Creatinine 0.4 L Glucose GGT Alkaline Phosphatase Lactate Dehydrogenase C-Reactive Protein Albumin Globulin Albumin/Globulin Ratio 05/07/22 05/07/22 05/07/22 13:58 05:35 05:35 WBC 15.5 H RBC Hgb 10.9 L Hct 34.0 L RDW 16.3 H Immature Gran % (Auto) 0.6 H Neut % (Auto) 81.9 H Lymph % (Auto) 6.7 L Lymph # (Auto) 1.04 L [place] # (Auto) 1.49 H Immature Gran # 0.10 H Absolute Neutrophils 12.68 H ESR POC PT 24.3 H PT POC INR 2.1 H INR APTT Carbon Dioxide 31 H Anion Gap Creatinine 0.4 L Glucose GGT 63 H Alkaline Phosphatase 126 H Lactate Dehydrogenase 119 L C-Reactive Protein Albumin Globulin Albumin/Globulin Ratio 05/07/22 05/06/22 05/06/22 05:35 18:26 14:55 WBC RBC Hgb Hct RDW Immature Gran % (Auto) Neut % (Auto) Lymph % (Auto) Lymph # (Auto) [place] # (Auto) Immature Gran # Absolute Neutrophils ESR 99 H POC PT 50.8 H PT 27.0 H POC INR 4.6 H INR 2.4 H APTT Carbon Dioxide Anion Gap Creatinine Glucose GGT Alkaline Phosphatase Lactate Dehydrogenase C-Reactive Protein Albumin Globulin Albumin/Globulin Ratio 05/06/22 05/06/22 05/06/22 14:55 14:55 14:55 WBC 19.9 H RBC Hgb Hct RDW 16.4 H Immature Gran % (Auto) 0.9 H Neut % (Auto) 84.6 H Lymph % (Auto) 5.5 L Lymph # (Auto) 1.10 L [place] # (Auto) 1.63 H Immature Gran # 0.17 H Absolute Neutrophils 16.81 H ESR POC PT PT POC INR INR APTT 57.1 H Carbon Dioxide 32 H Anion Gap Creatinine 0.5 L Glucose GGT Alkaline Phosphatase 124 H Lactate Dehydrogenase C-Reactive Protein 13.50 H Albumin Globulin 3.8 H Albumin/Globulin Ratio 0.9 L Meds: Medications Acetaminophen (Acetaminophen 325 Mg Tablet) 650 mg PO Q6HP PRN; Protocol PRN Reason: Per Pain Protocol/Fever > 101 Albuterol/Ipratropium (Ipratropium/Albuterol 3 Ml Ampul.Neb) 3 ml NEB Q4HP PRN PRN Reason: Shortness Of Breath Last Admin: 05/09/22 07:46 Dose: 3 ml Clonazepam (Clonazepam 1 Mg Tablet) 0.5 mg PO QHS [facility] Last Admin: 05/08/22 21:26 Dose: 0.5 mg Diltiazem HCl (Diltiazem 120 Mg Cap.Xl.24h) 240 mg PO QHS [facility] Last Admin: 05/08/22 21:28 Dose: 240 mg Docusate Sodium (Docusate Sodium 100 Mg Capsule) 100 mg PO BID [facility] Last Admin: 05/09/22 07:58 Dose: 100 mg Potassium Chloride 40 meq/ (Dextrose) 520 mls @ 130 mls/hr IV UD PRN PRN Reason: Potassium < 3 Magnesium Sulfate (Magnesium Sulfate) 2 gm in 50 mls @ 50 mls/hr IV UD PRN PRN Reason: Magnesium </= 1.6 Piperacillin Sod/Tazobactam (Sod 3.375 gm/ Dextrose) 50 mls @ 100 mls/hr IV Q6H [facility]; Protocol Last Infusion: 05/09/22 12:57 Dose: Infused Levothyroxine Sodium (Levothyroxine 100 Mcg Tablet) 100 mcg PO [facility] Last Admin: 05/09/22 07:58 Dose: 100 mcg Metoprolol Succinate (Metoprolol Succinate 25 Mg Tab.Xl.24h) 75 mg PO QHS [facility] Last Admin: 05/08/22 21:28 Dose: 75 mg Metoprolol Tartrate (Metoprolol Tartrate 5 Mg/5 Ml Vial) 5 mg IV Q2HP PRN PRN Reason: Tachyarrhythmias HR>110 Montelukast Sodium (Montelukast 10 Mg Tablet) 10 mg PO QHS [facility] Last Admin: 05/08/22 21:29 Dose: 10 mg Morphine Sulfate (Morphine 4 Mg/Ml Vial) 0 mg IV Q3HP PRN PRN Reason: Pain Last Admin: 05/09/22 10:18 Dose: 3 mg Omeprazole (Omeprazole 20 Mg Capsule) 20 mg PO [facility] Last Admin: 05/09/22 07:58 Dose: 20 mg Ondansetron HCl (Ondansetron 4 Mg/2 Ml Vial) 4 mg IV Q4HP PRN PRN Reason: Nausea And Vomiting Oxycodone/Acetaminophen (Oxycodone/Apap 10/325mg Tablet) 1 tab PO Q6HP PRN; Protocol PRN Reason: Pain Level 3-6 Polyethylene Glycol (Polyethylene Glycol 3350 17 Gm Packet) 17 gm PO DAILYP PRN PRN Reason: Constipation Potassium Chloride (Potassium Chloride 20 Meq Tablet) 40 meq PO UD PRN PRN Reason: Potssium is 3-3.5 Potassium Chloride (Potassium Chloride 20 Meq Tablet) 40 meq PO UD PRN PRN Reason: Potassium < 3 Senna (Sennosides 1 Tablet) 2 tab PO DAILYP PRN PRN Reason: Constipation Sertraline HCl (Sertraline 100 Mg Tablet) 200 mg PO QHS [facility] Last Admin: 05/08/22 21:28 Dose: 200 mg Sodium Chloride (0.9 % Sodium Chloride 10 Ml Syringe) 10 ml IV Q8 [facility] Last Admin: 05/09/22 04:06 Dose: 10 ml A/P Assessment and plan (1) Depression with anxiety: Status: Acute (2) Pleural effusion: Status: Acute (3) Pneumonia: Status: Acute (4) COPD (chronic obstructive pulmonary disease): Status: Chronic Qualifiers: COPD type: chronic bronchitis Chronic bronchitis type: simple Qualified Code(s): J41.0 - Simple chronic bronchitis (5) Atrial fibrillation with RVR: Status: Chronic (6) WES (obstructive sleep apnea): Status: Chronic (7) Hypothyroidism, acquired: Status: Chronic (8) GERD (gastroesophageal reflux disease): Status: Chronic Qualifiers: Esophagitis presence: without esophagitis Qualified Code(s): K21.9 - Gastro-esophageal reflux disease without esophagitis Narrative A/P Narrative: Assessment and Plans: 1. Pneumonia with right sided located pleural effusion: Inpatient med surg Blood culture no growth to date Pleural fluid analysis cbc w/ auto diff in the morning to trend WBC Zosyn Tylenol PRN Percocet PRN Morphine IV PRN Physical therapy Supplemental oxygen therapy (baseline=3L/min) Incentive spirometry q1HWA 2. COPD, stable: Supplemental oxygen therapy (baseline=3L/min) Continue bronchodilators from home regimen DuoNEB NEB PRN wheezing or shortness of breath 3. WES: Patient did not tolerate it at night, and it is also relatively contraindicated now while chest tube is in place 4. Atrial fibrillation with RVR: Coumadin held due to chest tube with bloody discharge Daily INR for Coumadin dosing Diltiazem Metoprolol ER 5. Anxiety/Depression: Zoloft Ativan PO PRN 6. Hypothyroidism: Synthroid 7. GERD: Prilosec GI ppx: Prilosec DVT ppx: SCDs; holding Coumadin for bloody discharge Code status: Full Prognosis: guarded Disposition: inpatient med surg; PT Time Spent With Patient Time: Total time spent is greater than 50% in coordination of care (as documented) at patient's floor/unit and/or counseling patient: Total time spent with greater than 50% in coordination of care (as documented) at patient's floor/unit and/or counseling patient:: 25 - 35 minutes QUALITY VTE Deep Vein Thrombosis/Pulmonary Embolism Present on Admission: No
[2022-05-09] MEDS ORDERED: LORazepam 0.5 MG TABLET PO PRN (13:49)
--- NOTE | 2022-05-09 15:14 | General Surgery Progress Note ---
SUBJECTIVE Subjective Patient information: Note initiated : 05/09/22 at 3:07 pm Service Date, if different from initiated Date: [] Patient: Estela Man 51 y/o F admitted on 05/06/22 for Breathing troubles. Chief Complaint: [] Principal diagnosis: Right pleural effusion Interval history: 31-year-old female with suspected pneumonitis and loculated right pleural effusion. She is status post right chest tube placement by Dr. Zamudio. Only a small amount of pleural fluid has been drained. There is no purulence noted. Chest x-ray performed post chest tube placement shows no improvement and the loculated effusion. Patient has good respiratory effort and does not have any major pleuritic pain. Constitutional Vitals: Vital Signs Temp Pulse Resp BP Pulse Ox O2 Del Method O2 Flow Rate 98.4 F 92 H 20 114/63 96 3 05/09/22 12:00 05/09/22 12:00 05/09/22 12:00 05/09/22 12:00 05/09/22 12:00 05/09/22 12:00 05/09/22 12:00 Period Temp Pulse Resp BP Sys/Molina Pulse Ox O2 Del Method O2 Flow Rate Last 24 Hr 97.1 F-98.4 F 80-125 16-30 96-134/63-101 87-99 Aerosol Mask- Nasal Cannula 3-6 Intake and Output 05/09/22 05/09/22 05/09/22 03:59 11:59 19:59 Intake Total 510 250 50 Output Total 550 534 Balance -40 -284 50 Weight 214 lb 3.2 oz 214 lb 3.2 oz Patient Weight 05/10/22 03:59 Weight 214 lb 3.2 oz Intake & Output: Intake & Output 05/09/22 05/09/22 05/09/22 03:59 11:59 19:59 Intake Total 510 250 50 Output Total 550 534 Balance -40 -284 50 Weight 214 lb 3.2 oz 214 lb 3.2 oz Intake: IV 50 50 50 Zosyn 3.375 gm In Dextrose 5% 50 50 50 in Water 50 ml @ 100 mls/hr IV Q6H [facility] Rx#:[id number] Oral 460 200 Output: Chest Tube Drainage 134 Right Mid-Axillary Chest 134 Void Amount 550 400 Other: Meal Breakfast Percent of Meal Consumed 100% Feeding Ability Assist with Tray Set Up Urine Appearance Clear Clear Urine Color Yellow Dark Dottie Light Red Urine Odor Normal Neck Neck exam: Present full ROM and normal inspection; Absent tenderness Respiratory Respiratory exam: Present decreased breath sounds (Decreased breath sounds at both bases much more decreased on the right; good breath sounds on the left); Absent accessory muscle use, rales, rhonchi or wheezes Cardiovascular Cardiovascular exam: Present normal rate and rhythm, RRR, +S1 and +S2; Absent JVD GI/Abdominal GI/Abdominal exam: Present normal bowel sounds and soft; Absent distended Extremities Exam Extremities exam: Present normal inspection and neurovascular intact A/P Assessment and plan (1) Pleural effusion: Status: Acute (2) COPD (chronic obstructive pulmonary disease): Status: Chronic Qualifiers: COPD type: chronic bronchitis Chronic bronchitis type: simple Qualified Code(s): J41.0 - Simple chronic bronchitis Plan Patient will continue on present therapy; follow-up chest x-ray will be done daily Time Spent With Patient Time: Total time spent is greater than 50% in coordination of care (as documented) at patient's floor/unit and/or counseling patient:
[2022-05-09] MEDS: SERTRALINE 100 MG TABLET PO SCH (21:57)
[2022-05-09] MEDS: clonazePAM 1 MG TABLET PO SCH (21:57)
[2022-05-09] MEDS: METOPROLOL SUCCINATE 25 MG TAB.XL.24H PO SCH (21:58)
[2022-05-09] MEDS: DILTIAZEM 120 MG CAP.XL.24H PO SCH (21:58)
[2022-05-09] MEDS: MONTELUKAST 10 MG TABLET PO SCH (21:58)
[2022-05-10] MEDS: morphine 4 MG/ML VIAL IV PRN ×5 (01:53→20:54)
[2022-05-10] MEDS: 0.9 % SODIUM CHLORIDE 10 ML SYRINGE IV SCH ×3 (06:15→20:44)
[2022-05-10] MEDS: PIPERACILLIN SODIUM/TAZOBACTAM 3.375 GM in DEXTROSE 5% IN WATER 50 ML IV SCH ×3 (06:16→18:15)
[2022-05-10] MEDS: OMEPRAZOLE 20 MG CAPSULE PO SCH (07:08)
[2022-05-10] MEDS: LEVOTHYROXINE 100 MCG TABLET PO SCH (07:08)
[2022-05-10 07:23] LABS: INR 1.2 (0.9-1.1); Prothrombin Time 16.1 sec (11.9-14.5)
[2022-05-10 07:31] LABS: Basophils # (Auto) 0.02 K/mcL (0.00-0.30); Basophils % (Auto) 0.1 % (0.0-2.0); Eosinophils # (Auto) 0.02 K/mcL (0.00-0.70); Eosinophils % (Auto) 0.1 % (0.0-7.0); Hematocrit 32.1 % (34.1-44.9); Lymphocytes # (Auto) 0.87 K/mcL (1.50-4.80); Mean Cell Volume 96.7 fL (80.0-100.0); Mean Corpuscular HGB Conc 31.2 g/dL (31.0-36.0); Mean Platelet Volume 9.4 fL (8.8-12.5); Monocytes # (Auto) 1.06 K/mcL (0.10-0.90); Monocytes % (Auto) 7.3 % (1.0-12.0); Neutrophils % (Auto) 86.1 % (38.0-78.0); Platelet Count 290 K/mcL (140-440); RBC 3.32 M/mcL (3.59-5.38); Red Cell Distribution Width 15.8 % (11.5-14.5); WBC 14.5 K/mcL (4.5-11.0)
--- NOTE | 2022-05-10 07:49 | XRay Report ---
INDICATION: pleural effusion and pneumonitis;CHEST TUBE TECHNIQUE: AP portable chest x-ray COMPARISON: Previous chest x-ray dated 05/08/2022. Previous chest CT scan dated 05/06/2022, 08/27/2021 FINDINGS: Endotracheal tube has been removed. Right-sided chest tube has been pulled back and the sidehole of the catheter may be extrathoracic. There is no subcutaneous gas. Right pleural fluid collection remains present. Comparison with previous examination is difficult as the prior study was performed in AP, supine position. Right pleural fluid collection may be larger but this is not definite. Left lung is negative. There is probable density at the right lung base which may be secondary to volume loss. Pneumonia is possible. Clinical correlation is necessary IMPRESSION: 1. Status post extubation. Right-sided chest tube is pulled back slightly 2. Right pleural fluid collection remains present 3. Right basilar pulmonary parenchymal density consistent with volume loss or pneumonia Interpreted and Authenticated by: Angus Francisco 05/10/22
[2022-05-10 08:04] LABS: ALT/SGPT 59 U/L (<40); AST/SGOT 59 U/L (<32); Albumin 3.2 gm/dL (3.2-5.2); Albumin/Globulin Ratio 0.9 (1.0-2.3); Alkaline Phosphatase 147 U/L (39-117); Bilirubin,Total 0.4 mg/dL (0.1-1.0); Blood Urea Nitrogen 13 mg/dL (6-20); Calcium 9.4 mg/dL (8.6-10.4); Carbon Dioxide 40 mmol/L (22-30); Chloride 97 mmol/L (96-108); Globulin 3.4 gm/dL (2.2-3.7); Glomerular Filtration Rate 120; Glucose 77 mg/dL (70-105)
[2022-05-10] MEDS: DOCUSATE SODIUM 100 MG CAPSULE PO SCH ×2 (09:56→20:43)
--- NOTE | 2022-05-10 12:30 | Internal Med Progress Note ---
SUBJECTIVE Subjective Patient information: Note initiated : 05/10/22 at 12:27 pm Service Date, if different from initiated Date: [] Patient: Estela Man a 51 y/o F admitted on 05/06/22 for Breathing troubles. Chief Complaint: [] Principal diagnosis: Right pleural effusion Interval history: Ms. Man is a 51 year old F Presents to the ED with shortness of breath and right lateral chest wall pain. This has been worsening for the past 3-4 days. Typically wears oxygen at night but it sounds like she had use oxygen during the day as well. She did have a respiratory illness about 3 weeks ago and was treated for COPD exacerbation. She said she seemed to be getting better and then 3-4 days ago started getting worse again with new right lateral chest wall pain. She says she does not have much of a cough but she is had increasing shortness of breath. Complains of headaches but no fevers and chills. Work-up in the ER revealed a hypoxic days 7%. She was tachycardic. Blood pressures were soft in the 90s. She had a leukocytosis of 20,000. Lactate and chemistry panel pending. CT of the chest showed a large pleural effusion on the right with loculations. Discussed with Dr. Zamudio surgeon for possible chest tube placement. INR now back which is too high for immediate tube. Past medical which includes atrial fibrillation COPD tobacco abuse hypothyroidism obstructive sleep apnea pulmonary hypertension chronic pain. She did have some abnormalities on chest CT in the past that pulmonology was going to have radiology do a biopsy of but then pulmonology decided against it telling her it was probably scar tissue, this is per the patient's history. 05/07 Patient slept okay. Complains of right lateral chest pain worse today. Oxygen requirement no worse. Leukocytosis mildly improved. Patient complains of headache and has continued cough and shortness of breath. INR not low enough yet will order FFP and repeat INR. In order to place chest tube. 05/08 Patient has productive cough. Shortness of breath mild. Right chest pain improving. INR now appropriate for chest tube. Leukocytosis. 05/09: Status post right-sided chest tube insertion by general surgeon Dr. Zamudio on 05/08. Bloody discharge from chest tube. Patient is currently on 3 L/min of nasal cannula supplemental oxygen (baseline=3L/min). Currently denies any right sided chest pain. c/o anxiety. Denies any fever, chills, or sweating. H/H stable this morning. Blood cultures no growth to date. Continue to monitor pleural fluid analysis as well as blood culture. Continue IV Zosyn for now. Continue to provide narcotics as needed for pain control. Continue to monitor chest tube output to decide when to resume Coumadin for her atrial fibrillation. Physical therapy evaluation and treatment. 05/10: Patient is currently on 3 L/min nasal cannula supplemental oxygen (baseline=3L/min). Afebrile overnight. Chest x-ray this morning showing right pleural fluid collection remains present. It also shows right basilar pulmonary parenchymal density consistent with volume loss or pneumonia. Blood culture no growth today. It has been found out that no pleural fluid sample was being sent for fluid analysis when chest tube was inserted. Patient denies any chest wall pain at rest; she is complaining of moderate to severe sharp right-sided chest wall pain when she ambulates or coughs. She denies having any subjective fever chills or diaphoresis. Since patient's early on antibiotics for couple of days, did you of sending the pleural fluid now for fluid analysis for culture is extremely low. As a result, will not proceed with such. We will continue Zosyn for now. Continue to provide narcotics as needed for pain control. Will keep chest tube in place and daily CXR to monitor for pleural effusion. Will keep holding Coumadin while chest tube in place. Will work with general surgeon to comanage chest tube. Physical therapy evaluation and treatment. Constitutional Vitals: Vital Signs Temp Pulse Resp BP Pulse Ox O2 Del Method O2 Flow Rate 36.9 C 90 22 105/69 97 3 05/10/22 12:00 05/10/22 12:00 05/10/22 12:00 05/10/22 12:00 05/10/22 12:00 05/10/22 12:00 05/10/22 12:00 Period Temp Pulse Resp BP Sys/[place] Pulse Ox O2 Del Method O2 Flow Rate Last 24 Hr 35.9 C-36.9 C 73-99 18-22 105-131/69-91 93-100 Nasal Cannula- Nasal Cannula 3-3 Intake and Output 05/10/22 05/10/22 05/10/22 03:59 11:59 19:59 Intake Total 450 450 Output Total 700 578 Balance -250 -128 Intake & Output: Intake & Output 05/10/22 05/10/22 05/10/22 03:59 11:59 19:59 Intake Total 450 450 Output Total 700 578 Balance -250 -128 Intake: IV 50 50 Zosyn 3.375 gm In Dextrose 5% 50 50 in Water 50 ml @ 100 mls/hr IV Q6H [facility] Rx#:[id number] Oral 400 400 Output: Chest Tube Drainage 78 Right Mid-Axillary Chest 78 Void Amount 700 500 Other: Meal [place] Breakfast Percent of Meal Consumed 100% 75% Feeding Ability Independent Assist with Tray Set Up Urine Appearance Clear Urine Color Yellow Light [place] Light [place] Urine Odor Normal Strong General appearance: cooperative, no acute distress and obese Head Head exam: Present atraumatic and normal inspection Eye Eye exam: Present normal appearance ENT ENT exam: Present mucous membranes moist, normal exam and normal external ear exam Additional comments: Nasal cannula in place Neck Neck exam: Present normal inspection Respiratory Respiratory exam: Present chest wall tenderness and decreased breath sounds Additional comments: Right sided chest tube in place with serosanguineous output. Cardiovascular Cardiovascular exam: Present irregular rhythm GI/Abdominal GI/Abdominal exam: Present normal bowel sounds Back Exam Back exam: Present normal inspection Neurological Exam Neurological exam: Present alert and oriented X3 Skin Skin exam: Present intact and warm OBJ DATA Labs CBC & Chem 7: 05/10/22 05:30 05/10/22 05:30 Labs: Abnormal Lab Results 05/10/22 05/10/22 05/10/22 05:30 05:30 05:30 WBC 14.5 H RBC 3.32 L Hgb 10.0 L Hct 32.1 L RDW 15.8 H Immature Gran % (Auto) Neut % (Auto) 86.1 H Lymph % (Auto) 6.0 L Lymph # (Auto) 0.87 L [place] # (Auto) 1.06 H Immature Gran # 0.06 H Absolute Neutrophils 12.51 H POC PT PT 16.1 H POC INR INR 1.2 H Carbon Dioxide 40 H Anion Gap 5.0 L Creatinine 0.4 L Glucose AST 59 H ALT 59 H Alkaline Phosphatase 147 H Albumin Globulin Albumin/Globulin Ratio 0.9 L 05/09/22 05/09/22 05/09/22 05:50 05:50 05:50 WBC 15.2 H RBC Hgb Hct RDW 15.9 H Immature Gran % (Auto) 0.7 H Neut % (Auto) 92.8 H Lymph % (Auto) 2.1 L Lymph # (Auto) 0.32 L [place] # (Auto) Immature Gran # 0.10 H Absolute Neutrophils 14.12 H POC PT PT 15.8 H POC INR INR 1.2 H Carbon Dioxide 34 H Anion Gap Creatinine 0.4 L Glucose 148 H AST ALT Alkaline Phosphatase 151 H Albumin 3.1 L Globulin 3.8 H Albumin/Globulin Ratio 0.8 L 05/08/22 05/08/22 05/08/22 05:32 05:32 05:32 WBC 13.2 H RBC 3.51 L Hgb 10.7 L Hct 33.4 L RDW 16.2 H Immature Gran % (Auto) Neut % (Auto) 81.8 H Lymph % (Auto) 7.1 L Lymph # (Auto) 0.94 L [place] # (Auto) 1.24 H Immature Gran # 0.07 H Absolute Neutrophils 10.78 H POC PT PT 16.8 H POC INR INR 1.3 H Carbon Dioxide 35 H Anion Gap 7.0 L Creatinine 0.4 L Glucose AST ALT Alkaline Phosphatase Albumin Globulin Albumin/Globulin Ratio 05/07/22 13:58 WBC RBC Hgb Hct RDW Immature Gran % (Auto) Neut % (Auto) Lymph % (Auto) Lymph # (Auto) [place] # (Auto) Immature Gran # Absolute Neutrophils POC PT 24.3 H PT POC INR 2.1 H INR Carbon Dioxide Anion Gap Creatinine Glucose AST ALT Alkaline Phosphatase Albumin Globulin Albumin/Globulin Ratio Meds: Medications Acetaminophen (Acetaminophen 325 Mg Tablet) 650 mg PO Q6HP PRN; Protocol PRN Reason: Per Pain Protocol/Fever > 101 Albuterol/Ipratropium (Ipratropium/Albuterol 3 Ml Ampul.Neb) 3 ml NEB Q4HP PRN PRN Reason: Shortness Of Breath Last Admin: 05/09/22 22:26 Dose: 3 ml Clonazepam (Clonazepam 1 Mg Tablet) 0.5 mg PO QHS [facility] Last Admin: 05/09/22 21:57 Dose: 0.5 mg Diltiazem HCl (Diltiazem 120 Mg Cap.Xl.24h) 240 mg PO QHS GABO Last Admin: 05/09/22 21:58 Dose: 240 mg Docusate Sodium (Docusate Sodium 100 Mg Capsule) 100 mg PO BID [facility] Last Admin: 05/10/22 09:56 Dose: Not Given Potassium Chloride 40 meq/ (Dextrose) 520 mls @ 130 mls/hr IV UD PRN PRN Reason: Potassium < 3 Magnesium Sulfate (Magnesium Sulfate) 2 gm in 50 mls @ 50 mls/hr IV UD PRN PRN Reason: Magnesium </= 1.6 Piperacillin Sod/Tazobactam (Sod 3.375 gm/ Dextrose) 50 mls @ 100 mls/hr IV Q6H [facility]; Protocol Last Admin: 05/10/22 12:21 Dose: 100 mls/hr Levothyroxine Sodium (Levothyroxine 100 Mcg Tablet) 100 mcg PO [facility] Last Admin: 05/10/22 07:08 Dose: 100 mcg Lorazepam (Lorazepam 0.5 Mg Tablet) 0.5 mg PO Q4HP PRN PRN Reason: ANXIETY/SEDATION Metoprolol Succinate (Metoprolol Succinate 25 Mg Tab.Xl.24h) [facility] Last Admin: 05/09/22 21:58 Dose: 75 mg Metoprolol Tartrate (Metoprolol Tartrate 5 Mg/5 Ml Vial) 5 mg IV Q2HP PRN PRN Reason: Tachyarrhythmias HR>110 Montelukast Sodium (Montelukast 10 Mg Tablet) 10 mg PO QHS [facility] Last Admin: 05/09/22 21:58 Dose: 10 mg Morphine Sulfate (Morphine 4 Mg/Ml Vial) 0 mg IV Q3HP PRN PRN Reason: Pain Last Admin: 05/10/22 10:05 Dose: 3 mg Omeprazole (Omeprazole 20 Mg Capsule) 20 mg PO [facility] Last Admin: 05/10/22 07:08 Dose: 20 mg Ondansetron HCl (Ondansetron 4 Mg/2 Ml Vial) 4 mg IV Q4HP PRN PRN Reason: Nausea And Vomiting Oxycodone/Acetaminophen (Oxycodone/Apap 10/325mg Tablet) 1 tab PO Q6HP PRN; Protocol PRN Reason: Pain Level 3-6 Polyethylene Glycol (Polyethylene Glycol 3350 17 Gm Packet) 17 gm PO DAILYP PRN PRN Reason: Constipation Potassium Chloride (Potassium Chloride 20 Meq Tablet) 40 meq PO UD PRN PRN Reason: Potssium is 3-3.5 Potassium Chloride (Potassium Chloride 20 Meq Tablet) 40 meq PO UD PRN PRN Reason: Potassium < 3 Senna (Sennosides 1 Tablet) 2 tab PO DAILYP PRN PRN Reason: Constipation Sertraline HCl (Sertraline 100 Mg Tablet) 200 mg PO QHS [facility] Last Admin: 05/09/22 21:57 Dose: 200 mg Sodium Chloride (0.9 % Sodium Chloride 10 Ml Syringe) 10 ml IV Q8 [facility] Last Admin: 05/10/22 06:15 Dose: 10 ml A/P Assessment and plan (1) Depression with anxiety: Status: Acute (2) Pleural effusion: Status: Acute (3) Pneumonia: Status: Acute (4) COPD (chronic obstructive pulmonary disease): Status: Chronic Qualifiers: COPD type: chronic bronchitis Chronic bronchitis type: simple Qualified Code(s): J41.0 - Simple chronic bronchitis (5) Atrial fibrillation with RVR: Status: Chronic (6) WES (obstructive sleep apnea): Status: Chronic (7) Hypothyroidism, acquired: Status: Chronic (8) GERD (gastroesophageal reflux disease): Status: Chronic Qualifiers: Esophagitis presence: without esophagitis Qualified Code(s): K21.9 - Gastro-esophageal reflux disease without esophagitis Narrative A/P Narrative: Assessment and Plans: 1. Pneumonia with right sided located pleural effusion: Inpatient med surg Blood culture no growth to date It has been found out that no pleural fluid sample was being sent for fluid analysis when chest tube was inserted. Since patient's early on antibiotics for couple of days, did you of sending the pleural fluid now for fluid analysis for culture is extremely low. As a result, will not proceed with such. cbc w/ auto diff in the morning to trend WBC Zosyn Tylenol PRN Percocet PRN Morphine IV PRN Physical therapy Supplemental oxygen therapy (baseline=3L/min) Incentive spirometry q1HWA CXR daily 2. COPD, stable: Supplemental oxygen therapy (baseline=3L/min) Continue bronchodilators from home regimen DuoNEB NEB PRN wheezing or shortness of breath 3. WES: Patient did not tolerate it at night, and it is also relatively contraindicated now while chest tube is in place 4. Atrial fibrillation with RVR: Coumadin held due to chest tube with serosanguineous discharge; will resume Coumadin after chest tube being pulled Daily INR for Coumadin dosing Diltiazem Metoprolol ER 5. Anxiety/Depression: Zoloft Ativan PO PRN 6. Hypothyroidism: Synthroid 7. GERD: Prilosec GI ppx: Prilosec DVT ppx: SCDs; holding Coumadin for chest tube Code status: Full Prognosis: guarded Disposition: inpatient med surg; PT Time Spent With Patient Time: Total time spent is greater than 50% in coordination of care (as documented) at patient's floor/unit and/or counseling patient: Total time spent with greater than 50% in coordination of care (as documented) at patient's floor/unit and/or counseling patient:: 25 - 35 minutes QUALITY VTE Deep Vein Thrombosis/Pulmonary Embolism Present on Admission: No
[2022-05-10] MEDS: oxyCODONE/APAP 10/325MG TABLET PO PRN ×2 (12:31→18:14)
[2022-05-10] MEDS: IPRATROPIUM/ALBUTEROL 3 ML AMPUL.NEB NEB PRN (14:04)
--- NOTE | 2022-05-10 15:13 | General Surgery Progress Note ---
SUBJECTIVE Subjective Patient information: Note initiated : 05/10/22 at 2:45 pm Service Date, if different from initiated Date: [] Patient: Estela Man 51 y/o F admitted on 05/06/22 for Breathing troubles. Chief Complaint: [] Principal diagnosis: Right pleural effusion Interval history: Patient is clinically stable however her pleural effusion is unchanged. The chest tube is fluctuating appropriately however there has been no increased drainage. Chest x-ray shows no exchange mechanic the past 2 days and the volume of effusion. Discussed situation with Dr. Gimenez who will do thoracentesis posterior laterally to drain the major loculation. We will send samples for culture and evaluation. Patient Constitutional Vitals: Vital Signs Temp Pulse Resp BP Pulse Ox O2 Del Method O2 Flow Rate 98.4 F 90 18 105/69 95 3 05/10/22 12:00 05/10/22 14:06 05/10/22 14:06 05/10/22 12:00 05/10/22 14:06 05/10/22 14:06 05/10/22 14:06 Period Temp Pulse Resp BP Sys/[place] Pulse Ox O2 Del Method O2 Flow Rate Last 24 Hr 96.6 F-98.4 F 73-99 - 105-131/69-91 93-100 Nasal Cannula- Nasal Cannula 3-3 Intake and Output 05/10/22 05/10/22 05/10/22 03:59 11:59 19:59 Intake Total 450 450 50 Output Total 700 578 Balance -250 -128 50 Intake & Output: Intake & Output 05/10/22 05/10/22 05/10/22 03:59 11:59 19:59 Intake Total 450 450 50 Output Total 700 578 Balance -250 -128 50 Intake: IV 50 50 50 Zosyn 3.375 gm In Dextrose 5% 50 50 50 in Water 50 ml @ 100 mls/hr IV Q6H [facility] Rx#:[id number] Oral 400 400 Output: Chest Tube Drainage 78 Right Mid-Axillary Chest 78 Void Amount 700 500 Other: Meal [place] Breakfast Percent of Meal Consumed 100% 75% Feeding Ability Independent Assist with Tray Set Up Urine Appearance Clear Urine Color Yellow Light [place] Light [place] Urine Odor Normal Strong Neck Neck exam: Present normal inspection; Absent tenderness Respiratory Respiratory exam: Present decreased breath sounds (Decreased breath sounds right lower lung field); Absent rales or wheezes Cardiovascular Cardiovascular exam: Present normal rate and rhythm, JVD, RRR, +S1 and +S2 GI/Abdominal GI/Abdominal exam: Present normal bowel sounds; Absent tenderness Extremities Exam Extremities exam: Present normal inspection and neurovascular intact A/P Assessment and plan (1) Pleural effusion: Status: Acute (2) COPD (chronic obstructive pulmonary disease): Status: Chronic Qualifiers: COPD type: chronic bronchitis Chronic bronchitis type: simple Qualified Code(s): J41.0 - Simple chronic bronchitis (3) Anemia, normocytic normochromic: Status: Acute Plan Discussed with mammography technologist need to have thoracentesis with analysis of the fluid Chest x-ray will be repeated in the a.m. Chest tube will remain on continuous suction at 20 cm of water. Sepsis Sepsis Identified: No Time Spent With Patient Time: Total time spent is greater than 50% in coordination of care (as documented) at patient's floor/unit and/or counseling patient:
[2022-05-10 16:03] LABS: INR 1.1 (0.9-1.1); Partial Thromboplastin Time 30.5 sec (20.0-37.0); Prothrombin Time 15.1 sec (11.9-14.5)
--- NOTE | 2022-05-10 16:15 | Ultrasound Report ---
INDICATION: Evaluate fluid volume for thoracentesis. TECHNIQUE: Informed consent was obtained. Loculated fluid collection in the posterior right hemithorax is identified. This is echogenic with linear densities consistent with strands and fibrinous change. Routine chloro prep skin cleansing. 1% lidocaine injected subcutaneously and deep. The loculated collection was cannulated and attempted drainage was performed using an 8 [place] pigtail catheter and a 5 [place] Yueh catheter. I was unable to obtain fluid. A small amount of bloody material was present within the catheter after removal and this was sent to the laboratory for culture. Ultrasound was used to document the catheter position within the pleural abnormality. IMPRESSION: Attempted drainage of a septated and loculated pleural collection in the posterior right hemithorax. No significant fluid was obtained Interpreted and Authenticated by: Angus Francisco 05/10/22
--- NOTE | 2022-05-10 16:17 | XRay Report ---
INDICATION: POST THORA TECHNIQUE: AP portable chest x-ray COMPARISON: Prethoracentesis chest x-ray dated 05/10/2022 FINDINGS: Attempted ultrasound-guided right thoracentesis performed. No fluid was removed. Chest x-ray is essentially unchanged since prethoracentesis examination. There is no pneumothorax. No gas bubbles within the right pleural abnormality. IMPRESSION: No pneumothorax following attempted right thoracentesis Interpreted and Authenticated by: Angus Francisco 05/10/22
[2022-05-10] MEDS: clonazePAM 1 MG TABLET PO SCH (20:42)
[2022-05-10] MEDS: MONTELUKAST 10 MG TABLET PO SCH (20:43)
[2022-05-10] MEDS: METOPROLOL SUCCINATE 25 MG TAB.XL.24H PO SCH (20:44)
[2022-05-10] MEDS: DILTIAZEM 120 MG CAP.XL.24H PO SCH (20:44)
[2022-05-10] MEDS: SERTRALINE 100 MG TABLET PO SCH (20:44)
[2022-05-11] MEDS: oxyCODONE/APAP 10/325MG TABLET PO PRN ×5 (00:26→22:28)
[2022-05-11] MEDS: PIPERACILLIN SODIUM/TAZOBACTAM 3.375 GM in DEXTROSE 5% IN WATER 50 ML IV SCH ×4 (00:27→17:01)
[2022-05-11] MEDS: morphine 4 MG/ML VIAL IV PRN ×3 (05:20→21:08)
[2022-05-11] MEDS: 0.9 % SODIUM CHLORIDE 10 ML SYRINGE IV SCH ×4 (05:21→22:24)
[2022-05-11 07:26] LABS: Basophils # (Auto) 0.05 K/mcL (0.00-0.30); Basophils % (Auto) 0.6 % (0.0-2.0); Eosinophils # (Auto) 0.13 K/mcL (0.00-0.70); Eosinophils % (Auto) 1.5 % (0.0-7.0); Hemoglobin 10.2 g/dL (11.2-15.7); Lymphocytes # (Auto) 1.13 K/mcL (1.50-4.80); Lymphocytes % (Auto) 12.9 % (15.5-49.0); Mean Cell Volume 97.9 fL (80.0-100.0); Mean Corpuscular HGB Conc 30.9 g/dL (31.0-36.0); Mean Platelet Volume 9.5 fL (8.8-12.5); Monocytes # (Auto) 0.85 K/mcL (0.10-0.90); Monocytes % (Auto) 9.7 % (1.0-12.0); Neutrophils % (Auto) 74.8 % (38.0-78.0); Platelet Count 281 K/mcL (140-440); RBC 3.37 M/mcL (3.59-5.38); Red Cell Distribution Width 15.9 % (11.5-14.5); WBC 8.8 K/mcL (4.5-11.0)
[2022-05-11] MEDS: LEVOTHYROXINE 100 MCG TABLET PO SCH (07:30)
[2022-05-11] MEDS: OMEPRAZOLE 20 MG CAPSULE PO SCH (07:30)
[2022-05-11 07:42] LABS: INR 1.1 (0.9-1.1); Prothrombin Time 14.8 sec (11.9-14.5)
[2022-05-11 07:45] LABS: ALT/SGPT 70 U/L (<40); AST/SGOT 51 U/L (<32); Albumin 3.1 gm/dL (3.2-5.2); Albumin/Globulin Ratio 0.9 (1.0-2.3); Alkaline Phosphatase 155 U/L (39-117); Bilirubin,Total 0.5 mg/dL (0.1-1.0); Blood Urea Nitrogen 15 mg/dL (6-20); Calcium 9.3 mg/dL (8.6-10.4); Carbon Dioxide 38 mmol/L (22-30); Chloride 96 mmol/L (96-108); Globulin 3.4 gm/dL (2.2-3.7); Glomerular Filtration Rate 120; Glucose 79 mg/dL (70-105)
[2022-05-11] MEDS: DOCUSATE SODIUM 100 MG CAPSULE PO SCH ×2 (08:45→21:09)
--- NOTE | 2022-05-11 08:47 | XRay Report ---
INDICATION: pleural effusion and pneumonitis;CHEST TUBE TECHNIQUE: AP portable semiupright chest x-ray COMPARISON: Chest x-rays dated 05/10/2022, 05/08/2022. FINDINGS:Right-sided chest tube is unchanged Lungs:Negative left lung. No focal parenchymal infiltrate or mass. There is right basilar consolidation. Findings may be secondary to pneumonia. Heart, vascular:No significant cardiomegaly. Pulmonary vascularity is normal. No pulmonary edema or pulmonary congestion Mediastinum, andrew:No mediastinal widening. No hilar mass Pleura:There is pleural density. Thoracentesis was attempted on 05/10/2022. No fluid was obtained. This appears to be a possible organized empyema without free-flowing fluid. This is essentially unchanged Skeletal:Negative. IMPRESSION: 1. Right basilar pulmonary parenchymal density. Findings may be secondary to pneumonia 2. No change in right-sided pleural abnormality. No change in position of right-sided chest tube Interpreted and Authenticated by: Angus Francisco 05/11/22
--- NOTE | 2022-05-11 12:01 | Internal Med Progress Note ---
SUBJECTIVE Subjective Patient information: Note initiated : 05/11/22 at 11:56 am Service Date, if different from initiated Date: [] Patient: Estela Man a 51 y/o F admitted on 05/06/22 for Breathing troubles. Chief Complaint: [] Principal diagnosis: Right pleural effusion Interval history: Ms. Man is a 51 year old F Presents to the ED with shortness of breath and right lateral chest wall pain. This has been worsening for the past 3-4 days. Typically wears oxygen at night but it sounds like she had use oxygen during the day as well. She did have a respiratory illness about 3 weeks ago and was treated for COPD exacerbation. She said she seemed to be getting better and then 3-4 days ago started getting worse again with new right lateral chest wall pain. She says she does not have much of a cough but she is had increasing shortness of breath. Complains of headaches but no fevers and chills. Work-up in the ER revealed a hypoxic days 7%. She was tachycardic. Blood pressures were soft in the 90s. She had a leukocytosis of 20,000. Lactate and chemistry panel pending. CT of the chest showed a large pleural effusion on the right with loculations. Discussed with Dr. Zamudio surgeon for possible chest tube placement. INR now back which is too high for immediate tube. Past medical which includes atrial fibrillation COPD tobacco abuse hypothyroidism obstructive sleep apnea pulmonary hypertension chronic pain. She did have some abnormalities on chest CT in the past that pulmonology was going to have radiology do a biopsy of but then pulmonology decided against it telling her it was probably scar tissue, this is per the patient's history. 05/07 Patient slept okay. Complains of right lateral chest pain worse today. Oxygen requirement no worse. Leukocytosis mildly improved. Patient complains of headache and has continued cough and shortness of breath. INR not low enough yet will order FFP and repeat INR. In order to place chest tube. 05/08 Patient has productive cough. Shortness of breath mild. Right chest pain improving. INR now appropriate for chest tube. Leukocytosis. 05/09: Status post right-sided chest tube insertion by general surgeon Dr. Zamudio on 05/08. Bloody discharge from chest tube. Patient is currently on 3 L/min of nasal cannula supplemental oxygen (baseline=3L/min). Currently denies any right sided chest pain. c/o anxiety. Denies any fever, chills, or sweating. H/H stable this morning. Blood cultures no growth to date. Continue to monitor pleural fluid analysis as well as blood culture. Continue IV Zosyn for now. Continue to provide narcotics as needed for pain control. Continue to monitor chest tube output to decide when to resume Coumadin for her atrial fibrillation. Physical therapy evaluation and treatment. 05/10: Patient is currently on 3 L/min nasal cannula supplemental oxygen (baseline=3L/min). Afebrile overnight. Chest x-ray this morning showing right pleural fluid collection remains present. It also shows right basilar pulmonary parenchymal density consistent with volume loss or pneumonia. Blood culture no growth today. It has been found out that no pleural fluid sample was being sent for fluid analysis when chest tube was inserted. Patient denies any chest wall pain at rest; she is complaining of moderate to severe sharp right-sided chest wall pain when she ambulates or coughs. She denies having any subjective fever chills or diaphoresis. Since patient's early on antibiotics for couple of days, did you of sending the pleural fluid now for fluid analysis for culture is extremely low. As a result, will not proceed with such. We will continue Zosyn for now. Continue to provide narcotics as needed for pain control. Will keep chest tube in place and daily CXR to monitor for pleural effusion. Will keep holding Coumadin while chest tube in place. Will work with general surgeon to comanage chest tube. Physical therapy evaluation and treatment. 05/11: Status post failed attempt of posterior chest wall thoracentesis by IR on 05/10. Repeat chest x-ray today showing no change in right-sided pleural abnormal ities. No change in positions of the right-sided chest tube. Patient denies any chest wall pain at rest but is complain of severe pain whenever she moves. I spoke with general surgeon Dr. Freeman who recommends the patient to be transferred to another hospital with cardiothoracic surgeons consultations to further manage the loculated right-sided pleural effusions. We will start locating a bed for her. Continue to provide narcotics as needed for pain control meanwhile. Continue supplemental oxygen therapy. Continue Zosyn for now. Constitutional Vitals: Vital Signs Temp Pulse Resp BP Pulse Ox O2 Del Method O2 Flow Rate 36.9 C 90 16 123/73 95 3 05/11/22 11:38 05/11/22 11:38 05/11/22 11:38 05/11/22 11:38 05/11/22 11:38 05/11/22 11:38 05/11/22 11:38 Period Temp Pulse Resp BP Sys/Molina Pulse Ox O2 Del Method O2 Flow Rate Last 24 Hr 35.9 C-36.9 C 79-95 16-22 105-123/69-87 94-100 Nasal Cannula- Nasal Cannula 3-3 Intake and Output 05/10/22 05/11/22 05/11/22 19:59 03:59 11:59 Intake Total 460 50 300 Output Total 550 307 Balance 460 -500 -7 Weight 99.427 kg Intake & Output: Intake & Output 05/10/22 05/11/22 05/11/22 19:59 03:59 11:59 Intake Total 460 50 300 Output Total 550 307 Balance 460 -500 -7 Weight 99.427 kg Intake: IV 100 50 100 Zosyn 3.375 gm In Dextrose 5% 100 50 100 in Water 50 ml @ 100 mls/hr IV Q6H [facility] Rx#:[id number] Oral 360 200 Output: Chest Tube Drainage 7 Right Mid-Axillary Chest 7 Void Amount 550 300 Other: Meal Lunch Percent of Meal Consumed 25% Feeding Ability Independent Urine Appearance Clear Clear Urine Color Dark Dottie Dark Dottie Urine Odor Strong Head Head exam: Present atraumatic and normal inspection Eye Eye exam: Present normal appearance ENT ENT exam: Present mucous membranes moist, normal exam and normal external ear exam Additional comments: Nasal cannula in place Neck Neck exam: Present normal inspection Respiratory Respiratory exam: Present chest wall tenderness and decreased breath sounds Additional comments: Right sided chest tube in place Cardiovascular Cardiovascular exam: Present irregular rhythm GI/Abdominal GI/Abdominal exam: Present normal bowel sounds Back Exam Back exam: Present normal inspection Neurological Exam Neurological exam: Present alert and oriented X3 Skin Skin exam: Present intact and warm OBJ DATA Labs CBC & Chem 7: 05/11/22 05:33 05/11/22 05:33 Labs: Abnormal Lab Results 05/11/22 05/11/22 05/11/22 05:33 05:33 05:33 WBC RBC 3.37 L Hgb 10.2 L Hct 33.0 L MCHC 30.9 L RDW 15.9 H Immature Gran % (Auto) Neut % (Auto) Lymph % (Auto) 12.9 L Lymph # (Auto) 1.13 L [place] # (Auto) Immature Gran # Absolute Neutrophils PT 14.8 H INR Plt Func Collagen/Epi Carbon Dioxide 38 H Anion Gap 7.0 L Creatinine 0.4 L Glucose AST 51 H ALT 70 H Alkaline Phosphatase 155 H Albumin 3.1 L Globulin Albumin/Globulin Ratio 0.9 L 05/10/22 05/10/22 05/10/22 15:16 05:30 05:30 WBC 14.5 H RBC 3.32 L Hgb 10.0 L Hct 32.1 L MCHC RDW 15.8 H Immature Gran % (Auto) Neut % (Auto) 86.1 H Lymph % (Auto) 6.0 L Lymph # (Auto) 0.87 L [place] # (Auto) 1.06 H Immature Gran # 0.06 H Absolute Neutrophils 12.51 H PT 15.1 H INR Plt Func Collagen/Epi 78 L Carbon Dioxide 40 H Anion Gap 5.0 L Creatinine 0.4 L Glucose AST 59 H ALT 59 H Alkaline Phosphatase 147 H Albumin Globulin Albumin/Globulin Ratio 0.9 L 05/10/22 05/09/22 05/09/22 05:30 05:50 05:50 WBC 15.2 H RBC Hgb Hct MCHC RDW 15.9 H Immature Gran % (Auto) 0.7 H Neut % (Auto) 92.8 H Lymph % (Auto) 2.1 L Lymph # (Auto) 0.32 L [place] # (Auto) Immature Gran # 0.10 H Absolute Neutrophils 14.12 H PT 16.1 H INR 1.2 H Plt Func Collagen/Epi Carbon Dioxide 34 H Anion Gap Creatinine 0.4 L Glucose 148 H AST ALT Alkaline Phosphatase 151 H Albumin 3.1 L Globulin 3.8 H Albumin/Globulin Ratio 0.8 L 05/09/22 05:50 WBC RBC Hgb Hct MCHC RDW Immature Gran % (Auto) Neut % (Auto) Lymph % (Auto) Lymph # (Auto) [place] # (Auto) Immature Gran # Absolute Neutrophils PT 15.8 H INR 1.2 H Plt Func Collagen/Epi Carbon Dioxide Anion Gap Creatinine Glucose AST ALT Alkaline Phosphatase Albumin Globulin Albumin/Globulin Ratio Meds: Medications Acetaminophen (Acetaminophen 325 Mg Tablet) 650 mg PO Q6HP PRN; Protocol PRN Reason: Per Pain Protocol/Fever > 101 Albuterol/Ipratropium (Ipratropium/Albuterol 3 Ml Ampul.Neb) 3 ml NEB Q4HP PRN PRN Reason: Shortness Of Breath Last Admin: 05/10/22 14:04 Dose: 3 ml Clonazepam (Clonazepam 1 Mg Tablet) 0.5 mg PO QHS [facility] Last Admin: 05/10/22 20:42 Dose: 0.5 mg Diltiazem HCl (Diltiazem 120 Mg Cap.Xl.24h) 240 mg PO QHS [facility] Last Admin: 05/10/22 20:44 Dose: 240 mg Docusate Sodium (Docusate Sodium 100 Mg Capsule) 100 mg PO BID [facility] Last Admin: 05/11/22 08:45 Dose: Not Given Potassium Chloride 40 meq/ (Dextrose) 520 mls @ 130 mls/hr IV UD PRN PRN Reason: Potassium < 3 Magnesium Sulfate (Magnesium Sulfate) 2 gm in 50 mls @ 50 mls/hr IV UD PRN PRN Reason: Magnesium </= 1.6 Piperacillin Sod/Tazobactam (Sod 3.375 gm/ Dextrose) 50 mls @ 100 mls/hr IV Q6H [facility]; Protocol Last Infusion: 05/11/22 11:42 Dose: Infused Levothyroxine Sodium (Levothyroxine 100 Mcg Tablet) 100 mcg PO [facility] Last Admin: 05/11/22 07:30 Dose: 100 mcg Lorazepam (Lorazepam 0.5 Mg Tablet) 0.5 mg PO Q4HP PRN PRN Reason: ANXIETY/SEDATION Metoprolol Succinate (Metoprolol Succinate 25 Mg Tab.Xl.24h) 75 mg PO QHS [facility] Last Admin: 05/10/22 20:44 Dose: 75 mg Metoprolol Tartrate (Metoprolol Tartrate 5 Mg/5 Ml Vial) 5 mg IV Q2HP PRN PRN Reason: Tachyarrhythmias HR>110 Montelukast Sodium (Montelukast 10 Mg Tablet) 10 mg PO QHS [facility] Last Admin: 05/10/22 20:43 Dose: 10 mg Morphine Sulfate (Morphine 4 Mg/Ml Vial) 0 mg IV Q3HP PRN PRN Reason: Pain Last Admin: 05/11/22 05:20 Dose: 3 mg Omeprazole (Omeprazole 20 Mg Capsule) 20 mg PO ACB [facility] Last Admin: 05/11/22 07:30 Dose: 20 mg Ondansetron HCl (Ondansetron 4 Mg/2 Ml Vial) 4 mg IV Q4HP PRN PRN Reason: Nausea And Vomiting Oxycodone/Acetaminophen (Oxycodone/Apap 10/325mg Tablet) 1 tab PO Q6HP PRN; Protocol PRN Reason: Pain Level 3-6 Last Admin: 05/11/22 11:14 Dose: 1 tab Polyethylene Glycol (Polyethylene Glycol 3350 17 Gm Packet) 17 gm PO DAILYP PRN PRN Reason: Constipation Potassium Chloride (Potassium Chloride 20 Meq Tablet) 40 meq PO UD PRN PRN Reason: Potssium is 3-3.5 Potassium Chloride (Potassium Chloride 20 Meq Tablet) 40 meq PO UD PRN PRN Reason: Potassium < 3 Senna (Sennosides 1 Tablet) 2 tab PO DAILYP PRN PRN Reason: Constipation Sertraline HCl (Sertraline 100 Mg Tablet) 200 mg PO QHS [facility] Last Admin: 05/10/22 20:44 Dose: 200 mg Sodium Chloride (0.9 % Sodium Chloride 10 Ml Syringe) 10 ml IV Q8 [facility] Last Admin: 05/11/22 05:21 Dose: 10 ml A/P Assessment and plan (1) Depression with anxiety: Status: Acute (2) Pleural effusion: Status: Acute (3) Pneumonia: Status: Acute (4) COPD (chronic obstructive pulmonary disease): Status: Chronic Qualifiers: COPD type: chronic bronchitis Chronic bronchitis type: simple Qualified Code(s): J41.0 - Simple chronic bronchitis (5) Atrial fibrillation with RVR: Status: Chronic (6) WES (obstructive sleep apnea): Status: Chronic (7) Hypothyroidism, acquired: Status: Chronic (8) GERD (gastroesophageal reflux disease): Status: Chronic Qualifiers: Esophagitis presence: without esophagitis Qualified Code(s): K21.9 - Gastro-esophageal reflux disease without esophagitis Narrative A/P Narrative: Assessment and Plans: 1. Pneumonia with right sided located pleural effusion: Inpatient med surg Blood culture no growth to date Status post failed attempt of posterior chest wall thoracentesis by IR on 05/10. Repeat chest x-ray today showing no change in right-sided pleural abnormalities. I spoke with general surgeon Dr. Freeman who recommends the patient to be transferred to another hospital with cardiothoracic surgeons consultations to further manage the loculated right-sided pleural effusions. We will start locating a bed for her. cbc w/ auto diff in the morning to trend WBC Continue Zosyn Tylenol PRN Percocet PRN Morphine IV PRN Physical therapy evaluation and treatment Supplemental oxygen therapy (baseline=3L/min) Incentive spirometry q1HWA CXR daily 2. COPD, stable: Supplemental oxygen therapy (baseline=3L/min) Continue bronchodilators from home regimen DuoNEB NEB PRN wheezing or shortness of breath 3. WES: Patient did not tolerate it at night, and it is also relatively contraindicated now while chest tube is in place 4. Atrial fibrillation with RVR: Coumadin held due to chest tube with serosanguineous discharge; will resume Coumadin after chest tube being pulled Daily INR for Coumadin dosing Diltiazem Metoprolol ER 5. Anxiety/Depression: Zoloft Ativan PO PRN 6. Hypothyroidism: Synthroid 7. GERD: Prilosec GI ppx: Prilosec DVT ppx: SCDs; holding Coumadin for chest tube Code status: Full Prognosis: guarded Disposition: inpatient med surg; PT Time Spent With Patient Time: Total time spent is greater than 50% in coordination of care (as documented) at patient's floor/unit and/or counseling patient: Total time spent with greater than 50% in coordination of care (as documented) at patient's floor/unit and/or counseling patient:: 25 - 35 minutes QUALITY VTE Deep Vein Thrombosis/Pulmonary Embolism Present on Admission: No
--- NOTE | 2022-05-11 16:57 | General Surgery Progress Note ---
SUBJECTIVE Subjective Patient information: Note initiated : 05/11/22 at 4:55 pm Service Date, if different from initiated Date: [] Patient: Estela Man 51 y/o F admitted on 05/06/22 for Breathing troubles. Chief Complaint: [] Principal diagnosis: Right pleural effusion Constitutional Vitals: Vital Signs Temp Pulse Resp BP Pulse Ox O2 Del Method O2 Flow Rate 98.4 F 90 16 123/73 95 3 05/11/22 11:38 05/11/22 11:38 05/11/22 11:38 05/11/22 11:38 05/11/22 11:38 05/11/22 11:38 05/11/22 11:38 Period Temp Pulse Resp BP Sys/Molina Pulse Ox O2 Del Method O2 Flow Rate Last 24 Hr 96.6 F-98.4 F 79-95 16-16 110-123/70-87 95-100 Nasal Cannula- Nasal Cannula 3-3 Intake and Output 05/11/22 05/11/22 05/11/22 03:59 11:59 19:59 Intake Total 50 300 Output Total 550 307 Balance -500 -7 Weight 219 lb 3.2 oz Intake & Output: Intake & Output 05/11/22 05/11/22 05/11/22 03:59 11:59 19:59 Intake Total 50 300 Output Total 550 307 Balance -500 -7 Weight 219 lb 3.2 oz Intake: IV 50 100 Zosyn 3.375 gm In Dextrose 5% 50 100 in Water 50 ml @ 100 mls/hr IV Q6H [facility] Rx#:[id number] Oral 200 Output: Chest Tube Drainage 7 Right Mid-Axillary Chest 7 Void Amount 550 300 Other: Meal Lunch Percent of Meal Consumed 75% Feeding Ability Independent Urine Appearance Clear Clear Urine Color Dark Dottie Dark Dottie Urine Odor Strong A/P Assessment and plan (1) Loculated pleural effusion: Status: Acute (2) Anemia, normocytic normochromic: Status: Acute (3) COPD (chronic obstructive pulmonary disease): Status: Chronic Qualifiers: COPD type: chronic bronchitis Chronic bronchitis type: simple Qualified Code(s): J41.0 - Simple chronic bronchitis Plan the patient has been informed that we are waiting for bed availability for her to be transferred to a higher level of care for pleurodesis and VATS procedure right long. She will be transferred whenever a bed is available. She is clinically stable otherwise. Time Spent With Patient Time: Total time spent is greater than 50% in coordination of care (as documented) at patient's floor/unit and/or counseling patient:
[2022-05-11] MEDS: METOPROLOL SUCCINATE 25 MG TAB.XL.24H PO SCH (21:08)
[2022-05-11] MEDS: MONTELUKAST 10 MG TABLET PO SCH (21:09)
[2022-05-11] MEDS: SERTRALINE 100 MG TABLET PO SCH (21:09)
[2022-05-11] MEDS: DILTIAZEM 120 MG CAP.XL.24H PO SCH (21:09)
[2022-05-11] MEDS: clonazePAM 1 MG TABLET PO SCH (21:09)
[2022-05-11] MEDS: IPRATROPIUM/ALBUTEROL 3 ML AMPUL.NEB NEB PRN (21:11)
[2022-05-12] MEDS: 0.9 % SODIUM CHLORIDE 10 ML SYRINGE IV SCH ×4 (00:20→21:06)
[2022-05-12] MEDS: PIPERACILLIN SODIUM/TAZOBACTAM 3.375 GM in DEXTROSE 5% IN WATER 50 ML IV SCH ×4 (00:21→17:07)
[2022-05-12] MEDS: morphine 4 MG/ML VIAL IV PRN ×4 (00:35→19:26)
[2022-05-12] MEDS: oxyCODONE/APAP 10/325MG TABLET PO PRN ×3 (04:58→17:07)
[2022-05-12] MEDS: IPRATROPIUM/ALBUTEROL 3 ML AMPUL.NEB NEB PRN ×2 (05:04→15:54)
--- NOTE | 2022-05-12 06:48 | XRay Report ---
INDICATION: pleural effusion and pneumonitis;CHEST TUBE TECHNIQUE: AP portable semiupright chest x-ray COMPARISON: Previous chest x-rays dated 05/11/2022, 05/10/2022, 05/10/2022 FINDINGS: No change in right sided chest tube. The sidehole of the chest tube appears to be extrathoracic. There is no subcutaneous gas. Persistent right pleural fluid collection. This is unchanged. Persistent right lung infiltrates are unchanged. Findings may be due to benign volume loss but pneumonia is possible Left lung is negative. IMPRESSION: No interval change since 05/11/2022 Interpreted and Authenticated by: Angus Francisco 05/12/22
[2022-05-12 07:22] LABS: Basophils # (Auto) 0.05 K/mcL (0.00-0.30); Basophils % (Auto) 0.6 % (0.0-2.0); Eosinophils # (Auto) 0.22 K/mcL (0.00-0.70); Eosinophils % (Auto) 2.8 % (0.0-7.0); Hematocrit 36.9 % (34.1-44.9); Hemoglobin 11.4 g/dL (11.2-15.7); Lymphocytes # (Auto) 1.29 K/mcL (1.50-4.80); Lymphocytes % (Auto) 16.6 % (15.5-49.0); Mean Cell Volume 96.3 fL (80.0-100.0); Mean Corpuscular HGB Conc 30.9 g/dL (31.0-36.0); Mean Platelet Volume 9.4 fL (8.8-12.5); Monocytes # (Auto) 0.64 K/mcL (0.10-0.90); Monocytes % (Auto) 8.2 % (1.0-12.0); Neutrophils % (Auto) 71.3 % (38.0-78.0); Platelet Count 296 K/mcL (140-440); RBC 3.83 M/mcL (3.59-5.38); Red Cell Distribution Width 15.5 % (11.5-14.5); WBC 7.8 K/mcL (4.5-11.0)
[2022-05-12] MEDS: OMEPRAZOLE 20 MG CAPSULE PO SCH (07:38)
[2022-05-12] MEDS: LEVOTHYROXINE 100 MCG TABLET PO SCH (07:38)
[2022-05-12 08:07] LABS: ALT/SGPT 107 U/L (<40); AST/SGOT 116 U/L (<32); Albumin 3.3 gm/dL (3.2-5.2); Albumin/Globulin Ratio 0.8 (1.0-2.3); Alkaline Phosphatase 259 U/L (39-117); Bilirubin,Total 0.6 mg/dL (0.1-1.0); Blood Urea Nitrogen 13 mg/dL (6-20); Calcium 9.4 mg/dL (8.6-10.4); Carbon Dioxide 40 mmol/L (22-30); Chloride 93 mmol/L (96-108); Glomerular Filtration Rate 120; Glucose 78 mg/dL (70-105)
[2022-05-12] MEDS: DOCUSATE SODIUM 100 MG CAPSULE PO SCH ×2 (09:23→21:05)
--- NOTE | 2022-05-12 12:27 | General Surgery Progress Note ---
SUBJECTIVE Subjective Patient information: Note initiated : 05/12/22 at 12:22 pm Service Date, if different from initiated Date: [] Patient: Estela Man 51 y/o F admitted on 05/06/22 for Breathing troubles. Chief Complaint: [] Principal diagnosis: Right pleural effusion Interval history: Patient is stable. She does not have any pleuritic chest pain. Her dyspnea is stable. She still has decreased breath sounds at the right base. Output via chest tube is negligible. White blood count 7.8, hemoglobin 11.4, hematocrit 36.9. CHEM panel looks normal Constitutional Vitals: Vital Signs Temp Pulse Resp BP Pulse Ox O2 Del Method O2 Flow Rate 97.6 F 108 H 14 116/75 98 3 05/12/22 11:40 05/12/22 11:40 05/12/22 11:40 05/12/22 11:40 05/12/22 11:40 05/12/22 11:40 05/12/22 11:40 Period Temp Pulse Resp BP Sys/Molina Pulse Ox O2 Del Method O2 Flow Rate Last 24 Hr 97.2 F-98.4 F 90-108 12-18 109-122/70-92 96-98 Nasal Cannula- Room Air 3-3 Intake and Output 05/12/22 05/12/22 05/12/22 03:59 11:59 19:59 Intake Total 170 170 Output Total 350 500 Balance -180 -330 Weight 216 lb Intake & Output: Intake & Output 05/12/22 05/12/22 05/12/22 03:59 11:59 19:59 Intake Total 170 170 Output Total 350 500 Balance -180 -330 Weight 216 lb Intake: IV 50 50 Zosyn 3.375 gm In Dextrose 5% 50 50 in Water 50 ml @ 100 mls/hr IV Q6H [facility] Rx#:[id number] Oral 120 120 Output: Chest Tube Drainage 25 Right Mid-Axillary Chest 25 Void Amount 350 475 Other: Urine Appearance Clear Urine Color Dark Yellow Z[facility] ENT ENT exam: Present normal external ear exam and normal oropharynx Neck Neck exam: Present full ROM and normal inspection; Absent tenderness Respiratory Respiratory exam: Present decreased breath sounds (Decreased breath sounds right base); Absent chest wall tenderness Additional comments: Chest tube is fluctuating appropriately Cardiovascular Cardiovascular exam: Present normal rate and rhythm, RRR, +S1 and +S2; Absent JVD GI/Abdominal GI/Abdominal exam: Present normal bowel sounds and soft; Absent tenderness Extremities Exam Extremities exam: Present full ROM and neurovascular intact; Absent tenderness Neurological Exam Neurological exam: Present oriented X3 and reflexes normal A/P Assessment and plan (1) Loculated pleural effusion: Status: Acute (2) Anemia, normocytic normochromic: Status: Acute (3) Depression with anxiety: Status: Acute (4) COPD (chronic obstructive pulmonary disease): Status: Chronic Qualifiers: COPD type: chronic bronchitis Chronic bronchitis type: simple Qual ified Code(s): J41.0 - Simple chronic bronchitis Plan Continue to arrange for transfer to Center with thoracic surgery for pleurodesis and evacuation of loculated effusion Sepsis Sepsis Identified: No Time Spent With Patient Time: Total time spent is greater than 50% in coordination of care (as documented) at patient's floor/unit and/or counseling patient:
--- NOTE | 2022-05-12 12:48 | Internal Med Progress Note ---
SUBJECTIVE Subjective Patient information: Note initiated : 05/12/22 at 12:45 pm Service Date, if different from initiated Date: [] Patient: Estela Man a 51 y/o F admitted on 05/06/22 for Breathing troubles. Chief Complaint: [] Principal diagnosis: Right pleural effusion Interval history: Ms. Man is a 51 year old F Presents to the ED with shortness of breath and right lateral chest wall pain. This has been worsening for the past 3-4 days. Typically wears oxygen at night but it sounds like she had use oxygen during the day as well. She did have a respiratory illness about 3 weeks ago and was treated for COPD exacerbation. She said she seemed to be getting better and then 3-4 days ago started getting worse again with new right lateral chest wall pain. She says she does not have much of a cough but she is had increasing shortness of breath. Complains of headaches but no fevers and chills. Work-up in the ER revealed a hypoxic days 7%. She was tachycardic. Blood pressures were soft in the 90s. She had a leukocytosis of 20,000. Lactate and chemistry panel pending. CT of the chest showed a large pleural effusion on the right with loculations. Discussed with Dr. Zamudio surgeon for possible chest tube placement. INR now back which is too high for immediate tube. Past medical which includes atrial fibrillation COPD tobacco abuse hypothyroidism obstructive sleep apnea pulmonary hypertension chronic pain. She did have some abnormalities on chest CT in the past that pulmonology was going to have radiology do a biopsy of but then pulmonology decided against it telling her it was probably scar tissue, this is per the patient's history. 05/07 Patient slept okay. Complains of right lateral chest pain worse today. Oxygen requirement no worse. Leukocytosis mildly improved. Patient complains of headache and has continued cough and shortness of breath. INR not low enough yet will order FFP and repeat INR. In order to place chest tube. 05/08 Patient has productive cough. Shortness of breath mild. Right chest pain improving. INR now appropriate for chest tube. Leukocytosis. 05/09: Status post right-sided chest tube insertion by general surgeon Dr. Zamudio on 05/08. Bloody discharge from chest tube. Patient is currently on 3 L/min of nasal cannula supplemental oxygen (baseline=3L/min). Currently denies any right sided chest pain. c/o anxiety. Denies any fever, chills, or sweating. H/H stable this morning. Blood cultures no growth to date. Continue to monitor pleural fluid analysis as well as blood culture. Continue IV Zosyn for now. Continue to provide narcotics as needed for pain control. Continue to monitor chest tube output to decide when to resume Coumadin for her atrial fibrillation. Physical therapy evaluation and treatment. 05/10: Patient is currently on 3 L/min nasal cannula supplemental oxygen (baseline=3L/min). Afebrile overnight. Chest x-ray this morning showing right pleural fluid collection remains present. It also shows right basilar pulmonary parenchymal density consistent with volume loss or pneumonia. Blood culture no growth today. It has been found out that no pleural fluid sample was being sent for fluid analysis when chest tube was inserted. Patient denies any chest wall pain at rest; she is complaining of moderate to severe sharp right-sided chest wall pain when she ambulates or coughs. She denies having any subjective fever chills or diaphoresis. Since patient's early on antibiotics for couple of days, did you of sending the pleural fluid now for fluid analysis for culture is extremely low. As a result, will not proceed with such. We will continue Zosyn for now. Continue to provide narcotics as needed for pain control. Will keep chest tube in place and daily CXR to monitor for pleural effusion. Will keep holding Coumadin while chest tube in place. Will work with general surgeon to comanage chest tube. Physical therapy evaluation and treatment. 05/11: Status post failed attempt of posterior chest wall thoracentesis by IR on 05/10. Repeat chest x-ray today showing no change in right-sided pleural abnormal ities. No change in positions of the right-sided chest tube. Patient denies any chest wall pain at rest but is complain of severe pain whenever she moves. I spoke with general surgeon Dr. Freeman who recommends the patient to be transferred to another hospital with cardiothoracic surgeons consultations to further manage the loculated right-sided pleural effusions. We will start locating a bed for her. Continue to provide narcotics as needed for pain control meanwhile. Continue supplemental oxygen therapy. Continue Zosyn for now. 05/12: Patient has been afebrile overnight. She is on 3 L/min nasal cannula supplemental oxygen therapy. Order cultures no growth today. Chest x-ray from this morning no interval changes relative to previous study. Patient denies any right-sided chest wall pain at rest. She denies any shortness of breath. Continue Zosyn for now while waiting for transfer for cardiothoracic surgery consultations. Constitutional Vitals: Vital Signs Temp Pulse Resp BP Pulse Ox O2 Del Method O2 Flow Rate 36.4 C 108 H 14 116/75 98 3 05/12/22 11:40 05/12/22 11:40 05/12/22 11:40 05/12/22 11:40 05/12/22 11:40 05/12/22 11:40 05/12/22 11:40 Period Temp Pulse Resp BP Sys/[place] Pulse Ox O2 Del Method O2 Flow Rate Last 24 Hr 36.2 C-36.9 C 90-108 12-18 109-122/70-92 96-98 Nasal Cannula- Room Air 3-3 Intake and Output 05/12/22 05/12/22 05/12/22 03:59 11:59 19:59 Intake Total 170 170 Output Total 350 500 Balance -180 -330 Weight 97.976 kg Intake & Output: Intake & Output 05/12/22 05/12/22 05/12/22 03:59 11:59 19:59 Intake Total 170 170 Output Total 350 500 Balance -180 -330 Weight 97.976 kg Intake: IV 50 50 Zosyn 3.375 gm In Dextrose 5% 50 50 in Water 50 ml @ 100 mls/hr IV Q6H [facility] Rx#:[id number] Oral 120 120 Output: Chest Tube Drainage 25 Right Mid-Axillary Chest 25 Void Amount 350 475 Other: Urine Appearance Clear Urine Color Dark Yellow [place] General appearance: cooperative, no acute distress and obese Head Head exam: Present atraumatic and normal inspection Eye Eye exam: Present normal appearance ENT ENT exam: Present mucous membranes moist, normal exam and normal external ear exam Additional comments: Nasal cannula in place Neck Neck exam: Present normal inspection Respiratory Respiratory exam: Present chest wall tenderness and decreased breath sounds Additional comments: Right sided chest tube in place Cardiovascular Cardiovascular exam: Present irregular rhythm GI/Abdominal GI/Abdominal exam: Present normal bowel sounds Back Exam Back exam: Present normal inspection Neurological Exam Neurological exam: Present alert and oriented X3 Skin Skin exam: Present intact and warm OBJ DATA Labs CBC & Chem 7: 05/12/22 05:32 05/12/22 05:32 Labs: Abnormal Lab Results 05/12/22 05/12/22 05/11/22 05:32 05:32 05:33 WBC RBC Hgb Hct MCHC 30.9 L RDW 15.5 H Neut % (Auto) Lymph % (Auto) Lymph # (Auto) 1.29 L [place] # (Auto) Immature Gran # Absolute Neutrophils PT INR Plt Func Collagen/Epi Chloride 93 L Carbon Dioxide 40 H 38 H Anion Gap 7.0 L 7.0 L Creatinine 0.4 L 0.4 L AST 116 H 51 H ALT 107 H 70 H Alkaline Phosphatase 259 H 155 H Albumin 3.1 L Globulin 4.0 H Albumin/Globulin Ratio 0.8 L 0.9 L 05/11/22 05/11/22 05/10/22 05:33 05:33 15:16 WBC RBC 3.37 L Hgb 10.2 L Hct 33.0 L MCHC 30.9 L RDW 15.9 H Neut % (Auto) Lymph % (Auto) 12.9 L Lymph # (Auto) 1.13 L [place] # (Auto) Immature Gran # Absolute Neutrophils PT 14.8 H 15.1 H INR Plt Func Collagen/Epi 78 L Chloride Carbon Dioxide Anion Gap Creatinine AST ALT Alkaline Phosphatase Albumin Globulin Albumin/Globulin Ratio 05/10/22 05/10/22 05/10/22 05:30 05:30 05:30 WBC 14.5 H RBC 3.32 L Hgb 10.0 L Hct 32.1 L MCHC RDW 15.8 H Neut % (Auto) 86.1 H Lymph % (Auto) 6.0 L Lymph # (Auto) 0.87 L [place] # (Auto) 1.06 H Immature Gran # 0.06 H Absolute Neutrophils 12.51 H PT 16.1 H INR 1.2 H Plt Func Collagen/Epi Chloride Carbon Dioxide 40 H Anion Gap 5.0 L Creatinine 0.4 L AST 59 H ALT 59 H Alkaline Phosphatase 147 H Albumin Globulin Albumin/Globulin Ratio 0.9 L Meds: Medications Acetaminophen (Acetaminophen 325 Mg Tablet) 650 mg PO Q6HP PRN; Protocol PRN Reason: Per Pain Protocol/Fever > 101 Albuterol/Ipratropium (Ipratropium/Albuterol 3 Ml Ampul.Neb) 3 ml NEB Q4HP PRN PRN Reason: Shortness Of Breath Last Admin: 05/12/22 05:04 Dose: 3 ml Clonazepam (Clonazepam 1 Mg Tablet) 0.5 mg PO QHS [facility] Last Admin: 05/11/22 21:09 Dose: 0.5 mg Diltiazem HCl (Diltiazem 120 Mg Cap.Xl.24h) 240 mg PO QHS [facility] Last Admin: 05/11/22 21:09 Dose: 240 mg Docusate Sodium (Docusate Sodium 100 Mg Capsule) 100 mg PO BID [facility] Last Admin: 05/12/22 09:23 Dose: 100 mg Potassium Chloride 40 meq/ (Dextrose) 520 mls @ 130 mls/hr IV UD PRN PRN Reason: Potassium < 3 Magnesium Sulfate (Magnesium Sulfate) 2 gm in 50 mls @ 50 mls/hr IV UD PRN PRN Reason: Magnesium </= 1.6 Piperacillin Sod/Tazobactam (Sod 3.375 gm/ Dextrose) 50 mls @ 100 mls/hr IV Q6H [facility]; Protocol Last Admin: 05/12/22 12:15 Dose: 100 mls/hr Levothyroxine Sodium (Levothyroxine 100 Mcg Tablet) 100 mcg PO ACB [facility] Last Admin: 05/12/22 07:38 Dose: 100 mcg Lorazepam (Lorazepam 0.5 Mg Tablet) 0.5 mg PO Q4HP PRN PRN Reason: ANXIETY/SEDATION Metoprolol Succinate (Metoprolol Succinate 25 Mg Tab.Xl.24h) 75 mg PO QHS [facility] Last Admin: 05/11/22 21:08 Dose: 75 mg Metoprolol Tartrate (Metoprolol Tartrate 5 Mg/5 Ml Vial) 5 mg IV Q2HP PRN PRN Reason: Tachyarrhythmias HR>110 Montelukast Sodium (Montelukast 10 Mg Tablet) 10 mg PO QHS [facility] Last Admin: 05/11/22 21:09 Dose: 10 mg Morphine Sulfate (Morphine 4 Mg/Ml Vial) 0 mg IV Q3HP PRN PRN Reason: Pain Last Admin: 05/12/22 07:43 Dose: 2 mg Omeprazole (Omeprazole 20 Mg Capsule) 20 mg PO ACB [facility] Last Admin: 05/12/22 07:38 Dose: 20 mg Ondansetron HCl (Ondansetron 4 Mg/2 Ml Vial) 4 mg IV Q4HP PRN PRN Reason: Nausea And Vomiting Last Admin: 05/11/22 22:23 Dose: 4 mg Oxycodone/Acetaminophen (Oxycodone/Apap 10/325mg Tablet) 1 tab PO Q6HP PRN; Protocol PRN Reason: Pain Level 3-6 Last Admin: 05/12/22 11:08 Dose: 1 tab Polyethylene Glycol (Polyethylene Glycol 3350 17 Gm Packet) 17 gm PO DAILYP PRN PRN Reason: Constipation Potassium Chloride (Potassium Chloride 20 Meq Tablet) 40 meq PO UD PRN PRN Reason: Potssium is 3-3.5 Potassium Chloride (Potassium Chloride 20 Meq Tablet) 40 meq PO UD PRN PRN Reason: Potassium < 3 Senna (Sennosides 1 Tablet) 2 tab PO DAILYP PRN PRN Reason: Constipation Sertraline HCl (Sertraline 100 Mg Tablet) 200 mg PO QHS [facility] Last Admin: 05/11/22 21:09 Dose: 200 mg Sodium Chloride (0.9 % Sodium Chloride 10 Ml Syringe) 10 ml IV Q8 [facility] Last Admin: 05/12/22 05:41 Dose: 10 ml A/P Assessment and plan (1) Depression with anxiety: Status: Acute (2) Pleural effusion: Status: Acute (3) Pneumonia: Status: Acute (4) COPD (chronic obstructive pulmonary disease): Status: Chronic Qualifiers: COPD type: chronic bronchitis Chronic bronchitis type: simple Qualified Code(s): J41.0 - Simple chronic bronchitis (5) Atrial fibrillation with RVR: Status: Chronic (6) WES (obstructive sleep apnea): Status: Chronic (7) Hypothyroidism, acquired: Status: Chronic (8) GERD (gastroesophageal reflux disease): Status: Chronic Qualifiers: Esophagitis presence: without esophagitis Qualified Code(s): K21.9 - Gastro-esophageal reflux disease without esophagitis Narrative A/P Narrative: Assessment and Plans: 1. Pneumonia with right sided located pleural effusion: Inpatient med surg Blood culture no growth to date Status post failed attempt of posterior chest wall thoracentesis by IR on 05/10. Repeat chest x-ray today showing no change in right-sided pleural abnormalities. I spoke with general surgeon Dr. Freeman who recommends the patient to be transferred to another hospital with cardiothoracic surgeons consultations to further manage the loculated right-sided pleural effusions. We will start locating a bed for her. cbc w/ auto diff in the morning to trend WBC Continue Zosyn Tylenol PRN Percocet PRN Morphine IV PRN Physical therapy evaluation and treatment Supplemental oxygen therapy (baseline=3L/min) Incentive spirometry q1HWA CXR daily 2. COPD, stable: Supplemental oxygen therapy (baseline=3L/min) Continue bronchodilators from home regimen DuoNEB NEB PRN wheezing or shortness of breath 3. WES: Patient did not tolerate it at night, and it is also relatively contraindicated now while chest tube is in place 4. Atrial fibrillation with RVR: Coumadin held due to chest tube with serosanguineous discharge; will resume Coumadin after chest tube being pulled Daily INR for Coumadin dosing Diltiazem Metoprolol ER 5. Anxiety/Depression: Zoloft Ativan PO PRN 6. Hypothyroidism: Synthroid 7. GERD: Prilosec GI ppx: Prilosec DVT ppx: SCDs; holding Coumadin for chest tube Code status: Full Prognosis: guarded Disposition: inpatient med surg; pending transfer to other hospital for CT surgery consultation Time Spent With Patient Time: Total time spent is greater than 50% in coordination of care (as documented) at patient's floor/unit and/or counseling patient: Total time spent with greater than 50% in coordination of care (as documented) at patient's floor/unit and/or counseling patient:: 25 - 35 minutes QUALITY VTE Deep Vein Thrombosis/Pulmonary Embolism Present on Admission: No
--- NOTE | 2022-05-12 17:14 | Discharge Summary ---
Discharge Provider Provider IMPORTANT FOLLOW-UP INFORMATION FOR PCP: Patient information: Note initiated : 05/12/22 at 5:11 pm Service Date, if different from initiated Date: [] Patient: Estela Man 51 y/o F admitted on 05/06/22 for Breathing troubles. Chief Complaint: [] Date of admission: 05/06/22 20:29 Discharge date: 05/12/22 Primary care physician: Todd Schaefer Attending physician on admission: Christiano Knowles Consults: 05/06/22 Consult to Physician [CONS] Stat Comment: Consulting Provider: Christiano Knowles Reason For Exam: Physician to Consult Consult to Physician [CONS] Stat Comment: Consulting Provider: Floyd Zamudio Reason For Exam: Physician to Consult Attending physician on discharge: Chi Jorje Pui COURSE Hospital Course Hospital course: Ms. Man is a 51 year old F Presents to the ED with shortness of breath and right lateral chest wall pain. This has been worsening for the past 3-4 days. Typically wears oxygen at night but it sounds like she had use oxygen during the day as well. She did have a respiratory illness about 3 weeks ago and was treated for COPD exacerbation. She said she seemed to be getting better and then 3-4 days ago started getting worse again with new right lateral chest wall pain. She says she does not have much of a cough but she is had increasing shortness of breath. Complains of headaches but no fevers and chills. Work-up in the ER revealed a hypoxic days 7%. She was tachycardic. Blood pressures were soft in the 90s. She had a leukocytosis of 20,000. Lactate and chemistry panel pending. CT of the chest showed a large pleural effusion on the right with loculations. Discussed with Dr. Zamudio surgeon for possible chest tube placement. INR now back which is too high for immediate tube. Past medical which includes atrial fibrillation COPD tobacco abuse hypothyroidism obstructive sleep apnea pulmonary hypertension chronic pain. She did have some abnormalities on chest CT in the past that pulmonology was going to have radiology do a biopsy of but then pulmonology decided against it telling her it was probably scar tissue, this is per the patient's history. 05/07 Patient slept okay. Complains of right lateral chest pain worse today. Oxygen requirement no worse. Leukocytosis mildly improved. Patient complains of headache and has continued cough and shortness of breath. INR not low enough yet will order FFP and repeat INR. In order to place chest tube. 05/08 Patient has productive cough. Shortness of breath mild. Right chest pain improving. INR now appropriate for chest tube. Leukocytosis. 05/09: Status post right-sided chest tube insertion by general surgeon Dr. Zamudio on 05/08. Bloody discharge from chest tube. Patient is currently on 3 L/min of nasal cannula supplemental oxygen (baseline=3L/min). Currently denies any right sided chest pain. c/o anxiety. Denies any fever, chills, or sweating. H/H stable this morning. Blood cultures no growth to date. Continue to monitor pleural fluid analysis as well as blood culture. Continue IV Zosyn for now. Continue to provide narcotics as needed for pain control. Continue to monitor chest tube output to decide when to resume Coumadin for her atrial fibrillation. Physical therapy evaluation and treatment. 05/10: Patient is currently on 3 L/min nasal cannula supplemental oxygen (baseline=3L/min). Afebrile overnight. Chest x-ray this morning showing right pleural fluid collection remains present. It also shows right basilar pulmonary parenchymal density consistent with volume loss or pneumonia. Blood culture no growth today. It has been found out that no pleural fluid sample was being sent for fluid analysis when chest tube was inserted. Patient denies any chest wall pain at rest; she is complaining of moderate to severe sharp right-sided chest wall pain when she ambulates or coughs. She denies having any subjective fever chills or diaphoresis. Since patient's early on antibiotics for couple of days, did you of sending the pleural fluid now for fluid analysis for culture is extremely low. As a result, will not proceed with such. We will continue Zosyn for now. Continue to provide narcotics as needed for pain control. Will keep chest tube in place and daily CXR to monitor for pleural effusion. Will keep holding Coumadin while [facility]son st tube in place. Will work with general surgeon to comanage chest tube. Physical therapy evaluation and treatment. 05/11: Status post failed attempt of posterior chest wall thoracentesis by IR on 05/10. Repeat chest x-ray today showing no change in right-sided pleural abnormalities. No change in positions of the right-sided chest tube. Patient denies any chest wall pain at rest but is complain of severe pain whenever she moves. I spoke with general surgeon Dr. Freeman who recommends the patient to be transferred to another hospital with cardiothoracic surgeons consultations to further manage the loculated right-sided pleural effusions. We will start locating a bed for her. Continue to provide narcotics as needed for pain control meanwhile. Continue supplemental oxygen therapy. Continue Zosyn for now. 05/12: Patient has been afebrile overnight. She is on 3 L/min nasal cannula supplemental oxygen therapy. Order cultures no growth today. Chest x-ray from this morning no interval changes relative to previous study. Patient denies any right-sided chest wall pain at rest. She denies any shortness of breath. Continue Zosyn for now while waiting for transfer for cardiothoracic surgery consultations. Transferred out to [facility] for ST surgery evaluation and treatment. Discharge diagnosis: Pneumonia with right sided pleural effusion suspect empyema Time Spent with Patient Time attestation: Total time spent providing and/or coordinating discharge services: Time spent: Less than 30 minutes EXAM Constitutional Vitals: Temp Pulse Resp BP Pulse Ox O2 Del Method O2 Flow Rate 36.3 C 104 H 16 109/75 96 2.5 05/12/22 15:36 05/12/22 15:56 05/12/22 15:56 05/12/22 15:36 05/12/22 15:56 05/12/22 15:56 05/12/22 15:56 General appearance: cooperative and no acute distress Head Head exam: Present atraumatic and normocephalic Eye Eye exam: Present EOMI and PERRL ENT ENT exam: Present mucous membranes moist, normal exam and normal external ear exam Additional comments: Nasal cannula in place Neck Neck exam: Present normal inspection; Absent lymphadenopathy, tenderness or thyromegaly Respiratory Respiratory exam: Present decreased breath sounds; Absent accessory muscle use, respiratory distress or wheezes Cardiovascular Cardiovascular exam: Present irregular rhythm and tachycardia; Absent JVD GI/Abdominal GI/Abdominal exam: Present normal bowel sounds and soft; Absent organomegaly or tenderness Extremities Exam Extremities exam: Present full ROM, normal capillary refill and normal inspection; Absent tenderness Neurological Exam Neurological exam: Present alert, CN II-XII intact and oriented X3; Absent motor sensory deficit Psychiatric Psychiatric exam: Present normal affect and normal mood; Absent anxious or depre ssed Skin Skin exam: Present dry and intact Discharge Data Data Completed and Pending Labs on day of discharge: Labs from last 24 hours 05/12/22 05/12/22 05:32 05:32 WBC 7.8 RBC 3.83 Hgb 11.4 Hct 36.9 MCV 96.3 MCH 29.8 MCHC 30.9 L RDW 15.5 H Plt Count 296 MPV 9.4 Immature Gran % (Auto) 0.5 Neut % (Auto) 71.3 Lymph % (Auto) 16.6 [place] % (Auto) 8.2 Eos % (Auto) 2.8 Baso % (Auto) 0.6 Lymph # (Auto) 1.29 L [place] # (Auto) 0.64 Eos # (Auto) 0.22 Baso # (Auto) 0.05 Immature Gran # 0.04 Absolute Neutrophils 5.53 Sodium 140 Potassium 4.7 Chloride 93 L Carbon Dioxide 40 H Anion Gap 7.0 L BUN 13 Creatinine 0.4 L GFR Calculation 120 Glucose 78 Calcium 9.4 Total Bilirubin 0.6 AST 116 H ALT 107 H Alkaline Phosphatase 259 H Total Protein 7.3 Albumin 3.3 Globulin 4.0 H Albumin/Globulin Ratio 0.8 L Preliminary micro results at discharge 05/10/22 16:00 Catheter Tip Culture - Preliminary Catheter Tip - Not Given 05/10/22 14:45 Gram Stain - Preliminary Sputum source - Expectorated Sputum Culture - Preliminary Discharge Plan Patient/Caregiver Discharge Instructions Activity: increase activity as tolerated Diet: Regular Diet Prescriptions: Continued Trelegy Ellipta 100-62.5-25 mcg blister with device 1 inh PO QDAY Qty: 60 5RF ipratropium-albuterol 0.5 mg-3 mg(2.5 mg base)/3 mL solution for nebulization 3 ml INHALATION QID PRN (Reason: Wheezing) metoprolol succinate 25 mg tablet extended release 24 hr 75 mg PO QHS Rx Instructions: Take 2 tablets (50 mg) every morning, and 1 tablet (25 mg) every evening. clonazepam 1 mg tablet 0.5 mg PO QHS diltiazem HCl 240 MG capsule,ext.rel 24h degradable 240 mg PO QHS sertraline 100 MG tablet 200 mg PO QHS levothyroxine 100 MCG tablet 100 mcg PO DAILY albuterol sulfate 1 PUFF inhaler 1 puff INH Q4HP PRN (Reason: Shortness Of Breath) omeprazole 20 MG capsule 20 mg PO QAM oxycodone-acetaminophen 1 TAB tablet 1 tab PO Q6H PRN (Reason: Pain Level 3-6) montelukast [Singulair] 10 mg tablet 10 mg PO QHS Discontinued warfarin 5 MG tablet 15 mg PO QHS Follow Up Plan Follow up with: Paul Schaefer MD [Primary Care Provider] - Patient Disposition: [facility] Rehab Potential: Good I certify that the patient requires SNF services: No Overall status at discharge: patient is not back to baseline Discharge Orders: Discharge Order (Routine); Ordered 05/12/22 Ordered By: David GONZALES VTE Deep Vein Thrombosis/Pulmonary Embolism Present on Admission: No
[2022-05-12] MEDS: DILTIAZEM 120 MG CAP.XL.24H PO SCH (21:02)
[2022-05-12] MEDS: MONTELUKAST 10 MG TABLET PO SCH (21:05)
[2022-05-12] MEDS: clonazePAM 1 MG TABLET PO SCH (21:05)
[2022-05-12] MEDS: METOPROLOL SUCCINATE 25 MG TAB.XL.24H PO SCH (21:06)
[2022-05-12] MEDS: SERTRALINE 100 MG TABLET PO SCH (21:06)
[2022-05-13] MEDS: morphine 4 MG/ML VIAL IV PRN (00:08)
[2022-05-13] MEDS: PIPERACILLIN SODIUM/TAZOBACTAM 3.375 GM in DEXTROSE 5% IN WATER 50 ML IV SCH (00:13)
== END 2022-05-13 01:05 | disposition short-term general hospital (02) | DRG 871 ==
LOC: ED 12:56 → MEDSUR 20:29
PROVIDERS: ADMIT Internal Medicine; ATTEND Internal Medicine

== ENCOUNTER 2022-05-30 13:43 | Inpatient (IN) ==
[2022-05-30] MEDS ORDERED: PIPERACILLIN SODIUM/TAZOBACTAM 3.375 GM in DEXTROSE 5% IN WATER 50 ML IV ONE (14:31)
[2022-05-30] MEDS ORDERED: VANCOMYCIN 1,500 MG in 0.9 % SODIUM CHLORIDE 500 ML IV ONE (14:33)
[2022-05-30 14:56] LABS: POC Calcium, Ionized 1.14 (1.16-1.32); POC Creatinine 0.5 (0.6-1.2); POC Potassium 3.7 (3.3-5.1)
[2022-05-30 15:50] LABS: Basophils # (Auto) 0.03 K/mcL (0.00-0.30); Basophils % (Auto) 0.5 % (0.0-2.0); Eosinophils # (Auto) 0 K/mcL (0.00-0.70); Eosinophils % (Auto) 0 % (0.0-7.0); Hematocrit 34.9 % (34.1-44.9); Hemoglobin 11.2 g/dL (11.2-15.7); Mean Cell Volume 94.3 fL (80.0-100.0); Mean Corpuscular HGB Conc 32.1 g/dL (31.0-36.0); Mean Platelet Volume 9.6 fL (8.8-12.5); Monocytes # (Auto) 0.97 K/mcL (0.10-0.90); Monocytes % (Auto) 16.3 % (1.0-12.0); Neutrophils % (Auto) 77.7 % (38.0-78.0); Platelet Count 238 K/mcL (140-440); Red Cell Distribution Width 16.8 % (11.5-14.5)
--- NOTE | 2022-05-30 17:08 | Cat Scan Report ---
Heart is borderline enlarged. There are few calcified plaques in the coronary arteries. Several small reactive lymph nodes are present in the mediastinum. IMPRESSION: History: Recent discharge from [facility] for an empyema, new onset shortness of breath TECHNIQUE: The chest was imaged without contrast in axial plane at 2.5 mm intervals. Sagittal, coronal and axial MIPS images were created. The radiation exposure was limited using dose reduction technology. FINDINGS: Small amount residual pleural fluid is present posteriorly and laterally in the right mid and lower thorax. This contains bubbles of air. This has diminished in size since prior CT done on 05/17/22. The previously seen drainage catheter in the pleural space is been removed. There are thick bands of scar atelectasis in right middle lobe and right lower lobe. The medial segment right middle lobe there is a small lung abscess. In the central cavitation but no air-fluid levels. Is relatively thick wall and measures 1.9 x 3.0 cm. There are filled cavity measures 0.7 x 1.7 cm. This has enlarged since the recent CT scan. Posteriorly in the right apex there is a 1.3 cm nodular density. This is a new finding from two weeks ago and is most likely due to an inflammatory reaction. There is another similar-appearing nodular density along the superior border of the major fissure which measures 1.6 cm. It was 1.5 cm on the prior exam. Nonspecific mild alveolar opacities are present in both upper lobes, left greater than right, extending to the left upper hilum. These are new. IMPRESSION: Residual small right-sided empyema in the lateral right lung base. It has not enlarged following removal of the drainage catheter. Small lung abscess in the medial segment right middle lobe. Nodular densities in the right upper lobe and along the superior border of the right major fissure. These are most likely an inflammatory process. Low level pneumonia in both upper lobes, left greater than right Libia Tinoco was called with the report Interpreted and Authenticated by: Sourav Gimenez 05/30/22
--- NOTE | 2022-05-30 18:18 | Emergency Department Note ---
SOB HPI <Libia Tinoco PA-C - Last Filed: 05/30/22 20:12> General Chief Complaint: Shortness of Breath/Dyspnea Stated Complaint: SOB Time Seen by Provider: 05/30/22 14:25 Source: patient Mode of arrival: wheelchair Limitations: no limitations History of Present Illness HPI Narrative: 51-year-old female with history of gastric sleeve surgery on chronic PPI, atrial fibrillation on Coumadin, obstructive sleep apnea, COPD on home O2 1 to 2 L presents to the ER with complains of shortness of breath and hypoxia with oxygen saturations 84% on room air. She is also endorsing a new cough., She had a recent admission to [facility] from 05/06 for pneumonia and initiation of broad-spectrum antibiotics. Unfortunately, due to persistent fluid collections she was transferred to [facility] for advanced cardiothoracic services on 05/12-05/19 for empyema and loculated pleural effusion. During her admission at [place] she had placement of a chest tube on 03/15 and she was initiated on broad-spectrum antibiotics. Fluid cultures from her empyema grew Bacteroides fragilis, strep viridans and strep species. She underwent chest tube directed tPA. She underwent serial chest radiographs with improvement of her loculated right pleural effusion. Her chest tube was removed on 05/19 and she was initiated on Augmentin for 21 days and discharged to home. Related Data Home Medications Medication Instructions Recorded Confirmed albuterol sulfate 90 mcg/actuation 1 puff INH Q4HP PRN Shortness Of 07/01/15 05/30/22 aerosol inhaler Breath diltiazem HCl 240 mg 240 mg PO QHS 07/01/15 05/30/22 capsule,extended release 24 hr, controlled levothyroxine 100 mcg tablet 100 mcg PO DAILY 07/01/15 05/30/22 sertraline 100 mg tablet 200 mg PO QHS 07/01/15 05/30/22 clonazepam 1 mg tablet 0.5 mg PO QHS PRN Anxiety 03/06/17 05/30/22 omeprazole 20 mg capsule,delayed 20 mg PO QAM 05/05/18 05/30/22 release ipratropium 0.5 mg-albuterol 3 mg 3 ml inhalation QID PRN Wheezing 01/27/20 05/30/22 (2.5 mg base)/3 mL nebulization soln metoprolol succinate 25 mg 50 mg PO QHS 02/05/20 05/30/22 tablet,extended release 24 hr montelukast 10 mg tablet 10 mg PO QHS 04/01/21 05/30/22 (Singulair) oxycodone 10 mg tablet 1 tab PO QIDP PRN Pain 05/30/22 05/30/22 vitamin B complex 1 cap PO HS 05/30/22 05/30/22 warfarin 1 mg tablet 1 mg PO HS 05/30/22 05/30/22 Previous Rx's Medication Instructions Recorded fluticasone fur. 100 mcg-umeclid 1 inh PO QDAY #60 ea 11/18/21 62.5 mcg-vilant 25 mcg inhalat.powder (Trelegy Ellipta) Allergies Allergy/AdvReac Type Severity Reaction Status Date / Time naproxen [NAPROXEN] Allergy Severe ANGIOEDEMA Verified 05/30/22 22:46 Review of Systems <Libia Tionco PA-C - Last Filed: 05/30/22 20:12> ROS ROS Narrative: Narrative: All systems ED: reviewed and negative except as stated. PFSH <Libia Tinoco PA-C - Last Filed: 05/30/22 20:12> Narrative Patient History Narrative: Narrative: Medical/Surgical/Family History All Active Problems (Updated 05/30/22 @ 20:12 by Libia Tinoco PA-C) Hypoxia (Acute) Empyema lung (Acute) Abscess of right lung with pneumonia (Acute) Loculated pleural effusion (Acute) Anemia, normocytic normochromic (Acute) Depression with anxiety (Acute) Pleural effusion (Acute) Viral URI with cough (Acute) Pneumonia (Acute) Cough (Acute) Hemoptysis (Acute) COPD (chronic obstructive pulmonary disease) (Chronic) Multiple pulmonary nodules (Chronic) Asthma (Acute) COVID-19 (Chronic) Supratherapeutic INR (Acute) COVID-19 (Acute) Lung nodules (Chronic) Hypersomnia (Chronic) Conjunctivitis (Acute) Acute asthma exacerbation (Acute) Hypothyroid (Acute) Asthma exacerbation (Acute) Pneumonia (Acute) COPD exacerbation (Acute) Lumbar stenosis without neurogenic claudication (Chronic) Anxiety (Chronic) Bronchitis (Chronic) Low back pain (Chronic) COPD (chronic obstructive pulmonary disease) (Chronic) Exposure to TB (Chronic) History of carpal tunnel surgery (Chronic ~1997) Chronic pain (Chronic) Spinal stenosis (Chronic) Abscess of abdominal wall (Chronic) Degeneration of lumbar intervertebral disc (Chronic) GERD (gastroesophageal reflux disease) (Chronic) Depression (Chronic) Atrial fibrillation (Chronic) Nonischemic congestive cardiomyopathy (Chronic) Shoulder pain (Chronic) Postoperative complication (Chronic) Abscess of skin or subcutaneous tissue (Chronic) Cellulitis (Chronic) Septic shock (Chronic) SIRS (systemic inflammatory response syndrome) (Chronic) Sepsis (Chronic) Atrial fibrillation with RVR (Chronic) RLL pneumonia (Chronic) History of DVT (deep vein thrombosis) (Chronic) Tobacco use (Chronic) H/O bariatric surgery (Chronic ~2014) Asthma (Chronic) Back pain, chronic (Chronic) WES (obstructive sleep apnea) (Chronic) Finger fracture, left (Chronic) Obesity (BMI 30.0-34.9) (Chronic) Hypothyroidism, acquired (Chronic) Chronic atrial fibrillation (Chronic) Chronic anticoagulation (Chronic) Cigarette smoker (Chronic) Dependence on nocturnal oxygen therapy (Chronic) Anxiety disorder (Chronic) Medical History Abscess of abdominal wall Abscess of skin or subcutaneous tissue Anxiety Anxiety disorder Asthma Atrial fibrillation Atrial fibrillation with RVR Back pain, chronic Bronchitis Cellulitis Chronic anticoagulation Chronic atrial fibrillation Chronic pain Cigarette smoker COPD (chronic obstructive pulmonary disease) COPD exacerbation Degeneration of lumbar intervertebral disc Dependence on nocturnal oxygen therapy With weight loss she is uncertain if she needs this. Depression Exposure to TB GERD (gastroesophageal reflux disease) History of DVT (deep vein thrombosis) Hypersomnia Hypothyroidism, acquired Low back pain Lumbar stenosis without neurogenic claudication Lung nodules Nonischemic congestive cardiomyopathy Obesity (BMI 30.0-34.9) History of morbid obesity; status post gastric sleeve 2014. WES (obstructive sleep apnea) Postoperative complication RLL pneumonia Sepsis Septic shock Shoulder pain SIRS (systemic inflammatory response syndrome) Spinal stenosis Tobacco use Tonsillitis UTI (urinary tract infection) Surgical History H/O bariatric surgery (~2014) History of carpal tunnel surgery (~1997) History of gastric surgery Gastric sleeve surgery with revision History of herniorrhaphy History of laparoscopic cholecystectomy 05/07/2018-partial omentectomy; incisional hernia repair History of surgery eyelid Family History Father Hepatitis C Substance abuse Mother , Age 40 Substance abuse Grandfather Asthma Paternal Social History Smoking Status: Current some day smoker Alcohol Intake Frequency: a few times a month Substance Use: marijuana Exam <Libia Tinoco PA-C - Last Filed: 05/30/22 20:12> Narrative Narrative: General: AOx3, NAD, nontoxic appearing. Pleasant and conversant. HEENT: PERRL, EOMI, normocephalic. Moist mucous membranes. Normal facies and normal dentition. Chest: Symmetric, no pain to palpation Respiratory: Absent breath sounds right middle and right lower lobe. Otherwise no crackles no wheezes. No respiratory distress. Unlabored breathing. Heart: Regular rate and rhythm, no murmurs/clicks/rubs. Abdomen: Non-tender, Non distended, normal bowel tones. No organomegaly. Extremities: Warm and well perfused. No edema. DP 2+ bilaterally. No venous stasis. Neuro: No focal deficits. Cranial nerves II-XII grossly normal. Skin: Warm dry, no rashes or lesions, no cyanosis. Psych: Normal mood and affect Heme/Lymph: No abnormal bruising General Limitations: no limitations Course <Libia Tinoco PA-C - Last Filed: 05/30/22 20:12> Course Course Narrative: 51-year-old female with complicated history presents for acute hypoxia and shortness of breath with cough Reevaluation(s) Reevaluation #1: Obtain CT of the chest without contrast, basic labs, and start broad-spectrum IV antibiotics Obtain blood cultures Obtain influenza and COVID Reevaluation #2: CT scan today demonstrates residual small right-sided empyema in the lateral right lung base, not enlarged following removal of her drainage catheter. There is a new small lung abscess in the medial segment of the right middle lobe. There is central cavitation but no air-fluid levels with a thick wall measuring 1.9 x 3.0 cm this has enlarged since recent CT scan. There is a new 1.3 cm nodular density in the posterior right apex which is a new finding from 2 weeks ago. There is another similar-appearing nodular density in the superior border the major fissure measuring 1.6 cm that is enlarged and was 1.5 cm on prior exam. both upper lobes also demonstrate mild alveolar opacities concerning for pneumonia. CBC with no leukocytosis. No left shift. Influenza and COVID are negative. Consultations Consultation #1: Consultation with Dr. Acuna, thoracic surgeon at [facility]. She reviewed the imaging did not feel there was any surgical intervention at this time. She recommended continuation of antibiotics and pulmonology consult. Vital Signs Vital signs: Vital Signs Temperature 98.2 F 05/30/22 13:45 Pulse Rate 113 H 05/30/22 13:45 Respiratory Rate 22 05/30/22 13:45 Pulse Oximetry (%) 84 L 05/30/22 13:45 Oxygen Delivery Method 05/30/22 13:45 Temperature 99.5 F H 05/31/22 08:00 Pulse Rate 88 05/31/22 08:00 Respiratory Rate 22 05/31/22 08:00 Blood Pressure 120/90 05/31/22 08:00 Pulse Oximetry (%) 92 05/31/22 08:00 Oxygen Delivery Method 05/31/22 08:00 Oxygen Flow Rate (L/min) 2 05/31/22 08:00 <Simone Dyer DO - Last Filed: 05/31/22 08:31> Vital Signs Vital signs: Vital Signs Temperature 98.2 F 05/30/22 13:45 Pulse Rate 113 H 05/30/22 13:45 Respiratory Rate 22 05/30/22 13:45 Pulse Oximetry (%) 84 L 05/30/22 13:45 Oxygen Delivery Method 05/30/22 13:45 Temperature 99.5 F H 05/31/22 08:00 Pulse Rate 88 05/31/22 08:00 Respiratory Rate 22 05/31/22 08:00 Blood Pressure 120/90 05/31/22 08:00 Pulse Oximetry (%) 92 05/31/22 08:00 Oxygen Delivery Method 05/31/22 08:00 Oxygen Flow Rate (L/min) 2 05/31/22 08:00 [facility] <Libai Tinoco PA-C - Last Filed: 05/30/22 20:12> MDM Narrative Medical decision making narrative: Hypoxia Right middle lobe lung abscess Right small lower lobe empyema Patient will need admission for continuation of antibiotics. I spoke with Dr. Khan, pulmonology, and he is happy to consult on the patient if needed. He did recommend adding clindamycin, but I will defer to the hospitalist for further management. Lab Data Result diagrams: 05/31/22 05:29 05/31/22 05:28 Labs: Lab Results 05/30/22 05/30/22 05/30/22 Range/Units 14:49 14:52 14:52 WBC 6.0 (4.5-11.0) K/mcL RBC 3.70 (3.59-5.38) M/mcL Hgb 11.2 (11.2-15.7) g/dL Hct 34.9 (34.1-44.9) % POC Hct 36.0 (36-48) MCV 94.3 (80.0-100.0) fL MCH 30.3 (26.0-34.0) pg MCHC 32.1 (31.0-36.0) g/dL RDW 16.8 H (11.5-14.5) % Plt Count 238 (140-440) K/mcL MPV 9.6 (8.8-12.5) fL Immature Gran % (Auto) 0.5 (0.0-0.5) % Neut % (Auto) 77.7 (38.0-78.0) % Lymph % (Auto) 5.0 L (15.5-49.0) % [place] % (Auto) 16.3 H (1.0-12.0) % Eos % (Auto) 0 (0.0-7.0) % Baso % (Auto) 0.5 (0.0-2.0) % Lymph # (Auto) 0.30 L (1.50-4.80) K/mcL [place] # (Auto) 0.97 H (0.10-0.90) K/mcL Eos # (Auto) 0 (0.00-0.70) K/mcL Baso # (Auto) 0.03 (0.00-0.30) K/mcL Immature Gran # 0.03 (0.00-0.05) K/mcl Absolute Neutrophils 4.63 (1.80-8.00) K/mcL POC VBG pH 7.40 (7.32-7.42) POC VBG pCO2 at Temp 46.9 (41-51) POC VBG pO2 50 H (25-40) POC VBG HCO3 29.3 H (24-28) POC VBG Total CO2 31.0 H (25-29) POC Venous O2 Sat 84.0 H (40-70) POC VBG Base Excess 5.0 H* (-2-2) VBG Lactic Acid 0.5 (0.5-2) POC Sodium 135 (133-145) POC Potassium 3.7 (3.3-5.1) POC Chloride 98 (96-108) POC Total CO2 30.0 (22-30) POC BUN 7 (6-20) POC Creatinine 0.5 L (0.6-1.2) POC Glucose 107 H (70-105) POC WB Ioniz Calcium 1.14 L (1.16-1.32) ED POC Tests ED POC Tests: RU - Influenza A Negative RU - Influenza B Negative RU - SARS Antigen Negative <Simone Dyer, DO - Last Filed: 05/31/22 08:31> MDM Narrative Medical decision making narrative: Hypoxia Right middle lobe lung abscess Right small lower lobe empyema Patient will need admission for continuation of antibiotics. I spoke with Dr. Khan, pulmonology, and he is happy to consult on the patient if needed. He did recommend adding clindamycin, but I will defer to the hospitalist for further management. May 31, 2022 at 0831 hrs.: I did not see this patient but have reviewed the patient's chart as documented by the PA. I am in agreement with the care provided, diagnoses and disposition as documented. Lab Data Labs: Lab Results 05/30/22 05/30/22 05/30/22 Range/Units 14:49 14:52 14:52 WBC 6.0 (4.5-11.0) K/mcL RBC 3.70 (3.59-5.38) M/mcL Hgb 11.2 (11.2-15.7) g/dL Hct 34.9 (34.1-44.9) % POC Hct 36.0 (36-48) MCV 94.3 (80.0-100.0) fL MCH 30.3 (26.0-34.0) pg MCHC 32.1 (31.0-36.0) g/dL RDW 16.8 H (11.5-14.5) % Plt Count 238 (140-440) K/mcL MPV 9.6 (8.8-12.5) fL Immature Gran % (Auto) 0.5 (0.0-0.5) % Neut % (Auto) 77.7 (38.0-78.0) % Lymph % (Auto) 5.0 L (15.5-49.0) % [place] % (Auto) 16.3 H (1.0-12.0) % Eos % (Auto) 0 (0.0-7.0) % Baso % (Auto) 0.5 (0.0-2.0) % Lymph # (Auto) 0.30 L (1.50-4.80) K/mcL [place] # (Auto) 0.97 H (0.10-0.90) K/mcL Eos # (Auto) 0 (0.00-0.70) K/mcL Baso # (Auto) 0.03 (0.00-0.30) K/mcL Immature Gran # 0.03 (0.00-0.05) K/mcl Absolute Neutrophils 4.63 (1.80-8.00) K/mcL POC VBG pH 7.40 (7.32-7.42) POC VBG pCO2 at Temp 46.9 (41-51) POC VBG pO2 50 H (25-40) POC VBG HCO3 29.3 H (24-28) POC VBG Total CO2 31.0 H (25-29) POC Venous O2 Sat 84.0 H (40-70) POC VBG Base Excess 5.0 H* (-2-2) VBG Lactic Acid 0.5 (0.5-2) POC Sodium 135 (133-145) POC Potassium 3.7 (3.3-5.1) POC Chloride 98 (96-108) POC Total CO2 30.0 (22-30) POC BUN 7 (6-20) POC Creatinine 0.5 L (0.6-1.2) POC Glucose 107 H (70-105) POC WB Ioniz Calcium 1.14 L (1.16-1.32) ED POC Tests ED POC Tests: RU - Influenza A Negative RU - Influenza B Negative RU - SARS Antigen Negative Discharge Plan Patient/Caregiver Discharge Instructions Pt seen by GRAZING AIDE/PA only: Yes Clinical Impression: Hypoxia, Empyema lung, Abscess of right lung with pneumonia Patient Disposition: Xfer As Inpt ([facility]) Discharge Date/Time: 05/30/22 22:25
[2022-05-30] MEDS ORDERED: IPRATROPIUM/ALBUTEROL 3 ML AMPUL.NEB NEB ONE (20:26)
--- NOTE | 2022-05-30 20:37 | Internal Med History&Physical ---
HPI History of Present Illness Patient information: Note initiated : 05/30/22 at 8:34 pm Service Date, if different from initiated Date: [] Patient: Estela Man a 51 y/o F admitted on for Shortness of breath. Chief Complaint: [] History of present illness: Ms. Man is a 51 year old F h/o gastric sleeve procedure recent empyema, s/p chest tube placement at [facility], s/p removal of Chest tube and on 21 days of augmentin, presents to the ER for evaluation of new onset cough, and right sided chest pain with cough patient notes she was doing well post discharge from the [facility] facility, she did not take her abx x 2 days for logistical reasons, but has been taking them after she picked them from pharmacy. Today she noticed new onset cough, with some chest pain with cough, no fevers or chills, no nausea or vomiting. The patient has pulse ox at home and noted her osat to be 89-90% and she therefore presented to ER for further evaluation. The patient on arriva to the ER was hemodynamically stable on 2L oxygen to keep osat > 90, BP stable, patient lab work shows normal wbc, and chemistry. CT Scan of the lung showed residual empyema and small lung abscess, Case reviewed with pulm who advised possible addition to clindamycin. Pt case reviewed with Dr Romeo CT surgery at [facility], who noted no need for transfer as patient does not need any intervention. patient is going to be admitted to the hospital for further managmenet. Review of Systems Review of systems: CONSTITUTIONAL: No weight loss, fever, chills, weakness or fatigue. HEENT: Eyes: No visual loss, blurred vision, double vision or yellow sclerae. Ears, Nose, Throat: No hearing loss, sneezing, congestion, runny nose or sore throat. SKIN: No rash or itching. CARDIOVASCULAR: No chest pain, chest pressure or chest discomfort. No palpitations or edema. RESPIRATORY: No shortness of breath, cough present, chest pain with cough present. GASTROINTESTINAL: No nausea, vomiting or diarrhea or constipation. No abdominal pain or blood in stools No Camryn. GENITOURINARY: Denies Burning on urination. Blood in urine, or foul smelling urine NEUROLOGICAL: No headache, dizziness, syncope, paralysis, tremors, numbness or tingling in the extremities. No change in bowel or bladder control. MUSCULOSKELETAL: No muscle, back pain, joint pain or stiffness. HEMATOLOGIC: No bleeding or bruising. No enlarged nodes PSYCHIATRIC: No depression or anxiety. ENDOCRINOLOGIC: No reports of sweating, cold or heat intolerance. No polyuria or polydipsia. ALLERGIES: No hives, eczema or rhinitis. Skin: No rash, no jaundice, cyanosis or pallor. PFSH PFSH All Active Problems (Updated 05/30/22 @ 20:12 by Libia Tinoco PA-C) Hypoxia (Acute) Empyema lung (Acute) Abscess of right lung with pneumonia (Acute) Loculated pleural effusion (Acute) Anemia, normocytic normochromic (Acute) Depression with anxiety (Acute) Pleural effusion (Acute) Viral URI with cough (Acute) Pneumonia (Acute) Cough (Acute) Hemoptysis (Acute) COPD (chronic obstructive pulmonary disease) (Chronic) Multiple pulmonary nodules (Chronic) Asthma (Acute) COVID-19 (Chronic) Supratherapeutic INR (Acute) COVID-19 (Acute) Lung nodules (Chronic) Hypersomnia (Chronic) Conjunctivitis (Acute) Acute asthma exacerbation (Acute) Hypothyroid (Acute) Asthma exacerbation (Acute) Pneumonia (Acute) COPD exacerbation (Acute) Lumbar stenosis without neurogenic claudication (Chronic) Anxiety (Chronic) Bronchitis (Chronic) Low back pain (Chronic) COPD (chronic obstructive pulmonary disease) (Chronic) Exposure to TB (Chronic) History of carpal tunnel surgery (Chronic ~1997) Chronic pain (Chronic) Spinal stenosis (Chronic) Abscess of abdominal wall (Chronic) Degeneration of lumbar intervertebral disc (Chronic) GERD (gastroesophageal reflux disease) (Chronic) Depression (Chronic) Atrial fibrillation (Chronic) Nonischemic congestive cardiomyopathy (Chronic) Shoulder pain (Chronic) Postoperative complication (Chronic) Abscess of skin or subcutaneous tissue (Chronic) Cellulitis (Chronic) Septic shock (Chronic) SIRS (systemic inflammatory response syndrome) (Chronic) Sepsis (Chronic) Atrial fibrillation with RVR (Chronic) RLL pneumonia (Chronic) History of DVT (deep vein thrombosis) (Chronic) Tobacco use (Chronic) H/O bariatric surgery (Chronic ~2014) Asthma (Chronic) Back pain, chronic (Chronic) WES (obstructive sleep apnea) (Chronic) Finger fracture, left (Chronic) Obesity (BMI 30.0-34.9) (Chronic) Hypothyroidism, acquired (Chronic) Chronic atrial fibrillation (Chronic) Chronic anticoagulation (Chronic) Cigarette smoker (Chronic) Dependence on nocturnal oxygen therapy (Chronic) Anxiety disorder (Chronic) Medical History Abscess of abdominal wall Abscess of skin or subcutaneous tissue Anxiety Anxiety disorder Asthma Atrial fibrillation Atrial fibrillation with RVR Back pain, chronic Bronchitis Cellulitis Chronic anticoagulation Chronic atrial fibrillation Chronic pain Cigarette smoker COPD (chronic obstructive pulmonary disease) COPD exacerbation Degeneration of lumbar intervertebral disc Dependence on nocturnal oxygen therapy With weight loss she is uncertain if she needs this. Depression Exposure to TB GERD (gastroesophageal reflux disease) History of DVT (deep vein thrombosis) Hypersomnia Hypothyroidism, acquired Low back pain Lumbar stenosis without neurogenic claudication Lung nodules Nonischemic congestive cardiomyopathy Obesity (BMI 30.0-34.9) History of morbid obesity; status post gastric sleeve 2014. WES (obstructive sleep apnea) Postoperative complication RLL pneumonia Sepsis Septic shock Shoulder pain SIRS (systemic inflammatory response syndrome) Spinal stenosis Tobacco use Tonsillitis UTI (urinary tract infection) Surgical History H/O bariatric surgery (~2014) History of carpal tunnel surgery (~1997) History of gastric surgery Gastric sleeve surgery with revision History of herniorrhaphy History of laparoscopic cholecystectomy 05/07/2018-partial omentectomy; incisional hernia repair History of surgery eyelid Family History Father Hepatitis C Substance abuse Mother , Age 40 Substance abuse Grandfather Asthma Paternal Social History marital status: single education level: college 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 smoking 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: Current some day smoker alcohol intake frequency: a few times a month substance use type: marijuana MEDS/ALLERGIES Home Medications and Allergies Home Medications Medication Instructions Recorded Confirmed Type albuterol sulfate 90 mcg/actuation 1 puff INH Q4HP PRN Shortness Of 07/01/15 05/30/22 History aerosol inhaler Breath diltiazem HCl 240 mg 240 mg PO QHS 07/01/15 05/30/22 History capsule,extended release 24 hr, controlled levothyroxine 100 mcg tablet 100 mcg PO DAILY 07/01/15 05/30/22 History sertraline 100 mg tablet 200 mg PO QHS 07/01/15 05/30/22 History clonazepam 1 mg tablet 0.5 mg PO QHS 03/06/17 05/30/22 History omeprazole 20 mg capsule,delayed 20 mg PO QAM 05/05/18 05/30/22 History release ipratropium 0.5 mg-albuterol 3 mg 3 ml inhalation QID PRN Wheezing 01/27/20 05/30/22 History (2.5 mg base)/3 mL nebulization soln metoprolol succinate 25 mg 50 mg PO QHS 02/05/20 05/30/22 History tablet,extended release 24 hr oxycodone-acetaminophen 10 mg-325 1 tab PO Q6H PRN Pain Level 3-6 09/22/20 05/30/22 History mg tablet montelukast 10 mg tablet 10 mg PO QHS 04/01/21 05/30/22 History (Singulair) fluticasone fur. 100 mcg-umeclid 1 inh PO QDAY #60 ea 11/18/21 05/30/22 Rx 62.5 mcg-vilant 25 mcg inhalat.powder (Trelegy Ellipta) vitamin B complex 1 cap PO DAILY 05/30/22 05/30/22 History warfarin 1 mg tablet 1 mg PO DAILY 05/30/22 05/30/22 History Allergies Allergy/AdvReac Type Severity Reaction Status Date / Time naproxen [NAPROXEN] Allergy Severe ANGIOEDEMA Verified 05/06/22 13:24 EXAM Constitutional Vitals: Temp Pulse Resp BP Pulse Ox O2 Del Method O2 Flow Rate 98.2 F 77 19 90/61 100 2 05/30/22 13:45 05/30/22 19:01 05/30/22 19:01 05/30/22 19:01 05/30/22 19:01 05/30/22 15:00 05/30/22 15:00 Exam: GENERAL: The patient is a well-developed, well-nourished in no apparent distress. Is alert and oriented x3. VITAL SIGNS: Reviewed and as noted elsewhere. HEENT: Head is normocephalic and atraumatic. Extraocular muscles are intact. Pupils are equal, round, and reactive to light. Nares appeared normal. Mouth appears any without lesions. Mucous membranes are moist. NECK: Normal to inspection, Supple, No lymphadenopathy or thyromegaly. LUNGS: Air entry equal on both sideg, no wheezing, right basilar crackles present HEART: normal rate, irregular rhythm, S1 and S2 heard, no Gallop, S3 or Rub Noted, No Gross murmur heard. ABDOMEN: Soft, nontender, and nondistended. Positive bowel sounds. No hepatosplenomegaly was noted. EXTREMITIES: No cyanosis, clubbing, rash, lesions or edema. NEUROLOGIC: Cranial nerves II through XII are grossly intact. Motor and Sensory System Grossly Intact PSYCHIATRIC: Normal affect, Normal Mood. Appropriate Behavior. SKIN: No ulceration or wounds noted, No jaundice, No rash noted. DATA Data Completed and Pending Labs: Labs from last 24 hours 05/30/22 05/30/22 05/30/22 14:52 14:52 14:49 WBC 6.0 RBC 3.70 Hgb 11.2 Hct 34.9 POC Hct 36.0 MCV 94.3 MCH 30.3 MCHC 32.1 RDW 16.8 H Plt Count 238 MPV 9.6 Immature Gran % (Auto) 0.5 Neut % (Auto) 77.7 Lymph % (Auto) 5.0 L [place] % (Auto) 16.3 H Eos % (Auto) 0 Baso % (Auto) 0.5 Lymph # (Auto) 0.30 L [place] # (Auto) 0.97 H Eos # (Auto) 0 Baso # (Auto) 0.03 Immature Gran # 0.03 Absolute Neutrophils 4.63 POC VBG pH 7.40 POC VBG pCO2 at Temp 46.9 POC VBG pO2 50 H POC VBG HCO3 29.3 H POC VBG Total CO2 31.0 H POC Venous O2 Sat 84.0 H POC VBG Base Excess 5.0 H* VBG Lactic Acid 0.5 POC Sodium 135 POC Potassium 3.7 POC Chloride 98 POC Total CO2 30.0 POC BUN 7 POC Creatinine 0.5 L POC Glucose 107 H POC WB Ioniz Calcium 1.14 L A/P Narrative A/P Narrative: a/P Acute on chr hypoxic respiratory failure -Pt has oxygen for sleep at home due to wes, now on 2L all the time -continue with incentive spirometery -monitor Empyema Lung abscess -suspect chr aspiration, -microbiology from 05/08 grew b fragilis, st rep and viridans, on augmentin per [facility] -given incomplete resolution will add flagyl to the regime, pt did get vanco and zosyn -check nasal mrsa -pulmonary consult in AM, consider ID consult -did not use clinda due to 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 Atrial Fibrillation, rate controlled -on dilatiazem/ metoprolol, continue -on coumadin, check INR, pharamcy for coumadin management. COPD -not in exacerbation -continue bronchodilators. Smoker Uses THC edibles Time Spent With Patient Time: Total time spent is greater than 50% in coordination of care (as documented) at patient's floor/unit and/or counseling patient:
[2022-05-30] MEDS ORDERED: BISACODYL 10 MG SUPP.RECT PR PRN (22:34)
[2022-05-30] MEDS ORDERED: [UNRECOGNIZED DRUG - OTHER] PO SCH (22:34)
[2022-05-30] MEDS ORDERED: NALOXONE HCL 0.4 MG/ML VIAL IV PRN (22:34)
[2022-05-30] MEDS ORDERED: DILTIAZEM HCL 240 MG PO SCH (22:34)
[2022-05-30] MEDS ORDERED: ONDANSETRON 4 MG/2 ML VIAL IV PRN (22:34)
[2022-05-30] MEDS ORDERED: ALBUTEROL SULFATE 2.5 MG/3 ML NEBULIZER NEB PRN (22:34)
[2022-05-30] MEDS ORDERED: EXT REL PO SCH (22:34)
[2022-05-30] MEDS ORDERED: MAGNESIUM HYDROXIDE 30 ML ORAL.SUSP PO PRN (22:34)
[2022-05-30] MEDS ORDERED: ACETAMINOPHEN 325 MG TABLET PO PRN (22:34)
[2022-05-30] MEDS ORDERED: traZODone HCL 50 MG TABLET PO PRN (22:34)
[2022-05-30] MEDS ORDERED: DILTIAZEM 120 MG CAP.XL.24H PO ONE (22:54)
[2022-05-30] MEDS ORDERED: METOPROLOL SUCCINATE 50 MG TAB.XL.24H PO ONE (22:54)
[2022-05-30] MEDS ORDERED: clonazePAM 1 MG TABLET ONE (22:54)
[2022-05-30] MEDS ORDERED: oxyCODONE HCL 5 MG TABLET PO ONE (23:00)
[2022-05-30] MEDS ORDERED: ACETAMINOPHEN 325 MG TABLET PO ONE (23:01)
[2022-05-30] MEDS: DOCUSATE SODIUM 100 MG CAPSULE PO SCH (23:07)
[2022-05-30] MEDS: clonazePAM 1 MG TABLET PO SCH (23:09)
[2022-05-30] MEDS: oxyCODONE HCL 5 MG TABLET PO PRN (23:09)
[2022-05-30] MEDS: SERTRALINE 100 MG TABLET PO SCH (23:11)
[2022-05-30] MEDS: metroNIDAZOLE 500 MG TABLET PO SCH (23:12)
[2022-05-30] MEDS: MONTELUKAST 10 MG TABLET PO SCH (23:13)
[2022-05-30] MEDS: SENNOSIDES 1 TABLET PO SCH (23:13)
[2022-05-30] MEDS: 0.9 % SODIUM CHLORIDE 10 ML SYRINGE IV SCH (23:14)
[2022-05-30] MEDS: METOPROLOL SUCCINATE 25 MG TAB.XL.24H PO SCH (23:16)
[2022-05-31] MEDS: IPRATROPIUM/ALBUTEROL 3 ML AMPUL.NEB NEB SCH ×4 (05:17→19:15)
[2022-05-31] MEDS: metroNIDAZOLE 500 MG TABLET PO SCH ×3 (05:48→22:10)
[2022-05-31] MEDS: 0.9 % SODIUM CHLORIDE 10 ML SYRINGE IV SCH ×4 (05:48→22:12)
[2022-05-31 06:23] LABS: Basophils # (Auto) 0.02 K/mcL (0.00-0.30); Basophils % (Auto) 0.6 % (0.0-2.0); Eosinophils # (Auto) 0.04 K/mcL (0.00-0.70); Eosinophils % (Auto) 1.1 % (0.0-7.0); Hematocrit 35.1 % (34.1-44.9); Hemoglobin 11.1 g/dL (11.2-15.7); Lymphocytes # (Auto) 0.39 K/mcL (1.50-4.80); Lymphocytes % (Auto) 11.2 % (15.5-49.0); Mean Cell Volume 95.1 fL (80.0-100.0); Mean Corpuscular HGB Conc 31.6 g/dL (31.0-36.0); Mean Platelet Volume 9.4 fL (8.8-12.5); Monocytes # (Auto) 0.67 K/mcL (0.10-0.90); Monocytes % (Auto) 19.3 % (1.0-12.0); Neutrophils % (Auto) 67.5 % (38.0-78.0); Platelet Count 228 K/mcL (140-440); RBC 3.69 M/mcL (3.59-5.38); Red Cell Distribution Width 16.9 % (11.5-14.5); WBC 3.5 K/mcL (4.5-11.0)
[2022-05-31 06:34] LABS: INR 1.7 (0.9-1.1); Prothrombin Time 20.7 sec (11.9-14.5)
[2022-05-31 06:49] LABS: ALT/SGPT 29 U/L (<40); AST/SGOT 63 U/L (<32); Albumin 3.3 gm/dL (3.2-5.2); Albumin/Globulin Ratio 1.1 (1.0-2.3); Alkaline Phosphatase 245 U/L (39-117); Bilirubin,Total 0.4 mg/dL (0.1-1.0); Blood Urea Nitrogen 7 mg/dL (6-20); Carbon Dioxide 34 mmol/L (22-30); Chloride 101 mmol/L (96-108); Glomerular Filtration Rate 112; Glucose 89 mg/dL (70-105)
[2022-05-31] MEDS: OMEPRAZOLE 20 MG CAPSULE PO SCH (07:58)
[2022-05-31] MEDS: LEVOTHYROXINE 100 MCG TABLET PO SCH (07:58)
[2022-05-31] MEDS ORDERED: AMOXICILLIN/POTASSIUM CLAV 875 MG TABLET PO SCH (08:00)
[2022-05-31] MEDS: DOCUSATE SODIUM 100 MG CAPSULE PO SCH ×3 (09:16→22:15)
[2022-05-31] MEDS: oxyCODONE HCL 5 MG TABLET PO PRN ×4 (10:00→22:33)
[2022-05-31] MEDS ORDERED: WARFARIN 1 MG TABLET PO SCH (14:00)
[2022-05-31] MEDS: CEFEPIME 2 GM VIAL IV SCH ×2 (14:27→22:35)
--- NOTE | 2022-05-31 15:17 | Internal Med Progress Note ---
SUBJECTIVE Subjective Patient information: Note initiated : 05/31/22 at 3:14 pm Service Date, if different from initiated Date: [] Patient: Estela Man 51 y/o F admitted on 05/30/22 for Shortness of breath. Chief Complaint: [] Interval history: Patient seen and examined, breathing is better but she still has some cough and shortness of breath On 2 L of oxygen this morning, Denies any chest pain chest tightness Pertinent ROS: Denies headache, dizziness Denies chest pain, palpitations Cough and shortness of breath improving Denies abdominal pain, nausea or vomiting. Constitutional Vitals: Vital Signs Temp Pulse Resp BP Pulse Ox O2 Del Method O2 Flow Rate 99.5 F H 79 18 120/90 98 2 05/31/22 11:56 05/31/22 13:09 05/31/22 13:09 05/31/22 08:00 05/31/22 11:56 05/31/22 13:09 05/31/22 13:09 Period Temp Pulse Resp BP Sys/M[place]ina Pulse Ox O2 Del Method O2 Flow Rate Last 24 Hr 97.4 F-99.5 F 73-98 15-24 87-120/43-90 92-100 Nasal Cannula- Nasal Cannula 2-2 Intake and Output 05/31/22 05/31/22 05/31/22 03:59 11:59 19:59 Intake Total 300 Output Total 125 Balance 300 -125 Weight 93.621 kg Intake & Output: Intake & Output 05/31/22 05/31/22 05/31/22 03:59 11:59 19:59 Intake Total 300 Output Total 125 Balance 300 -125 Weight 93.621 kg Intake: Oral 300 Output: Void Amount 125 Other: Meal Epping Percent of Meal Consumed 50% Feeding Ability Independent Urine Color Yellow Urine Odor Normal Stool Size Large Stool Color Brown Black Stool Consistency Liquid Loose # Voids 1 1 # Bowel Movements 1 Exam: Constitutional; Afebrile, cooperative, alert, not in distress. Eyes- No icterus, , No periorbital swelling Ears- Ext ear normal, hearing normal to conversation. Neck- Midline trachea, supple Respiratory system: Air Entry equal on both sides, No crackles or wheezing, no rhonchi. CVS- Rate rhythm regular, S1,S2 heard, no gallop, no rub. 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 OBJ DATA Labs CBC & Chem 7: 05/31/22 05:29 05/31/22 05:28 Labs: Abnormal Lab Results 05/31/22 05/31/22 05/31/22 05:29 05:29 05:28 WBC 3.5 L Hgb 11.1 L RDW 16.9 H Lymph % (Auto) 11.2 L [place] % (Auto) 19.3 H Lymph # (Auto) 0.39 L [place] # (Auto) PT 20.7 H INR 1.7 H POC VBG pO2 POC VBG HCO3 POC VBG Total CO2 POC Venous O2 Sat POC VBG Base Excess Carbon Dioxide 34 H Anion Gap 4.0 L Creatinine 0.5 L POC Creatinine POC Glucose POC WB Ioniz Calcium AST 63 H Alkaline Phosphatase 245 H 05/30/22 05/30/22 05/30/22 14:52 14:52 14:49 WBC Hgb RDW 16.8 H Lymph % (Auto) 5.0 L [place] % (Auto) 16.3 H Lymph # (Auto) 0.30 L [place] # (Auto) 0.97 H PT INR POC VBG pO2 50 H POC VBG HCO3 29.3 H POC VBG Total CO2 31.0 H POC Venous O2 Sat 84.0 H POC VBG Base Excess 5.0 H* Carbon Dioxide Anion Gap Creatinine POC Creatinine 0.5 L POC Glucose 107 H POC WB Ioniz Calcium 1.14 L AST Alkaline Phosphatase Meds: Medications Acetaminophen (Acetaminophen 325 Mg Tablet) 650 mg PO Q6HP PRN; Protocol PRN Reason: Per Pain Protocol/Fever > 101 Last Admin: 05/30/22 23:10 Dose: 650 mg Albuterol Sulfate (Albuterol Sulfate 2.5 Mg/3 Ml Nebulizer) 2.5 mg NEB Q2HP PRN PRN Reason: Shortness Of Breath Albuterol/Ipratropium (Ipratropium/Albuterol 3 Ml Ampul.Neb) 3 ml NEB Q6HRT GABO Last Admin: 05/31/22 13:08 Dose: 3 ml Bisacodyl (Bisacodyl 10 Mg Supp.Rect) 10 mg DC Q2-3DAYS PRN PRN Reason: Constipation Cefepime HCl (Cefepime 2 Gm Vial) 2 gm IV Q8H [facility]; Protocol Last Admin: 05/31/22 14:27 Dose: 2 gm [facility]onazepam ([facility] Mg [facility] Last Admin: 05/30/22 23:09 Dose: Not Given Diltiazem HCl (Diltiazem 240 Mg Cap.Xl.24h) 240 mg PO QHS [facility] Docusate Sodium (Docusate Sodium 100 Mg Capsule) 100 mg PO BID [facility] Last Admin: 05/31/22 09:16 Dose: Not Given Hydromorphone HCl (Hydromorphone 0.5 Mg/0.5 Ml Syringe) 0.5 mg IV Q2HP PRN; Protocol PRN Reason: Per Pain Protocol Levothyroxine Sodium (Levothyroxine 100 Mcg Tablet) 100 mcg PO [facility] Last Admin: 05/31/22 07:58 Dose: 100 mcg Magnesium Hydroxide (Magnesium Hydroxide 30 Ml Oral.Susp) 30 ml PO DAILYP PRN PRN Reason: Constipation Metoprolol Succinate (Metoprolol Succinate 25 Mg Tab.Xl.24h) [facility] Last Admin: 05/30/22 23:16 Dose: 50 mg Metronidazole (Metronidazole 500 Mg Tablet) 500 mg PO Q8 [facility]; Protocol Last Admin: 05/31/22 14:26 Dose: 500 mg Montelukast Sodium ([facility] 10 Mg Tablet) [facility] Last Admin: 05/30/22 23:13 Dose: Not Given Naloxone HCl (Naloxone Hcl 0.4 Mg/Ml Vial) 0.1 mg IV Q2MIN PRN PRN Reason: Opiate Reversal Omeprazole (Omeprazole 20 Mg Capsule) 20 mg PO [facility] Last Admin: 05/31/22 07:58 Dose: 20 mg Ondansetron HCl (Ondansetron 4 Mg/2 Ml Vial) 4 mg IV Q6HP PRN PRN Reason: Nausea And Vomiting Oxycodone HCl (Oxycodone Hcl 5 Mg Tablet) 5 mg PO Q4HP PRN; Protocol PRN Reason: Per Pain Protocol Last Admin: 05/31/22 14:35 Dose: 5 mg Trelegy Ellipta Inh 1 dose INH QDAY [facility] Last Admin: 05/31/22 10:00 Dose: Not Given Senna (Sennosides 1 Tablet) 2 tab PO [facility] Last Admin: 05/30/22 23:13 Dose: Not Given Sertraline HCl (Sertraline 100 Mg Tablet) 200 mg PO QHS [facility] Last Admin: 05/30/22 23:11 Dose: 200 mg Sodium Chloride (0.9 % Sodium Chloride 10 Ml Syringe) 10 ml IV Q8 [facility] Last Admin: 05/31/22 14:27 Dose: 10 ml Trazodone HCl (Trazodone Hcl 50 Mg Tablet) 50 mg PO HSP PRN PRN Reason: Insomnia Warfarin Sodium (Warfarin 1 Mg Tablet) 1 mg PO DAILY@1400 [facility] Last Admin: 05/31/22 14:26 Dose: 1 mg Warfarin Sodium (Warfarin Per Pharmacy) 1 order PO UD GABO A/P Narrative A/P Narrative: a/P Acute on chr hypoxic respiratory failure -Pt has oxygen for sleep at home due to maycol, now on 2L all the time -continue with incentive spirometery -monitor Empyema Lung abscess -suspect chr aspiration, -microbiology from 05/08 grew b fragilis, st rep and viridans, on augmentin per [facility] -given incomplete resolution will add flagyl to the regime, pt did get vanco and zosyn -check nasal mrsa -d/w ID , who noted that patient be placed on cefepime while inpatient and can be discharged on oral levofloxacin as well as flagyl, Pt has taken only 12 days of abx of augmentin. 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 Atrial Fibrillation, rate controlled -on dilatiazem/ metoprolol, continue -on coumadin, check INR, pharamcy for coumadin management. COPD -not in exacerbation -continue bronchodilators. Smoker Uses THC edibles If remains stable, can d/c in AM Time Spent With Patient Time: Total time spent is greater than 50% in coordination of care (as documented) at patient's floor/unit and/or counseling patient: QUALITY VTE Deep Vein Thrombosis/Pulmonary Embolism Present on Admission: No
[2022-05-31] MEDS ORDERED: 0.9 % SODIUM CHLORIDE 10 ML SYRINGE IV PRN (17:42)
[2022-05-31] MEDS: SENNOSIDES 1 TABLET PO SCH (22:09)
[2022-05-31] MEDS: METOPROLOL SUCCINATE 25 MG TAB.XL.24H PO SCH (22:09)
[2022-05-31] MEDS: SERTRALINE 100 MG TABLET PO SCH (22:10)
[2022-05-31] MEDS: DILTIAZEM 240 MG CAP.XL.24H PO SCH (22:10)
[2022-05-31] MEDS: clonazePAM 1 MG TABLET PO SCH ×2 (22:10→22:18)
[2022-05-31] MEDS: MONTELUKAST 10 MG TABLET PO SCH (22:10)
[2022-06-01] MEDS: IPRATROPIUM/ALBUTEROL 3 ML AMPUL.NEB NEB SCH ×4 (01:44→19:03)
[2022-06-01] MEDS: oxyCODONE HCL 5 MG TABLET PO PRN ×3 (05:34→18:36)
[2022-06-01] MEDS: 0.9 % SODIUM CHLORIDE 10 ML SYRINGE IV SCH ×5 (05:35→21:40)
[2022-06-01] MEDS: metroNIDAZOLE 500 MG TABLET PO SCH ×3 (05:53→21:55)
[2022-06-01] MEDS: CEFEPIME 2 GM VIAL IV SCH (05:53)
[2022-06-01 06:37] LABS: INR 1.4 (0.9-1.1); Prothrombin Time 17.9 sec (11.9-14.5)
[2022-06-01] MEDS: LEVOTHYROXINE 100 MCG TABLET PO SCH (08:17)
[2022-06-01] MEDS: OMEPRAZOLE 20 MG CAPSULE PO SCH (08:17)
[2022-06-01] MEDS: DOCUSATE SODIUM 100 MG CAPSULE PO SCH ×2 (08:17→21:39)
--- NOTE | 2022-06-01 10:11 | EKG ---
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 Measurements Intervals [place] Rate: 103 P: MO: QRS: 84 QRSD: 91 T: 5 QT: 350 QTc: 458 Interpretive Statements Atrial fibrillation Low voltage, precordial leads Borderline T abnormalities, inferior leads Electronically Signed On 06-01-2022 10:11:47 PST by Angus Gimenez M.D. /[id number]
--- NOTE | 2022-06-01 11:36 | Internal Med Progress Note ---
SUBJECTIVE Subjective Patient information: Note initiated : 06/01/22 at 11:34 am Service Date, if different from initiated Date: [] Patient: Estela Man 51 y/o F admitted on 05/30/22 for Shortness of breath. Chief Complaint: [] Interval history: Patient seen and examined, breathing is improving and patient is approaching baseline status On 2 L of oxygen this morning, Denies any chest pain chest tightness Case was reviewed with Dr Betina Dean who is presently working at the PCP for this patient in [facility], She is an ID specialist, I reviewed this case and she advised patient to be started on IV rocehpin ad flagyl x 3 weeks course, Weekly labs of cbc, cmp, esr and crp, which she will follow as outpatient. Pertinent ROS: Denies headache, dizziness Denies chest pain, palpitations continued improvment of shortness of breath and cough Denies abdominal pain, nausea or vomiting. Constitutional Vitals: Vital Signs Temp Pulse Resp BP Pulse Ox O2 Del Method O2 Flow Rate 97.9 F 84 20 96/66 91 2 06/01/22 08:00 06/01/22 08:00 06/01/22 08:00 06/01/22 08:00 06/01/22 08:00 06/01/22 08:00 06/01/22 08:00 Period Temp Pulse Resp BP Sys/Molina Pulse Ox O2 Del Method O2 Flow Rate Last 24 Hr 97.5 F-99.5 F 77-97 16-20 95-111/63-82 91-98 Nasal Cannula- Nasal Cannula 1-2 Intake and Output 05/31/22 06/01/22 06/01/22 19:59 03:59 11:59 Intake Total 500 900 Output Total 500 Balance 500 400 Weight 94.03 kg Intake & Output: Intake & Output 05/31/22 06/01/22 06/01/22 19:59 03:59 11:59 Intake Total 500 900 Output Total 500 Balance 500 400 Weight 94.03 kg Intake: Oral 500 900 Output: Void Amount 500 Other: Meal Dinner Percent of Meal Consumed 75% Feeding Ability Assist with Tray Set Up Urine Color Yellow Urine Odor Normal Stool Size Small Stool Color Brown Stool Consistency Liquid Loose # Voids 1 1 # Bowel Movements 1 Exam: Constitutional; Afebrile, cooperative, alert, not in distress. obese Eyes- No icterus, , No periorbital swelling Ears- Ext ear normal, hearing normal to conversation. Neck- Midline trachea, supple Respiratory system: Air Entry equal on both sides, No crackles or wheezing, no rhonchi. CVS- Rate rhythm regular, S1,S2 heard, no gallop, no rub. Abdomen- Soft nontender abdomen, no organomegaly, no tenderness, no guarding or rigidity, CELL MAKER- AOOx3, moving all extremities, no gross focal deficit noted. OBJ DATA Labs CBC & Chem 7: 05/31/22 05:29 05/31/22 05:28 Labs: Abnormal Lab Results 06/01/22 05/31/22 05/31/22 05:28 05: 05:29 WBC 3.5 L Hgb 11.1 L RDW 16.9 H Lymph % (Auto) 11.2 L [place] % (Auto) 19.3 H Lymph # (Auto) 0.39 L [place] # (Auto) PT 17.9 H 20.7 H INR 1.4 H 1.7 H POC VBG pO2 POC VBG HCO3 POC VBG Total CO2 POC Venous O2 Sat POC VBG Base Excess Carbon Dioxide Anion Gap Creatinine POC Creatinine POC Glucose POC WB Ioniz Calcium AST Alkaline Phosphatase 05/31/22 05/30/22 05/30/22 05:28 14:52 14:52 WBC Hgb RDW Lymph % (Auto) [place] % (Auto) Lymph # (Auto) [place] # (Auto) PT INR POC VBG pO2 50 H POC VBG HCO3 29.3 H POC VBG Total CO2 31.0 H POC Venous O2 Sat 84.0 H POC VBG Base Excess 5.0 H* Carbon Dioxide 34 H Anion Gap 4.0 L Creatinine 0.5 L POC Creatinine 0.5 L POC Glucose 107 H POC WB Ioniz Calcium 1.14 L AST 63 H Alkaline Phosphatase 245 H 05/30/22 14:49 WBC Hgb RDW 16.8 H Lymph % (Auto) 5.0 L [place] % (Auto) 16.3 H Lymph # (Auto) 0.30 L [place] # (Auto) 0.97 H PT INR POC VBG pO2 POC VBG HCO3 POC VBG Total CO2 POC Venous O2 Sat POC VBG Base Excess Carbon Dioxide Anion Gap Creatinine POC Creatinine POC Glucose POC WB Ioniz Calcium AST Alkaline Phosphatase Meds: Medications Acetaminophen (Acetaminophen 325 Mg Tablet) 650 mg PO Q6HP PRN; Protocol PRN Reason: Per Pain Protocol/Fever > 101 Last Admin: 05/30/22 23:10 Dose: 650 mg Albuterol Sulfate (Albuterol Sulfate 2.5 Mg/3 Ml Nebulizer) 2.5 mg NEB Q2HP PRN PRN Reason: Shortness Of Breath Albuterol/Ipratropium (Ipratropium/Albuterol 3 Ml Ampul.Neb) 3 ml NEB Q6HRT [facility] Last Admin: 06/01/22 05:34 Dose: 3 ml Bisacodyl (Bisacodyl 10 Mg Supp.Rect) 10 mg SC Q2-3DAYS PRN PRN Reason: Constipation Clonazepam (Clonazepam 1 Mg Tablet) 0.5 mg PO QHS [facility] Last Admin: 05/31/22 22:18 Dose: Not Given Diltiazem HCl (Diltiazem 240 Mg Cap.Xl.24h) 240 mg PO QHS [facility] Last Admin: 05/31/22 22:10 Dose: 240 mg Docusate Sodium (Docusate Sodium 100 Mg Capsule) 100 mg PO BID [facility] [place] Last Admin: 06/01/22 08:17 Dose: Not Given Heparin Sodium (Porcine) (Heparin Flush 10 Units/Ml 5 Ml Syringe) 2 ml IV Q12 [facility] [place] Last Admin: 06/01/22 08:18 Dose: Not Given Hydromorphone HCl (Hydromorphone 0.5 Mg/0.5 Ml Syringe) 0.5 mg IV Q2HP PRN; Protocol PRN Reason: Per Pain Protocol Ceftriaxone Sodium 2 gm/ (Dextrose) 50 mls @ 100 mls/hr IV Q24H [facility] [place]; Protocol Levothyroxine Sodium (Levothyroxine 100 Mcg Tablet) 100 mcg PO QAMAC [facility] [place] Last Admin: 06/01/22 08:17 Dose: 100 mcg Magnesium Hydroxide (Magnesium Hydroxide 30 Ml Oral.Susp) 30 ml PO DAILYP PRN PRN Reason: Constipation Metoprolol Succinate (Metoprolol Succinate 25 Mg Tab.Xl.24h) 50 mg PO QHS [facility] [place] Last Admin: 05/31/22 22:09 Dose: 50 mg Metronidazole (Metronidazole 500 Mg Tablet) 500 mg PO Q8 [facility]; Protocol Last Admin: 06/01/22 05:53 Dose: 500 mg Montelukast Sodium (Montelukast 10 Mg Tablet) 10 mg PO QHS [facility] [place] Last Admin: 05/31/22 22:10 Dose: 10 mg Naloxone HCl (Naloxone Hcl 0.4 Mg/Ml Vial) 0.1 mg IV Q2MIN PRN PRN Reason: Opiate Reversal Omeprazole (Omeprazole 20 Mg Capsule) 20 mg PO QAMAC [facility] Last Admin: 06/01/22 08:17 Dose: 20 mg Ondansetron HCl (Ondansetron 4 Mg/2 Ml Vial) 4 mg IV Q6HP PRN PRN Reason: Nausea And Vomiting Oxycodone HCl (Oxycodone Hcl 5 Mg Tablet) 5 mg PO Q4HP PRN; Protocol PRN Reason: Per Pain Protocol Last Admin: 06/01/22 11:22 Dose: 5 mg Trelegy Ellipta Inh 1 dose INH QDAY [facility] [place] Last Admin: 06/01/22 08:18 Dose: Not Given Senna (Sennosides 1 Tablet) 2 tab PO HS [facility] Last Admin: 05/31/22 22:09 Dose: 2 tab Sertraline HCl (Sertraline 100 Mg Tablet) 200 mg PO QHS [facility] [place] Last Admin: 05/31/22 22:10 Dose: 200 mg Sodium Chloride (0.9 % Sodium Chloride 10 Ml Syringe) 10 ml IV Q8 [facility] [place] Last Admin: 06/01/22 05:35 Dose: 10 ml Sodium Chloride (0.9 % Sodium Chloride 10 Ml Syringe) 10 ml IV UD PRN PRN Reason: FLUSH Sodium Chloride (0.9 % Sodium Chloride 10 Ml Syringe) 10 ml IV Q12 [facility] [place] Last Admin: 06/01/22 08:18 Dose: 10 ml Trazodone HCl (Trazodone Hcl 50 Mg Tablet) 50 mg PO HSP PRN PRN Reason: Insomnia Warfarin Sodium (Warfarin Per Pharmacy) 1 order PO UD [facility] Warfarin Sodium (Warfarin 1 Mg Tablet) 2 mg PO ONCE@1400 ONE Stop: 06/01/22 14:01 A/P Narrative A/P Narrative: a/P Acute on chr hypoxic respiratory failure -Pt has oxygen for sleep at home due to maycol, now on 2L all the time -continue with incentive spirometer -monitor and titrate down oxygen as tolerated Empyema Lung abscess -suspect chr aspiration, -microbiology from 05/08 grew b fragilis, st rep and viridans, on augmentin per [facility] -given incomplete resolution will add flagyl to the regime, pt did get vanco and zosyn -nasal mrsa is neg -by chance patients present PCP also happens to be an ID specialist, I discussed the case with her and she advised patient to be discharged with PICC on rocephin 2gms daily, po flagyl 500mg q8, for 3 weeks -weekly cbc, cmp, esr and crp to be done, she will follow these at the [facility] Atrial Fibrillation, rate controlled -on dilatiazem/ metoprolol, continue -on coumadin, check INR, pharamcy for coumadin management. COPD -not in exacerbation -continue bronchodilators. Smoker Uses THC edibles needs PICC, which is ordered, can d/c after outpatient abx arranged, Time Spent With Patient Time: Total time spent is greater than 50% in coordination of care (as documented) at patient's floor/unit and/or counseling patient: QUALITY VTE Deep Vein Thrombosis/Pulmonary Embolism Present on Admission: No
[2022-06-01] MEDS: HYDROmorphone 0.5 MG/0.5 ML SYRINGE IV PRN ×2 (11:57→21:39)
[2022-06-01] MEDS: cefTRIAXone 2 GM VIAL ONE ×2 (12:00→12:06)
[2022-06-01] MEDS: cefTRIAXone 2 GM in DEXTROSE 5% IN WATER 50 ML IV SCH (12:30)
[2022-06-01] MEDS ORDERED: WARFARIN 1 MG TABLET PO ONE (14:00)
[2022-06-01] MEDS: MONTELUKAST 10 MG TABLET PO SCH (21:37)
[2022-06-01] MEDS: SERTRALINE 100 MG TABLET PO SCH (21:38)
[2022-06-01] MEDS: DILTIAZEM 240 MG CAP.XL.24H PO SCH (21:38)
[2022-06-01] MEDS: METOPROLOL SUCCINATE 25 MG TAB.XL.24H PO SCH (21:38)
[2022-06-01] MEDS: clonazePAM 1 MG TABLET PO SCH (21:39)
[2022-06-01] MEDS: SENNOSIDES 1 TABLET PO SCH (21:40)
[2022-06-01] MEDS: guaiFENesin/DEXTROMETHORPHAN ORAL SOL PO PRN (21:40)
[2022-06-01] MEDS: OSELTAMIVIR PHOSPHATE 75 MG CAPSULE PO SCH (21:55)
[2022-06-02] MEDS: oxyCODONE HCL 5 MG TABLET PO PRN ×3 (01:10→11:01)
[2022-06-02] MEDS: IPRATROPIUM/ALBUTEROL 3 ML AMPUL.NEB NEB SCH ×3 (01:10→15:15)
[2022-06-02] MEDS: guaiFENesin/DEXTROMETHORPHAN ORAL SOL PO PRN ×2 (01:32→05:54)
[2022-06-02] MEDS: metroNIDAZOLE 500 MG TABLET PO SCH ×2 (05:51→13:48)
[2022-06-02] MEDS: 0.9 % SODIUM CHLORIDE 10 ML SYRINGE IV SCH ×3 (05:55→14:07)
[2022-06-02 06:41] LABS: Basophils # (Auto) 0.02 K/mcL (0.00-0.30); Basophils % (Auto) 0.7 % (0.0-2.0); Eosinophils # (Auto) 0.08 K/mcL (0.00-0.70); Eosinophils % (Auto) 2.9 % (0.0-7.0); Hematocrit 36.6 % (34.1-44.9); Hemoglobin 11.6 g/dL (11.2-15.7); Lymphocytes # (Auto) 0.91 K/mcL (1.50-4.80); Lymphocytes % (Auto) 33.2 % (15.5-49.0); Mean Cell Volume 94.8 fL (80.0-100.0); Mean Corpuscular HGB Conc 31.7 g/dL (31.0-36.0); Mean Platelet Volume 9.4 fL (8.8-12.5); Monocytes # (Auto) 0.35 K/mcL (0.10-0.90); Monocytes % (Auto) 12.8 % (1.0-12.0); Platelet Count 234 K/mcL (140-440); RBC 3.86 M/mcL (3.59-5.38); Red Cell Distribution Width 16.4 % (11.5-14.5); WBC 2.7 K/mcL (4.5-11.0)
[2022-06-02 06:48] LABS: INR 1.2 (0.9-1.1); Prothrombin Time 16.1 sec (11.9-14.5)
[2022-06-02 07:12] LABS: ALT/SGPT 16 U/L (<40); AST/SGOT 19 U/L (<32); Albumin 3.3 gm/dL (3.2-5.2); Albumin/Globulin Ratio 1.1 (1.0-2.3); Alkaline Phosphatase 175 U/L (39-117); Bilirubin,Direct < 0.2 mg/dL (0-0.3); Bilirubin,Total 0.3 mg/dL (0.1-1.0); Blood Urea Nitrogen 8 mg/dL (6-20); Calcium 8.9 mg/dL (8.6-10.4); Carbon Dioxide 36 mmol/L (22-30); Chloride 99 mmol/L (96-108); Globulin 3.1 gm/dL (2.2-3.7); Glomerular Filtration Rate 120; Glucose 94 mg/dL (70-105); Lactate Dehydrogenase 130 U/L (135-225); Phosphorous 3.3 mg/dL (2.5-4.5); Triglycerides 93 mg/dL (<150)
[2022-06-02] MEDS: DOCUSATE SODIUM 100 MG CAPSULE PO SCH ×2 (09:11→09:13)
[2022-06-02] MEDS: LEVOTHYROXINE 100 MCG TABLET PO SCH (09:11)
[2022-06-02] MEDS: OMEPRAZOLE 20 MG CAPSULE PO SCH (09:11)
[2022-06-02] MEDS: OSELTAMIVIR PHOSPHATE 75 MG CAPSULE PO SCH (09:11)
[2022-06-02] MEDS: HYDROmorphone 0.5 MG/0.5 ML SYRINGE IV PRN ×2 (11:01→14:00)
--- NOTE | 2022-06-02 12:27 | Discharge Summary ---
Discharge Provider Provider IMPORTANT FOLLOW-UP INFORMATION FOR PCP: Patient information: Note initiated : 06/02/22 at 12:22 pm Service Date, if different from initiated Date: [] Patient: Estela Man 51 y/o F admitted on 05/30/22 for Shortness of breath. Chief Complaint: [] Date of admission: 05/30/22 22:25 Discharge date: 06/02/22 Primary care physician: Todd Schaefer Consults: 05/30/22 Consult to Physician [CONS] Stat Comment: Consulting Provider: Lyn Sutton Reason For Exam: Physician to Consult 05/31/22 11:26 Consult to Physician [CONS] Routine Comment: Consulting Provider: Abram Rae - ID Reason For Exam: Physician to Consult COURSE Hospital Course Hospital course: Fely Man is a 51-year-old female with a history of atrial fibrillation on Coumadin, COPD, obstructive sleep apnea, chronic hypoxia with about a 2 L/min nasal cannula oxygen requirement who recently had an empyema treated with chest tube and intrapleural lytic therapy along with IV antibiotics then discharged on Augmentin who was admitted to the hospital for acute on chronic hypoxic respiratory failure and found to have a residual right-sided empyema in the lateral right lung base. The patient was initially treated with broad-spectrum IV antibiotics. She was also found to have influenza A and treated with Tamiflu. Blood cultures did not grow any organisms. The patient was discussed with her primary care provider who is also an infectious disease specialist, Dr. Betina Dean, who recommended treating the patient with ceftriaxone and oral Flagyl for at least [address] Dean will follow up the patient after discharge for further antibiotic therapy and monitoring for antibiotic side effects with weekly labs of CBC, CMP, ESR, CRP. The patient will have a a PICC line placed on the day of discharge after blood cultures did not grow any organisms for more than 48 hours. She will then be discharged to home with the plan to receive daily ceftriaxone infusions at the [facility] infusion center, take oral metronidazole for 3 weeks. She will complete 5 days of Tamiflu for influenza A. She will follow-up with Dr. Dean as previously discussed. The patient is at high risk for failing antibiotic therapy for empyema and may need a referral to cardiothoracic surgery for VATS decortication. Physical exam Head: Atraumatic, normal inspection. Eyes: normal appearance, no scleral icterus. Neck: full ROM Respiratory: no respiratory distress. Cardiovascular: normal rate and rhythm, S1, S2. GI/Abdominal: soft, nontender, no guarding. Extremities: full range of motion, nontender. Neurological: CN II-XII intact, intact motor, intact sensation. Psychiatric: normal mood. Skin: warm, normal color Discharge diagnosis: Empyema Secondary discharge diagnosis: Influenza A Time Spent with Patient Time attestation: Total time spent providing and/or coordinating discharge services: Time spent: Greater than 30 minutes EXAM Constitutional Vitals: Temp Pulse Resp BP Pulse Ox O2 Del Method O2 Flow Rate 97.7 F 96 H 20 122/76 95 1 06/02/22 09:15 06/02/22 09:15 06/02/22 09:15 06/02/22 09:15 06/02/22 09:15 06/02/22 09:15 06/02/22 09:15 Discharge Data Data Completed and Pending Labs on day of discharge: Labs from last 24 hours 06/02/22 06/02/22 06/02/22 05:30 05:30 05:30 WBC 2.7 L RBC 3.86 Hgb 11.6 Hct 36.6 MCV 94.8 MCH 30.1 MCHC 31.7 RDW 16.4 H Plt Count 234 MPV 9.4 Immature Gran % (Auto) 0.4 Neut % (Auto) 50.0 Lymph % (Auto) 33.2 Bee % (Auto) 12.8 H Eos % (Auto) 2.9 Baso % (Auto) 0.7 Lymph # (Auto) 0.91 L Bee # (Auto) 0.35 Eos # (Auto) 0.08 Baso # (Auto) 0.02 Immature Gran # 0.01 Absolute Neutrophils 1.37 L PT 16.1 H INR 1.2 H Sodium 140 Potassium 3.5 Chloride 99 Carbon Dioxide 36 H Anion Gap 5.0 L BUN 8 Creatinine 0.4 L GFR Calculation 120 Glucose 94 Uric Acid 4.0 Calcium 8.9 Phosphorus 3.3 Magnesium 1.5 L Total Bilirubin 0.3 Direct Bilirubin < 0.2 GGT 109 H AST 19 ALT 16 Alkaline Phosphatase 175 H Lactate Dehydrogenase 130 L Total Protein 6.4 Albumin 3.3 Globulin 3.1 Albumin/Globulin Ratio 1.1 Triglycerides 93 Preliminary micro results at discharge 05/30/22 15:19 Blood Culture - Preliminary Blood 05/30/22 15:01 Blood Culture - Preliminary Blood Discharge Plan Patient/Caregiver Discharge Instructions Activity: increase activity as tolerated Diet: Regular Diet Prescriptions: New ceftriaxone 2 gram recon soln 2 g IV Q24H 21 Days Qty: 21 0RF metronidazole 500 mg Tablet 500 mg PO Q8 21 Days Qty: 63 0RF oseltamivir 75 mg Capsule 75 mg PO BID 4 Days Qty: 8 0RF Continued Trelegy Ellipta 100-62.5-25 mcg blister with device 1 inh PO QDAY Qty: 60 5RF ipratropium-albuterol 0.5 mg-3 mg(2.5 mg base)/3 mL solution for nebulization 3 ml INHALATION QID PRN (Reason: Wheezing) metoprolol succinate 25 mg tablet extended release 24 hr 50 mg PO QHS clonazepam 1 mg tablet 0.5 mg PO QHS PRN (Reason: Anxiety) diltiazem HCl 240 MG capsule,ext.rel 24h degradable 240 mg PO QHS sertraline 100 MG tablet 200 mg PO QHS levothyroxine 100 MCG tablet 100 mcg PO DAILY albuterol sulfate 1 PUFF inhaler 1 puff INH Q4HP PRN (Reason: Shortness Of Breath) omeprazole 20 MG capsule 20 mg PO QAM montelukast [Singulair] 10 mg tablet 10 mg PO QHS warfarin 1 mg Tablet 1 mg PO HS Rx Instructions: dose changes with INR levels vitamin B complex Capsule 1 cap PO HS oxycodone 10 mg tablet 1 tab PO QIDP PRN (Reason: Pain) Follow Up Plan Follow up with: Paul Schaefer MD [Primary Care Provider] - Betina Bolanos MD [Physician] - (Please call Mon/Tues and schedule a hospital follow up appointment to be seen in 7-10 days.) Patient Disposition: Home, Self-Care Overall status at discharge: patient is progressing back to baseline Discharge Orders: Discharge Order (Routine); Ordered 06/02/22 Ordered By: Deon GONZALES VTE Deep Vein Thrombosis/Pulmonary Embolism Present on Admission: No
--- NOTE | 2022-06-02 13:24 | XRay Report ---
HISTORY: PICC line insertion FINDINGS: A PICC line has been inserted through the left arm. The catheter passes through the superior vena cava and right side of the heart. The tip is located in the inferior aspect of the right atrium above the diaphragm. No pneumothorax or widening in the mediastinum are present. There is an infiltrate in the right lower thorax and small right-sided pleural effusion. The left lung is clear. The heart is mildly enlarged. There is no congestive heart failure. IMPRESSION: PICC line placed in the inferior aspect of the right atrium of the heart. This could be pulled back 8 cm.. Stable infiltrate in the right lung base and pleural effusion with no change since 05/30/22 Interpreted and Authenticated by: Sourav Gimenez 06/02/22
[2022-06-02] MEDS: cefTRIAXone 2 GM in DEXTROSE 5% IN WATER 50 ML IV SCH (13:49)
[2022-06-02] MEDS: MAGNESIUM SULFATE 2 GM/50 ML BAG IV SCH ×2 (13:49→14:07)
[2022-06-02] MEDS ORDERED: WARFARIN 2 MG TABLET PO SCH (14:00)
== END 2022-06-02 15:30 | disposition home or self-care (01) | DRG 177 ==
LOC: ED 13:43 → MEDSUR 22:25
PROVIDERS: ADMIT Internal Medicine; ATTEND Internal Medicine